=== PATIENT | male | born 1970 | race Two or more races ===

== ENCOUNTER → 2024-03-19 | Outpatient (CLI) | payer MEDICAID, SELFPAY ==
--- NOTE | 2024-03-19 15:20 | XR_ITS ---
Examination: Thoracic spine 3 views Technique one AP lateral coned lateral upper dorsal spine 3 views Exam date and time: March 19, 2024 1538 hours INDICATIONS: Back pain this month FINDINGS: Thoracic levoscoliosis 10 degrees No thoracic fracture Mild thoracic spondylosis Mild diffuse thoracic degenerative disc disease IMPRESSION: Mild diffuse thoracic degenerative disc disease
--- NOTE | 2024-03-19 15:20 | XR_ITS ---
Examination: Lumbar spine, 5 views Technique: Lumbar spine AP, lateral, coned lateral lower lumbar spine, bilateral obliques 5 views Exam date and time: March 19, 2024 1528 hours INDICATIONS: Low back pain months. FINDINGS: Mild osteopenia No lumbar fracture Moderate to advanced degenerative disc disease L4-L5, L5-S1 No spondylolisthesis IMPRESSION: Moderate to advanced lumbar degenerative disc disease L4-L5, L5-S1
== END | disposition home or self-care (01) ==
PROVIDERS: PCP Nurse Practitioner Family; Referring Provider Nurse Practitioner Family; Visit Provider Nurse Practitioner Family
DX: M51.34 Other intervertebral disc degeneration, thoracic region (principal); M51.369 Other intervertebral disc degeneration, lumbar region without mention of lumbar back pain or lower extremity pain; M51.379 Other intervertebral disc degeneration, lumbosacral region without mention of lumbar back pain or lower extremity pain
CPT/HCPCS: 72072; 72110

== ENCOUNTER 2024-06-09 16:13 | Emergency (ER) | payer MEDICAID, SELFPAY ==
[2024-06-09 16:23] VITALS: BP 162/95; PULSE 86; RESP 18; TEMP 37.1; O2SAT 95
--- NOTE | 2024-06-09 16:40 | XR_ITS ---
Examination: CT abdomen with intravenous contrast CT pelvis with intravenous contrast 2-D coronal reconstructions 2-D sagittal reconstructions Date and time of exam:June 09, 2024 2030 hrs. Comparison February 07, 2016 Indications: Lower right-sided flank pain abdominal pain beginning 3 days ago. CTDI: vol (mGy) 6.60 DLP: (mGycm) 392 Technique: Multiple axial sections of the abdomen and pelvis have been obtained. 64 slice high-resolution scanner used. 3 mm axial sections have been obtained, post intravenous injection 60 cc Isovue-370 2-D sagittal, coronal reconstructions obtained. Low dose protocols were performed. One or more of the following dose reduction techniques were used; automated exposure control, adjustment of the mA and/or KV according to patient size, use of iterative reconstruction technique. Findings: Multiple liver lesions, the largest in left lobe 35 mm, the largest in the right lobe 34 mm Absent gallbladder Necrotic mass tail of the pancreas 48 x 49 mm Spleen is not enlarged No adrenal mass Subcentimeter left lateral periaortic lymph nodes No hydronephrosis Normal appendix No bowel obstruction Colonic diverticulosis Urinary bladder intact No prostatomegaly Advanced degenerative disc disease L5-S1 Impression: Necrotic mass tail the pancreas, 48 x 49 mm, pancreatic carcinoma Multiple hepatic metastases
--- NOTE | 2024-06-09 16:41 | EDRME_ITS ---
Rapid Medical Screening Exam [facility] Arrival date/time: 06/09/24 16:13 54-year-old male presents to the emergency department plaint of right epigastric pain x 2 weeks with 15 pound. Chief Complaint: Abdominal Pain Vital signs: Vital Signs Temperature 98.8 F 06/09/24 16:23 Pulse Rate 86 06/09/24 16:23 Respiratory Rate 18 06/09/24 16:23 Blood Pressure 162/95 H 06/09/24 16:23 Pulse Oximetry (%) 95 06/09/24 16:23 Oxygen Delivery Method Room Air 06/09/24 16:23
[2024-06-09 17:32] LABS: Collection Type, Urine Clean Catch; Squamous Epithelial Cell,Urine 0 /hpf (0-5)
[2024-06-09 17:40] LABS: Bilirubin,Urine Negative (Negative); Blood,Urine 1+ (Negative); Clarity,Urine Clear (Clear/Hazy); Color,Urine Yellow (Lt Yel-Yel); Glucose, Urine Negative (Negative); Ketones,Urine Trace (Negative); Leukocyte Esterase,Urine Negative (Negative); Nitrite,Urine Negative (Negative); PH,Urine 6.5 (5.0-7.0); Protein,Urine Trace (Neg - Trace); RBC,Urine 3 /hpf (0-3); Specific Gravity,Urine 1.032 (1.001-1.035); WBC,Urine 1 /hpf (0-5)
[2024-06-09 17:57] LABS: Basophils # (Auto) 0.1 Thou/mm3 (0.0-0.2); Basophils % (Auto) 1 % (0-2.5); Eosinophils # (Auto) 0.1 Thou/mm3 (0.0-0.5); Eosinophils % (Auto) 1 % (0-10); Hematocrit 40.3 % (41.0-53.0); Hemoglobin 13.5 g/dL (13.5-16.0); Immature Granulocytes % (Auto) 1 % (0-0); Immature Granulocytes Auto 0.08 Thou/mm3 (0.00-0.00); Lymphocytes # (Auto) 1.9 Thou/mm3 (1.0-4.8); Lymphocytes % (Auto) 16 % (10-50); Mean Corpuscular HGB Conc 33.5 g/dl (31.0-37.0); Mean Corpuscular Hemoglobin 30.4 pg (25.0-35.0); Mean Corpuscular Volume 91 fL (80-100); Monocytes # (Auto) 1.3 Thou/mm3 (0.0-0.8); Monocytes % (Auto) 11 % (0-12); Neutrophils # (Auto) 8.4 Thou/mm3 (1.8-7.7); Neutrophils % (Auto) 71 % (37-80); Nucleated Red Blood Cell % 0 /100 WBC (0); Platelet Count 276 Thou/mm3 (140-440); RDW Standard Deviation 40.3 fL (35.1-43.9); Red Blood Count 4.44 Miln/mm3 (4.50-5.90); White Blood Count 11.8 Thou/mm3 (3.8-10.6)
[2024-06-09 18:13] LABS: Alanine Aminotransferase 26 U/L (10-49); Albumin, Serum 5.1 gm/dL (3.5-5.0); Albumin/Globulin Ratio 1.6 (1.2-2.2); Alkaline Phosphatase 164 U/L (46-116); Anion Gap 10 (7-16); Aspartate Amino Transferase 19 U/L (0-34); BUN/Creatinine Ratio 16 Ratio (12-20); Bilirubin,Total 0.6 mg/dL (0.3-1.2); Blood Urea Nitrogen 13 mg/dL (9-23); Calcium 10.2 mg/dL (8.3-10.6); Calcium (Corrected) 10.2 mg/dL (8.5-10.1); Carbon Dioxide 27.6 mMol/L (20.0-31.0); Chloride 104 mMol/L (98-107); Creatinine (Component) 0.8 mg/dL (0.6-1.3); Globulin 3.2 gm/dL (2.3-3.5); Glucose 115 mg/dL (74-106); Lipase 35 U/L (12-53); Osmolality,Calculated 284 (275-295); Potassium 3.7 mMol/L (3.4-5.1); Sodium 142 mMol/L (136-145); Total Protein 8.3 gm/dL (5.7-8.2); eGFR > 60 See Note
--- NOTE | 2024-06-09 21:53 | PD.EDABDPN ---
ED Abdominal Pain RME/HPI General Chief Complaint: Abdominal Pain Stated complaint: ABD PAIN X MAR; VOMITNG, DIARRHEA Time seen by provider: 06/09/24 20:58 Arrival date/time: 06/09/24 16:13 RME / HPI RME / HPI narrative: 06/09/24 16:13 54-year-old male presents to the emergency department plaint of right epigastric pain x [address] Bernal?s Main ED Evaluation: 54yo male presents to the ED for a chief complaint of epigastric pain x March. Patient states he started having epigastric pain 2 months ago, reporting it's progressively gotten worse over the last 2 weeks. Patient states he recently started seeing a new PCP, but has only done bloodwork for his symptoms. Patient endorses having a decreased appetite, feeling generally weak, and losing 15 pounds over the last 3 weeks. He endorses taking Tylenol at home without any alleviation of symptoms, so he came in for evaluation. He denies any nausea, vomiting, fever, chills or any other associated symptoms. PSH includes cholecystectomy. Related Data Home Medications ?Medication ?Instructions ?Recorded ?Confirmed ergocalciferol (vitamin D2) 1,250 1 cap PO QWEEK 11/13/21 11/14/21 mcg (50,000 unit) capsule (Vitamin D2) lisinopril 10 mg tablet 1 tab PO DAILY 11/13/21 11/14/21 rimegepant 75 mg disintegrating 1 tab PO DAILY 11/13/21 11/14/21 tablet (Nurtec ODT) sertraline 25 mg tablet 1 tab PO DAILY 11/13/21 11/14/21 Held on 11/14/21. Instructions: Resume on 11/15/21. Previous Rx's ?Medication ?Instructions ?Recorded alprazolam 0.25 mg disintegrating 0.25 mg PO BID PRN anxiety #10 tabs 04/28/18 tablet Held on 11/14/21. Instructions: Resume on 11/15/21. ondansetron 4 mg disintegrating 4 mg PO Q6H PRN nausea and 06/09/24 tablet vomiting #20 tabs oxycodone 5 mg capsule 5 mg PO Q6H PRN pain 5 days #20 06/09/24 caps Allergies Allergy/AdvReac Type Severity Reaction Status Date / Time erythromycin base Allergy Mild Rash Verified 06/09/24 16:15 amoxicillin Allergy Unknown Verified 06/09/24 16:15 PERSIMMON Allergy Mild FLU LIKE Uncoded 06/09/24 16:15 SYMPTOM Review of Systems Review of Systems Systems Reviewed: All systems reviewed, normal except as documented Past Medical History Past Medical History NEUROLOGIC: Positive Neurological Disorders and Migraine; Negative Seizures CARDIAC: Positive Hypercholesterolemia (NO MEDS) and Hypertension; Negative Cardiac Disorders or Congestive Heart Failure RESPIRATORY: Negative Chronic Obstructive Pulmonary Disease (COPD), Asthma or Sleep Apnea GASTROINTESTINAL: Negative Gastrointestinal Disorders GENITOURINARY: Negative Genitourinary Disorders or Renal Disease MUSCULOSKELETAL: Negative Musculoskeletal Disorders ENDOCRINE: Negative Diabetes Mellitus Type 1 or Diabetes Mellitus Type 2 HEMATOLOGIC: Negative Sickle Cell Disease PSYCHO/SOCIAL: Positive Anxiety and Post Traumatic Stress Disorder OTHER HISTORY: Positive Anesthesia Reactions (n/v) and Chicken Pox; Negative Blood Transfusions, Measles, Mumps or Cancer Family History FAMILY HISTORY: Positive Family Cancer (FATHER - COLORECTAL CANCER) Surgical History SURGICAL: Negative Cardiac Surgery, Endocrine Surgery or Ear Surgery Social History SMOKING STATUS: Never smoker ED Exam Narrative Physical exam: GENERAL APPEARANCE: alert and oriented x 4, no acute distress VITALS: All vitals were reviewed and the pulse ox is 95% on room air, which is normal according to my interpretation. HEENT: Normocephalic, atraumatic; pupils equal, round, reactive to light; EOMI; mucous membranes pink, moist; oropharynx clear NECK: Supple LUNGS: CTABL; no wheezes, no rales, no rhonchi HEART: Regular rate, regular rhythm; normal S1, S2; no murmurs ABDOMEN: non distended; normal BS; soft, mild epigastric and RUQ tenderness, no guarding, no rebound; no masses, no organomegaly, no hernia BACK: no CVA tenderness EXTREMITIES: atraumatic; no edema NEUROLOGIC: awake; alert and oriented x4; cranial nerves II-XII grossly intact; no focal sensory or motor deficits PSYCHIATRIC: appropriate mood and affect SKIN: warm, dry, normal color; no rashes Course Quality Measures none Orders Category Date Time Status CT Screening NOW Care 06/09/24 16:40 Completed IV [Insert IV] NOW Care 06/09/24 16:[address] abdomen pelvis w con Stat Exams 06/09/24 16:40 Completed CBC Stat Lab 06/09/24 17:14 Completed Comprehensive Metabolic Panel Stat Lab 06/09/24 17:14 Completed Lipase Stat Lab 06/09/24 17:14 Completed Urinalysis Stat Lab 06/09/24 17:11 Completed Vital Signs Vital signs: Vital Signs Temperature 98.8 F 06/09/24 16:23 Pulse Rate 86 06/09/24 16:23 Respiratory Rate 18 06/09/24 16:23 Blood Pressure 162/95 H 06/09/24 16:23 Pulse Oximetry (%) 95 06/09/24 16:23 Oxygen Delivery Method Room Air 06/09/24 16:23 Abdominal Pain MDM MDM Narrative MDM Narrative:: Scribe Attestation: 06/09/24 - Cindy Avalos am scribing for and in the presence of Dr. Bernal. Patient data External records reviewed:: [facility] previous records (Per chart review, patient has no relevant previous ED visits.) Clinical information provided by:: patient Social determinants that could affect healthcare access:: none Patient has the following chronic illnesses:: HTN How is presenting disease/condition affected by chronic disease/condition?: uneffected by Evaluation data The following diagnostics were reviewed and interpreted by me:: lab results and radiology exam(s) Lab and/or radiology exams considered but not ordered:: none Interpretation Summary: WBC count is 11.8, AST is elevated, UA is unremarkable, according to my interpretation. [facility] Report Signed Patient: ANNIE FAY [facility]. Record#: [id number] Birthdate: 1970 Age/Sex: 54 / M Location: [facility] Attending Dr: Ordering Physician: Luciano Greenwood PA-C Date of Service: 06/09/24 Procedure(s): CT abdomen pelvis w con Accession Number(s): [id number] cc: Benjie Carlin; Evan Jones MD; Luciano Greenwood PA-C~ Examination: CT abdomen with intravenous contrast CT pelvis with intravenous contrast 2-D coronal reconstructions 2-D sagittal reconstructions Date and time of exam:June 09, 2024 2030 hrs. Comparison February 07, 2016 Indications: Lower right-sided flank pain abdominal pain beginning 3 days ago. CTDI: vol (mGy) 6.60 DLP: (mGycm) 392 Technique: Multiple axial sections of the abdomen and pelvis have been obtained. 64 slice high-resolution scanner used. 3 mm axial sections have been obtained, post intravenous injection 60 cc Isovue-370 2-D sagittal, coronal reconstructions obtained. Low dose protocols were performed. One or more of the following dose reduction techniques were used; automated exposure control, adjustment of the mA and/or KV according to patient size, use of iterative reconstruction technique. Findings: Multiple liver lesions, the largest in left lobe 35 mm, the largest in the right lobe 34 mm Absent gallbladder Necrotic mass tail of the pancreas 48 x 49 mm Spleen is not enlarged No adrenal mass Subcentimeter left lateral periaortic lymph nodes No hydronephrosis Normal appendix No bowel obstruction Colonic diverticulosis Urinary bladder intact No prostatomegaly Advanced degenerative disc disease L5-S1 Impression: Necrotic mass tail the pancreas, 48 x 49 mm, pancreatic carcinoma Multiple hepatic metastases Dictated By: Evan Jones MD Signed By: <Electronically signed by Evan Jones MD in OV> 06/09/24 6752 Medications / Prescriptions Medications or Prescriptions considered but not ordered:: none Medication administrations:: see above Consultations Consultation(s) initiated? (list below): No Diagnosis Differential diagnosis abdominal pain: pancreatitis and other (cholecystitis, cholelithiasis, gastritis) Most likely diagnosis given after review of the tests above:: see clinical impression below Admission Indicated Admission indicated?: not indicated Admission Request Was there a request for admission?: No Disposition Plan Disposition Plan: Discharge Discharge Attestation Discharge Attestation: The patient and all family members were given an opportunity to ask questions and understood the discharge instructions. Discharge instructions specifically effects, indications for sooner follow up or return to the emergency department, and the expected course of current diagnosis. Patient condition: Stable Discharge Plan Plan Patient Disposition: HOME (Self Care) Disposition Comment: Stable for discharge home Patient condition on transfer: Stable Prescriptions/Referrals Prescriptions/Med Rec: New oxycodone 5 mg capsule 5 mg PO Q6H MDD 4 caps PRN (Reason: pain) 5 Days Qty: 20 0RF ondansetron 4 mg tablet,disintegrating 4 mg PO Q6H PRN (Reason: nausea and vomiting) Qty: 20 0RF No Action alprazolam 0.25 mg tablet,disintegrating 0.25 mg PO BID PRN (Reason: anxiety) Qty: 10 0RF lisinopril 10 mg tablet 1 tab PO DAILY Patient Comments: take 1 tablet by mouth once daily sertraline 25 mg tablet 1 tab PO DAILY Patient Comments: take 1 tablet by mouth once daily ergocalciferol (vitamin D2) [Vitamin D2] 1,250 mcg (50,000 unit) capsule 1 cap PO QWEEK Patient Comments: take 1 capsule by mouth every week Nurtec ODT 75 mg tablet,disintegrating 1 tab PO DAILY Patient Comments: take 1 tablet by mouth every other day Referrals: Benjie Carlin FNP [Primary Care Provider] - In 1 week Problem List Clinical Impression: Pancreatic mass Patient/Caregiver Discharge Instructions Discharge Activity: activity as tolerated Diet Instructions: No dietary restrictions Additional Instructions: After being discharged from the ER for a pancreatic mass, it's crucial to?follow any specific instructions provided by your doctor or nurse regarding medication, diet, and activity restrictions.?Generally, you'll need to follow up with your doctor, potentially undergo further tests, and be aware of potential symptoms to watch for.? Immediate Home Care: Follow up with your doctor:Schedule a follow-up appointment as directed to discuss the results of imaging studies and potential treatment options, according to a report by the [employer] [place].Medication:Take all prescribed medications as directed by your doctor, including pain relievers, anti-nausea medications, and other treatments for pancreatic cancer.?Diet:Follow any specific dietary instructions provided by your doctor or a registered dietitian.?This may include limiting fat intake, eating smaller, more frequent meals, and avoiding certain foods.?Activity:Follow any activity restrictions provided by your doctor.?You may need to avoid heavy lifting, strenuous exercise, or other activities that could strain your body, according to a study published in the [place] Journal of Surgery.? Print Language: Colombian Stand Alone Forms: Annie Award Info., Patient Portal Info Letter
--- NOTE | 2024-06-10 15:32 | EDNOTE_ITS ---
Emergency Room Addendum Addendum Narrative: I was called by the pharmacy at [facility] for this patient because they did not have the capsules in stock and wanted to substitute tablets. Unfortunate was busy with other patients at the time so later on at 1531 I canceled the other prescription and sent the tablets over this was rejected by the electronic system so I called the pharmacy and the pharmacist tells me that they sent the patient to another sister pharmacy to get the capsules and the prescription was filled as originally written. Note my computer shows we canceled the prescription and obviously that is an error at this point but uncertain how to get this corrected electronically. This is a service documentation for that.
== END 2024-06-09 22:40 | disposition home or self-care (01) ==
PROVIDERS: Physician Assistant; Emergency Provider Emergency Medicine
DX: K86.89 Other specified diseases of pancreas (principal)
CPT/HCPCS: 36415; 74177; 80053; 81001; 83690; 85025; 99285; A4649; Q9967

== ENCOUNTER 2024-06-30 08:49 | Outpatient (RCR) | payer MEDICAID, SELFPAY ==
--- NOTE | 2024-07-08 14:16 | CTCCONSULT_ITS ---
Patient: ANNIE FAY : 1970 MR#: [id number] Page 3 of 4 CONSULTATION NOTE DATE OF CONSULTATION: 06/30/2024 NAME: ANNIE FAY ACCOUNT: [id number] : 1970 AGE: 54 REFERRING PHYSICIAN: Benjie Carlin MD PRIMARY PHYSICIAN: Benjie Carlin MD HISTORY OF PRESENT ILLNESS: Subjective: Chief Complaint Abnormal CT scan findings in pancreas and liver, 20-pound weight loss since February, abdominal pain since February History of Present Illness Sharan Sparks presents with concerns of a possible pancreatic mass discovered on a recent CT scan during a hospital visit. The patient reports significant weight loss of about 20 pounds since February, which is approximately 5 months ago. The patient describes experiencing pain that began in February, for which he was initially prescribed oxycodone in the emergency room. However, the oxycodone was ineffective in managing his pain, and he is currently using morphine for long- term pain relief. The pain is described as severe, which is consistent with pancreatic cancer. The patient's history includes smoking and alcohol use. He began smoking at age 19, initially a pack at a constitution party, then abstained until age 20. During his school years, he smoked approximately one pack every 3-4 weeks. His alcohol consumption was primarily limited to weekends with friends, never drinking alone or as an escape. He reports being unable to consume more than two drinks at a time and at most, drinking two drinks per week sporadically. The patient states he hasn't had alcohol for 3-4 years and smoked his last cigarette 8 months ago. The patient denies any current vomiting or inability to hold down food, which would indicate obstruction. He also denies any significant history of alcohol use that would increase his risk of pancreatic cancer. Medications and Supplements - Morphine - For long-term pain relief - Oxycodone (Oxy) - Prescribed by ER for pain - Didn't work effectively Review of Systems General: Positive for weight loss. Gastrointestinal: Positive for abdominal pain. Objective: Vital Signs - Weight: 20 pounds lost since February Laboratory, Imaging, and Diagnostic Test Results - CT scan: Abnormal findings in pancreas and liver, suggestive of pancreatic cancer with metastasis to liver OTHER MEDICAL HISTORY/CONDITIONS: Mass pancreatice tail with probable liver metastasis - GERD Depression/ Anxiety Cholecystectomy - 2016 Repear of Luz- Wiess tear- 1998 FAMILY HISTORY: Father:?Colon?-?dx?60's Mother:?Basal?cell?skin?-?dx?35 Cancer History:?Mat grandfather- lung - dx 60's SOCIAL HISTORY: Occupational?History:?Unemployed Education?Level:?College Graduate, 2 year degree Marital?Status:? Tobacco?Use:?Denies ETOH?Use:?Denies Drug?Note:?Smoke marijuana daily x 10yrs Social?History?Note:?Lives?alone MEDICATIONS: 1. acetaminophen - 650 mg 1 tab Three times a day 2. cetirizine - 10 mg 1 tab Daily 3. DULoxetine - 40 mg 1 Capsule Daily 4. fluticasone furoate - 27.5 mcg/actuation 1 spray Daily 5. metoclopramide HCl - 10 mg 1 tab Every 8 Hours 6. Morphine Sulfate CR - 15 mg 1 tab Twice a Day 7. Nurtec ODT - 75 mg 1 tab Every other day 8. omeprazole - 20 mg 1 Capsule Daily 9. Vitamin D2 - 1,250 mcg (50,000 unit) 1 Capsule Weekly 10. ZOFRAN ODT - 4 mg 1 tab Every 6 Hours Medications Last Reconciled by Monique Farmer RN on 06/30/2024 ALLERGIES: Penicillins; erythromycin REVIEW OF SYSTEMS: A complete 14-point review of systems was performed and is negative except as noted in interval history. PHYSICAL EXAMINATION: VITAL SIGNS: Temperature?99.9, B/P?131/84, Height?67?inches, Oxygen?Saturation?93% Weight?157?lbs PAIN: 6 - Severe pain ECOG Performance Status: 1 - Symptomatic; ambulatory; restricted in strenuous activity GENERAL APPEARANCE: Appears well, in no apparent distress, appropriately interactive. HEENT: Normocephalic, no temporal wasting, normal conjunctiva, no scleral icterus, normal hearing, lips without lesions, neck normal range of motion. CARDIOVASCULAR: Not assessed. PULMONARY: Normal respiratory effort, no respiratory distress or use of accessory muscles, speaking in full sentences, no tachypnea. EXTREMITIES: No pedal edema or cyanosis. SKIN: Normal skin appearance. NEUROLOGIC: Alert and oriented x4. PSHYCHIATRIC: Appropriate affect, mood normal, behavior normal, intact thought and speech. LABORATORY DATA: I have personally reviewed and interpreted each of the patient?s relevant lab tests, abnormal findings are below: Date ASSESSMENT/PLAN: Assessment and Plan: Sharan Sparks, male patient with suspected pancreatic cancer based on recent CT scan findings, presenting with significant weight loss and pain since February. Suspected Pancreatic Cancer Assessment: Patient presents with suspected pancreatic cancer based on recent CT scan findings showing a mass in the pancreas and liver. Significant weight loss of 20 pounds since February and pain requiring morphine for long-term relief support this suspicion. The patient has a history of intermittent smoking since age 19 (last cigarette 8 months ago) and moderate alcohol consumption in his 40s (abstinent for 3-4 years), which are risk factors for pancreatic cancer. However, the extent of smoking and alcohol use is less than initially thought, potentially reducing the likelihood of pancreatic cancer. Symptoms have been present for approximately 5 months, indicating potential disease progression. Di fferential diagnosis includes other hepatobiliary conditions. Confirmation of diagnosis is pending further testing and specialist evaluation. Plan: - Order CA19-9 blood test today for pancreatic cancer screening - Order alpha-fetoprotein test for liver cancer screening - Refer to hepatobiliary surgeon for diagnostic evaluation (not surgery) - Refer to radiology for biopsy (expected 2-3 weeks for scheduling) - Refer to Dr. Landers for pain management - Order hepatitis screening - Place orders for chemotherapy preparation (pending diagnosis confirmation) - Schedule port placement for potential chemotherapy (pending diagnosis confirmation) - Develop chemotherapy plan (pending diagnosis confirmation) - Follow up in 3 weeks to review test results and specialist evaluations Chronic Pain Assessment: Patient reports chronic pain since February, initially managed with oxycodone in the emergency room, which was ineffective. Currently on morphine for long-term pain relief, which appears to be more effective. Pain is potentially related to the suspected pancreatic mass. Plan: - Refer to Dr. Landers for pain management - Continue current pain management regimen (morphine, dosage not specified) pending pain specialist evaluation ORDERS: Order # Description [id number] MD Follow Up 4 Week [id number] Comprehensive Metabolic Panel - 12 + CBC with Auto Diff [id number] CA 19-9 [id number] CA 15-3 [id number] CA 19-9 + Comprehensive Metabolic Panel - 12 + CBC with Auto Diff + MD Follow Up 2 Months [id number] + Hep A, B and C panel [id number] MD Follow Up 3 Week [id number] [facility] RETURN TO CLINIC: 3 weeks BILLING AND COMPLIANCE: I reviewed external records from providers outside my specialty as summarized above. I spent a total of 50 minutes on this patient?s care on the day of their visit excluding time spent related to any billed procedures. This time includes time spent with the patient as well as time spent documenting in the medical record, reviewing patients records and tests, obtaining history, placing orders, communicating with other healthcare professionals, counseling the patient, family or caregiver, and/or care coordination for the diagnoses above. Electronically Signed by: Rex Pascual MD T: 9:51 PM CC: PCP: Benjie Carlin Referring: Benjie Carlin This document was completed utilizing speech recognition software. Grammatical errors, random word insertions, pronoun errors, and incomplete sentences are an occasional consequence of this system due to software limitations, ambient noise, and hardware issues. Any formal questions or concerns about the content, text or information contained within the body of this dictation should be directly addressed to the provider for clarification.
== END 2024-07-17 23:59 | disposition home or self-care (01) ==
LOC: SCTC 08:49
PROVIDERS: Visit Provider Internal Medicine Hematology & Oncology
DX: K86.89 Other specified diseases of pancreas (principal); K76.89 Other specified diseases of liver; R63.4 Abnormal weight loss; G89.29 Other chronic pain
CPT/HCPCS: 99213; G0463

== ENCOUNTER 2024-07-05 08:41 | Inpatient (IN) | payer MEDICAID, SELFPAY ==
[2024-07-05] VITALS (10 sets, daily range): BP systolic 112–144; BP diastolic 67–79; PULSE 78–125; RESP 16–95; TEMP 36.5–38.9; O2SAT 95–98; BMI 24.2; BMI 24.6
--- NOTE | 2024-07-05 09:02 | PC.NURSE ---
PT BROUGHT IN BY EMS FOR FEVER FOR THE LAST WEEK ON AND OFF. PT STATES THAT HE WAS WITH HIS FATHER THIS MORNING AND WAS NOTED TO BE OFF SO WAS BROUGHT IN FOR EVALUATION. PT STATES THAT HE DOSE HAVE A HX OF A PANCREATIC MASS THAT HE'S WAITING TO GET A BX DONE ON. PT IS A/O X4 AT THIS TIME. PT DOES C/O PAIN TO THE BACK AND ABD. PT RATES PAIN AT 5-[address] MACHADOIQ AT BEDSIDE.
--- NOTE | 2024-07-05 09:45 | EKG_ITS ---
[facility] (Formerly [facility])[3] Test Date: 2024-07-05 Pat Name: ANNIE FAY Department: Room: - Gender: Male Fitness Supervisor: : 1970 Requested By: Samuel Zarate Order Number: [id number] Reading MD: Samuel Zarate Measurements Intervals [place] Rate: 89 P: 49 MS: 160 QRS: 31 QRSD: 106 T: 36 QT: 347 QTc: 424 Interpretive Statements SINUS RHYTHM WITH OCCASIONAL VENTRICULAR PREMATURE COMPLEXES POSSIBLE LEFT ATRIAL ENLARGEMENT [-0.1mV P-WAVE IN V1/V2] Compared to ECG 11/05/2022 00:42:48 Ventricular premature complex(es) now present /store/S0/[id number]/ecg/[id number].pdf
--- NOTE | 2024-07-05 09:45 | XR_ITS ---
Examination: AP chest single view Technique one AP portable upright chest single view Date and time: July 05, 2024 0954 hours Comparison 11/05/2022 INDICATIONS: Coughing today sepsis alert FINDINGS: Subsegmental atelectasis in the left upper lobe No lobar pneumonia Normal heart size IMPRESSION: No lobar pneumonia
--- NOTE | 2024-07-05 09:52 | PD.EDADULT ---
ED General RME/HPI General Chief complaint: Fever Stated complaint: NAUSEA, VOMITING FEVER Time Seen by Provider: 07/05/24 08:50 Arrival date/time: 07/05/24 08:41 RME / HPI RME / HPI narrative: This patient is a 54-year-old male with past medical history of hypertension, history of PTSD and depression, migraines, degenerative disc disease,*?Possible pancreatic mass/ cancer due to CT from May 2024 showing pancreatic mass following oncologist, Dr. Pascual as outpatient presented to the ED with 1 week history of fever spikes spiking up to 104.2-103 F. Patient reported that fever spikes are usually in the morning and relieved temporarily with Tylenol ice water. Fever is associated with chronic abdominal pain which has been getting worse from last 1 week. Pain exacerbates with movement and he cannot lay on his back due to chronic back pain. He usually lays on his side. He rated his pain as 9 on 10 stabbing at some times and usually is dull. Pain is more in the epigastric region radiating to right upper quadrant associated with vomiting every morning since last 1 week. Patient has been constipated from last 3 days and had no bowel movement although he had passage of gas. He does have some frequency due to drinking water. He endorsed appetite loss and weight loss since May. He also reported to feel lightheaded and dizzy. Patient is currently waiting for biopsy appointment for pancreatic mass seen on the CT imaging in May 2024. Denies any recent travel or sick contacts. PMH: As above PSH: Cholecystectomy in 2016 SH: Denies smoking or drinking alcohol. No history of illicit drug use Allergies: Erythromycin and penicillin causes rash Home medications: Morphine extended release patient is elevated on dose, oxycodone 5/325 as needed for breakthrough pain, duloxetine 30 mg once daily, cetirizine Patient was tachycardic and febrile therefore sepsis alert was initiated. Vitals showed blood pressure 130/79, respiratory rate 20 and saturating well on room air. Patient was given diazepam 5 mg IV x 1 and morphine 6 mg IV x 1 in the ED. Blood sugars were 140 mg/dL. Sepsis bundle including CBC, CMP, lactic acid, INR, coagulation panel, chest x-ray, urinalysis, blood cultures and urine cultures were ordered. EKG showed sinus rhythm with occasional PVCs, QTc 394. No acute ST-T changes. Differential diagnoses include fever spikes related to possible malignancy/metastatic pancreatic cancer?, Pneumonia, UTI, advanced metastatic cancer Will follow-up with blood results. 12:25 Labs reviewed leukocytosis white count 32.1, normocytic anemia hemoglobin 10.9, hematocrit 32, platelet count 325. INR 1.2. Chemistry panel showed sodium 130, potassium 3.3, chloride 92, BUN 12, creatinine 0.7. Blood glucose 133. Lactic acid is pending. Corrected calcium 9.4. Magnesium 1.8. Liver enzymes are elevated AST 54, ALT 71, ALP 324. Procalcitonin 2.30. Urinalysis was unremarkable. U tox was not taken. CT abdominal pelvis revealed atelectasis versus pneumonia right base. Marked progression of hepatic metastatic disease compared with June 09, 2024. Enlarging mass 10 mm of the pancreas compared with June 09, 2024. Patient was given 2 L bolus of NS and PO 40 meq KCL and 1 g Mag x1. 12:30: Oncologist, Dr. Pascual was contacted for patient being in the ED. She stated that patient needs sepsis workup as his bilirubin slightly went up from 0.6->1.2 as well as she stated that we should treat the infection and try to investigate the cause. She recommended to give Levaquin 750 mg x 1 as patient is allergic to penicillin and vancomycin was given x 1. She stated that she will be doing chemotherapy as outpatient once we get the biopsy. She to follow-up with culture results before we discharge the patient. Patient was found to have oral thrush and nystatin swish and swallow was given. 12:[address] Ba hospitalist team regarding admission. Discussed patient's ED course, exam findings, labs and radiology results. Hospitalist team agreed to accept the patient for admission. complaint: Fever spikes 103 associated with abdominal pain Onset (ago): week(s) (1) Radiation: abdomen (Epigastric and right upper quadrant) Severity: severe Severity scale (1-10): 9 Quality: stabbing Consistency: intermittent Relieving factors: medication (Morphine and oxycodone) Associated symptoms: fever/chills, nausea/vomiting and other (Constipation) Treatments prior to arrival: none Related Data Home Medications ?Medication ?Instructions ?Recorded ?Confirmed ergocalciferol (vitamin D2) 1,250 1 cap PO QWEEK 11/13/21 11/14/21 mcg (50,000 unit) capsule (Vitamin D2) lisinopril 10 mg tablet 1 tab PO DAILY 11/13/21 11/14/21 rimegepant 75 mg disintegrating 1 tab PO DAILY 11/13/21 11/14/21 tablet (Nurtec ODT) sertraline 25 mg tablet 1 tab PO DAILY 11/13/21 11/14/21 Held on 11/14/21. Instructions: Resume on 11/15/21. Previous Rx's ?Medication ?Instructions ?Recorded alprazolam 0.25 mg disintegrating 0.25 mg PO BID PRN anxiety #10 tabs 04/28/18 tablet Held on 11/14/21. Instructions: Resume on 11/15/21. ondansetron 4 mg disintegrating 4 mg PO Q6H PRN nausea and 06/09/24 tablet vomiting #20 tabs oxycodone 5 mg tablet 5 mg PO Q6H PRN pain #20 tabs 06/10/24 Allergies Allergy/AdvReac Type Severity Reaction Status Date / Time erythromycin base Allergy Mild Rash Verified 07/05/24 08:46 amoxicillin Allergy Unknown Verified 07/05/24 08:46 NSAIDS (Non-Steroidal AdvReac Verified 07/05/24 10:25 Anti-Inflamma PERSIMMON Allergy Mild FLU LIKE Uncoded 07/05/24 08:46 SYMPTOM Review of Systems Review of Systems Systems Reviewed: All systems reviewed, normal except as documented Past Medical History Past Medical History NEUROLOGIC: Positive Neurological Disorders and Migraine; Negative Seizures CARDIAC: Positive Hypercholesterolemia (NO MEDS) and Hypertension; Negative Cardiac Disorders or Congestive Heart Failure RESPIRATORY: Negative Chronic Obstructive Pulmonary Disease (COPD), Asthma or Sleep Apnea GASTROINTESTINAL: Negative Gastrointestinal Disorders GENITOURINARY: Negative Genitourinary Disorders or Renal Disease MUSCULOSKELETAL: Negative Musculoskeletal Disorders ENDOCRINE: Negative Diabetes Mellitus Type 1 or Diabetes Mellitus Type 2 HEMATOLOGIC: Negative Sickle Cell Disease PSYCHO/SOCIAL: Positive Anxiety and Post Traumatic Stress Disorder OTHER HISTORY: Positive Anesthesia Reactions (n/v) and Chicken Pox; Negative Blood Transfusions, Measles, Mumps or Cancer Family History FAMILY HISTORY: Positive Family Cancer (FATHER - COLORECTAL CANCER) Surgical History SURGICAL: Negative Cardiac Surgery, Endocrine Surgery or Ear Surgery Social History SMOKING STATUS: Never smoker ED Exam Narrative Physical exam: GENERAL APPEARANCE: AxOx4, pale and weak appearing male in distress due to abdominal pain. HEENT: NC, AT. Dry mucous membrane with oral thrush. EOMI, clear conjunctiva, oropharynx with white coating. NECK: Supple without lymphadenopathy. No stiffness or restricted ROM. HEART: Sinus tachycardia with regular rhythm, normal S1/S2, no m/r/g LUNGS: CTAB, moving air well. No crackles or wheezes are heard. ABDOMEN: Soft, right upper quadrant and epigastric tenderness, nondistended with good bowel sounds heard. BACK: No CVAT, no obvious deformity. EXTREMITIES: Without cyanosis, clubbing or edema. NEUROLOGICAL: Grossly nonfocal. Alert and oriented, moving all 4 extremities. CN not formally tested but appear grossly intact. Observed to ambulate with normal gait. Skin: Warm and dry without any rash. Psych: Appropriate mood and affect Course Course Course Narrative: This patient is a 54-year-old male with past medical history of hypertension, history of PTSD and depression, migraines, degenerative disc disease,*?Possible pancreatic mass/ cancer due to CT from May 2024 showing pancreatic mass following oncologist, Dr. Pascual as outpatient presented to the ED with 1 week history of fever spikes spiking up to 104.2-103 F. Patient reported that fever spikes are usually in the morning and relieved temporarily with Tylenol ice water. Fever is associated with chronic abdominal pain which has been getting worse from last 1 week. Pain exacerbates with movement and he cannot lay on his back due to chronic back pain. He usually lays on his side. He rated his pain as 9 on 10 stabbing at some times and usually is dull. Pain is more in the epigastric region radiating to right upper quadrant associated with vomiting every morning since last 1 week. Patient has been constipated from last 3 days and had no bowel movement although he had passage of gas. He does have some frequency due to drinking water. He endorsed appetite loss and weight loss since May. He also reported to feel lightheaded and dizzy. Patient is currently waiting for biopsy appointment for pancreatic mass seen on the CT imaging in May 2024. Denies any recent travel or sick contacts. Patient was tachycardic and febrile therefore sepsis alert was initiated. Vitals showed blood pressure 130/79, respiratory rate 20 and saturating well on room air. Patient was given diazepam 5 mg IV x 1 and morphine 6 mg IV x 1 in the ED. Blood sugars were 140 mg/dL. Sepsis bundle including CBC, CMP, lactic acid, INR, coagulation panel, chest x-ray, urinalysis, blood cultures and urine cultures were ordered. EKG showed sinus rhythm with occasional PVCs, QTc 394. No acute ST-T changes. Differential diagnoses include fever spikes related to possible malignancy/metastatic pancreatic cancer?, Pneumonia, UTI Will follow-up with blood results. 12:25 Labs reviewed leukocytosis white count 32.1, normocytic anemia hemoglobin 10.9, hematocrit 32, platelet count 325. INR 1.2. Chemistry panel showed sodium 130, potassium 3.3, chloride 92, BUN 12, creatinine 0.7. Blood glucose 133. Lactic acid is pending. Corrected calcium 9.4. Magnesium 1.8. Liver enzymes are elevated AST 54, ALT 71, ALP 324. Procalcitonin 2.30. Urinalysis was unremarkable. U tox was not taken. CT abdominal pelvis revealed atelectasis versus pneumonia right base. Marked progression of hepatic metastatic disease compared with June 09, 2024. Enlarging mass 10 mm of the pancreas compared with June 09, 2024. 12:30: Oncologist, Dr. Pascual was contacted for patient being in the ED. She stated that patient needs sepsis workup as his bilirubin slightly went up from 0.6->1.2 as well as she stated that we should treat the infection and try to investigate the cause. She recommended to give Levaquin 750 mg x 1 as patient is allergic to penicillin and vancomycin was given x 1. She stated that she will be doing chemotherapy as outpatient once we get the biopsy. She to follow-up with culture results before we discharge the patient. Patient was found to have oral thrush and nystatin swish and swallow was given. 12:[address] Ba hospitalist team regarding admission. Discussed patient's ED course, exam findings, labs and radiology results. Hospitalist team agreed to accept the patient for admission. Quality Measures none Orders Category Date Time Status Admit to Inpatient Status Routine Admission 07/05/24 13:40 Active Patient Condition Routine Admission 07/05/24 13:40 Ordered Bedside Blood Glucose NOW Care 07/05/24 09:45 Active Bedside COVID-19 Antigen Test NOW Care 07/05/24 12:55 Active COVID-19 Screening Questionnaire NOW Care 07/05/24 12:[address] Screening NOW Care 07/05/24 10:34 Active Catalogue Clerk Q4H START 00 Care 07/05/24 09:45 Active Decision to Admit X1 Care 07/05/24 12:37 Completed Flu & Pneumonia Vaccine Screen ONCE Care 07/05/24 13:40 Active Insert IV NOW Care 07/05/24 09:45 Active Notify provider NEEDED Care 07/05/24 13:40 Active Strict Intake and Output Routine Care 07/05/24 09:45 Ordered Vital Signs, Non-Routine Q4H Care 07/05/24 13:45 Ordered Vital Signs, Non-Routine Q4H Care 07/05/24 17:45 Ordered Vital Signs, Non-Routine Q4H Care 07/05/24 21:45 Ordered Consult to Oncology Stat Cons 07/05/24 12:37 Ordered Diet Regular Diet 07/05/[address] abdomen pelvis w con Stat Exams 07/05/24 10:34 Completed XR chest 1V SEPSIS PROTOCOL Stat Exams 07/05/24 09:45 Completed Blood Culture (Lab) Stat Lab 07/05/24 08:07 Received CBC AM DRAW Lab 07/06/24 05:00 Ordered CBC AM DRAW Lab 07/07/24 05:00 Ordered CBC AM DRAW Lab 07/08/24 05:00 Ordered CBC Stat Lab 07/05/24 08:08 Completed CMP [Comprehensive Metabolic Panel] Stat Lab 07/05/24 08:08 Completed Comprehensive Metabolic Panel AM DRAW Lab 07/06/24 05:00 Ordered Comprehensive Metabolic Panel AM DRAW Lab 07/07/24 05:00 Ordered Comprehensive Metabolic Panel AM DRAW Lab 07/08/24 05:00 Ordered Lactate (Lactic Acid) Stat Lab 07/05/24 10:08 Completed Mag [Magnesium] Stat Lab 07/05/24 08:08 Completed Magnesium AM DRAW Lab 07/06/24 05:00 Ordered Magnesium AM DRAW Lab 07/07/24 05:00 Ordered Magnesium AM DRAW Lab 07/08/24 05:00 Ordered Partial Thromboplastin Time Stat Lab 07/05/24 08:08 Completed Procalcitonin Stat Lab 07/05/24 08:08 Completed Prothrombin Time with INR Stat Lab 07/05/24 08:08 Completed Urinalysis Stat Lab 07/05/24 10:56 Completed Urine Culture Stat Lab 07/05/24 10:56 Received Acetaminophen Tab [Tylenol Tab] Med 07/05/24 13:40 Active 650 mg PO Q6H PRN Diazepam Inj [Valium Inj] Med 07/05/24 09:32 Discontinued 5 mg IVP X1 ONE Heparin Inj Med 07/05/24 14:00 Active 5,000 unit SC Q8HR Levofloxacin/D5w 750Mg Ivpb [Levaquin Ivpb] Med 07/06/24 09:00 Active 750 mg in 150 ml IV QDAY Levofloxacin/D5w 750Mg Ivpb [Levaquin Ivpb] Med 07/05/24 12:42 Active 750 mg in 150 ml IV X1 Magnesium Sulfate 2 GM Ivpb [Magnesium Sulfate Ivpb] Med 07/05/24 12:11 Active 2 gm in 50 ml IV X1 Morphine Inj Med 07/05/24 09:32 Discontinued 6 mg IVP X1 ONE Nystatin Susp [Mycostatin Susp] Med 07/05/24 12:50 Discontinued 5 ml PO X1 ONE Ondansetron Inj [Zofran Inj] Med 07/05/24 13:40 Active 4 mg IV Q6H PRN Piper/Tazo 3.375 gm Premix [Zosyn] Med 07/05/24 12:36 Discontinued 3.375 gm in 50 ml IV X1 Potassium Chloride [K-Dur] Med 07/05/24 12:10 Discontinued 40 meq PO X1 ONE Sodium Chloride 0.9% 1000 ml [Ns] 1,000 ml Med 07/05/24 10:34 Discontinued IV 999 mls/hr Sodium Chloride 0.9% 1000 ml [Ns] 1,000 ml Med 07/05/24 10:35 Discontinued IV 999 mls/hr Vancomycin Inj 1,500 mg Med 07/05/24 13:30 Active Sodium Chloride 0.9% 500 ml [Ns] 500 ml IV X1 Vancomycin Pharmacy to Dose Med 07/05/24 12:45 Active 1 each IV QDAY Code Status Routine Oth 07/05/24 13:40 Ordered EKG (RT) Stat RT 07/05/24 09:45 Draft Oxygen Delivery NOW RT 07/05/24 09:45 Active Vital Signs Vital signs: Vital Signs Temperature 102.1 F H 07/05/24 08:45 Pulse Rate 114 H 07/05/24 08:45 Respiratory Rate 20 07/05/24 08:45 Blood Pressure 130/79 07/05/24 08:45 Pulse Oximetry (%) 95 07/05/24 08:45 Oxygen Delivery Method Room Air 07/05/24 08:45 Discharge Plan Plan Patient Disposition: Admit Acute Care w/in Hospital Prescriptions/Referrals Prescriptions/Med Rec: No Action alprazolam 0.25 mg tablet,disintegrating 0.25 mg PO BID PRN (Reason: anxiety) Qty: 10 0RF lisinopril 10 mg tablet 1 tab PO DAILY Patient Comments: take 1 tablet by mouth once daily sertraline 25 mg tablet 1 tab PO DAILY Patient Comments: take 1 tablet by mouth once daily ergocalciferol (vitamin D2) [Vitamin D2] 1,250 mcg (50,000 unit) capsule 1 cap PO QWEEK Patient Comments: take 1 capsule by mouth every week Nurtec ODT 75 mg tablet,disintegrating 1 tab PO DAILY Patient Comments: take 1 tablet by mouth every other day ondansetron 4 mg tablet,disintegrating 4 mg PO Q6H PRN (Reason: nausea and vomiting) Qty: 20 0RF oxycodone 5 mg tablet 5 mg PO Q6H MDD 4 PRN (Reason: pain) Qty: 20 0RF Problem List Clinical Impression: Fever, Abdominal pain, Sepsis Patient/Caregiver Discharge Instructions Print Language: Uzbek Stand Alone Forms: [employer] Award Info., Patient Portal Info Letter MDM Narrative MDM hospital course (for use when minimal MDM required): This patient is a 54-year-old male with past medical history of hypertension, history of PTSD and depression, migraines, degenerative disc disease,*?Possible pancreatic mass/ cancer due to CT from May 2024 showing pancreatic mass following oncologist, Dr. Pascual as outpatient presented to the ED with 1 week history of fever spikes spiking up to 104.2-103 F. Patient reported that fever spikes are usually in the morning and relieved temporarily with Tylenol ice water. Fever is associated with chronic abdominal pain which has been getting worse from last 1 week. Pain exacerbates with movement and he cannot lay on his back due to chronic back pain. He usually lays on his side. He rated his pain as 9 on 10 stabbing at some times and usually is dull. Pain is more in the epigastric region radiating to right upper quadrant associated with vomiting every morning since last 1 week. Patient has been constipated from last 3 days and had no bowel movement although he had passage of gas. He does have some frequency due to drinking water. He endorsed appetite loss and weight loss since May. He also reported to feel lightheaded and dizzy. Patient is currently waiting for biopsy appointment for pancreatic mass seen on the CT imaging in May 2024. Denies any recent travel or sick contacts. Patient was tachycardic and febrile therefore sepsis alert was initiated. Vitals showed blood pressure 130/79, respiratory rate 20 and saturating well on room air. Patient was given diazepam 5 mg IV x 1 and morphine 6 mg IV x 1 in the ED. Blood sugars were 140 mg/dL. Sepsis bundle including CBC, CMP, lactic acid, INR, coagulation panel, chest x-ray, urinalysis, blood cultures and urine cultures were ordered. EKG showed sinus rhythm with occasional PVCs, QTc 394. No acute ST-T changes. Differential diagnoses include fever spikes related to possible malignancy/metastatic pancreatic cancer?, Pneumonia, UTI Will follow-up with blood results. 12:25 Labs reviewed leukocytosis white count 32.1, normocytic anemia hemoglobin 10.9, hematocrit 32, platelet count 325. INR 1.2. Chemistry panel showed sodium 130, potassium 3.3, chloride 92, BUN 12, creatinine 0.7. Blood glucose 133. Lactic acid is pending. Corrected calcium 9.4. Magnesium 1.8. Liver enzymes are elevated AST 54, ALT 71, ALP 324. Procalcitonin 2.30. Urinalysis was unremarkable. U tox was not taken. CT abdominal pelvis revealed atelectasis versus pneumonia right base. Marked progression of hepatic metastatic disease compared with June 09, 2024. Enlarging mass 10 mm of the pancreas compared with June 09, 2024. Patient was given 2 L bolus of NS and PO 40 meq KCL and 1 g Mag x1. 12:30: Oncologist, Dr. Pascual was contacted for patient being in the ED. She stated that patient needs sepsis workup as his bilirubin slightly went up from 0.6->1.2 as well as she stated that we should treat the infection and try to investigate the cause. She recommended to give Levaquin 750 mg x 1 as patient is allergic to penicillin and vancomycin was given x 1. She stated that she will be doing chemotherapy as outpatient once we get the biopsy. She to follow-up with culture results before we discharge the patient. Patient was found to have oral thrush and nystatin swish and swallow was given. 12:[address] Ba hospitalist team regarding admission. Discussed patient's ED course, exam findings, labs and radiology results. Hospitalist team agreed to accept the patient for admission. EKG Interpretation EKG #1: EKG Interpretation: EKG showed sinus rhythm with occasional PVCs, QTc 394. No acute ST-T changes. Medication Administration(s) Medication Administration History Acetaminophen (Acetaminophen 325 Mg Tablet) 650 mg PO Q6H PRN PRN Reason: Fever >100.4 Stop: 08/04/24 13:39 Heparin Sodium (Porcine) (Heparin Sod Inj 5000 Unit/Ml Vial) 5,000 unit SC Q8HR [facility] Stop: 07/19/24 13:59 Magnesium Sulfate (Magnesium Sulfate Ivpb) 2 gm in 50 mls @ 25 mls/hr IV X1 ONE Stop: 07/05/24 14:10 Last Admin: 07/05/24 12:41 Dose: 25 mls/hr Documented By: DEVORA Levofloxacin/Dextrose (Levaquin Ivpb) 750 mg in 150 mls @ 100 mls/hr IV X1 ONE Stop: 07/05/24 14:11 Last Admin: 07/05/24 13:01 Dose: 100 mls/hr Documented By: DEVORA Vancomycin HCl 1,500 mg/ (Sodium Chloride) 500 mls @ 198 mls/hr IV X1 ONE Stop: 07/05/24 16:01 Levofloxacin/Dextrose (Levaquin Ivpb) 750 mg in 150 mls @ 100 mls/hr IV QDAY [facility] Stop: 07/13/24 08:59 Ondansetron HCl (Ondansetron Inj 2 Mg/Ml Inj 2 Ml) 4 mg IV Q6H PRN; Protocol PRN Reason: NAUSEA OR VOMITING Stop: 08/04/24 13:39 Pharmacy Consult (Vancomycin Pharmacy To Dose 1 Each Each) 1 each IV QDAY [facility] Stop: 08/04/24 12:44 Last Admin: 07/05/24 13:05 Dose: 1 each Documented By: DEVORA Discontinued Medications Diazepam (Diazepam Inj 5 Mg/Ml Vial 2 Ml) 5 mg IVP X1 ONE Stop: 07/05/24 09:33 Last Admin: 07/05/24 12:46 Dose: Not Given Documented By: DEVORA Non-Admin Reason: Change of Condition Sodium Chloride (Ns) 1,000 mls @ 999 mls/hr IV .Q1H1M ONE Stop: 07/05/24 11:34 Last Infusion: 07/05/24 13:04 Dose: Infused Documented By: Admin: 07/05/24 10:37 Dose: 999 mls/hr Documented By: DEVORA Sodium Chloride (Ns) 1,000 mls @ 999 mls/hr IV .Q1H1M ONE Stop: 07/05/24 11:35 Last Infusion: 07/05/24 13:04 Dose: Infused Documented By: Admin: 07/05/24 11:43 Dose: 999 mls/hr Documented By: VRS Piperacillin/Tazobactam/Dextrose (Zosyn) 3.375 gm in 50 mls @ 100 mls/hr IV X1 ONE Stop: 07/05/24 13:05 Last Admin: 07/05/24 12:45 Dose: Not Given Documented By: DEVORA Non-Admin Reason: Cancelled by Provider Morphine Sulfate (Morphine Sulf Inj 10 Mg/Ml Vial) 6 mg IVP X1 ONE Stop: 07/05/24 09:33 Last Admin: 07/05/24 10:15 Dose: 6 mg Documented By: DEVORA Nystatin (Nystatin Susp 5 Ml Udc) 5 ml PO X1 ONE Stop: 07/05/24 12:51 Potassium Chloride (Potassium Chloride 20 Meq Tabcr) 40 meq PO X1 ONE Stop: 07/05/24 12:11 Last Admin: 07/05/24 12:41 Dose: 40 meq Documented By: DEVORA Consultations/Discussions re: Management Consult #1: Date/time: 07/05/24 12:49 pm Physician, specialty, service, details: 12:30: Oncologist, Dr. Pascual was contacted for patient being in the ED. She stated that patient needs sepsis workup as his bilirubin slightly went up from 0.6->1.2 as well as she stated that we should treat the infection and try to investigate the cause. She recommended to give Levaquin 750 mg x 1 as patient is allergic to penicillin and vancomycin was given x 1. She stated that she will be doing chemotherapy as outpatient once we get the biopsy. She to follow-up with culture results before we discharge the patient. Patient was found to have oral thrush and nystatin swish and swallow was given. Diagnosis Diagnoses ruled out and/or further discussions: Fever spikes related to possible malignancy/metastatic pancreatic cancer?, Pneumonia, UTI 12:25 Labs reviewed leukocytosis white count 32.1, normocytic anemia hemoglobin 10.9, hematocrit 32, platelet count 325. INR 1.2. Chemistry panel showed sodium 130, potassium 3.3, chloride 92, BUN 12, creatinine 0.7. Blood glucose 133. Lactic acid is pending. Corrected calcium 9.4. Magnesium 1.8. Liver enzymes are elevated AST 54, ALT 71, ALP 324. Procalcitonin 2.30. Urinalysis was unremarkable. U tox was not taken. CT abdominal pelvis revealed atelectasis versus pneumonia right base. Marked progression of hepatic metastatic disease compared with June 09, 2024. Enlarging mass 10 mm of the pancreas compared with June 09, 2024. Patient was given 2 L bolus of NS and PO 40 meq KCL and 1 g Mag x1. 12:30: Oncologist, Dr. Pascual was contacted for patient being in the ED. She stated that patient needs sepsis workup as his bilirubin slightly went up from 0.6->1.2 as well as she stated that we should treat the infection and try to investigate the cause. She recommended to give Levaquin 750 mg x 1 as patient is allergic to penicillin and vancomycin was given x 1. She stated that she will be doing chemotherapy as outpatient once we get the biopsy. She to follow-up with culture results before we discharge the patient. Patient was found to have oral thrush and nystatin swish and swallow was given. 12:[address] Ba hospitalist team regarding admission. Discussed patient's ED course, exam findings, labs and radiology results. Hospitalist team agreed to accept the patient for admission.
[2024-07-05] MEDS: MORPHINE SULF INJ 10 MG/ML VIAL 6 MG IVP (10:15)
[2024-07-05 10:16] LABS: Lactate (Lactic Acid) 1.3 mMol/L (0.4-2.0)
[2024-07-05 10:21] LABS: Basophils # (Auto) 0.1 Thou/mm3 (0.0-0.2); Basophils % (Auto) 0 % (0-2.5); Eosinophils # (Auto) 0.1 Thou/mm3 (0.0-0.5); Eosinophils % (Auto) 0 % (0-10); Hemoglobin 10.9 g/dL (13.5-16.0); Immature Granulocytes % (Auto) 1 % (0-0); Immature Granulocytes Auto 0.37 Thou/mm3 (0.00-0.00); Lymphocytes # (Auto) 0.7 Thou/mm3 (1.0-4.8); Lymphocytes % (Auto) 2 % (10-50); Mean Corpuscular HGB Conc 34.1 g/dl (31.0-37.0); Mean Corpuscular Hemoglobin 29.5 pg (25.0-35.0); Mean Corpuscular Volume 87 fL (80-100); Monocytes # (Auto) 3.4 Thou/mm3 (0.0-0.8); Monocytes % (Auto) 10 % (0-12); Neutrophils # (Auto) 28.5 Thou/mm3 (1.8-7.7); Neutrophils % (Auto) 86 % (37-80); Nucleated Red Blood Cell % 0 /100 WBC (0); Platelet Count 325 Thou/mm3 (140-440); RDW Standard Deviation 41.4 fL (35.1-43.9); White Blood Count 33.1 Thou/mm3 (3.8-10.6)
[2024-07-05 10:33] LABS: INR 1.2 (0.9-1.3); Partial Thromboplastin Time 33.1 Seconds (22.0-36.0); Prothrombin Time 12.9 Seconds (9.0-12.2)
--- NOTE | 2024-07-05 10:34 | XR_ITS ---
Examination: CT abdomen with intravenous contrast CT pelvis with intravenous contrast 2-D coronal reconstructions 2-D sagittal reconstructions Date and time of exam:July 05, 2024 1125 hours Comparison June 09, 2024 INDICATIONS: Generalized abdominal pain fever today, sepsis alert, recent diagnosis pancreatic cancer. CTDI: vol (mGy) 6.65 DLP: (mGycm) 429 Technique: Multiple axial sections of the abdomen and pelvis have been obtained. 64 slice high-resolution scanner used. 3 mm axial sections have been obtained, post intravenous injection 60 cc [id number] 2-D sagittal, coronal reconstructions obtained. Low dose protocols were performed. One or more of the following dose reduction techniques were used; automated exposure control, adjustment of the mA and/or KV according to patient size, use of iterative reconstruction technique. Findings: Atelectasis versus pneumonia right base Marked interval enlargement of hepatic metastases compared to June 09, 2024 Interval wedge-shaped anterior splenic lesion Enlarging mass tail the pancreas, 6 x 6.5 cm No hydronephrosis No bowel obstruction Trace ascites Aorta is not enlarged Normal appendix No diverticulitis No prostatomegaly Contracted urinary bladder Advanced disc during L5-S1 IMPRESSION: Atelectasis versus pneumonia right base Marked progression of hepatic metastatic disease compared with June 09, 2024 Enlarging mass 10 of the pancreas compared with June 09, 2024
[2024-07-05] MEDS: SODIUM CHLORIDE 0.9% 1000 ML 1,000 ML 999 ML IV ×2 (10:37→11:43)
[2024-07-05 11:02] LABS: Collection Type, Urine Clean Catch; Squamous Epithelial Cell,Urine 0 /hpf (0-5)
[2024-07-05 11:05] LABS: Alanine Aminotransferase 71 U/L (10-49); Albumin/Globulin Ratio 1.2 (1.2-2.2); Alkaline Phosphatase 324 U/L (46-116); Anion Gap 11 (7-16); Aspartate Amino Transferase 54 U/L (0-34); BUN/Creatinine Ratio 17 Ratio (12-20); Bilirubin,Total 1.2 mg/dL (0.3-1.2); Blood Urea Nitrogen 12 mg/dL (9-23); Calcium 9.4 mg/dL (8.3-10.6); Calcium (Corrected) 9.4 mg/dL (8.5-10.1); Carbon Dioxide 26.9 mMol/L (20.0-31.0); Chloride 92 mMol/L (98-107); Creatinine (Component) 0.7 mg/dL (0.6-1.3); Estimated Creatinine Clearance 111.4 mL/min (>60); Globulin 3.4 gm/dL (2.3-3.5); Glucose 133 mg/dL (74-106); Magnesium 1.8 mg/dL (1.6-2.6); Osmolality,Calculated 262 (275-295); Potassium 3.3 mMol/L (3.4-5.1); Sodium 130 mMol/L (136-145); Total Protein 7.4 gm/dL (5.7-8.2); eGFR > 60 See Note
[2024-07-05 11:29] LABS: Bacteria,Urine Rare; Bilirubin,Urine Negative (Negative); Blood,Urine Negative (Negative); Clarity,Urine Clear (Clear/Hazy); Color,Urine Yellow (Lt Yel-Yel); Glucose, Urine Negative (Negative); Ketones,Urine Negative (Negative); Leukocyte Esterase,Urine Negative (Negative); Nitrite,Urine Negative (Negative); PH,Urine 6.5 (5.0-7.0); Protein,Urine Negative (Neg - Trace); RBC,Urine < 1 /hpf (0-3); Specific Gravity,Urine 1.009 (1.001-1.035); Transitional Epi Cells,Urine < 1 /hpf (0-5); WBC,Urine 2 /hpf (0-5)
[2024-07-05] MEDS: Magnesium Sulfate 2 GM Ivpb 2 GM/50 ML BAG IV (12:41)
[2024-07-05] MEDS: POTASSIUM CHLORIDE 20 mEq TABCR 40 MEQ PO (12:41)
[2024-07-05] MEDS: LEVOFLOXACIN/D5W 750MG IVPB 750 MG/150 ML BAG 100 MG IV (13:01)
[2024-07-05] MEDS: HEPARIN SOD INJ 5000 UNIT/ML VIAL SC ×2 (14:10→20:57)
[2024-07-05] MEDS: NYSTATIN SUSP 5 ML UDC PO (14:11)
[2024-07-05] MEDS: Vancomycin Inj 1,500 MG in SODIUM CHLORIDE 0.9% 500 ML 500 ML 198 MG IV (14:30)
--- NOTE | 2024-07-05 14:54 | PD.ADDHP ---
Addendum History & Physical Addendum Date of report being addended: 07/05/24 Narrative: I reviewed labs, imaging, EKG, home medications and prior available records. Face to face evaluation was performed by me. I have personally examined the patient and discussed assessment and plan with the IM team. I reviewed the resident note and agree with the plan with exceptions as below. Acute febrile illness Possible sepsis secondary to RLL pneumonia Pancreatic mass Liver mets Epigastric pain Started IV vancomycin/Levaquin Follow up cultures Trend WBC Trend LFTs Consult IR for pancreas biopsy
--- NOTE | 2024-07-05 15:30 | PC.CC ---
REFUGIO Payne completed a face to face initial assessment with the pt at bedside ER #2. Upon entry, assembly instructions writer explained the reason for the initial assessment and pt understood. Pt was viewed to be in a fair mood, was responsive to questions, and engaged with the conversation. Pt stated he is diagnosed with cancer and states that is one of the reasons why he is being admitted to the hospital. Pt reports his PCP is Benjie Carlin from [facility]. Pt reports his specialist is Dr. Pascual for Oncology. Pt reported his Pharmacy of choice is [facility] in [place]. Pt reported that his Next of Kin and Person to Notify is his mother Jocy Griggs [phone] and not his father Panda Tsang. Pt reported that he does not have a Power of Childcare Center Administrator, but has a POLST in place that he stated should be on record at the hospital. Pt reported he is his own Decision Maker, but in the event he is unable to make his own decisions, the designated Decision Maker is his mother Jocy Griggs. Pt reported that there are times he is able to do his own ADLs but stated that it makes him tired and his ADLs are limited. Pt reports he washes his own clothes, does not cook for himself, and his mother clean and will occasionally cook for him. Pt reports most of the time, he orders out food. Pt reports he does not use DME but states he would walk better with a cane or with the use of walker with the seat. Pt reports that if he were to be offered SNF vs Home, he would want to return home. Pt reports he would be interested in Home Health if needed. Pt states he is a Full Code. Pt denies using O2 at home and denies being on Dialysis. Pt reports his mother is his main support and will be his transportation home. Next of Kin: Jocy Griggs [phone] Decision Maker: Jocy Indu Full Code DME: may need cane or rollator
--- NOTE | 2024-07-05 17:18 | PC.NURSE ---
CALLED REPORT TO [facility] ON [facility]. ALL QUESTIONS ANSWERED.
--- NOTE | 2024-07-05 17:23 | PD.RESHP ---
Documentation for date of: 07/05/24 HPI History of Present Illness Chief complaint: r/o sepsis History of present illness: Mr. Tsang is a 54-year-old male with past medical history significant for PTSD, depression, degenerative disc disease, pancreatic mass pending biopsy who presented to the ED with persistent fevers. Patient states that first started noticing fevers a week ago, and will take Tylenol to tabs of 650 mg which would bring fever temp down. However, today fever stayed high despite Tylenol. Associated symptoms include severe right flank pain and epigastric pain that is mostly dull but sometimes radiates towards his back. Night sweats, nausea/vomiting, lack of appetite and weight loss, however the symptoms have been going on since February. Patient's last bowel movement was 3 days ago. Of note, patient first noticed his lower back pain after moving his furniture around in February, and evidently got a x-ray which showed degenerative disc disease. In addition, patient came to the ED towards the end of May for epigastric pain and CT abdomen pelvis revealed a pancreatic mass. Patient followed up with Dr. Cheney, oncology at the cancer center who he saw 5 days ago and was working on setting up outpatient biopsy. ED course: Patient presented with tachycardia and fevers, and as a result sepsis alert was called. Blood and urine cultures were collected prior to starting antibiotics. Labs significant for leukocytosis, low potassium and low sodium, slightly elevated LFTs, elevated Pro-Robert. CT abdomen pelvis showed atelectasis versus pneumonia at right base and marked progression of hepatic metastatic disease, enlarging mass of 10 mm of pancreas compared to June 09 scan. Patient received about 2 L of fluids, IV diazepam 5 mg IV and 6 mg morphine, and electrolytes were repleted. Patient will be admitted to the hospital for further management of possible sepsis in the setting of right lower lobe pneumonia. Review of Systems Review of Systems Systems Reviewed: All systems reviewed, normal except as documented Past Medical History Past Medical History Comments PMH COMMENT: Past medical history: As mentioned above Past surgical history: Cholecystectomy in 2016 Social history: Patient is a distant smoker and alcohol drinker but mostly socially. Patient states that he stopped drinking or smoking for 4 years now. Patient has been using cannabis either by smoking or consuming orally since 2016 status postcholecystectomy for appetite stimulation. Allergies: Patient is allergic to erythromycin, penicillin, per [facility]. Family history: Positive for colon cancer in his father at age 67, grandfather positive for lung cancer Home medications: Morphine extended release patient is elevated on dose, oxycodone 5/325 as needed for breakthrough pain, duloxetine 30 mg once daily, ceritizine Exam Vital Signs Temp Pulse Resp BP Pulse Ox O2 Del Method 97.7 F 85 17 114/71 95 Room Air 07/05/24 16:12 07/05/24 16:12 07/05/24 16:12 07/05/24 16:12 07/05/24 16:12 07/05/24 16:12 Narrative Exam General Appearance: Pt in NAD laying comfortably in bed. HEENT: NC/AT, no scleral icterus, no conjunctival pallor, MMM Lungs: Decreased breath sounds in right side, otherwise no wheezing or crackles noted CVS: RRR, S1/S2 heard, no murmurs or rubs appreciated ABD: Soft, tender to palpation of right flank and epigastric region, non-distended, BS + EXT: no deformity/edema/lesions/cyanosis/clubbing, radial pulses 2+ BL, DP pulses 2 + BL SKIN: Skin exam normal without any rashes except for some pinpoint, nodular rashes in forehead and neck. Neuro: A&O x 3. No gross neurological deficits. Motor and sensory grossly intact in B/L UL and LL. Psych: Appropriate mood and affect Results: Labs 07/06/24 04:50 07/06/24 04:50 Labs: Short CBC 07/05/24 Range/Units 08:08 WBC 33.1 H (3.8-10.6) Thou/mm3 Hgb 10.9 L (13.5-16.0) g/dL Hct 32.0 L (41.0-53.0) % Plt Count 325 D (140-440) Thou/mm3 BMP 07/05/24 08:08 Sodium 130 L Potassium 3.3 L Chloride 92 L Carbon Dioxide 26.9 BUN 12 Creatinine 0.7 Glucose 133 H Calcium 9.4 Liver Function 07/05/24 Range/Units 08:08 Total Bilirubin 1.2 (0.3-1.2) mg/dL AST 54 H (0-34) U/L ALT 71 H (10-49) U/L Alkaline Phosphatase 324 H (46-116) U/L Albumin 4.0 (3.5-5.0) gm/dL Urine 07/05/24 Range/Units 10:56 Urine Color Yellow (Lt Yel-Yel) Urine Clarity Clear (Clear/Hazy) Urine pH 6.5 (5.0-7.0) Ur Specific [place] 1.009 (1.001-1.035) Urine Protein Negative (Neg - Trace) Urine Glucose (UA) Negative (Negative) Quality Measures Quality Measures none Medications Home Medications and Allergies Home Medications ?Medication ?Instructions ?Recorded ?Confirmed ?Type ergocalciferol (vitamin D2) 1,250 1 cap PO QWEEK 11/13/21 07/05/24 History mcg (50,000 unit) capsule (Vitamin D2) rimegepant 75 mg disintegrating 1 tab PO DAILY 11/13/21 07/05/24 History tablet (Nurtec ODT) cetirizine 10 mg tablet 10 mg PO HS 07/05/24 07/05/24 History duloxetine 40 mg capsule,delayed 40 mg PO QDAY 07/05/24 07/05/24 History release morphine 15 mg tablet,extended 15 mg PO Q12H PRN pain 07/06/24 07/06/24 History release naloxone 4 mg/actuation nasal spray 1 spray intranasal Q3M PRN opioid 07/06/24 07/06/24 History overdose omeprazole 20 mg capsule,delayed 20 mg PO HS 07/06/24 07/06/24 History release Allergies Allergy/AdvReac Type Severity Reaction Status Date / Time erythromycin base Allergy Mild Rash Verified 07/06/24 08:32 amoxicillin Allergy Unknown Verified 07/06/24 08:32 NSAIDS (Non-Steroidal AdvReac Verified 07/06/24 08:32 Anti-Inflamma msg Allergy Intermediate Nausea Uncoded 07/06/24 08:32 PERSIMMON Allergy Mild FLU LIKE Uncoded 07/06/24 08:32 SYMPTOM Visit Medications Acetaminophen (Acetaminophen 325 Mg Tablet) 650 mg PO Q6H PRN PRN Reason: Fever >100.4 Stop: 08/04/24 13:39 Heparin Sodium (Porcine) (Heparin Sod Inj 5000 Unit/Ml Vial) 5,000 unit SC Q8HR PONCE Stop: 07/19/24 13:59 Last Admin: 07/05/24 14:10 Dose: 5,000 unit Levofloxacin/Dextrose (Levaquin Ivpb) 750 mg in 150 mls @ 100 mls/hr IV QDAY [facility] Stop: 07/13/24 08:59 Ondansetron HCl (Ondansetron Inj 2 Mg/Ml Inj 2 Ml) 4 mg IV Q6H PRN; Protocol PRN Reason: NAUSEA OR VOMITING Stop: 08/04/24 13:39 Pharmacy Consult (Vancomycin Pharmacy To Dose 1 Each Each) 1 each IV QDAY [facility] Stop: 08/04/24 12:44 Last Admin: 07/05/24 13:05 Dose: 1 each Discontinued Medications Diazepam (Diazepam Inj 5 Mg/Ml Vial 2 Ml) 5 mg IVP X1 ONE Stop: 07/05/24 09:33 Last Admin: 07/05/24 12:46 Dose: Not Given Sodium Chloride (Ns) 1,000 mls @ 999 mls/hr IV .Q1H1M ONE Stop: 07/05/24 11:34 Last Infusion: 07/05/24 13:04 Dose: Infused Sodium Chloride (Ns) 1,000 mls @ 999 mls/hr IV .Q1H1M ONE Stop: 07/05/24 11:35 Last Infusion: 07/05/24 13:04 Dose: Infused Magnesium Sulfate (Magnesium Sulfate Ivpb) 2 gm in 50 mls @ 25 mls/hr IV X1 ONE Stop: 07/05/24 14:10 Last Admin: 07/05/24 12:41 Dose: 25 mls/hr Piperacillin/Tazobactam/Dextrose (Zosyn) 3.375 gm in 50 mls @ 100 mls/hr IV X1 ONE Stop: 07/05/24 13:05 Last Admin: 07/05/24 12:45 Dose: Not Given Levofloxacin/Dextrose (Levaquin Ivpb) 750 mg in 150 mls @ 100 mls/hr IV X1 ONE Stop: 07/05/24 14:11 Last Infusion: 07/05/24 14:35 Dose: Infused Vancomycin HCl 1,500 mg/ (Sodium Chloride) 500 mls @ 198 mls/hr IV X1 ONE Stop: 07/05/24 16:01 Last Admin: 07/05/24 14:30 Dose: 198 mls/hr Morphine Sulfate (Morphine Sulf Inj 10 Mg/Ml Vial) 6 mg IVP X1 ONE Stop: 07/05/24 09:33 Last Admin: 07/05/24 10:15 Dose: 6 mg Nystatin (Nystatin Susp 5 Ml Udc) 5 ml PO X1 ONE Stop: 07/05/24 12:51 Last Admin: 07/05/24 14:11 Dose: 5 ml Potassium Chloride (Potassium Chloride 20 Meq Tabcr) 40 meq PO X1 ONE Stop: 07/05/24 12:11 Last Admin: 07/05/24 12:41 Dose: 40 meq Assessment & Plan Plan Mr. Tsang is a 54-year-old male with past medical history significant for PTSD, depression, degenerative disc disease, pancreatic mass pending biopsy who presented to the ED with persistent fevers admitted to the hospital for further management of possible sepsis in the setting of right lower lobe pneumonia on 07/05/24. #Rule out sepsis #Right lower lobe pneumonia #Leukocytosis Patient presented with persistent fevers for the last week which did not resolve with [id number] Tylenol. Patient presented with leukocytosis along with tachycardia and fevers. Sepsis alert was initiated and received 2 L bolus per sepsis criteria at 30 cc per kg. Lactic acid was negative. Imaging and physical exam suggests right lower lobe pneumonia could be source of infection - Blood culture and urine culture collected, follow-up results - IV vancomycin and levofloxacin were started - Tylenol for fevers greater than 100.4 and pain - F/u with daily CBC/BMP - Ondansetron for nausea - Pain regimen: Mild to Moderate (1-3/10) Acetaminophen 650mg Q6H PO PRN, Mod to Severe (4-6/10) Hydrocodone/APAP Q6H PO PRN , Severe (7-10/10) Dilaudid 1mg Q4H IV PRN #Pancreatic mass with liver metastasis Patient came to the ED on June 09, 2024, and had a CT that showed a necrotic tail pancreatic mass 48 x 49 mm, strongly suggestive of pancreatic carcinoma. Patient followed up with Dr. Mayorga, oncology for further management for biopsy and treatment options CT abdomen pelvis on 07/05/24 showed Morphine extended release an enlarging mass tail of 6 x 6.5 cm and marked progression of hepatic metastatic disease, Advanced disc during L5-S1 -Will plan for CT guided biopsy of pancreas status post afebrile for 24 hours and negative blood cultures for 48 hours prior to discharge -Patient would have to be made NPO after midnight with heparin held the night before procedure #Degenerative disc disease CT abdomen pelvis confirmed patient's initial findings of disc generative disease of L5-S1 Patient does take home extended release morphine and oxycodone as needed for pain - Patient will be on a pain regimen as mentioned above #History of PTSD #History of depression #History of Allergies Patient takes home duloxetine and cetirizine. -Will resume patient's home medications Health Maintenance: DVT prophylaxis: Heparin subcu Diet: Regular Jeffries: No Lines: PIV Supplemental O2: None CODE STATUS: Full code Disposition: Patient be admitted to [facility] for further management of rule out sepsis. Patient's plan and care discussed with my attending, Dr. Mejia Way MD PGY-2 Attending Provider Attestation/Addendum I reviewed labs, imaging, EKG, home medications and prior available records. Face to face evaluation was performed by me. I have personally examined the patient and discussed assessment and plan with the IM team. I reviewed the resident note and agree with the plan with exceptions as below. Acute febrile illness Possible sepsis secondary to RLL pneumonia Pancreatic mass Liver mets Epigastric pain Started IV vancomycin/Levaquin Follow up cultures Trend WBC Trend LFTs Consult IR for pancreas biopsy
[2024-07-05] MEDS: HYDROmorphone INJ 2 MG/ML VIAL 1 MG IVP ×2 (18:43→23:18)
[2024-07-05] MEDS: oxyCODONE/APAP 5/325 TABLET 1 TAB PO (21:13)
[2024-07-06] VITALS: BP 115/71; PULSE 80; RESP 18; TEMP 36.2; O2SAT 92
[2024-07-06] MEDS: oxyCODONE/APAP 5/325 TABLET 1 TAB PO ×3 (03:21→22:37)
[2024-07-06 04:00] VITALS: BP 145/79; PULSE 96; RESP 18; TEMP 36.9; O2SAT 92
[2024-07-06] MEDS: HEPARIN SOD INJ 5000 UNIT/ML VIAL SC ×3 (05:14→21:09)
[2024-07-06] MEDS: HYDROmorphone INJ 2 MG/ML VIAL 1 MG IVP ×2 (05:30→10:07)
[2024-07-06] MEDS: ONDANSETRON INJ 2 MG/ML INJ 2 ML 4 MG IV ×2 (05:35→14:33)
[2024-07-06 05:54] LABS: Basophils # (Auto) 0.1 Thou/mm3 (0.0-0.2); Basophils % (Auto) 0 % (0-2.5); Eosinophils # (Auto) 0.2 Thou/mm3 (0.0-0.5); Eosinophils % (Auto) 1 % (0-10); Hematocrit 30.2 % (41.0-53.0); Hemoglobin 9.6 g/dL (13.5-16.0); Immature Granulocytes % (Auto) 1 % (0-0); Immature Granulocytes Auto 0.15 Thou/mm3 (0.00-0.00); Lymphocytes # (Auto) 1.3 Thou/mm3 (1.0-4.8); Lymphocytes % (Auto) 6 % (10-50); Mean Corpuscular HGB Conc 31.8 g/dl (31.0-37.0); Mean Corpuscular Hemoglobin 29.2 pg (25.0-35.0); Mean Corpuscular Volume 92 fL (80-100); Monocytes # (Auto) 2.2 Thou/mm3 (0.0-0.8); Monocytes % (Auto) 10 % (0-12); Neutrophils # (Auto) 18.1 Thou/mm3 (1.8-7.7); Neutrophils % (Auto) 82 % (37-80); Nucleated Red Blood Cell % 0 /100 WBC (0); Platelet Count 306 Thou/mm3 (140-440); RDW Standard Deviation 45.3 fL (35.1-43.9); Red Blood Count 3.29 Miln/mm3 (4.50-5.90)
[2024-07-06 06:20] LABS: Alanine Aminotransferase 52 U/L (10-49); Albumin, Serum 3.4 gm/dL (3.5-5.0); Albumin/Globulin Ratio 1.1 (1.2-2.2); Alkaline Phosphatase 284 U/L (46-116); Anion Gap 9 (7-16); Aspartate Amino Transferase 37 U/L (0-34); BUN/Creatinine Ratio 15 Ratio (12-20); Blood Urea Nitrogen 9 mg/dL (9-23); Calcium (Corrected) 9.5 mg/dL (8.5-10.1); Carbon Dioxide 28.7 mMol/L (20.0-31.0); Chloride 100 mMol/L (98-107); Creatinine (Component) 0.6 mg/dL (0.6-1.3); Estimated Creatinine Clearance 134.6 mL/min (>60); Glucose 102 mg/dL (74-106); Osmolality,Calculated 274 (275-295); Potassium 5.1 mMol/L (3.4-5.1); Sodium 138 mMol/L (136-145); Total Protein 6.4 gm/dL (5.7-8.2); eGFR > 60 See Note
[2024-07-06 07:57] VITALS: BP 134/76; PULSE 97; RESP 17; TEMP 36.3; O2SAT 95
[2024-07-06] MEDS: LEVOFLOXACIN/D5W 750MG IVPB 750 MG/150 ML BAG 100 MG IV (08:33)
[2024-07-06] MEDS: DULoxetine HCL 30 MG CAPSULE PO (08:33)
--- NOTE | 2024-07-06 09:00 | ESPR_ITS ---
Documentation for date of: 07/06/24 Subjective Subjective Interval history: Overnight, no acute events reported. Patient has been tolerating his pain with IV Dilaudid and oxycodone as needed. Will transition patient from IV Dilaudid to p.o. Dilaudid as patient states that his pain is well-controlled with Dilaudid versus extended release morphine. Patient has not had a fever since yesterday morning. Will increase patient's bowel regimen and continue to follow-up with cultures. Patient will plan to get CT biopsy of his pancreas prior to discharge. Exam Vital Signs Temp Pulse Resp BP Pulse Ox O2 Del Method 97.4 F 97 17 134/76 H 95 Room Air 07/06/24 07:57 07/06/24 07:57 07/06/24 07:57 07/06/24 07:57 07/06/24 07:57 07/06/24 07:57 Narrative Exam General Appearance: Pt in NAD laying comfortably in bed. HEENT: NC/AT, no scleral icterus, no conjunctival pallor, MMM Lungs: Decreased breath sounds in right side, otherwise no wheezing or crackles noted CVS: RRR, S1/S2 heard, no murmurs or rubs appreciated ABD: Soft, tender to palpation of right flank and epigastric region, non- distended, BS + EXT: no deformity/edema/lesions/cyanosis/clubbing, radial pulses 2+ BL, DP pulses 2 + BL SKIN: Skin exam normal without any rashes except for some pinpoint, nodular rashes in forehead and neck. Neuro: A&O x 3. No gross neurological deficits. Motor and sensory grossly intact in B/L UL and LL. Psych: Appropriate mood and affect Objective Labs 07/06/24 04:50 07/06/24 04:50 Labs: Laboratory Results - last 24 hr 07/05/24 07/05/24 07/05/24 08:08 10:08 10:56 WBC 33.1 H RBC 3.70 L Hgb 10.9 L Hct 32.0 L MCV 87 MCH 29.5 MCHC 34.1 RDW Std Deviation 41.4 Plt Count 325 D Neut % (Auto) 86 H Lymph % (Auto) 2 L [place] % (Auto) 10 Eos % (Auto) 0 Baso % (Auto) 0 Neut # (Auto) 28.5 H Lymph # (Auto) 0.7 L [place] # (Auto) 3.4 H Eos # (Auto) 0.1 Baso # (Auto) 0.1 Immature Gran # (Auto) 0.37 H Absolute Nucleated RBC 0.00 Immature Gran % 1 H Nucleated RBC % 0 PT 12.9 H INR 1.2 APTT 33.1 Sodium 130 L Potassium 3.3 L Chloride 92 L Carbon Dioxide 26.9 Anion Gap 11 BUN 12 Creatinine 0.7 Estim Creat Clear Calc 111.4 eGFR > 60 BUN/Creatinine Ratio 17 Glucose 133 H Calculated Osmolality 262 L Lactic Acid 1.3 Calcium 9.4 Corrected Calcium 9.4 Magnesium 1.8 Total Bilirubin 1.2 AST 54 H ALT 71 H Alkaline Phosphatase 324 H Total Protein 7.4 Albumin 4.0 Globulin 3.4 Albumin/Globulin Ratio 1.2 Procalcitonin 2.30 H Ur Collection Type Clean Catch Urine Color Yellow Urine Clarity Clear Urine pH 6.5 Ur Specific [place] 1.009 Urine Protein Negative Urine Glucose (UA) Negative Urine Ketones Negative Urine Blood Negative Urine Nitrite Negative Urine Bilirubin Negative Urine Urobilinogen (Auto) 3.0 Ur Leukocyte Esterase Negative Urine RBC < 1 Urine WBC 2 Ur Squamous Epith Cells 0 Ur Transition Epith Cell < 1 Urine Bacteria Rare 07/06/24 04:50 WBC 22.0 H D RBC 3.29 L Hgb 9.6 L Hct 30.2 L MCV 92 MCH 29.2 MCHC 31.8 RDW Std Deviation 45.3 H Plt Count 306 Neut % (Auto) 82 H Lymph % (Auto) 6 L [place] % (Auto) 10 Eos % (Auto) 1 Baso % (Auto) 0 Neut # (Auto) 18.1 H Lymph # (Auto) 1.3 [place] # (Auto) 2.2 H Eos # (Auto) 0.2 Baso # (Auto) 0.1 Immature Gran # (Auto) 0.15 H Absolute Nucleated RBC 0.00 Immature Gran % 1 H Nucleated RBC % 0 PT INR APTT Sodium 138 Potassium 5.1 D Chloride 100 Carbon Dioxide 28.7 Anion Gap 9 BUN 9 Creatinine 0.6 Estim Creat Clear Calc 134.6 eGFR > 60 BUN/Creatinine Ratio 15 Glucose 102 Calculated Osmolality 274 L Lactic Acid Calcium 9.0 Corrected Calcium 9.5 Magnesium 2.0 Total Bilirubin 1.0 AST 37 H ALT 52 H Alkaline Phosphatase 284 H D Total Protein 6.4 Albumin 3.4 L D Globulin 3.0 Albumin/Globulin Ratio 1.1 L Procalcitonin Ur Collection Type Urine Color Urine Clarity Urine pH Ur Specific [place] Urine Protein Urine Glucose (UA) Urine Ketones Urine Blood Urine Nitrite Urine Bilirubin Urine Urobilinogen (Auto) Ur Leukocyte Esterase Urine RBC Urine WBC Ur Squamous Epith Cells Ur Transition Epith Cell Urine Bacteria Quality Measures Quality Measures none Assessment & Plan Assessment Current Active Medications: Generic Name Dose Route Start Last Admin Trade Name Freq PRN Reason Stop Dose Admin Acetaminophen 650 mg 07/05/24 13:40 Acetaminophen 325 Mg Tablet PO 08/04/24 13:39 Q6H PRN Fever >100.4 Duloxetine HCl 30 mg 07/06/24 09:00 07/06/24 08:33 Duloxetine Hcl 30 Mg Capsule PO 08/05/24 08:59 30 mg QDAY PONCE Administration Heparin Sodium (Porcine) 5,000 unit 07/05/24 14:00 07/06/24 05:14 Heparin Sod Inj 5000 Unit/Ml Vial SC 07/19/24 13:59 5,000 unit Q8HR PONCE Administration Hydromorphone HCl 1 mg 07/05/24 18:01 07/06/24 05:30 Hydromorphone Inj 2 Mg/Ml Vial IVP 07/10/24 18:00 1 mg Q4HR PRN Administration severe pain 7-10 Levofloxacin/Dextrose 750 mg in 150 mls @ 100 mls/hr 07/06/24 09:00 07/06/24 08:33 Levaquin Ivpb IV 07/13/24 08:59 100 mls/hr QDAY PONCE Administration Vancomycin/Sodium Chloride 200 mls @ 120 mls/hr 07/06/24 10:00 Vancomycin/Ns 1 Gm Ivpb IV 07/13/24 09:59 Q12H PONCE Ondansetron HCl 4 mg 07/05/24 13:40 07/06/24 05:35 Ondansetron Inj 2 Mg/Ml Inj 2 Ml IV 08/04/24 13:39 4 mg Q6H PRN Administration NAUSEA OR VOMITING Protocol Oxycodone/Acetaminophen 1 tab 07/05/24 18:01 07/06/24 03:21 Oxycodone/Apap 5/325 Tablet PO 07/10/24 18:00 1 tab Q6HR PRN Administration moderate pain 4-6 Pharmacy Consult 1 each 07/05/24 12:45 07/06/24 08:12 Vancomycin Pharmacy To Dose 1 Each Each IV 08/04/24 12:44 Not Given QDAY PONCE Plan Mr. Tsang is a 54-year-old male with past medical history significant for PTSD, depression, degenerative disc disease, pancreatic mass pending biopsy who presented to the ED with persistent fevers admitted to the hospital for further management of possible sepsis in the setting of right lower lobe pneumonia on 07/05/24. #Rule out sepsis #Right lower lobe pneumonia #Leukocytosis Patient presented with persistent fevers for the last week which did not resolve with [id number] Tylenol. Patient presented with leukocytosis along with tachycardia and fevers. Sepsis alert was initiated and received 2 L bolus per sepsis criteria at 30 cc per kg. Lactic acid was negative. Imaging and physical exam suggests right lower lobe pneumonia could be source of infection - Blood culture and urine culture collected, follow-up results - IV vancomycin and levofloxacin were started - Tylenol for fevers greater than 100.4 and pain - F/u with daily CBC/BMP - Ondansetron for nausea - Pain regimen: Mild to Moderate (1-3/10) Acetaminophen 650mg Q6H PO PRN, Mod to Severe (4-6/10) Oxycodone/APAP Q6H PO PRN , Severe (7-10/10) PO Dilaudid 4mg BID #Pancreatic mass with liver metastasis Patient came to the ED on June 09, 2024, and had a CT that showed a necrotic tail pancreatic mass 48 x 49 mm, strongly suggestive of pancreatic carcinoma. Patient followed up with Dr. Mayorga, oncology for further management for biopsy and treatment options CT abdomen pelvis on 07/05/24 showed Morphine extended release an enlarging mass tail of 6 x 6.5 cm and marked progression of hepatic metastatic disease, Advanced disc during L5-S1 -Will plan for CT guided biopsy of pancreas status post afebrile for 24 hours and negative blood cultures for 48 hours prior to discharge -Patient would have to be made NPO after midnight with heparin held the night before procedure #Degenerative disc disease CT abdomen pelvis confirmed patient's initial findings of disc generative disease of L5-S1 Patient does take home extended release morphine and oxycodone as needed for pain - Patient will be on a pain regimen as mentioned above #History of PTSD #History of depression #History of Allergies Patient takes home duloxetine and cetirizine. -Will resume patient's home medications Health Maintenance: DVT prophylaxis: Heparin subcu Diet: Regular Jeffries: No Lines: PIV Supplemental O2: None CODE STATUS: Full code Disposition: Patient be admitted to [facility] for further management of rule out sepsis. Pending Cx. Patient's plan and care discussed with my attending, Dr. John Way MD PGY-2 Attending Provider Attestation/Addendum I attest that I was physically present for the evaluation, physical examination, lab and imaging review of the patient with the residents. I discussed the case with the residents and agree with the findings and plans of care as documented above. At bedside today, patient appears comfortable and denies any new complaints. His pain has been well-controlled with IV Dilaudid. We will transition him from IV to oral Dilaudid and oxycodone as needed. Has not had fever since yesterday morning. Patient did not have any bowel movements, we will adjust his bowel regimen. Continues to be on IV vancomycin and levofloxacin. Awaiting culture results. We will plan for pancreatic markers biopsy once the cultures are negative for 48 hours. Vital signs have been stable. Lab results show improvement in WBC count from 3333.1 yesterday to 22 today. Chemistry panel is stable with improvement in his liver function. Carter Lopez MD
--- NOTE | 2024-07-06 09:21 | PC.SS ---
SS follow up note; patient is on IV ABX. Cultures pending, possible biopsy on . Patient will discharge back home when medically cleared.
[2024-07-06] MEDS: VANCOMYCIN/NS 1 GM IVPB 200 ML IV ×2 (10:07→21:10)
[2024-07-06 10:14] LABS: INR 1.2 (0.9-1.3); Partial Thromboplastin Time 36.7 Seconds (22.0-36.0)
[2024-07-06 10:59] VITALS: BMI 24.7
[2024-07-06 12:00] VITALS: BP 124/70; PULSE 100; RESP 18; TEMP 36.1; O2SAT 95
[2024-07-06] MEDS: PANTOPRAZOLE 20 MG TABLET PO (13:00)
[2024-07-06 15:58] VITALS: BP 122/80; PULSE 89; RESP 18; TEMP 36.1; O2SAT 95
[2024-07-06 20:00] VITALS: BP 147/88; PULSE 100; RESP 17; TEMP 36.8; O2SAT 97
[2024-07-06] MEDS: HYDROMORPHONE HCL 2 MG TABLET 4 MG PO (21:08)
[2024-07-07] VITALS: BP 115/74; PULSE 90; RESP 16; TEMP 36.1; O2SAT 96
--- NOTE | 2024-07-07 00:08 | PC.NURSE ---
CT biopsy of the pancrease was cancelled, so MARISSA Thomas asked Dr. Crowley if it was okay to switch patients diet from NPO back to regular diet. Dr. Crowley agreed to switch patient back to regular diet.
[2024-07-07 04:00] VITALS: BP 108/69; PULSE 98; RESP 18; TEMP 36.3; O2SAT 92
[2024-07-07] MEDS: HEPARIN SOD INJ 5000 UNIT/ML VIAL SC (05:21)
[2024-07-07] MEDS: oxyCODONE/APAP 5/325 TABLET 1 TAB PO ×2 (05:24→17:10)
[2024-07-07 05:58] LABS: Basophils % (Auto) 0 % (0-2.5); Eosinophils # (Auto) 0.1 Thou/mm3 (0.0-0.5); Eosinophils % (Auto) 0 % (0-10); Hematocrit 29.6 % (41.0-53.0); Hemoglobin 9.5 g/dL (13.5-16.0); Immature Granulocytes % (Auto) 1 % (0-0); Lymphocytes # (Auto) 1.9 Thou/mm3 (1.0-4.8); Lymphocytes % (Auto) 8 % (10-50); Mean Corpuscular HGB Conc 32.1 g/dl (31.0-37.0); Mean Corpuscular Hemoglobin 29.1 pg (25.0-35.0); Mean Corpuscular Volume 91 fL (80-100); Monocytes % (Auto) 8 % (0-12); Neutrophils # (Auto) 21.2 Thou/mm3 (1.8-7.7); Neutrophils % (Auto) 83 % (37-80); Nucleated Red Blood Cell % 0 /100 WBC (0); Platelet Count 301 Thou/mm3 (140-440); RDW Standard Deviation 44.3 fL (35.1-43.9); Red Blood Count 3.27 Miln/mm3 (4.50-5.90); White Blood Count 25.4 Thou/mm3 (3.8-10.6)
[2024-07-07 06:06] LABS: INR 1.2 (0.9-1.3); Partial Thromboplastin Time 37.1 Seconds (22.0-36.0); Prothrombin Time 13.4 Seconds (9.0-12.2)
[2024-07-07 06:23] LABS: Alanine Aminotransferase 48 U/L (10-49); Albumin, Serum 3.4 gm/dL (3.5-5.0); Alkaline Phosphatase 311 U/L (46-116); Anion Gap 11 (7-16); Aspartate Amino Transferase 36 U/L (0-34); BUN/Creatinine Ratio 17 Ratio (12-20); Bilirubin,Total 1.1 mg/dL (0.3-1.2); Blood Urea Nitrogen 10 mg/dL (9-23); Calcium 9.1 mg/dL (8.3-10.6); Calcium (Corrected) 9.6 mg/dL (8.5-10.1); Carbon Dioxide 29.1 mMol/L (20.0-31.0); Chloride 96 mMol/L (98-107); Creatinine (Component) 0.6 mg/dL (0.6-1.3); Globulin 3.3 gm/dL (2.3-3.5); Glucose 94 mg/dL (74-106); Osmolality,Calculated 270 (275-295); Potassium 4.9 mMol/L (3.4-5.1); Sodium 136 mMol/L (136-145); Total Protein 6.7 gm/dL (5.7-8.2); eGFR > 60 See Note
[2024-07-07] MEDS: ONDANSETRON INJ 2 MG/ML INJ 2 ML 4 MG IV ×2 (06:39→23:07)
[2024-07-07 07:58] VITALS: BP 124/75; PULSE 119; RESP 19; TEMP 36.2; O2SAT 94
[2024-07-07] MEDS: DULoxetine HCL 30 MG CAPSULE PO (08:24)
[2024-07-07] MEDS: PANTOPRAZOLE 20 MG TABLET PO (08:24)
[2024-07-07] MEDS: LEVOFLOXACIN/D5W 750MG IVPB 750 MG/150 ML BAG 100 MG IV (08:24)
[2024-07-07] MEDS: HYDROMORPHONE HCL 2 MG TABLET 4 MG PO (08:24)
--- NOTE | 2024-07-07 09:02 | PC.SS ---
SS follow up note; Possible biopsy on . Patient will discharge back home when medically cleared.
[2024-07-07 11:01] LABS: Vancomycin,Trough 7.6 mcg/mL (5.0-10.0)
[2024-07-07] MEDS: VANCOMYCIN/NS 1 GM IVPB 200 ML IV ×2 (11:49→21:10)
[2024-07-07 12:00] VITALS: BP 103/67; PULSE 80; RESP 18; TEMP 36.1; O2SAT 96
--- NOTE | 2024-07-07 13:19 | PD.RESPRO ---
Documentation for date of: 07/07/24 Subjective Subjective Interval history: Overnight, no acute events reported. Patient states that his p.o. hydromorphone is not as adequate as his p.o. morphine with Percocet. Patient states that he would like to return back to his p.o. morphine. Patient is also informed that his blood cultures have been negative in last 48 hours, and will be n.p.o. after midnight for CT percutaneous biopsy of pancreas tomorrow. Anticipate discharge within 24 hours after biopsy. Patient agrees with current plan. All questions asked and answered. Exam Vital Signs Temp Pulse Resp BP Pulse Ox O2 Del Method 97.0 F 80 18 103/67 96 Room Air 07/07/24 12:00 07/07/24 12:00 07/07/24 12:00 07/07/24 12:00 07/07/24 12:00 07/07/24 12:00 Narrative Exam General Appearance: Pt in NAD laying comfortably in bed. HEENT: NC/AT, no scleral icterus, no conjunctival pallor, MMM Lungs: Decreased breath sounds in right side, otherwise no wheezing or crackles noted CVS: RRR, S1/S2 heard, no murmurs or rubs appreciated ABD: Soft, tender to palpation of right flank and epigastric region, non-distended, BS + EXT: no deformity/edema/lesions/cyanosis/clubbing, radial pulses 2+ BL, DP pulses 2 + BL SKIN: Skin exam normal without any rashes except for some pinpoint, nodular rashes in forehead and neck. Neuro: A&O x 3. No gross neurological deficits. Motor and sensory grossly intact in B/L UL and LL. Psych: Appropriate mood and affect Objective Labs 07/07/24 04:20 07/07/24 04:20 Labs: Laboratory Results - last 24 hr 07/07/24 07/07/24 04:20 09:36 WBC 25.4 H RBC 3.27 L Hgb 9.5 L Hct 29.6 L MCV 91 MCH 29.1 MCHC 32.1 RDW Std Deviation 44.3 H Plt Count 301 Neut % (Auto) 83 H Lymph % (Auto) 8 L [place] % (Auto) 8 Eos % (Auto) 0 Baso % (Auto) 0 Neut # (Auto) 21.2 H Lymph # (Auto) 1.9 [place] # (Auto) 2.0 H Eos # (Auto) 0.1 Baso # (Auto) 0.0 Immature Gran # (Auto) 0.20 H Absolute Nucleated RBC 0.00 Immature Gran % 1 H Nucleated RBC % 0 PT 13.4 H INR 1.2 APTT 37.1 H Sodium 136 Potassium 4.9 Chloride 96 L Carbon Dioxide 29.1 Anion Gap 11 BUN 10 Creatinine 0.6 Estim Creat Clear Calc 130.0 eGFR > 60 BUN/Creatinine Ratio 17 Glucose 94 Calculated Osmolality 270 L Calcium 9.1 Corrected Calcium 9.6 Magnesium 2.0 Total Bilirubin 1.1 AST 36 H ALT 48 Alkaline Phosphatase 311 H D Total Protein 6.7 Albumin 3.4 L Globulin 3.3 Albumin/Globulin Ratio 1.0 L Vancomycin Trough 7.6 Quality Measures Quality Measures none Assessment & Plan Assessment Current Active Medications: Generic Name Dose Route Start Last Admin Trade Name Freq PRN Reason Stop Dose Admin Acetaminophen 650 mg 07/05/24 13:40 Acetaminophen 325 Mg Tablet PO 08/04/24 13:39 Q6H PRN Fever >100.4 Duloxetine HCl 30 mg 07/06/24 09:00 07/07/24 08:24 Duloxetine Hcl 30 Mg Capsule PO 08/05/24 08:59 30 mg QDAY PONCE Administration Heparin Sodium (Porcine) 5,000 unit 07/05/24 14:00 07/07/24 13:12 Heparin Sod Inj 5000 Unit/Ml Vial SC 07/19/24 13:59 Not Given Q8HR PONCE Levofloxacin/Dextrose 750 mg in 150 mls @ 100 mls/hr 07/06/24 09:00 07/07/24 08:24 Levaquin Ivpb IV 07/13/24 08:59 100 mls/hr QDAY PONCE Administration Vancomycin/Sodium Chloride 200 mls @ 120 mls/hr 07/07/24 11:15 07/07/24 11:49 Vancomycin/Ns 1 Gm Ivpb IV 07/14/24 11:14 120 mls/hr Q8HR PONCE Administration Morphine Sulfate 15 mg 07/07/24 21:00 Morphine Sulf 15 Mg Tabcr PO 07/12/24 20:59 Q12HR PONCE Protocol Ondansetron HCl 4 mg 07/05/24 13:40 07/07/24 06:39 Ondansetron Inj 2 Mg/Ml Inj 2 Ml IV 08/04/24 13:39 4 mg Q6H PRN Administration NAUSEA OR VOMITING Protocol Oxycodone/Acetaminophen 1 tab 07/05/24 18:01 07/07/24 05:24 Oxycodone/Apap 5/325 Tablet PO 07/10/24 18:00 1 tab Q6HR PRN Administration moderate pain 4-6 Pantoprazole Sodium 20 mg 07/06/24 12:15 07/07/24 08:24 Pantoprazole 20 Mg Tablet PO 08/05/24 12:14 20 mg QDAY PONCE Administration Pharmacy Consult 1 each 07/05/24 12:45 07/06/24 08:12 Vancomycin Pharmacy To Dose 1 Each Each IV 08/04/24 12:44 Not Given QDAY [facility] Plan Mr. Tsang is a 54-year-old male with past medical history significant for PTSD, depression, degenerative disc disease, pancreatic mass pending biopsy who presented to the ED with persistent fevers admitted to the hospital for further management of possible sepsis in the setting of right lower lobe pneumonia on 07/05/24. #Rule out sepsis #Right lower lobe pneumonia #Leukocytosis Patient presented with persistent fevers for the last week which did not resolve with [id number] Tylenol. Patient presented with leukocytosis along with tachycardia and fevers. Sepsis alert was initiated and received 2 L bolus per sepsis criteria at 30 cc per kg. Lactic acid was negative. Imaging and physical exam suggests right lower lobe pneumonia could be source of infection - Blood culture and urine culture collected, follow-up results - IV vancomycin and levofloxacin were started - Tylenol for fevers greater than 100.4 and pain - F/u with daily CBC/BMP - Ondansetron for nausea - Pain regimen: Mild to Moderate (1-3/10) Acetaminophen 650mg Q6H PO PRN, Mod to Severe (4-6/10) Oxycodone/APAP Q6H PO PRN , Severe (7-10/10) PO Morphine 15mg BID #Pancreatic mass with liver metastasis Patient came to the ED on June 09, 2024, and had a CT that showed a necrotic tail pancreatic mass 48 x 49 mm, strongly suggestive of pancreatic carcinoma. Patient followed up with Dr. Mayorga, oncology for further management for biopsy and treatment options CT abdomen pelvis on 07/05/24 showed Morphine extended release an enlarging mass tail of 6 x 6.5 cm and marked progression of hepatic metastatic disease, Advanced disc during L5-S1 -Will plan for CT guided biopsy of pancreas status post afebrile for 24 hours and negative blood cultures for 48 hours prior to discharge tomorrow -Patient will be made NPO after midnight with heparin held the night before procedure #Degenerative disc disease CT abdomen pelvis confirmed patient's initial findings of disc generative disease of L5-S1 Patient does take home extended release morphine and oxycodone as needed for pain - Patient will be on a pain regimen as mentioned above #History of PTSD #History of depression #History of Allergies Patient takes home duloxetine and cetirizine. -Will resume patient's home medications Health Maintenance: DVT prophylaxis: Heparin subcu held for procedure Diet: NPO after midnight for biopsy [place]: No Lines: PIV Supplemental O2: None CODE STATUS: Full code Disposition: Patient be admitted to [facility] for further management of rule out sepsis. Pending Cx. Patient's plan and care discussed with my attending, Dr. John Way MD PGY-2 Attending Provider Attestation/Addendum I attest that I was physically present for the evaluation, physical examination, lab and imaging review of the patient with the residents. I discussed the case with the residents and agree with the findings and plans of care as documented above. Her bedside today, patient states she is feeling well and does not have new complaints. He does not have any new fever episode. WBC count went up to 25.4 from 22 yesterday. Rest of the labs are stable. Blood cultures have been negative for more than 48 hours. We will plan for percutaneous pancreatic biopsy tomorrow with interventional radiology, we will keep patient n.p.o. after midnight. Continues to be on levofloxacin and vancomycin, anticipate discharge tomorrow after the biopsy if patient continues to be stable. Carter Lopez MD
[2024-07-07 16:00] VITALS: BP 118/67; PULSE 81; RESP 18; TEMP 36.3; O2SAT 96
[2024-07-07 20:00] VITALS: BP 132/76; PULSE 98; RESP 17; TEMP 36.7; O2SAT 95
[2024-07-07] MEDS: Morphine Sulf 15 MG TABCR PO (21:09)
[2024-07-08] VITALS (11 sets, daily range): BP systolic 108–141; BP diastolic 63–86; PULSE 82–108; RESP 16–19; TEMP 36.2–37.2; O2SAT 92–98
[2024-07-08] MEDS: VANCOMYCIN/NS 1 GM IVPB 200 ML IV (05:14)
[2024-07-08 05:52] LABS: Basophils % (Auto) 0 % (0-2.5); Eosinophils # (Auto) 0.2 Thou/mm3 (0.0-0.5); Eosinophils % (Auto) 1 % (0-10); Hematocrit 27.8 % (41.0-53.0); Hemoglobin 9.1 g/dL (13.5-16.0); Immature Granulocytes % (Auto) 1 % (0-0); Immature Granulocytes Auto 0.19 Thou/mm3 (0.00-0.00); Lymphocytes # (Auto) 1.5 Thou/mm3 (1.0-4.8); Lymphocytes % (Auto) 7 % (10-50); Mean Corpuscular HGB Conc 32.7 g/dl (31.0-37.0); Mean Corpuscular Hemoglobin 28.9 pg (25.0-35.0); Mean Corpuscular Volume 88 fL (80-100); Monocytes # (Auto) 1.7 Thou/mm3 (0.0-0.8); Monocytes % (Auto) 8 % (0-12); Neutrophils # (Auto) 18.3 Thou/mm3 (1.8-7.7); Neutrophils % (Auto) 83 % (37-80); Nucleated Red Blood Cell % 0 /100 WBC (0); Platelet Count 253 Thou/mm3 (140-440); RDW Standard Deviation 43.2 fL (35.1-43.9); Red Blood Count 3.15 Miln/mm3 (4.50-5.90); White Blood Count 21.9 Thou/mm3 (3.8-10.6)
[2024-07-08 06:18] LABS: Alanine Aminotransferase 40 U/L (10-49); Albumin, Serum 3.2 gm/dL (3.5-5.0); Albumin/Globulin Ratio 1.1 (1.2-2.2); Alkaline Phosphatase 286 U/L (46-116); Anion Gap 12 (7-16); Aspartate Amino Transferase 39 U/L (0-34); BUN/Creatinine Ratio 15 Ratio (12-20); Blood Urea Nitrogen 9 mg/dL (9-23); Calcium 8.8 mg/dL (8.3-10.6); Calcium (Corrected) 9.4 mg/dL (8.5-10.1); Carbon Dioxide 27.4 mMol/L (20.0-31.0); Chloride 91 mMol/L (98-107); Creatinine (Component) 0.6 mg/dL (0.6-1.3); Glucose 107 mg/dL (74-106); Magnesium 1.9 mg/dL (1.6-2.6); Osmolality,Calculated 259 (275-295); Potassium 3.3 mMol/L (3.4-5.1); Sodium 130 mMol/L (136-145); Total Protein 6.2 gm/dL (5.7-8.2); eGFR > 60 See Note
[2024-07-08 07:02] LABS: INR 1.2 (0.9-1.3); Partial Thromboplastin Time 37.9 Seconds (22.0-36.0)
[2024-07-08] MEDS: oxyCODONE/APAP 5/325 TABLET 1 TAB PO (07:21)
--- NOTE | 2024-07-08 08:00 | XR_ITS ---
Examination: CT guided percutaneous biopsy mass pancreatic tail CT abdomen without intravenous contrast Date and time of procedure: July 08, 2024 1304 hours INDICATIONS: CT abdomen July 05, 2024 enlarging mass tail the pancreas Informed consent provided. A timeout was completed verifying correct patient, procedure, site and positioning. Technique: Axial 3 mm sections were obtained for localization of the mass tail the pancreas Appropriate area is marked. The patient's site was prepped and draped in sterile fashion Maximal sterile barrier technique utilized, including hand hygiene Local anesthesia was obtained with 1% lidocaine. Low dose protocols were performed. One or more of the following dose reduction techniques were used; automated exposure control, adjustment of the mA and/or KV according to patient size, use of iterative reconstruction technique. Utilizing CT fluoroscopic guidance 3 core biopsies obtained of the pancreatic mass utilizing an 18-gauge core needle Patient appears in stable condition during this procedure. At completion of the procedure, the patient is in satisfactory condition. Estimated blood loss 0 cc Complete pathology report to follow. Impression: Successful CT-guided percutaneous biopsy pancreatic mass
[2024-07-08] MEDS: PANTOPRAZOLE 20 MG TABLET PO (09:03)
[2024-07-08] MEDS: DULoxetine HCL 30 MG CAPSULE PO (09:04)
[2024-07-08] MEDS: LEVOFLOXACIN/D5W 750MG IVPB 750 MG/150 ML BAG 100 MG IV (09:04)
[2024-07-08] MEDS: Morphine Sulf 15 MG TABCR PO (09:04)
--- NOTE | 2024-07-08 09:35 | PC.SS ---
SS follow up note; Patient is pending Biopsy today, will discharge home when medically cleared.
[2024-07-08] MEDS: POTASSIUM CHL 10 mEq IVPB 10 MEQ/100 ML BAG 100 MEQ IV (11:02)
[2024-07-08] MEDS: fentaNYL CIT INJ 50 mCg/ML AMP 2ML 75 MCG IVP (13:19)
--- NOTE | 2024-07-08 14:24 | PC.NURSE ---
Per DR. Chan, dose of vancomycin not needed. Patient will be discharging home today. Pharmacy aware.
--- NOTE | 2024-07-08 14:26 | ESDS_ITS ---
Planned Discharge Date 07/08/24 DS: Providers Provider Date of admission: 07/05/24 13:40 Primary care physician: Liset Aguilar MD Admitting Provider: Romero Ba MD Attending Provider on Admission: Carter Lopez MD Consults: 07/05/24 12:37 Consult to Oncology Stat Comment: Consulting Provider: Rex Pascual 07/05/24 18:04 [facility] Referral - Nutrition Routine Comment: Positive screening for nutrition needs. 07/05/24 18:05 Referral Registered Dietitian Urgent Comment: Attending Provider on DC: Carter Lopez MD Discharging Provider: Carter Lopez MD DS: Diagnosis Problem List Completed Was Problem List Reviewed/Reconciled?: Yes Hospital Course Hospital Course Hospital course: 54-year-old male with past medical history of PTSD, depression, degenerative disc disease, and pancreatic mass was admitted to the hospital on 07/05/2024 due to right lower lobe pneumonia and concern for sepsis. Initially patient was febrile and tachycardic. Initial labs showed leukocytosis of 33.1, low hemoglobin (10.9), hypokalemia, and elevated procalcitonin 2.3. Initial imaging included chest x-ray which showed no pneumonia, but abdomen/pelvis CT that show atelectasis versus pneumonia of right base. Patient's blood cultures throughout the hospital stay were negative and he remained afebrile. Patient was placed on IV antibiotics and had pain control with IV Dilaudid and oxycodone as needed. Given the patient needed biopsy we needed to wait for patient to be 48 hours afebrile therefore on the day of discharge patient underwent successful CT- guided biopsy with no complications. At this time patient's WBC was downtrending and he remained afebrile therefore he was stable enough to be discharged. At the time of discharge patient was stable enough to be discharged back home. Discharge plan: Please follow-up with primary care physician within 1 week after discharge Please follow-up with oncologist as within 1 to 2 weeks upon discharge to follow-up on the biopsy results. You have been started on Augmentin for 4 more days, please take 1 pill this evening and then twice a day starting tomorrow. Please continue taking all home medications as prescribed Please come back to the ED if you spike any new fevers or have intolerable pain. Problem list: #Right lower lobe pneumonia #Leukocytosis #Pancreatic mass with liver metastasis #Degenerative disc disease #History of PTSD #History of depression #History of Allergies Case disclosed with Attending Dr. John Jimenez PGY1 Status at Discharge Overall status at discharge: patient is progressing back to baseline Time Spent with Patient Time attestation: Total time spent providing and/or coordinating discharge services:30 min Time spent: Less than 30 minutes Exam Vital Signs Temp Pulse Resp BP Pulse Ox O2 Del Method O2 Flow Rate 97.9 F 82 16 120/68 94 L Room Air 2 07/08/24 12:32 07/08/24 13:45 07/08/24 13:45 07/08/24 13:45 07/08/24 13:45 07/08/24 13:45 07/08/24 13:34 Narrative Exam General: A/O x3, no acute distress Eyes: PERRL, EOMI. Anicteric, vision grossly intact. Ears: No ear pain, no ear discharge, Hearing grossly intact. Nose: No nasal discharge. Mouth/Throat: Dry mucous membranes, no redness, no lesions. Neck: Neck supple, non-tender, no cervical lymphadenopathy. Lungs: Clear HAYLEY to auscultation and percussion, No accessory muscle use. Cardio: Normal S1/S2, regular rhythm, no murmurs, no JVD Abdomen: Soft, non-tender, no palpable masses, peristalsis present, no guarding or rebound. Extremities: Symmetrical, no significant deformities, no peripheral edema , non-tender, peripheral pulses presents. Skin: No rashes, no lesions, warm to touch. Neuro: No focal neurological deficits. motor and sensory intact Psych: Cooperative, appropriate mood and effect. Discharge Plan Plan Patient Disposition: HOME (Self Care) Care Plan Goals: Please follow-up with primary care physician within 1 week after discharge Please follow-up with oncologist as within 1 to 2 weeks upon discharge to follow-up on the biopsy results. You have been started on Augmentin for 4 more days, please take 1 pill this evening and then twice a day starting tomorrow. Please continue taking all home medications as prescribed Please come back to the ED if you spike any new fevers or have intolerable pain. Prescriptions/Referrals Prescriptions/Med Rec: New amoxicillin-pot clavulanate 875-125 mg tablet 1 tab PO BID 4 Days Qty: 9 0RF Continued ergocalciferol (vitamin D2) [Vitamin D2] 1,250 mcg (50,000 unit) capsule 1 cap PO QWEEK Patient Comments: take 1 capsule by mouth every week Nurtec ODT 75 mg tablet,disintegrating 1 tab PO DAILY Patient Comments: take 1 tablet by mouth every other day ondansetron 4 mg tablet,disintegrating 4 mg PO Q6H PRN (Reason: nausea and vomiting) Qty: 20 0RF oxycodone 5 mg tablet 5 mg PO Q6H MDD 4 PRN (Reason: pain) Qty: 20 0RF duloxetine 40 mg capsule,delayed release(DR/EC) 40 mg PO QDAY Patient Comments: take 1 capsule by mouth once daily cetirizine 10 mg tablet 10 mg PO HS Patient Comments: take 1 tablet by mouth at bedtime morphine 15 mg tablet extended release 15 mg PO Q12H PRN (Reason: pain) Patient Comments: take 1 tablet by mouth twice a day NEEDED FOR PAIN omeprazole 20 mg capsule,delayed release(DR/EC) 20 mg PO HS Patient Comments: take 1 capsule by mouth at bedtime naloxone 4 mg/actuation spray,non-aerosol 1 spray INTRANASAL Q3M PRN (Reason: opioid overdose) Patient Comments: ADMINISTER 1 SINGLE spray INTO ONE NOSTRIL if needed for OPIOID O... (REFER TO PRESCRIPTION NOTES). Referrals: Liset Aguilar MD [Primary Care Provider] - Patient/Caregiver Discharge Instructions Other Discharge Activity Instructions:: Please follow-up with primary care physician within 1 week after discharge Please follow-up with oncologist as within 1 to 2 weeks upon discharge to follow-up on the biopsy results. You have been started on Augmentin for 4 more days, please take 1 pill this evening and then twice a day starting tomorrow. Please continue taking all home medications as prescribed Please come back to the ED if you spike any new fevers or have intolerable pain. Education Materials: Preventing Pneumonia, Preventing Common Respiratory ..., Taking Opioid Medicines Print Language: Yoruba Stand Alone Forms: Annie Award Info., Patient Portal Info Letter Discharge Order Discharge Orders: Discharge (Routine); Ordered 07/08/24 Ordered By: Corey Jimenez Quality Discharge Quality Measures VTE prophylaxis
== END 2024-07-08 16:10 | disposition home or self-care (01) | DRG 139 ==
LOC: SERX 12:50 → SERHOLD 13:56 → S3NX 17:41
PROVIDERS: Radiology Diagnostic Radiology; Student in an Organized Health Care Education/Training Program; Admitting Provider Student in an Organized Health Care Education/Training Program; Emergency Provider Emergency Medicine; PCP Family Medicine; Visit Provider Student in an Organized Health Care Education/Training Program
DX: J18.9 Pneumonia, unspecified organism (principal); F43.10 Post-traumatic stress disorder, unspecified; F32.A Depression, unspecified; C78.7 Secondary malignant neoplasm of liver and intrahepatic bile duct; B37.0 Candidal stomatitis; F17.200 Nicotine dependence, unspecified, uncomplicated; M51.379 Other intervertebral disc degeneration, lumbosacral region without mention of lumbar back pain or lower extremity pain; G89.29 Other chronic pain; K86.9 Disease of pancreas, unspecified; E87.6 Hypokalemia; D64.9 Anemia, unspecified; K59.00 Constipation, unspecified; I10 Essential (primary) hypertension; I49.3 Ventricular premature depolarization; Z88.0 Allergy status to penicillin; Z88.1 Allergy status to other antibiotic agents; Z90.49 Acquired absence of other specified parts of digestive tract
CPT/HCPCS: 36415; 71045; 74177; 77012; 80053; 80202; 81001; 83605; 83735; 84145; 85025; 85610; 85730; 87040; 87081; 87086; 87811; 93005; 96361; 96365; 96372; 96374; 99285; A4649; J1171; J1644; J1956; J2270; J2405; J3010; J3370; J3475; J3480; J7030; J7040; Q9967; A9270

== ENCOUNTER 2024-07-14 17:44 | Emergency (ER) | payer MEDICAID, SELFPAY ==
[2024-07-14 17:46] VITALS: PULSE 107; RESP 18; O2SAT 97
[2024-07-14 18:12] VITALS: BP 112/74; PULSE 90; RESP 18; TEMP 36.6; O2SAT 95; BMI 23.5
--- NOTE | 2024-07-14 18:49 | XR_ITS ---
Examination: AP chest single view TECHNIQUE: AP portable upright chest single view Date and time: 11/14/2024 1906 hours Comparison July 05, 2024 INDICATIONS: High fever beginning 5 days ago. FINDINGS: Atelectasis and/or pneumonia right base medially Subsegmental atelectasis left lung Elevation right hemidiaphragm No pulmonary edema IMPRESSION: Atelectasis and/or pneumonia right base medially, clinical correlation advised
--- NOTE | 2024-07-14 18:51 | PD.EDABDPN ---
ED Abdominal Pain RME/HPI General Chief Complaint: Fever Stated complaint: FEVER X FRIDAY;HX PNEUMONIA & PACREATIC CANCER Time seen by provider: 07/14/24 18:45 Arrival date/time: 07/14/24 17:44 54M with history of pancreatic cancer, DDD, PTSD, and recent admission for PNA and fevers/chills presents to ED with fevers/chills at home since DC last Friday. Patient finished his ABX w/o improvement. Patient denies URI symptoms. Ab pain is present, but no worse than usual. Patient states his back pain seems worse than usual. Limitations: no limitations Related Data Home Medications ?Medication ?Instructions ?Recorded ?Confirmed ergocalciferol (vitamin D2) 1,250 1 cap PO QWEEK 11/13/21 07/05/24 mcg (50,000 unit) capsule (Vitamin D2) rimegepant 75 mg disintegrating 1 tab PO DAILY 11/13/21 07/05/24 tablet (Nurtec ODT) cetirizine 10 mg tablet 10 mg PO HS 07/05/24 07/05/24 duloxetine 40 mg capsule,delayed 40 mg PO QDAY 07/05/24 07/05/24 release morphine 15 mg tablet,extended 15 mg PO Q12H PRN pain 07/06/24 07/06/24 release naloxone 4 mg/actuation nasal spray 1 spray intranasal Q3M PRN opioid 07/06/24 07/06/24 overdose omeprazole 20 mg capsule,delayed 20 mg PO HS 07/06/24 07/06/24 release Previous Rx's ?Medication ?Instructions ?Recorded ondansetron 4 mg disintegrating 4 mg PO Q6H PRN nausea and 06/09/24 tablet vomiting #20 tabs oxycodone 5 mg tablet 5 mg PO Q6H PRN pain #20 tabs 06/10/24 oseltamivir 75 mg capsule (Tamiflu) 75 mg PO BID 5 days #10 caps 07/14/24 Allergies Allergy/AdvReac Type Severity Reaction Status Date / Time erythromycin base Allergy Mild Rash Verified 07/14/24 17:48 amoxicillin Allergy Unknown Verified 07/14/24 17:48 NSAIDS (Non-Steroidal AdvReac Verified 07/14/24 17:48 Anti-Inflamma msg Allergy Intermediate Nausea Uncoded 07/14/24 17:48 PERSIMMON Allergy Mild FLU LIKE Uncoded 07/14/24 17:48 SYMPTOM Review of Systems Review of Systems Systems Reviewed: All systems reviewed, normal except as documented Constitutional Constitutional: Reports system reviewed and no additional complaints, except as documented, Reports as per HPI, Reports chills, Reports fever(s) and Denies headache(s) ENT Ears, Nose, Mouth, and Throat: Denies disequilibrium and Denies headache(s) Cardiovascular Cardiovascular: Reports system reviewed and no additional complaints, except as documented, Denies chest pain and Denies dyspnea Respiratory Respiratory: Reports system reviewed and no additional complaints, except as documented, Denies cough and Denies dyspnea Gastrointestinal Gastrointestinal: Reports system reviewed and no additional complaints, except as documented, Denies abdominal pain, Denies nausea and Denies vomiting Neurologic Neurologic: Reports system reviewed and no additional complaints, except as documented, Denies confusion, Denies disequilibrium and Denies headache(s) Psychiatric Psychiatric: Denies confusion Past Medical History Past Medical History NEUROLOGIC: Positive Neurological Disorders and Migraine; Negative Seizures CARDIAC: Positive Hypercholesterolemia (NO MEDS) and Hypertension; Negative Cardiac Disorders or Congestive Heart Failure RESPIRATORY: Negative Chronic Obstructive Pulmonary Disease (COPD), Asthma or Sleep Apnea GASTROINTESTINAL: Positive Gastrointestinal Bleed and Ulcer; Negative Gastrointestinal Disorders GENITOURINARY: Negative Genitourinary Disorders or Renal Disease MUSCULOSKELETAL: Positive Degenerative Disk Disease and Scoliosis; Negative Musculoskeletal Disorders ENDOCRINE: Negative Diabetes Mellitus Type 1 or Diabetes Mellitus Type 2 HEMATOLOGIC: Negative Sickle Cell Disease PSYCHO/SOCIAL: Positive Depression, Anxiety and Post Traumatic Stress Disorder OTHER HISTORY: Positive Anesthesia Reactions and Chicken Pox; Negative Blood Transfusions, Measles, Mumps or Cancer Family History FAMILY HISTORY: Positive Family Cancer Surgical History SURGICAL: Negative Cardiac Surgery, Endocrine Surgery or Ear Surgery Social History SMOKING STATUS: Never smoker ED Exam General Limitations: Present no limitations General appearance: Present alert and in no apparent distress Head Head exam: Present atraumatic Eye Eye exam: Present normal appearance, PERRL and EOMI ENT ENT exam: Present normal exam, normal oropharynx and mucous membranes moist Neck Neck exam: Present normal inspection, full ROM and trachea midline Chest Chest inspection: Present normal inspection and symmetric chest wall rise Respiratory Respiratory exam: Present normal lung sounds bilaterally Cardiovascular Cardiovascular exam: Present regular rate, normal rhythm and normal heart sounds Abdominal Exam Abdominal exam: Present soft and normal bowel sounds Extremities Exam Extremities exam: Present normal inspection and full ROM Back Exam Back exam: Present normal inspection and full ROM Neurological Exam Neurological exam: Present alert, oriented X3 and CN II-XII intact Psychiatric Psychiatric exam: Present normal affect and normal mood Skin Skin exam: Present warm, dry, intact and normal color Course Quality Measures none Orders Category Date Time Status Bedside Influenza A&B Antigen Test NOW Care 07/14/24 18:45 Completed Insert IV NOW Care 07/14/24 19:[address] lumbar spine wo con Stat Exams 07/14/24 18:[address] thoracic spine wo con Stat Exams 07/14/24 18:53 Completed US gall bladder Stat Exams 07/14/24 19:59 Completed XR chest 1V portable Stat Exams 07/14/24 18:49 Completed Blood Culture (Lab) Stat Lab 07/14/24 18:54 Received CBC Stat Lab 07/14/24 19:00 Completed CMP [Comprehensive Metabolic Panel] Stat Lab 07/14/24 19:00 Completed COVID-19 Antigen (In-House) Stat Lab 07/14/24 18:54 Completed Cocci Serology IgM with reflex to IgG [Cocci Serology, Lab 07/14/24 19:00 Received Unk History] Stat Lactate (Lactic Acid) Stat Lab 07/14/24 19:00 Completed Lactic Acid, 3 HR Stat Lab 07/14/24 22:41 Completed Lipase Stat Lab 07/14/24 19:00 Completed Path Review Blood Smear Stat Lab 07/14/24 19:00 Completed Procalcitonin Stat Lab 07/14/24 19:00 Completed Urinalysis Stat Lab 07/14/24 19:04 Completed Urine Culture Stat Lab 07/14/24 19:04 Received Levofloxacin/D5w 750Mg Ivpb [Levaquin Ivpb] Med 07/14/24 19:42 Discontinued 750 mg in 150 ml IV X1 Morphine Inj Med 07/14/24 22:48 Discontinued 5 mg IVP X1 ONE Ondansetron Inj [Zofran Inj] Med 07/14/24 22:48 Discontinued 4 mg IV X1 ONE Oseltamivir [Tamiflu] Med 07/14/24 22:38 Discontinued 75 mg PO X1 ONE Piper/Tazo 3.375 gm Premix [Zosyn] Med 07/14/24 19:58 Discontinued 3.375 gm in 50 ml IV X1 Sodium Chloride 0.9% 1000 ml [Ns] 1,983 ml Med 07/14/24 19:43 Discontinued IV 1,983 mls/hr Vancomycin/Ns 1 gm Ivpb 200 ml Med 07/14/24 19:42 Discontinued IV X1 Vital Signs Vital signs: Vital Signs Temperature 97.8 F 07/14/24 18:12 Pulse Rate 90 07/14/24 18:12 Respiratory Rate 18 07/14/24 18:12 Blood Pressure 112/74 07/14/24 18:12 Pulse Oximetry (%) 95 07/14/24 18:12 Oxygen Delivery Method Room Air 07/14/24 18:12 O2 at 95% on RA and WNLs Abdominal Pain MDM MDM Narrative MDM Narrative:: 54M with history of pancreatic cancer, DDD, PTSD, and recent admission for PNA and fevers/chills presents to ED with fevers/chills at home since DC last Friday. Patient finished his ABX w/o improvement. Patient denies URI symptoms. Ab pain is present, but no worse than usual. Patient states his back pain seems worse than usual. Physical exam reveals non-toxic male in no acute distress. Clear lungs. Normal WOB. Neck ROM intact. Speech normal. Patient is afebrile, calm and alert. CT reveals no osteo, but does still have R-sided PNA. Significant leukocytosis and procal elevation. Lactate mildly elevated at 3.3, but decreased to 2.2 after IVF. Mild hyponatremia, but similar to during admission. Bili mildly elevated, but LFTs normal. US gallbladder showed s/p cholecystectomy and normal CBD. Flu A+. Patient remained afebrile during ED visit. Spoke to Dr. Pascual, patient's oncologist, who states Flu A+ can sometime cause leukocytosis and procal elevation. She states patient can be discharged and follow-up with her tomorrow. Despite unknown onset, Dr. Pascual also recommends Alisha-flu. Cocci pending at time of DC because upon chart review, no Cocci test was done during previous admission for PNA. Patient data External records reviewed:: [facility] previous records Clinical information provided by:: patient Social determinants that could affect healthcare access:: mental health Patient has the following chronic illnesses:: pancreatic cancer, DDD, PTSD How is presenting disease/condition affected by chronic disease/condition?: exacerbated by Evaluation data The following diagnostics were reviewed and interpreted by me:: lab results and radiology exam(s) Lab and/or radiology exams considered but not ordered:: ordered Interpretation Summary: above Medications / Prescriptions Medications or Prescriptions considered but not ordered:: ordered Medication administrations:: Medication Administration History Discontinued Medications Vancomycin/Sodium Chloride (Vancomycin/Ns 1 Gm Ivpb) 200 mls @ 120 mls/hr IV X1 ONE Stop: 07/14/24 21:21 Last Infusion: 07/15/24 00:29 Dose: Infused Documented By: Admin: 07/14/24 22:48 Dose: 120 mls/hr Documented By: ANNAMARIA Levofloxacin/Dextrose (Levaquin Ivpb) 750 mg in 150 mls @ 100 mls/hr IV X1 ONE Stop: 07/14/24 21:11 Last Admin: 07/14/24 23:07 Dose: Not Given Documented By: ANNAMARIA Non-Admin Reason: Cancelled by Provider Sodium Chloride (Ns) 1,983 mls @ 1,983 mls/hr 30 ml/kg infuse over 60 min (1983 ml) IV .Q1H ONE Stop: 07/14/24 20:42 Last Infusion: 07/14/24 21:36 Dose: Infused Documented By: Admin: 07/14/24 20:36 Dose: 1,983 mls/hr Documented By: FUNMI Piperacillin/Tazobactam/Dextrose (Zosyn) 3.375 gm in 50 mls @ 100 mls/hr IV X1 ONE Stop: 07/14/24 20:27 Last Infusion: 07/14/24 22:30 Dose: Infused Documented By: Admin: 07/14/24 21:12 Dose: 100 mls/hr Documented By: CHOUDHARY Morphine Sulfate (Morphine Sulf Inj 10 Mg/Ml Vial) 5 mg IVP X1 ONE Stop: 07/14/24 22:49 Last Admin: 07/14/24 23:16 Dose: 5 mg Documented By: ANNAMARIA Ondansetron HCl (Ondansetron Inj 2 Mg/Ml Inj 2 Ml) 4 mg IV X1 ONE; Protocol Stop: 07/14/24 22:49 Last Admin: 07/14/24 23:15 Dose: 4 mg Documented By: ANNAMARIA Oseltamivir Phosphate (Oseltamivir 75 Mg Capsule) 75 mg PO X1 ONE Stop: 07/14/24 22:39 Last Admin: 07/14/24 22:47 Dose: 75 mg Documented By: ANNAMARIA above Consultations Consultation(s) initiated? (list below): Yes Diagnosis Differential diagnosis abdominal pain: abdominal pain, acute appendicitis, calculus of kidney, constipation, diverticulitis, gastroenteritis, pancreatitis, small bowel obstruction and other (pancreatic mass, PNA, fever, flu A) Most likely diagnosis given after review of the tests above:: flu A Admission Indicated Admission indicated?: not indicated Admission Request Was there a request for admission?: No Disposition Plan Disposition Plan: Discharge Discharge Attestation Discharge Attestation: The patient and all family members were given an opportunity to ask questions and understood the discharge instructions. Discharge instructions specifically effects, indications for sooner follow up or return to the emergency department, and the expected course of current diagnosis. Patient condition: Stable Discharge Plan Plan Patient Disposition: HOME (Self Care) Discharge Disposition comment: Stable Prescriptions/Referrals Prescriptions/Med Rec: New oseltamivir [Tamiflu] 75 mg capsule 75 mg PO BID 5 Days Qty: 10 0RF No Action ergocalciferol (vitamin D2) [Vitamin D2] 1,250 mcg (50,000 unit) capsule 1 cap PO QWEEK Patient Comments: take 1 capsule by mouth every week Nurtec ODT 75 mg tablet,disintegrating 1 tab PO DAILY Patient Comments: take 1 tablet by mouth every other day ondansetron 4 mg tablet,disintegrating 4 mg PO Q6H PRN (Reason: nausea and vomiting) Qty: 20 0RF oxycodone 5 mg tablet 5 mg PO Q6H MDD 4 PRN (Reason: pain) Qty: 20 0RF duloxetine 40 mg capsule,delayed release(DR/EC) 40 mg PO QDAY Patient Comments: take 1 capsule by mouth once daily cetirizine 10 mg tablet 10 mg PO HS Patient Comments: take 1 tablet by mouth at bedtime morphine 15 mg tablet extended release 15 mg PO Q12H PRN (Reason: pain) Patient Comments: take 1 tablet by mouth twice a day NEEDED FOR PAIN omeprazole 20 mg capsule,delayed release(DR/EC) 20 mg PO HS Patient Comments: take 1 capsule by mouth at bedtime naloxone 4 mg/actuation spray,non-aerosol 1 spray INTRANASAL Q3M PRN (Reason: opioid overdose) Patient Comments: ADMINISTER 1 SINGLE spray INTO ONE NOSTRIL if needed for OPIOID O... (REFER TO PRESCRIPTION NOTES). Referrals: Benjie Carlin FNP [Primary Care Provider] - In 1 week Problem List Clinical Impression: Influenza A Patient/Caregiver Discharge Instructions Education Materials: ED Influenza (Adult) Additional Instructions: Please follow-up with PCP within 24-48 hours and return immediately if symptoms worsen. Ibuprofen/Tylenol can be used simultaneously for greater fever/pain control. Benadryl is good for cough, congestion, and sleep. Keep hydrated. Advance diet as tolerated. Call Dr. Pascual in the morning. Have her check in Cocci test results. Print Language: Salvadorean Stand Alone Forms: Patient Portal Info Letter PA/FIELD HOCKEY COACH Supervising Physician PA/FIELD HOCKEY COACH Supervising Physician: Dr. Landers
--- NOTE | 2024-07-14 18:53 | XR_ITS ---
Examination: CT lumbar spine, without contrast. 2-D sagittal reconstructions. 2-D coronal reconstructions. 3-D reconstructions. Date and time of exam:July 14, 2024 2128 hours INDICATION: fever back pain today, diagnosis pancreatic carcinoma CTDI: vol (mGy):17.8 DLP: (mGycm):541 Technique: Multiple 1.25 mm axial sections of the lumbar spine without intravenous contrast have been obtained. 2-D sagittal and coronal reconstructions have been obtained. 3-D reconstructions have been obtained. Low dose protocols were performed. One or more of the following dose reduction techniques were used; automated exposure control, adjustment of the mA and/or KV according to patient size, use of iterative reconstruction technique. Findings: Adequate alignment lumbar vertebral bodies No osteolytic or osteoblastic lesions Moderate to advanced degenerative disc disease L4-L5, L5-S1 No findings of osteomyelitis or discitis L5-S1 3 mm central lumbar disc bulge IMPRESSION: Moderate to advanced degenerative disc disease L4-L5, L5-S1 No lumbar fracture Negative for osteomyelitis or discitis
--- NOTE | 2024-07-14 18:53 | XR_ITS ---
Examination: CT thoracic spine, without contrast. 2-D sagittal reconstructions. 2-D coronal reconstructions. 3-D reconstructions. Date and time of exam:June 24, 2024 2128 hours INDICATIONS: Fever back pain today CTDI: vol (mGy):20.5 DLP: (mGycm):745 Technique: Multiple 1.25 mm axial sections of the thoracic spine without intravenous contrast have been obtained. 2-D sagittal and coronal reconstructions have been obtained. 3-D reconstructions have been obtained. Low dose protocols were performed. One or more of the following dose reduction techniques were used; automated exposure control, adjustment of the mA and/or KV according to patient size, use of iterative reconstruction technique. Findings: Moderate osteopenia No osteolytic or osteoblastic lesions No thoracic fracture [id number] diffuse thoracic disc narrowing Negative for osteomyelitis discitis IMPRESSION: [id number] diffuse thoracic degenerative disc disease Negative for osteomyelitis discitis Pneumonia right base
[2024-07-14 19:09] LABS: Collection Type, Urine Clean Catch; RBC,Urine 0 /hpf (0-3); Squamous Epithelial Cell,Urine 0 /hpf (0-5); WBC,Urine 0 /hpf (0-5)
[2024-07-14 19:10] LABS: Lactate (Lactic Acid) 3.3 mMol/L (0.4-2.0)
[2024-07-14 19:16] LABS: Basophils # (Auto) 0.1 Thou/mm3 (0.0-0.2); Basophils % (Auto) 0 % (0-2.5); Eosinophils % (Auto) 0 % (0-10); Hematocrit 30.1 % (41.0-53.0); Hemoglobin 9.8 g/dL (13.5-16.0); Immature Granulocytes % (Auto) 2 % (0-0); Immature Granulocytes Auto 0.82 Thou/mm3 (0.00-0.00); Lymphocytes # (Auto) 1.8 Thou/mm3 (1.0-4.8); Lymphocytes % (Auto) 4 % (10-50); Mean Corpuscular HGB Conc 32.6 g/dl (31.0-37.0); Mean Corpuscular Hemoglobin 28.7 pg (25.0-35.0); Mean Corpuscular Volume 88 fL (80-100); Monocytes # (Auto) 2.1 Thou/mm3 (0.0-0.8); Monocytes % (Auto) 5 % (0-12); Neutrophils # (Auto) 38.6 Thou/mm3 (1.8-7.7); Neutrophils % (Auto) 89 % (37-80); Nucleated Red Blood Cell % 0 /100 WBC (0); Platelet Count 326 Thou/mm3 (140-440); RDW Standard Deviation 46.6 fL (35.1-43.9); Red Blood Count 3.41 Miln/mm3 (4.50-5.90)
[2024-07-14 19:18] LABS: White Blood Count 43.4 Thou/mm3 (3.8-10.6)
[2024-07-14 19:32] LABS: Bilirubin,Urine Negative (Negative); Blood,Urine Negative (Negative); Clarity,Urine Turbid (Clear/Hazy); Color,Urine Yellow (Lt Yel-Yel); Glucose, Urine Negative (Negative); Ketones,Urine Negative (Negative); Leukocyte Esterase,Urine Negative (Negative); Nitrite,Urine Negative (Negative); Protein,Urine 1+ (Neg - Trace); Specific Gravity,Urine 1.024 (1.001-1.035); Urobilinogen,Urine Negative mg/dL (0.0-1.0)
[2024-07-14 19:40] LABS: COVID-19 Antigen (In-House) Negative (Negative)
[2024-07-14 19:40] LABS: Alanine Aminotransferase 47 U/L (10-49); Albumin, Serum 3.6 gm/dL (3.5-5.0); Alkaline Phosphatase 456 U/L (46-116); Anion Gap 11 (7-16); Aspartate Amino Transferase 51 U/L (0-34); BUN/Creatinine Ratio 25 Ratio (12-20); Bilirubin,Total 1.6 mg/dL (0.3-1.2); Blood Urea Nitrogen 15 mg/dL (9-23); Calcium 11.1 mg/dL (8.3-10.6); Calcium (Corrected) 11.4 mg/dL (8.5-10.1); Carbon Dioxide 28.4 mMol/L (20.0-31.0); Chloride 92 mMol/L (98-107); Creatinine (Component) 0.6 mg/dL (0.6-1.3); Estimated Creatinine Clearance 134.6 mL/min (>60); Globulin 3.7 gm/dL (2.3-3.5); Glucose 127 mg/dL (74-106); Lipase 20 U/L (12-53); Osmolality,Calculated 265 (275-295); Potassium 4.8 mMol/L (3.4-5.1); Procalcitonin 28.54 ng/ml (0.0-0.49); Sodium 131 mMol/L (136-145); Total Protein 7.3 gm/dL (5.7-8.2); eGFR > 60 See Note
--- NOTE | 2024-07-14 19:59 | XR_ITS ---
Examination: Abdomen sonogram, Limited Date and time of exam: July 14, 2024, 2041 hours INDICATIONS: Abnormal bilirubin on laboratory examination today, pancreatic carcinoma diagnosis Technique: Real-time rodgers scale transabdominal sonographic images of the upper abdomen obtained. Findings: Absent gallbladder Common bile duct 0.5 cm no stones Pancreatic head 2.1 cm, mass of the tail the pancreas is 6.9 x 5.7 cm Liver 16.9 cm with multiple hepatic metastases, the largest 5.0 cm Normal hepatopedal portal venous Patent IVC IMPRESSION: Absent gallbladder No common bile duct stone Large mass tail of the pancreas Hepatic metastases Consider MRCP follow-up
[2024-07-14 20:07] LABS: Path Review Blood Smear Sent to Pathologist
[2024-07-14] MEDS: SODIUM CHLORIDE 0.9% 1000 ML 1,983 ML 1983 ML IV (20:36)
[2024-07-14] MEDS: PIPER/TAZO 3.375 GM PREMIX 3.375 GM/50 ML BAG IV (21:12)
[2024-07-14 22:06] LABS: Reflex Lactate? Y
[2024-07-14] MEDS: OSELTAMIVIR 75 MG CAPSULE PO (22:47)
[2024-07-14] MEDS: VANCOMYCIN/NS 1 GM IVPB 200 ML IV (22:48)
[2024-07-14 22:54] LABS: Lactic Acid, 3 HR 2.2 mMol/L (0.4-2.0)
[2024-07-14 23:00] VITALS: BP 133/80; PULSE 92; RESP 14; TEMP 36.9; O2SAT 98
[2024-07-14] MEDS: ONDANSETRON INJ 2 MG/ML INJ 2 ML 4 MG IV (23:15)
[2024-07-14] MEDS: MORPHINE SULF INJ 10 MG/ML VIAL 5 MG IVP (23:16)
[2024-07-15 11:57] LABS: Cocci Serology, IgM Negative (Negative)
[2024-07-16 11:34] LABS: Cocci Serology, IgG Negative (Negative)
== END 2024-07-15 02:00 | disposition home or self-care (01) ==
PROVIDERS: Physician Assistant; Emergency Provider Emergency Medicine
DX: J10.1 Influenza due to other identified influenza virus with other respiratory manifestations (principal); M54.9 Dorsalgia, unspecified
CPT/HCPCS: 36415; 71045; 72128; 72131; 76705; 80053; 81001; 83605; 83690; 84145; 85025; 86331; 86635; 87040; 87086; 87400; 87811; 96365; 96366; 96375; 99285; J2270; J2405; J2543; J3370; J7030; A9270

== ENCOUNTER 2024-07-26 09:27 | Outpatient (RCR) | payer MEDICAID, SELFPAY ==
--- NOTE | 2024-08-01 22:21 | CTCFLWUP_ITS ---
Patient: ANNIE FAY : 1970 Page 2 of 6 FOLLOW UP NOTE DATE OF SERVICE: 06/30/2024 NAME: ANNIE FAY ACCOUNT: [id number] : 1970 AGE: 54 INTERVAL HISTORY: ONCOLOGY HISTORY: DIAGNOSIS: ?CloneDiagnosis? 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 The patient reports significant weight loss of about 20 pounds since February, which is approximately 5 months ago. The patient describes experiencing pain that began in February, for which he was initially prescribed oxycodone in the emergency room. However, the oxycodone was ineffective in managing his pain, and he is currently using morphine for long- term pain relief. The pain is described as severe, which is consistent with pancreatic cancer. The patient's history includes smoking and alcohol use. He began smoking at age 19, initially a pack at a green party, then abstained until age 20. During his school years, he smoked approximately one pack every 3-4 weeks. His alcohol consumption was primarily limited to weekends with friends, never drinking alone or as an escape. He reports being unable to consume more than two drinks at a time and at most, drinking two drinks per week sporadically. The patient states he hasn't had alcohol for 3-4 years and smoked his last cigarette 8 months ago. The patient denies any current vomiting or inability to hold down food, which would indicate obstruction. He also denies any significant history of alcohol use that would increase his risk of pancreatic cancer. Medications and Supplements - Morphine - For long-term pain relief - Oxycodone (Oxy) - Prescribed by ER for pain - Didn't work effectively Review of Systems General: Positive for weight loss. Gastrointestinal: Positive for abdominal pain. Objective: Vital Signs - Weight: 20 pounds lost since February Laboratory, Imaging, and Diagnostic Test Results - CT scan: Abnormal findings in pancreas and liver, suggestive of pancreatic cancer with metastasis to liver OTHER MEDICAL HISTORY/CONDITIONS: Mass pancreatice tail with probable liver metastasis - GERD Depression/ Anxiety Cholecystectomy - 2015 Repear of Luz- Wiess tear- 1998 FAMILY HISTORY: Father:?Colon?-?dx?60's Mother:?Basal?cell?skin?-?dx?35 Cancer History:?Mat grandfather- lung - dx 60's SOCIAL HISTORY: Occupational?History:?Unemployed Education?Level:?College Graduate, 2 year degree Marital?Status:? Tobacco?Use:?Denies ETOH?Use:?Denies Drug?Note:?Smoke marijuana daily x 10yrs Social?History?Note:?Lives?alone MEDICATIONS: 1. DULoxetine - 40 mg 1 Capsule Daily 2. fluticasone furoate - 27.5 mcg/actuation 1 spray Daily 3. metoclopramide HCl - 10 mg 1 tab Every 8 Hours 4. morphine - 15 mg 1 tab every 8 hrs as needed for pain 5. Nurtec ODT - 75 mg 1 tab Every other day 6. omeprazole - 20 mg 1 Capsule Daily 7. oxycodone - 5 mg 1 tab As directed 8. Vitamin D2 - 1,250 mcg (50,000 unit) 1 Capsule Weekly 9. ZOFRAN ODT - 4 mg 1 tab Every 6 Hours?[place] Meds? Medications Last Reconciled by Vonnie Santos MA on 07/26/2024 ALLERGIES: Penicillins; erythromycin REVIEW OF SYSTEMS: A complete 14-point review of systems was performed and is negative except as noted in interval history. PHYSICAL EXAMINATION:?CloneBlock PE? VITAL SIGNS: Temperature?99.9, B/P?131/84, Height?67?inches, Oxygen?Saturation?93% Weight?157?lbs PAIN: 8 - Very severe pain ECOG Performance Status: 1 - Symptomatic; ambulatory; restricted in strenuous activity GENERAL APPEARANCE: Appears well, in no apparent distress, appropriately interactive. HEENT: Normocephalic, no temporal wasting, normal conjunctiva, no scleral icterus, normal hearing, lips without lesions, neck normal range of motion. CARDIOVASCULAR: Not assessed. PULMONARY: Normal respiratory effort, no respiratory distress or use of accessory muscles, speaking in full sentences, no tachypnea. EXTREMITIES: No pedal edema or cyanosis. SKIN: Normal skin appearance. NEUROLOGIC: Alert and oriented x4. PSHYCHIATRIC: Appropriate affect, mood normal, behavior normal, intact thought and speech. LABORATORY DATA: I have personally reviewed and interpreted each of the patient?s relevant lab tests, abnormal findings are below: Date 07/31/24 08/01/24 ??WHITE?BLOOD?COUNT?(Thou/mm3) ? 37.4?HH ??RED?BLOOD?COUNT?(Miln/mm3) ? 2.85?L ??HEMOGLOBIN?(gm/dl) ? 8.1?L ??HEMATOCRIT?(%) ? 25.1?L ??PLATELET?COUNT?(Thou/mm3) ? 32?L ??NEUTROPHILS?%,?AUTO?(%) ? 91?H ??LYMPH?%,?AUTO?(%) ? 3?L ??NEUTROPHILS,?AUTO?(Thou/mm3) ? 33.9?H ??GLUCOSE,RANDOM?(mg/dL) 86 77 ??BLOOD?UREA?NITROGEN?(mg/dL) 40?H 40?H ??CREATININE?(mg/dL) 1.00 1.00 ??SODIUM?(mmol/L) 137 141 ??POTASSIUM?(mmol/L) 3.9 4.0 ??CHLORIDE?(mmol/L) 104 108?H ??CrCl?(CandG)?(ml/min) 87.70 87.70 ??AST/SGOT?(Unit/L) 30 32 ??ALT/SGPT?(Unit/L) 12 11 ??ALKALINE?PHOSPHATASE?(Unit/L) 285?H 263?H ??BILIRUBIN,?TOTAL?(mg/dL) 6.5?H 7.0?H ??PROTEIN?TOTAL?(gm/dl) 5.5?L 5.3?L ??ALBUMIN,?SERUM?(gm/dl) 2.6?L 2.4?L ??GLOBULIN?(gm/dl) 2.9 2.9 ??ALBUMIN/GLOBULIN?RATIO 0.9?L 0.8?L ??CALCIUM,?SERUM?(mg/dL) 12.0?H 12.3?H ??CALCIUM?SERUM?(CORRECTED)?(mg/dL) 13.1?HH 13.6?HH ??MAGNESIUM?(mg/dL) ? 2.1 ASSESSMENT/PLAN:?Aiden Pascual Assessment/Plan? Assessment and Plan: Sharan Sparks, male patient with suspected pancreatic cancer based on recent CT scan findings, presenting with significant weight loss and pain since February. Suspected Pancreatic Cancer Assessment: Patient presents with suspected pancreatic cancer based on recent CT scan findings showing a mass in the pancreas and liver. Significant weight loss of 20 pounds since February and pain requiring morphine for long-term relief support this suspicion. The patient has a history of intermittent smoking since age 19 (last cigarette 8 months ago) and moderate alcohol consumption in his 40s (abstinent for 3-4 years), which are risk factors for pancreatic cancer. However, the extent of smoking and alcohol use is less than initially thought, potentially reducing the likelihood of pancreatic cancer. Symptoms have been present for approximately 5 months, indicating potential disease progression. Di fferential diagnosis includes other hepatobiliary conditions. Confirmation of diagnosis is pending further testing and specialist evaluation. Plan: - Order [id number] blood test today for pancreatic cancer screening - Order alpha-fetoprotein test for liver cancer screening - Refer to hepatobiliary surgeon for diagnostic evaluation (not surgery) - Refer to radiology for biopsy (expected 2-3 weeks for scheduling) - Refer to Dr. Landers for pain management - Order hepatitis screening - Place orders for chemotherapy preparation (pending diagnosis confirmation) - Schedule port placement for potential chemotherapy (pending diagnosis confirmation) - Develop chemotherapy plan (pending diagnosis confirmation) - Follow up in 3 weeks to review test results and specialist evaluations Chronic Pain Assessment: Patient reports chronic pain since February, initially managed with oxycodone in the emergency room, which was ineffective. Currently on morphine for long-term pain relief, which appears to be more effective. Pain is potentially related to the suspected pancreatic mass. Plan: - Refer to Dr. Landers for pain management - Continue current pain management regimen (morphine, dosage not specified) pending pain specialist evaluation ORDERS: Order # Description [id number] CBC with Auto Diff + Comprehensive Metabolic Panel + CA 19-9 [id number] CBC with Auto Diff + Comprehensive Metabolic Panel + CA 19-9 [id number] CBC with Auto Diff + Comprehensive Metabolic Panel + CA 19-9 [id number] CBC with Auto Diff + Comprehensive Metabolic Panel + CA 19-9 [id number] CBC with Auto Diff + Comprehensive Metabolic Panel + CA 19-9 [id number] CBC with Auto Diff + Comprehensive Metabolic Panel + CA 19-9 [id number] CBC with Auto Diff + Comprehensive Metabolic Panel + CA 19-9 [id number] CBC with Auto Diff + Comprehensive Metabolic Panel + CA 19-9 [id number] CBC with Auto Diff + Comprehensive Metabolic Panel + CA 19-9 [id number] CBC with Auto Diff + Comprehensive Metabolic Panel + CA 19-9 RETURN TO CLINIC: BILLING AND COMPLIANCE: I reviewed external records from providers outside my specialty as summarized above. I spent a total of 50 minutes on this patient?s care on the day of their visit excluding time spent related to any billed procedures. This time includes time spent with the patient as well as time spent documenting in the medical record, reviewing patients records and tests, obtaining history, placing orders, communicating with other healthcare professionals, counseling the patient, family or caregiver, and/or care coordination for the diagnoses above. Electronically Signed by: {Object.Sanct_ID*PnP.NameFL@M}, {Object.Sanct_ID*PnP.Suffix@U} D: {Object.Sanct_Date} T: {Object.Sanct_Time} CC: PCP: Benjie Carlin Referring: Benjie Carlin This document was completed utilizing speech recognition software. Grammatical errors, random word insertions, pronoun errors, and incomplete sentences are an occasional consequence of this system due to software limitations, ambient noise, and hardware issues. Any formal questions or concerns about the content, text or information contained within the body of this dictation should be directly addressed to the provider for clarification.
--- NOTE | 2024-08-01 22:26 | CTCFLWUP_ITS ---
Patient: ANNIE FAY : 1970 Page 5 of 5 FOLLOW UP NOTE DATE OF SERVICE: 07/26/2024 NAME: ANNIE FAY ACCOUNT: [id number] : 1970 AGE: 54 INTERVAL HISTORY: Subjective: Chief Complaint Right ear pain for 2-3 weeks, high grade fever that comes and goes History of Present Illness Sharan Sparks is a patient with a newly diagnosed history of pancreatic cancer, presenting for his first visit after a hospital consultation. He reports excruciating pain in his right ear, which has been ongoing for 2 to 3 weeks. The patient also complains of high-grade fever that comes and goes. The right ear pain has not been investigated prior to this visit. The patient was unable to complete port catheter placement since his last visit and has not yet been scheduled for chemotherapy. During his recent hospital stay, he was diagnosed with influenza. Today in the clinic, the patient has a fever of 101?F. The patient's pancreatic cancer treatment plan has been delayed due to these acute symptoms. He has not started chemotherapy as initially planned following his diagnosis. Review of Systems General: Positive for high-grade fever. HEENT: Positive for right ear pain, described as excruciating. Objective: Vital Signs - Temperature: 101?F ONCOLOGY HISTORY: DIAGNOSIS: Malignant neoplasm of pancreatic duct [ICD10] C25.3 DATE OF DIAGNOSIS: 07/09/2023 STAGE/TNM: Invasive adenocarcinoma of the pancreas TREATMENT HISTORY: Care?Plan Start?Date Cycle Day Intent modified?FOLFIRINOX?palma?3?pancreas 07/04/2024 1 14 Palliative HISTORY OF PRESENT ILLNESS: History of Present Illness Sharan Sparks presents with concerns of a possible pancreatic mass discovered on a recent CT scan during a hospital visit. The patient reports significant weight loss of about 20 pounds since February, which is approximately 5 months ago. The patient describes experiencing pain that began in February, for which he was initially prescribed oxycodone in the emergency room. However, the oxycodone was ineffective in managing his pain, and he is currently using morphine for long- term pain relief. The pain is described as severe, which is consistent with pancreatic cancer. The patient's history includes smoking and alcohol use. He began smoking at age 19, initially a pack at a constitution party, then abstained until age 20. During his school years, he smoked approximately one pack every 3-4 weeks. His alcohol consumption was primarily limited to weekends with friends, never drinking alone or as an escape. He reports being unable to consume more than two drinks at a time and at most, drinking two drinks per week sporadically. The patient states he hasn't had alcohol for 3-4 years and smoked his last cigarette 8 months ago. The patient denies any current vomiting or inability to hold down food, which would indicate obstruction. He also denies any significant history of alcohol use that would increase his risk of pancreatic cancer. Subsequently patient was referred for biopsy and biopsy completed on 07/08 which confirmed the diagnosis of pancreatic cancer Medications and Supplements - Morphine - For long-term pain relief - Oxycodone (Oxy) - Prescribed by ER for pain - Didn't work effectively Review of Systems General: Positive for weight loss. Gastrointestinal: Positive for abdominal pain. Objective: Vital Signs - Weight: 20 pounds lost since February Laboratory, Imaging, and Diagnostic Test Results - CT scan: Abnormal findings in pancreas and liver, suggestive of pancreatic cancer with metastasis to liver OTHER MEDICAL HISTORY/CONDITIONS: Mass pancreatice tail with probable liver metastasis - GERD Depression/ Anxiety Cholecystectomy - 2015 Repear of Luz- Wiess tear- 1998 FAMILY HISTORY: Father:?Colon?-?dx?60's Mother:?Basal?cell?skin?-?dx?35 Cancer History:?Mat grandfather- lung - dx 60's SOCIAL HISTORY: Occupational?History:?Unemployed Education?Level:?College Graduate, 2 year degree Marital?Status:? Tobacco?Use:?Denies ETOH?Use:?Denies Drug?Note:?Smoke marijuana daily x 10yrs Social?History?Note:?Lives?alone MEDICATIONS: 1. DULoxetine - 40 mg 1 Capsule Daily 2. fluticasone furoate - 27.5 mcg/actuation 1 spray Daily 3. metoclopramide HCl - 10 mg 1 tab Every 8 Hours 4. morphine - 15 mg 1 tab every 8 hrs as needed for pain 5. Nurtec ODT - 75 mg 1 tab Every other day 6. omeprazole - 20 mg 1 Capsule Daily 7. oxycodone - 5 mg 1 tab As directed 8. Vitamin D2 - 1,250 mcg (50,000 unit) 1 Capsule Weekly 9. ZOFRAN ODT - 4 mg 1 tab Every 6 Hours Medications Last Reconciled by Vonnie Santos MA on 07/26/2024 ALLERGIES: Penicillins; erythromycin REVIEW OF SYSTEMS: A complete 14-point review of systems was performed and is negative except as noted in interval history. PHYSICAL EXAMINATION: VITAL SIGNS: Temperature?101.1, B/P?95/62, Oxygen?Saturation?94% PAIN: 8 - Very severe pain ECOG Performance Status: 3 - Symptomatic; limited self-care; spends >50% of time in bed, not bedridden GENERAL APPEARANCE: Appears well, in no apparent distress, appropriately interactive. HEENT: Normocephalic, no temporal wasting, normal conjunctiva, no scleral icterus, normal hearing, lips without lesions, neck normal range of motion. CARDIOVASCULAR: Not assessed. PULMONARY: Normal respiratory effort, no respiratory distress or use of accessory muscles, speaking in full sentences, no tachypnea. EXTREMITIES: No pedal edema or cyanosis. SKIN: Normal skin appearance. NEUROLOGIC: Alert and oriented x4. PSHYCHIATRIC: Appropriate affect, mood normal, behavior normal, intact thought and speech. LABORATORY DATA: I have personally reviewed and interpreted each of the patient?s relevant lab tests, abnormal findings are below: Date 07/31/24 08/01/24 ??WHITE?BLOOD?COUNT?(Thou/mm3) ? 37.4?HH ??RED?BLOOD?COUNT?(Miln/mm3) ? 2.85?L ??HEMOGLOBIN?(gm/dl) ? 8.1?L ??HEMATOCRIT?(%) ? 25.1?L ??PLATELET?COUNT?(Thou/mm3) ? 32?L ??NEUTROPHILS?%,?AUTO?(%) ? 91?H ??LYMPH?%,?AUTO?(%) ? 3?L ??NEUTROPHILS,?AUTO?(Thou/mm3) ? 33.9?H ??GLUCOSE,RANDOM?(mg/dL) 86 77 ??BLOOD?UREA?NITROGEN?(mg/dL) 40?H 40?H ??CREATININE?(mg/dL) 1.00 1.00 ??SODIUM?(mmol/L) 137 141 ??POTASSIUM?(mmol/L) 3.9 4.0 ??CHLORIDE?(mmol/L) 104 108?H ??CrCl?(CandG)?(ml/min) 87.70 87.70 ??AST/SGOT?(Unit/L) 30 32 ??ALT/SGPT?(Unit/L) 12 11 ??ALKALINE?PHOSPHATASE?(Unit/L) 285?H 263?H ??BILIRUBIN,?TOTAL?(mg/dL) 6.5?H 7.0?H ??PROTEIN?TOTAL?(gm/dl) 5.5?L 5.3?L ??ALBUMIN,?SERUM?(gm/dl) 2.6?L 2.4?L ??GLOBULIN?(gm/dl) 2.9 2.9 ??ALBUMIN/GLOBULIN?RATIO 0.9?L 0.8?L ??CALCIUM,?SERUM?(mg/dL) 12.0?H 12.3?H ??CALCIUM?SERUM?(CORRECTED)?(mg/dL) 13.1?HH 13.6?HH ??MAGNESIUM?(mg/dL) ? 2.1 ASSESSMENT/PLAN: Assessment and Plan: Sharan Sparks, male patient with newly diagnosed pancreatic cancer, presenting with right ear pain for 2-3 weeks and intermittent high-grade fever. Right ear pain with fever Assessment: Patient reports right ear pain described as excruciating, ongoing for 2-3 weeks. Associated with intermittent high-grade fever. Patient was recently hospitalized with influenza. Current fever of 101?F in the clinic. Given the duration and severity of symptoms, along with the recent influenza infection, there is concern for a possible middle ear infection or abscess. Plan: - Send patient to the emergency room for CT sinuses to evaluate for abscess or middle ear infection - Further management to be determined based on emergency room evaluation results Pancreatic cancer Assessment: Patient with newly diagnosed pancreatic cancer. Has not yet started chemotherapy. Port catheter placement was not completed since the last visit. Plan: - Defer chemotherapy planning until after evaluation and treatment of current ear pain and fever - Reassess chemotherapy plan once current acute issues are resolved Chronic Pain Assessment: Patient reports chronic pain since February, initially managed with oxycodone in the emergency room, which was ineffective. Currently on morphine for long-term pain relief, which appears to be more effective. Pain is likely from his pancreatic cancer plan: -Renewed morphine- Continue current pain management regimen (morphine, dosage not specified) and follow-up with Dr. Landers ORDERS: Order # Description [id number] Port Placement [id number] CT Scan + With W/O Contrast + Brain + MRI [id number] Brain + MRI + With W/O Contrast RETURN TO CLINIC: BILLING AND COMPLIANCE: I reviewed external records from providers outside my specialty as summarized above. I spent a total of 50 minutes on this patient?s care on the day of their visit excluding time spent related to any billed procedures. This time includes time spent with the patient as well as time spent documenting in the medical record, reviewing patients records and tests, obtaining history, placing orders, communicating with other healthcare professionals, counseling the patient, family or caregiver, and/or care coordination for the diagnoses above. Electronically Signed by: {Object.Sanct_ID*[email or web address]@M}, {Object.Sanct_ID*[email or web address]@U} D: {Object.Sanct_Date} T: {Object.Sanct_Time} CC: PCP: Benjie Carlin Referring: Benjie Carlin This document was completed utilizing speech recognition software. Grammatical errors, random word insertions, pronoun errors, and incomplete sentences are an occasional consequence of this system due to software limitations, ambient noise, and hardware issues. Any formal questions or concerns about the content, text or information contained within the body of this dictation should be directly addressed to the provider for clarification.
== END 2024-08-16 23:59 | disposition home or self-care (01) ==
LOC: SCTC 09:27
PROVIDERS: Visit Provider Internal Medicine Hematology & Oncology
DX: C25.3 Malignant neoplasm of pancreatic duct (principal); H92.01 Otalgia, right ear; R50.9 Fever, unspecified; G89.29 Other chronic pain
CPT/HCPCS: 36415; 99212; A4216; J1642; G0463

== ENCOUNTER 2024-07-26 10:26 | Inpatient (IN) | payer MEDICAID, SELFPAY ==
[2024-07-26] VITALS (7 sets, daily range): BP systolic 94–103; BP diastolic 57–65; PULSE 91–137; RESP 12–20; TEMP 36.2–36.7; O2SAT 94–97; BMI 23.5
--- NOTE | 2024-07-26 10:44 | XR_ITS ---
Examination: PA lateral chest 2 views TECHNIQUE: Upright PA lateral chest 2 views Date and time: July 26, 2024 1107 hours INDICATIONS: Coughing weakness today. FINDINGS: Scarring versus subsegmental atelectasis at the lung bases Normal heart size No pneumonia or pulmonary edema IMPRESSION: No pneumonia or pulmonary edema
--- NOTE | 2024-07-26 10:45 | PD.EDRME ---
Rapid Medical Screening Exam RME Arrival date/time: 07/26/24 10:26 54-year-old male with a history of pancreatic cancer, presents to the emergency room with a chief complaint of pain and tenderness to his right ear, weakness, fevers x 3 days. Patient was sent over by the cancer treatment center for his tachycardia. I have greeted and performed a focused initial assessment of this patient. A comprehensive ED assessment and evaluation of the patient, analysis of all test results, and completion of the medical decision making process will be conducted by additional ED providers. Chief Complaint: Fever Vital signs: Vital Signs Temperature 98.1 F 07/26/24 10:37 Pulse Rate 137 H 07/26/24 10:37 Respiratory Rate 20 07/26/24 10:37 Blood Pressure 96/64 07/26/24 10:37 Pulse Oximetry (%) 95 07/26/24 10:37 Oxygen Delivery Method Room Air 07/26/24 10:37 Vital signs reviewed by provider: Yes
[2024-07-26] MEDS: HYDROcodone/APAP 10/325 TAB PO (11:04)
--- NOTE | 2024-07-26 11:10 | PD.EDFEVER ---
ED Fever RME/HPI General Chief Complaint: Fever Stated Complaint: RT EAR PAIN/ FEVER Time Seen by Provider: 07/26/24 11:05 Arrival date/time: 07/26/24 10:26 Limitations: no limitations RME / HPI RME / HPI Narrative: 07/26/24 10:26 54-year-old male with a history of pancreatic cancer, presents to the emergency room with a chief complaint of pain and tenderness to his right ear, weakness, fevers x 3 days. Patient was sent over by the cancer treatment center for his tachycardia. I have greeted and performed a focused initial assessment of this patient. A comprehensive ED assessment and evaluation of the patient, analysis of all test results, and completion of the medical decision making process will be conducted by additional ED providers. 54-year-old male history of pancreatic cancer with mets to the liver sent over by oncology for further evaluation of right sided jaw and ear pain x 3 weeks. With new fevers for the last 3 days. No cough, no sob. No burning with urination. Of note patient is allergic to amoxicillin. Diagnosed 06/11 with pancreatic cancer with liver mets. Has not started chemo. has ongoing abdominal pain but noted right flank pain and hematuria which is new. On morphine 15mg ERm, and oxycotin 10mg for break through pain. pcp: Dr. Carlin oncologist: Dr. Pascual Related Data Home Medications ?Medication ?Instructions ?Recorded ?Confirmed ergocalciferol (vitamin D2) 1,250 1 cap PO QWEEK 11/13/21 07/05/24 mcg (50,000 unit) capsule (Vitamin D2) rimegepant 75 mg disintegrating 1 tab PO DAILY 11/13/21 07/05/24 tablet (Nurtec ODT) cetirizine 10 mg tablet 10 mg PO HS 07/05/24 07/05/24 duloxetine 40 mg capsule,delayed 40 mg PO QDAY 07/05/24 07/05/24 release morphine 15 mg tablet,extended 15 mg PO Q12H PRN pain 07/06/24 07/06/24 release naloxone 4 mg/actuation nasal spray 1 spray intranasal Q3M PRN opioid 07/06/24 07/06/24 overdose omeprazole 20 mg capsule,delayed 20 mg PO HS 07/06/24 07/06/24 release Previous Rx's ?Medication ?Instructions ?Recorded ondansetron 4 mg disintegrating 4 mg PO Q6H PRN nausea and 06/09/24 tablet vomiting #20 tabs oxycodone 5 mg tablet 5 mg PO Q6H PRN pain #20 tabs 06/10/24 Allergies Allergy/AdvReac Type Severity Reaction Status Date / Time erythromycin base Allergy Mild Rash Verified 07/14/24 17:48 amoxicillin Allergy Unknown Verified 07/14/24 17:48 NSAIDS (Non-Steroidal AdvReac Verified 07/14/24 17:48 Anti-Inflamma msg Allergy Intermediate Nausea Uncoded 07/14/24 17:48 PERSIMMON Allergy Mild FLU LIKE Uncoded 07/14/24 17:48 SYMPTOM Physical Exam General Limitations: no limitations General appearance: alert and in no apparent distress Head Head exam: atraumatic Eye Eye exam: Present PERRL, EOMI and scleral icterus ENT ENT exam: Present normal exam, normal oropharynx, mucous membranes moist and TM's normal bilaterally (ttp right jaw area, no abscess ) Neck Neck exam: Present normal inspection, full ROM and trachea midline Chest Chest inspection: Present normal inspection and symmetric chest wall rise Respiratory Respiratory exam: Present normal lung sounds bilaterally Cardiovascular Cardiovascular exam: Present regular rate, normal rhythm and normal heart sounds Abdominal Exam Abdominal exam: Present soft, tenderness (Diffuse TTP) and normal bowel sounds Extremities Exam Extremities exam: Present normal inspection and full ROM Back Exam Back exam: Present normal inspection and full ROM Psychiatric Psychiatric exam: Present normal affect and normal mood Skin Skin exam: Present warm and other (Jaundice) ED Exam General Limitations: Present no limitations General appearance: Present alert and in no apparent distress Head Head exam: Present atraumatic Eye Eye exam: Present PERRL, EOMI and scleral icterus ENT ENT exam: Present normal exam, normal oropharynx, mucous membranes moist and TM's normal bilaterally (ttp right jaw area, no abscess ) Neck Neck exam: Present normal inspection, full ROM and trachea midline Chest Chest inspection: Present normal inspection and symmetric chest wall rise Respiratory Respiratory exam: Present normal lung sounds bilaterally Cardiovascular Cardiovascular exam: Present regular rate, normal rhythm and normal heart sounds Abdominal Exam Abdominal exam: Present soft, tenderness (Diffuse TTP) and normal bowel sounds Extremities Exam Extremities exam: Present normal inspection and full ROM Back Exam Back exam: Present normal inspection and full ROM Psychiatric Psychiatric exam: Present normal affect and normal mood Skin Skin exam: Present warm and other (Jaundice) Course Quality Measures none Orders Category Date Time Status Bedside COVID-19 Antigen Test NOW Care 07/26/24 10:44 Active Bedside Influenza A&B Antigen Test NOW Care 07/26/24 10:[address] Screening NOW Care 07/26/24 11:24 Active IV [Insert IV] NOW Care 07/26/24 11:22 Active Referral - [employer] Stat Cons 07/26/24 18:[address] abdomen pelvis wo con Stat Exams 07/26/24 13:34 Completed XR chest 2V Stat Exams 07/26/24 10:44 Completed sinus [CT facial bones wo/w con] Stat Exams 07/26/24 11:22 Completed Blood Culture (Lab) Stat Lab 07/26/24 10:56 Received CBC Stat Lab 07/26/24 11:00 Completed CMP [Comprehensive Metabolic Panel] Stat Lab 07/26/24 11:00 Completed Lactate (Lactic Acid) Stat Lab 07/26/24 11:00 Completed Lactic Acid, 3 HR Stat Lab 07/26/24 13:53 Completed Procalcitonin Stat Lab 07/26/24 11:00 Completed UA [Urinalysis] Stat Lab 07/26/24 13:25 Completed Urine Culture Stat Lab 07/26/24 13:25 Received Clindamycin 900Mg Ivpb [Cleocin/D5w Ivpb] 900 mg Med 07/26/24 12:04 Discontinued Pre-Mixed [Pre-mixed Bag] 1 bag IV X1 HYDROcodone/APAP 10/325 [[place] 10/325] Med 07/26/24 10:44 Discontinued 1 tab PO X1 ONE Levofloxacin/D5w 750Mg Ivpb [Levaquin Ivpb] Med 07/26/24 12:04 Discontinued 750 mg in 150 ml IV X1 Ringers Lactated 1000 ml [Lactated Ringers] 1,000 ml Med 07/26/24 11:53 Discontinued IV 999 mls/hr Ringers Lactated 1000 ml [Lactated Ringers] 1,000 ml Med 07/26/24 11:53 Discontinued IV 999 mls/hr oxyCODONE CONTROLLED RELEASE [OxyCONTIN] Med 07/26/24 13:30 Discontinued 10 mg PO X1 ONE oxyCODONE CONTROLLED RELEASE [OxyCONTIN] Med 07/26/24 17:27 Discontinued 10 mg PO X1 ONE Reevaluation(s) Reevaluation #1: 1325 pt having some break through pain, added new dose of pain meds, at bedside urine noted to have gross blood, added CT abd/pelvis non contrast due to already having contrast earlier for ct scan of face Reevaluation #2: 4305 pt requesting a night dose of medication Vital Signs Vital signs: Vital Signs Temperature 98.1 F 07/26/24 10:37 Pulse Rate 137 H 07/26/24 10:37 Respiratory Rate 20 07/26/24 10:37 Blood Pressure 96/64 07/26/24 10:37 Pulse Oximetry (%) 95 07/26/24 10:37 Oxygen Delivery Method Room Air 07/26/24 10:37 Fever MDM Narrative MDM Narrative:: 54-year-old male with newly diagnosed pancreatic cancer with mets to the liver here for further evaluation of right ear/jaw pain. Findings confirm infection to the parotid gland with a white count of 33,000 with shift. And a lactic acid. Due to antibiotic allergy was given clinda and Levaquin during evaluation found to have hematuria CT ordered no acute findings other than chronic fluid around kidneys which patient is aware of and malignant ascites. Oncologist was consulted requesting a port or PICC line prior to discharge after admission. Hospitalist was consulted graciously agreed to admit, however on further review there was change in lesion from 06/11 now requiring tranfer of care to higher acuity facility Patient data External records reviewed:: [facility] previous records Clinical information provided by:: patient Social determinants that could affect healthcare access:: other (specify) (Patient is newly diagnosed cancer patient does not have port or PICC line, limited access to healthcare) Patient has the following chronic illnesses:: Pancreatic cancer with liver mets How is presenting disease/condition affected by chronic disease/condition?: exacerbated by Evaluation data The following diagnostics were reviewed and interpreted by me:: lab results and radiology exam(s) Lab and/or radiology exams considered but not ordered:: CT of chest was considered to rule out further metastasis however unlikely to change the course of plan for treatment today Interpretation Summary: White count of 33,000 with shift lactic acid all consistent with infection, UA suggestive of possible UTI and patient has anemia which is consistent with his cancer, new ct findings of necrotric pancreatic mass not seen in prior image Medications / Prescriptions Medications or Prescriptions considered but not ordered:: All medications considered ordered Medication administrations:: Medication Administration History Acetaminophen (Acetaminophen 325 Mg Tablet) 650 mg PO Q6H PRN PRN Reason: pain and Fever >100.4 Stop: 08/25/24 21:47 Hydrocodone Bitart/Acetaminophen (Hydrocodone/Apap 5/325 Tablet) 1 tab PO Q4HR PRN PRN Reason: PAIN SCALE 4-6 (Moderate Stop: 07/31/24 21:52 Heparin Sodium (Porcine) (Heparin Sod Inj 5000 Unit/Ml Vial) 5,000 unit SC Q8HR [facility] Stop: 08/09/24 21:59 Last Admin: 07/26/24 22:24 Dose: 5,000 unit Documented By: FERMIN Co-signed By: REINALDO Sodium Chloride (Ns) 1,000 mls @ 75 mls/hr IV .[id number] [facility] Stop: 07/27/24 11:19 Last Admin: 07/26/24 22:30 Dose: 75 mls/hr Documented By: FERMIN Cefepime HCl 2 gm/ Sodium (Chloride) 50 mls @ 100 mls/hr IV Q12HR [facility] Stop: 08/02/24 22:00 Last Admin: 07/26/24 22:22 Dose: 100 mls/hr Documented By: FERMIN Vancomycin HCl 2,000 mg/ (Sodium Chloride) 500 mls @ 150 mls/hr IV X1 ONE Stop: 07/27/24 01:49 Metronidazole (Metronidazole 250 Mg Tablet) 500 mg PO Q8H [facility] Stop: 08/02/24 21:59 Last Admin: 07/26/24 22:24 Dose: 500 mg Documented By: FERMIN Midodrine (Midodrine 5 Mg Tablet) 5 mg PO TID PRN PRN Reason: SBP<90 and DBP<50 Stop: 08/25/24 21:59 Morphine Sulfate (Morphine Sulf Inj 10 Mg/Ml Vial) 1 mg IVP Q2H PRN PRN Reason: PAIN SCALE 7-10 (Severe Stop: 07/31/24 21:52 Ondansetron HCl (Ondansetron Inj 2 Mg/Ml Inj 2 Ml) 4 mg IVP Q6H PRN; Protocol PRN Reason: NAUSEA OR VOMITING Stop: 08/25/24 21:47 Last Admin: 07/26/24 22:22 Dose: 4 mg Documented By: FEMRIN Pantoprazole Sodium (Pantoprazole 40 Mg Tablet) 40 mg PO QDAY [facility] Stop: 08/26/24 08:59 Pharmacy Consult (Vancomycin Pharmacy To Dose 1 Each Each) 1 each IV QDAY [facility] Stop: 08/25/24 21:59 Discontinued Medications Hydrocodone Bitart/Acetaminophen (Hydrocodone/Apap 10/325 Tab) 1 tab PO X1 ONE Stop: 07/26/24 10:45 Last Admin: 07/26/24 11:04 Dose: 1 tab Documented By: Amauri Lactated Ringer's (Lactated Ringers) 1,000 mls @ 999 mls/hr IV .Q1H1M ONE Stop: 07/26/24 12:53 Last Infusion: 07/26/24 13:23 Dose: Infused Documented By: MARIA ELENA Admin: 07/26/24 12:19 Dose: 999 mls/hr Documented By: MARIA ELENA Lactated Ringer's (Lactated Ringers) 1,000 mls @ 999 mls/hr IV .Q1H1M ONE Stop: 07/26/24 12:53 Last Infusion: 07/26/24 13:23 Dose: Infused Documented By: MARIA ELENA Admin: 07/26/24 12:21 Dose: 999 mls/hr Documented By: MARIA ELENA Clindamycin Phosphate 900 mg/ (IV Miscellaneous Supplies) 50 mls @ 50 mls/hr IV X1 ONE Stop: 07/26/24 13:03 Last Infusion: 07/26/24 13:20 Dose: Infused Documented By: MARIA ELENA Admin: 07/26/24 12:19 Dose: 50 mls/hr Documented By: MARIA ELENA Levofloxacin/Dextrose (Levaquin Ivpb) 750 mg in 150 mls @ 100 mls/hr IV X1 ONE Stop: 07/26/24 13:33 Last Infusion: 07/26/24 14:57 Dose: Infused Documented By: MARIA ELENA Admin: 07/26/24 13:24 Dose: 100 mls/hr Documented By: MARIA ELENA Morphine Sulfate (Morphine Sulf Inj 10 Mg/Ml Vial) 5 mg IVP X1 ONE Stop: 07/26/24 21:52 Last Admin: 07/26/24 22:21 Dose: 5 mg Documented By: FERMIN Oxycodone HCl (Oxycodone Controlled Release 10 Mg Tabcr) 10 mg PO X1 ONE; Protocol Stop: 07/26/24 13:31 Last Admin: 07/26/24 13:54 Dose: 10 mg Documented By: MARIA ELENA Oxycodone HCl (Oxycodone Controlled Release 10 Mg Tabcr) 10 mg PO X1 ONE; Protocol Stop: 07/26/24 17:28 Last Admin: 07/26/24 18:00 Dose: Not Given Documented By: MARIA ELENA Non-Admin Reason: Cancelled by Provider See above Consultations Consultation(s) initiated? (list below): Yes Consultation #1 (Physician, Specialty, Details): 1315 Discussed case with Supervising Physician Dr. Flores, agrees with plan to request admit and notify oncologist Consultation #2 (Physician, Specialty, Details): 13:[address] Pascual Oncology to notify of ct findings and plan to admit 13:[address] Pascual Oncologist, made aware of findings, agrees with plan to admit, asks for pt to have port placed prior to DC, if port is not possible PICC line for dc requested, will notify hospitalist. Consultation #3 (Physician, Specialty, Details): [address] Haas's service, agrees to consult, will attempt to consult with ENT, discussed oncology recommendation to dc with port vs. picc line to start chemotherapy treatment 181 on further consult appearance of necrotic pancreatic mass is different from scan on 06/11, will now require higher acuity of care, transfer attempt to be started 184 call from Erika at the transfer center stating their surgeon who would likely be of by 1899 and unlikely to accept case at this time 1906 callback from [facility] hepatobiliary surgeon is no longer on-call at this time cannot accept transfer recommends other facility. 1957 callback from reji at transfer center [facility] if they have a spot it will be at their [facility] will present and call back but unlikely to have a bed. 2028 callback from romi at transfer center at [facility], spoke with chief resident doctor with hepato-oncology, will present to attending in however they noted that last ct may have said necrosis as well 2039 callback from [facility] states transfer declined, as this is ongoing lesion, recommend pt be treated for parotid issue and start chemo, no surgical intervention needed at this zander 2043 call back from KEVIN Hale, transfer declined, also agreed with [facility] that given malignant ascites pt needs to have palliative care not surgery, and treat acute issue of parotid gland infection [address] Vu to present, will have resident call back for admission presentation [address] Tsang (resident working with Dr. Vu) will call back after presenting case [address] Vu, discussed prior to initiating transfer Dr. Haas had mentioned if centers refused transfer could be treated for parotid issue, now that three different centers have declined transfer consideration for admission here and place line prior to dc for chemo initiation, Dr. Vu will call back after discussing with Dr. Haas as she is no longer oncall for the night. [address] Tsang working with Dr. Vu, graciously agreed to admit pt here. Diagnosis Fever Differential Diagnosis: cellulitis, fever of unknown origin, community acquired pneumonia, pyelonephritis and other (Mastoiditis, parotiditis) Most likely diagnosis given after review of the tests above:: Hyponatremia Parotiditis Pancreatic cancer with necrotic mass Anemia UTI Admission Indicated Admission indicated?: indicated Admission Request Was there a request for admission?: Yes Admission Attestation Admission request attestation: Discussed case with Dr. VU, we reviewed labs and pertinent findings. Agrees to admit to his service. Disposition Plan Disposition Plan: Admit Discharge Plan Plan Patient Disposition: Admit Acute Care w/in Hospital Discharge Disposition comment: admitted to Dr. Vu Problem List Clinical Impression: Acute hyponatremia, Parotiditis, Pancreatic cancer metastasized to liver, Pancreatic necrosis, Malignant ascites, Acute UTI PA/PHONOGRAPH NEEDLE [employer]IP [employer]ER Supervising Physician PA/PHONOGRAPH NEEDLE [employer] Supervising Physician: Dr. Flores
--- NOTE | 2024-07-26 11:22 | XR_ITS ---
Examination: CT facial bones, with contrast CT facial bones without intravenous contrast 2-D sagittal and coronal reconstructions. 3-D reconstructions Date and time of exam:July 26, 2024 1159 hours INDICATIONS: Fever right ear pain with pressure this week CTDI: vol (mGy):8.5 DLP: (mGycm):566 Technique: Multiple axial images maxillofacial region, 3.0 mm slice thickness, pre-, post intravenous injection 50 cc Isovue-370 cc Isovue 370. 2-D sagittal coronal reconstructions. 3-D reconstructions Low dose protocols were performed. One or more of the following dose reduction techniques were used; automated exposure control, adjustment of the mA and/or KV according to patient size, use of iterative reconstruction technique. Findings: Frontal bone intact Orbital rims intact Symmetrical mastoid aeration Negative for otitis media, otitis externa Negative for acute mastoiditis Symmetrical internal auditory canals The optic globes appear intact No nasopharyngeal or oropharyngeal mass There is mild inflammatory change about the inferior posterior right parotid gland, for instance axial image 49 through 29 No pathologic lymphadenopathy IMPRESSION: Suspicious for right parotiditis, clinical correlation advised
[2024-07-26 11:29] LABS: Lactate (Lactic Acid) 4.5 mMol/L (0.4-2.0)
[2024-07-26 11:32] LABS: Basophils # (Auto) 0.1 Thou/mm3 (0.0-0.2); Basophils % (Auto) 0 % (0-2.5); Eosinophils # (Auto) 0.3 Thou/mm3 (0.0-0.5); Eosinophils % (Auto) 1 % (0-10); Hematocrit 24.5 % (41.0-53.0); Immature Granulocytes % (Auto) 2 % (0-0); Immature Granulocytes Auto 0.54 Thou/mm3 (0.00-0.00); Lymphocytes % (Auto) 3 % (10-50); Mean Corpuscular HGB Conc 34.3 g/dl (31.0-37.0); Mean Corpuscular Hemoglobin 28.5 pg (25.0-35.0); Mean Corpuscular Volume 83 fL (80-100); Monocytes # (Auto) 1.5 Thou/mm3 (0.0-0.8); Monocytes % (Auto) 5 % (0-12); Neutrophils # (Auto) 29.6 Thou/mm3 (1.8-7.7); Neutrophils % (Auto) 90 % (37-80); Nucleated Red Blood Cell # 0.05 Thou/mm3 (0.00-0.00); Nucleated Red Blood Cell % 0 /100 WBC (0); Platelet Count 159 Thou/mm3 (140-440); RDW Standard Deviation 52.8 fL (35.1-43.9); Red Blood Count 2.95 Miln/mm3 (4.50-5.90)
[2024-07-26 11:38] LABS: Hemoglobin 8.4 g/dL (13.5-16.0)
[2024-07-26 11:51] LABS: Alanine Aminotransferase 25 U/L (10-49); Albumin, Serum 2.9 gm/dL (3.5-5.0); Albumin/Globulin Ratio 0.8 (1.2-2.2); Alkaline Phosphatase 426 U/L (46-116); Anion Gap 14 (7-16); BUN/Creatinine Ratio 35 Ratio (12-20); Bilirubin,Total 6.6 mg/dL (0.3-1.2); Blood Urea Nitrogen 28 mg/dL (9-23); Calcium 11.2 mg/dL (8.3-10.6); Calcium (Corrected) 12.1 mg/dL (8.5-10.1); Carbon Dioxide 23.1 mMol/L (20.0-31.0); Chloride 90 mMol/L (98-107); Creatinine (Component) 0.8 mg/dL (0.6-1.3); Globulin 3.7 gm/dL (2.3-3.5); Glucose 82 mg/dL (74-106); Osmolality,Calculated 259 (275-295); Potassium 3.8 mMol/L (3.4-5.1); Sodium 127 mMol/L (136-145); Total Protein 6.6 gm/dL (5.7-8.2); eGFR > 60 See Note
[2024-07-26 12:17] LABS: Procalcitonin 90.03 ng/ml (0.0-0.49)
[2024-07-26] MEDS: RINGERS LACTATED 1000 ML 1,000 ML 999 ML IV ×2 (12:19→12:21)
[2024-07-26] MEDS: CLINDAMYCIN 900MG IVPB 900 MG in PRE-MIXED 1 BAG 50 MG IV (12:19)
[2024-07-26] MEDS: LEVOFLOXACIN/D5W 750MG IVPB 750 MG/150 ML BAG 100 MG IV (13:24)
[2024-07-26 13:29] LABS: Collection Type, Urine Clean Catch
--- NOTE | 2024-07-26 13:34 | XR_ITS ---
Examination: CT abdomen and pelvis without contrast. Coronal 3-D reconstructions. Sagittal 2-D reconstructions. Date and time of exam:July 26, 2024 1545 hours Comparison July 08, 2024 INDICATIONS: Enlarging mass tail the pancreas on CT abdomen and pelvis July 05, 2024, lower abdominal pain and hematuria today CTDI: vol (mGy): 6.83 DLP: (mGycm): 418 Technique: Axial images of the abdomen have been obtained, 3 mm slice thickness Intravenous contrast material has not been administered. Low dose protocols were performed. One or more of the following dose reduction techniques were used; automated exposure control, adjustment of the mA and/or KV according to patient size, use of iterative reconstruction technique. Findings: Pneumonia right base Again noted multiple hepatic metastases less well demonstrated on this noncontrast study Absent gallbladder No extrahepatic biliary tract dilatation Necrotic mass tail the pancreas AP dimension 6.4 cm, mediolateral dimension 8.4 cm Numerous peripancreatic lymph nodes Mild malignant ascites Irregular contrast accumulation in the kidneys with edema, which can be seen with hypertension No bowel obstruction Urinary bladder intact No prostatomegaly Moderate osteopenia IMPRESSION: Again noted multiple hepatic metastases Necrotic mass tail of the pancreas now measures 6.4 x 8.4 cm compared with 6.0 x 6.5 cm on July 05, 2024 Malignant ascites No bowel obstruction Focal areas of edema and irregular contrast accumulation in the kidneys, which can be seen with hypotension or multiple small infarcts, this is a noncontrast study which does not allow assessment for arterial thrombi
[2024-07-26] MEDS: oxyCODONE CONTROLLED RELEASE 10 MG TABCR PO (13:54)
[2024-07-26 14:11] LABS: Reflex Lactate? Y
[2024-07-26 14:14] LABS: Bacteria,Urine 1+; Bilirubin,Urine 2+ (Negative); Blood,Urine Negative (Negative); Clarity,Urine Turbid (Clear/Hazy); Color,Urine Drk-Yellow (Lt Yel-Yel); Glucose, Urine Negative (Negative); Ketones,Urine Negative (Negative); Leukocyte Esterase,Urine Negative (Negative); Nitrite,Urine Negative (Negative); Protein,Urine Trace (Neg - Trace); RBC,Urine 11 /hpf (0-3); Specific Gravity,Urine 1.033 (1.001-1.035); Squamous Epithelial Cell,Urine 1 /hpf (0-5); Transitional Epi Cells,Urine 3 /hpf (0-5); WBC,Urine 1 /hpf (0-5)
[2024-07-26 14:17] LABS: Lactic Acid, 3 HR 3.6 mMol/L (0.4-2.0)
--- NOTE | 2024-07-26 18:52 | PC.CC ---
Addendum entered by Rakan Lerma RN 07/26/24 19:27: 1926: verified with [facility], spoke to Selena receipt of imaging via synapse. Selena confirmed receipt. Addendum entered by Rakan Lerma RN 07/26/24 19:21: handoff given to ED charge nurse WHITNEY, ED to follow Addendum entered by Rakan Lerma RN 07/26/24 19:14: 1913: received call from Denise silva [facility], declined d/t no service available. Addendum entered by Rakan Lerma RN 07/26/24 19:09: 1902: 1 CD created. spoke to Radha silva/ [facility], initiated intake Original Note: 1839: spoke to [facility] - Alivia. intake initiated, will review and call back. 1831: Spoke to [facility], transfer intake inititated, will review and call back 1810:received call from Dr. Haas to transfer patient for OC for hepato/biliary services for newly dx necrotic pancreatic mass. clinicals sent to [facility], [facility], and [facility].
--- NOTE | 2024-07-26 18:59 | ESCONSULT_ITS ---
<Statement entered by Doyle Covington MD - 07/27/24 07:50> I discussed with and supervised the biology intern physician involved in the care of this patient. Patient assessment and plan was discussed with entire medicine team, including my attending. I agree with the assessment and plan as documented by biology intern doctor. Patient care was discussed with my attending physician Dr. Samina Covington, PGY-2 HPI Data of Consult Primary Care Provider: Benjie Carlin, SOFTWARE FIRMWARE ENGINEER Consult Narrative Reason for consult: right ear pain, general weakness History of present illness: The patient is a 54-year-old male with a previous medical history of metastatic pancreatic cancer, depression, anxiety who was brought to the ED on 07/26/2024 after he was referred to the hospital from the cancer center due to complaints of pain and tenderness in his right ear, general weakness, fever, chills. He reports that he was diagnosed with pancreatic cancer in May 2024 and had his visit scheduled regarding the plan of care. He also reports abdominal pain, brain fog. He is on morphine and oxycodone for pain control. Labs were significant for leukocytosis of 33, hemoglobin 8.4, sodium 127, lactic acid 4.5, down trended to 3.6, corrected calcium 12.1, alkaline phosphatase 126, procalcitonin 90.03. Chest x-ray was negative for pneumonia or pulmonary edema. Facial CT showed right parotiditis. Abdominal/pelvis CT showed multiple hepatic metastasis, necrotic mass of the tail of the pancreas which increased compared to CT on July 05, 2024, mild malignant ascites. Dr. Pascual, patient oncologist, was contacted and recommended to try to transfer the patient for higher level of care. Social history: Former smoker, does not drink alcohol, used to smoke marijuana. Allergies: Erythromycin, amoxicillin Surgery: Cholecystectomy Medications: oral morphine, oxycodone, nurtec, duloxetine cc:: cc: Review of Systems Review of Systems Systems Reviewed: All systems reviewed, normal except as documented Past Medical History Past Medical History NEUROLOGIC: Positive Neurological Disorders and Migraine; Negative Seizures CARDIAC: Positive Hypercholesterolemia (NO MEDS) and Hypertension; Negative Cardiac Disorders or Congestive Heart Failure RESPIRATORY: Negative Chronic Obstructive Pulmonary Disease (COPD), Asthma or Sleep Apnea GASTROINTESTINAL: Positive Gastrointestinal Bleed and Ulcer; Negative Gastrointestinal Disorders GENITOURINARY: Negative Genitourinary Disorders or Renal Disease MUSCULOSKELETAL: Positive Degenerative Disk Disease and Scoliosis; Negative Musculoskeletal Disorders ENDOCRINE: Negative Diabetes Mellitus Type 1 or Diabetes Mellitus Type 2 HEMATOLOGIC: Negative Sickle Cell Disease PSYCHO/SOCIAL: Positive Depression, Anxiety and Post Traumatic Stress Disorder OTHER HISTORY: Positive Anesthesia Reactions and Chicken Pox; Negative Blood Transfusions, Measles, Mumps or Cancer Family History FAMILY HISTORY: Positive Family Cancer Surgical History SURGICAL: Negative Cardiac Surgery, Endocrine Surgery or Ear Surgery Social History SMOKING STATUS: Never smoker Exam Vital Signs Temp Pulse Resp BP Pulse Ox O2 Del Method 97.2 F 92 19 103/59 L 95 Room Air 07/26/24 18:14 07/26/24 18:14 07/26/24 18:14 07/26/24 18:14 07/26/24 18:14 07/26/24 18:14 Narrative Exam Gen: Chronically ill-appearing male. HEENT: NCAT, PERRLA, EOMI, MMM, mildly icteric conjunctivae, mildy icteric skin. CVS: normal S1 and S2. RRR. No M/R/G. Resp: CTA B/L. No rhonchi, rales, crackles or wheezing. Abd: soft, epigastric tenderness with mild rebound tenderness, distended. BS+ in all 4 quadrants. MSK: Good ROM in BUE & BLE. No edema or rash. Neuro: CN II-XII grossly intact. Moves all 4 extremities. Alert. Psych: appropriate mood and affect. Results Labs 07/27/24 04:30 07/27/24 03:12 Labs: Short CBC 07/26/24 Range/Units 11:00 WBC 33.0 H (3.8-10.6) Thou/mm3 Hgb 8.4 L (13.5-16.0) g/dL Hct 24.5 L (41.0-53.0) % Plt Count 159 D (140-440) Thou/mm3 BMP 07/26/24 11:00 Sodium 127 L Potassium 3.8 Chloride 90 L Carbon Dioxide 23.1 BUN 28 H Creatinine 0.8 Glucose 82 Calcium 11.2 H Liver Function 07/26/24 Range/Units 11:00 Total Bilirubin 6.6 H (0.3-1.2) mg/dL ALT 25 (10-49) U/L Alkaline Phosphatase 426 H (46-116) U/L Albumin 2.9 L (3.5-5.0) gm/dL Urine 07/26/24 Range/Units 13:25 Urine Color Drk-Yellow A (Lt Yel-Yel) Urine Clarity Turbid A (Clear/Hazy) Urine pH 6.0 (5.0-7.0) Ur Specific [place] 1.033 (1.001-1.035) Urine Protein Trace (Neg - Trace) Urine Glucose (UA) Negative (Negative) Quality Measures Quality Measures none (patient is going to be transferred) Medications Home Medications and Allergies Home Medications ?Medication ?Instructions ?Recorded ?Confirmed ?Type ergocalciferol (vitamin D2) 1,250 1 cap PO QWEEK 11/1307/27/24 History mcg (50,000 unit) capsule (Vitamin D2) rimegepant 75 mg disintegrating 1 tab PO DAILY 2 07/27/24 History tablet (Nurtec ODT) cetirizine 10 mg tablet 10 mg PO HS 07/05/24 5 History duloxetine 40 mg capsule,delayed 40 mg PO QDAY 5 07/27/24 History release morphine 15 mg tablet,extended 15 mg PO Q12H PRN pain 07/06/24 07/27/24 History release naloxone 4 mg/actuation nasal spray 1 spray intranasal Q3M PRN opioid 07/06/24 07/27/24 History overdose omeprazole 20 mg capsule,delayed 20 mg PO HS 07/06/24 07/27/24 History release metoclopramide HCl 10 mg tablet 10 mg PO Q8H PRN nause a and 07/27/24 07/27/24 History vomiting Allergies Allergy/AdvReac Type Severity Reaction Status Date / Time erythromycin base Allergy Mild Rash Verified 07/14/24 17:48 amoxicillin Allergy Unknown Verified 07/14/24 17:48 NSAIDS (Non-Steroidal AdvReac Verified 07/14/24 17:48 Anti-Inflamma msg Allergy Intermediate Nausea Uncoded 07/14/24 17:48 PERSIMMON Allergy Mild FLU LIKE Uncoded 07/14/24 17:48 SYMPTOM Visit Medications Discontinued Medications Hydrocodone Bitart/Acetaminophen (Hydrocodone/Apap 10/325 Tab) 1 tab PO X1 ONE Stop: 07/26/24 10:45 Last Admin: 07/26/24 11:04 Dose: 1 tab Lactated Ringer's (Lactated Ringers) 1,000 mls @ 999 mls/hr IV .Q1H1M ONE Stop: 07/26/24 12:53 Last Infusion: 07/26/24 13:23 Dose: Infused Lactated Ringer's (Lactated Ringers) 1,000 mls @ 999 mls/hr IV .Q1H1M ONE Stop: 07/26/24 12:53 Last Infusion: 07/26/24 13:23 Dose: Infused Clindamycin Phosphate 900 mg/ (IV Miscellaneous Supplies) 50 mls @ 50 mls/hr IV X1 ONE Stop: 07/26/24 13:03 Last Infusion: 07/26/24 13:20 Dose: Infused Levofloxacin/Dextrose (Levaquin Ivpb) 750 mg in 150 mls @ 100 mls/hr IV X1 ONE Stop: 07/26/24 13:33 Last Infusion: 07/26/24 14:57 Dose: Infused Oxycodone HCl (Oxycodone Controlled Release 10 Mg Tabcr) 10 mg PO X1 ONE; Protocol Stop: 07/26/24 13:31 Last Admin: 07/26/24 13:54 Dose: 10 mg Oxycodone HCl (Oxycodone Controlled Release 10 Mg Tabcr) 10 mg PO X1 ONE; Protocol Stop: 07/26/24 17:28 Last Admin: 07/26/24 18:00 Dose: Not Given Assessment & Plan Plan The patient is a 54-year-old male with a previous medical history of metastatic pancreatic cancer, depression, anxiety who was brought to the ED on 07/26/2024 after he was referred to the hospital from the cancer center due to complaints of pain and tenderness in his right ear, general weakness, fever, chills. Dr. Pascual, patient oncologist, was contacted and recommended to try to transfer the patient to [facility] for higher level of care. #Metastatic pancreatic cancer #Necrotic pancreatic mass Patient reports abdominal pain, on examination he has epigastric pain with rebound tenderness. Patient close was recommended to transfer him for higher level of care. Plan: ? Transfer to [facility] for possible specialized surgical intervention ?Pain control as needed - DVT prophylaxis #Right sided parotitis Plan: - levofloxacin 500 qday for 7 days - clindamycin 300 mg q6hr for 7 days Plan of care discussed with attending Dr. Haas, PGY-[address] Covington. Shaunna Santiago MD, PGY 1. Attending Provider Attestation/Addendum I, Lucila Haas DO, attest that I was physically present for the berrios portions of the service and evaluated the patient with the resident and I reviewed and discussed the case with the resident and agree with the resident's findings and plans of care as documented above Patient is a 54-year-old male with past medical history of metastatic pancreatic cancer diagnosed on 06/09/24, depression, anxiety, PTSD, PUD, and degenerative disc disease who presented to the ED with pain in his right ear with difficulty hearing. Patient was sent from [facility] due to tinnitus/ pain and decreased hearing. He reports some pain in his right jaw, but no palpable mass. In the ED, patient found to have WBC of 33, Hgb 8.4, Plt 159 and lactic acid 3.6. Facial CT shows supsicion for right parotiditis. CT abdomen and pelvis shows multiple hepatic mets, necrotic mass tail of pancreas measuraing 6.4x8.4 cm, malignant ascites, focal areas of edema and irregular contrast accumulation in the kidneys. On exam, patient reported some pain on otoscopic exam due to contact from tip. There is a mild bulge noted in the canal, but the canal is patent and tympanic membrane appears intact. No masses or erythema noted in the right oropharynx noted. Patiet has tenderness to palpation of abdomen, limited exam due to pain. No distension noted. Trace b/l LE edema. Patient has not started chemo or radiation due to trouble with referral to place port. Continue with IV abx at this time for parotiditis. However, patient has comorbidities that would benefit from higher level of care. Due to increase in size of mass and necrotic center, recommend for patient to be transferred to facility with surgical oncology/ [facility]B surgery.
--- NOTE | 2024-07-26 20:44 | PC.CC ---
Yonis from [facility] called to decline hepatic surgeon stated the patient is not surgical case pt needs chemo.
--- NOTE | 2024-07-26 22:03 | ESHP_ITS ---
<Statement entered by Dinorah Fairbanks MD - 08/06/24 14:56> I reviewed above note and agree with findings and plans. I have also personally examined the patient with medicine team and went over assessment and plan with medical team including communications intern and resident physician. Documentation for date of: 07/26/24 HPI History of Present Illness History of present illness: 54-year-old male with past medical history of metastatic pancreatic cancer, depression, anxiety, PTSD, PUD, and degenerative disc disease was admitted to the hospital on 07/26/2024 after coming to the ED from his cancer center due to complaints of pain and tenderness in his right ear along with weakness, fevers, and chills. Patient was recently discharged from our hospital on 07/08/2024 after he was found to have metastasis of pancreatic cancer and get a biopsy done. Patient stated he follow-up with oncologist outpatient, but that he has been having issues with starting his chemotherapy as he has been having insurance issues to get approval for the Port-A-Cath. Patient mentioned that he has been having some ear fullness on the right ear along with right ear pain and jaw pain for the last week more or less. He stated that he also has been having some chills and generalized abdominal pain as well. His mother was at bedside stated that patient has also been a little bit more confused with some history, but he was AO x 3 on assessment. Otherwise patient had no new complaints today. ED course: Initially came in normotensive and afebrile. Initial labs were relevant for leukocytosis, low hemoglobin, hyponatremia, lactic acidosis, hyperbilirubinemia, elevated procalcitonin, and UA was positive for bilirubin and bacteria. Initial imaging included chest x-ray which showed no active disease, face CT which showed suspicion for right parotiditis, and abdomen/pelvis CT which showed malignant ascites, and focal area of edema in the kidneys, and again noted the necrotic mass the tail of the pancreas with that increase in size from 6 x 6.5 cm on June to 6.4 x 8.4 cm today. Patient was attempted to be transferred given the necrotic mass in the pancreas for possible surgical intervention, but after attempt was made to transfer multiple facilities stated that patient could be treated with antibiotics in the hospital and did not require any surgical intervention at this time. PMH: As above Social Hx: Denies any smoking, drugs, alcohol Allergies: Erythromycin, amoxicillin, and NSAIDs Surgical Hx: Cholecystectomy. Review of Systems Review of Systems Narrative Review of Systems: Constitutional: Denies sweats, Denies weight loss/gain, Admits fever, Admits chills. HEENT: Admits hearing loss, Admits ear pain, Denies postnasal drip, Denies double vision, Denies blurry vision. Respiratory: Denies shortness of breath, Denies cough, Denies wheezing. Cardiovascular: Denies chest pain, Denies palpitations, Denies sudden loss of consciousness. GI: Denies blood in stool, Denies constipation, Admits abdominal pain, Denies difficulty swallowing, Denies nausea or vomit. : Admits urinary hesitancy, Denies pain while urinating, Denies increased urinary frequency. MSK: Denies joint pain, Denies joint swelling, Denies numbness. Skin: Denies rash, Denies itching, Denies easy bruising. Neuro: Denies headaches, Denies dizziness, Denies seizures. Past Medical History Past Medical History NEUROLOGIC: Positive Neurological Disorders and Migraine; Negative Seizures CARDIAC: Positive Hypercholesterolemia (NO MEDS) and Hypertension; Negative Cardiac Disorders or Congestive Heart Failure RESPIRATORY: Negative Chronic Obstructive Pulmonary Disease (COPD), Asthma or Sleep Apnea GASTROINTESTINAL: Positive Gastrointestinal Bleed and Ulcer; Negative Gastrointestinal Disorders GENITOURINARY: Negative Genitourinary Disorders or Renal Disease MUSCULOSKELETAL: Positive Degenerative Disk Disease and Scoliosis; Negative Musculoskeletal Disorders ENDOCRINE: Negative Diabetes Mellitus Type 1 or Diabetes Mellitus Type 2 HEMATOLOGIC: Negative Sickle Cell Disease PSYCHO/SOCIAL: Positive Depression, Anxiety and Post Traumatic Stress Disorder OTHER HISTORY: Positive Anesthesia Reactions and Chicken Pox; Negative Blood Transfusions, Measles, Mumps or Cancer Family History FAMILY HISTORY: Positive Family Cancer Surgical History SURGICAL: Negative Cardiac Surgery, Endocrine Surgery or Ear Surgery Social History SMOKING STATUS: Never smoker Exam Vital Signs Temp Pulse Resp BP Pulse Ox O2 Del Method 97.9 F 91 12 100/57 L 97 Room Air 07/26/24 19:20 07/26/24 19:20 07/26/24 19:20 07/26/24 19:20 07/26/24 19:20 07/26/24 19:20 Narrative Exam General: A/O x3, no acute distress, well-nourished, well-developed Eyes: PERRL, EOMI. Icteric, vision grossly intact. Ears: mild ear pain, no ear discharge, R TM ruptured, Hearing grossly intact. Nose: No nasal discharge. Mouth/Throat: Moist mucous membranes, no redness, no lesions. Neck: Neck supple, non-tender, no cervical lymphadenopathy. Lungs: Clear [place] to auscultation and percussion, No accessory muscle use. Cardio: Normal S1/S2, regular rhythm, no murmurs, no JVD. Abdomen: Soft, mild discomfort, peristalsis present, no guarding or rebound. Extremities: Symmetrical, no significant deformities, no peripheral edema , non-tender, peripheral pulses presents. Skin: No rashes, no lesions, warm to touch. Neuro: No focal neurological deficits. motor and sensory intact Psych: Slow and low speech Results: Labs 07/26/24 11:00 07/26/24 11:00 Labs: Short CBC 07/26/24 Range/Units 11:00 WBC 33.0 H (3.8-10.6) Thou/mm3 Hgb 8.4 L (13.5-16.0) g/dL Hct 24.5 L (41.0-53.0) % Plt Count 159 D (140-440) Thou/mm3 BMP 07/26/24 11:00 Sodium 127 L Potassium 3.8 Chloride 90 L Carbon Dioxide 23.1 BUN 28 H Creatinine 0.8 Glucose 82 Calcium 11.2 H Liver Function 07/26/24 Range/Units 11:00 Total Bilirubin 6.6 H (0.3-1.2) mg/dL ALT 25 (10-49) U/L Alkaline Phosphatase 426 H (46-116) U/L Albumin 2.9 L (3.5-5.0) gm/dL Urine 07/26/24 Range/Units 13:25 Urine Color Drk-Yellow A (Lt Yel-Yel) Urine Clarity Turbid A (Clear/Hazy) Urine pH 6.0 (5.0-7.0) Ur Specific [place] 1.033 (1.001-1.035) Urine Protein Trace (Neg - Trace) Urine Glucose (UA) Negative (Negative) Quality Measures Quality Measures none (patient is going to be transferred) Medications Home Medications and Allergies Home Medications ?Medication ?Instructions ?Recorded ?Confirmed ?Type ergocalciferol (vitamin D2) 1,250 1 cap PO QWEEK 11/1307/05/24 History mcg (50,000 unit) capsule (Vitamin D2) rimegepant 75 mg disintegrating 1 tab PO DAILY 2 07/05/24 History tablet (Nurtec ODT) cetirizine 10 mg tablet 10 mg PO HS 07/05/24 5 History duloxetine 40 mg capsule,delayed 40 mg PO QDAY 5 07/05/24 History release morphine 15 mg tablet,extended 15 mg PO Q12H PRN pain 07/06/24 07/06/24 History release naloxone 4 mg/actuation nasal spray 1 spray intranasal Q3M PRN opioid 07/06/24 07/06/24 History overdose omeprazole 20 mg capsule,delayed 20 mg PO HS 07/06/24 07/06/24 History release Allergies Allergy/AdvReac Type Severity Reaction Status Date / Time erythromycin base Allergy Mild Rash Verified 07/14/24 17:48 amoxicillin Allergy Unknown Verified 07/14/24 17:48 NSAIDS (Non-Steroidal AdvReac Verified 07/14/24 17:48 Anti-Inflamma msg Allergy Intermediate Nausea Uncoded 07/14/24 17:48 PERSIMMON Allergy Mild FLU LIKE Uncoded 07/14/24 17:48 SYMPTOM Visit Medications Acetaminophen (Acetaminophen 325 Mg Tablet) 650 mg PO Q6H PRN PRN Reason: pain and Fever >100.4 Stop: 08/25/24 21:47 Hydrocodone Bitart/Acetaminophen (Hydrocodone/Apap 5/325 Tablet) 1 tab PO Q4HR PRN PRN Reason: PAIN SCALE 4-6 (Moderate Stop: 07/31/24 21:52 Heparin Sodium (Porcine) (Heparin Sod Inj 5000 Unit/Ml Vial) 5,000 unit SC Q8HR [facility] Stop: 08/09/24 21:59 Sodium Chloride (Ns) 1,000 mls @ 75 mls/hr IV .[id number] [facility] Stop: 07/27/24 11:19 Midodrine (Midodrine 5 Mg Tablet) 5 mg PO TID PRN PRN Reason: SBP<90 and DBP<50 Stop: 08/25/24 21:59 Morphine Sulfate (Morphine Sulf Inj 10 Mg/Ml Vial) 1 mg IVP Q2H PRN PRN Reason: PAIN SCALE 7-10 (Severe Stop: 07/31/24 21:52 Ondansetron HCl (Ondansetron Inj 2 Mg/Ml Inj 2 Ml) 4 mg IVP Q6H PRN; Protocol PRN Reason: NAUSEA OR VOMITING Stop: 08/25/24 21:47 Pantoprazole Sodium (Pantoprazole 40 Mg Tablet) 40 mg PO QDAY [facility] Stop: 08/26/24 08:59 Pharmacy Consult (Vancomycin Pharmacy To Dose 1 Each Each) 1 each IV QDAY PONCE Stop: 08/25/24 21:59 Discontinued Medications Hydrocodone Bitart/Acetaminophen (Hydrocodone/Apap 10/325 Tab) 1 tab PO X1 ONE Stop: 07/26/24 10:45 Last Admin: 07/26/24 11:04 Dose: 1 tab Lactated Ringer's (Lactated Ringers) 1,000 mls @ 999 mls/hr IV .Q1H1M ONE Stop: 07/26/24 12:53 Last Infusion: 07/26/24 13:23 Dose: Infused Lactated Ringer's (Lactated Ringers) 1,000 mls @ 999 mls/hr IV .Q1H1M ONE Stop: 07/26/24 12:53 Last Infusion: 07/26/24 13:23 Dose: Infused Clindamycin Phosphate 900 mg/ (IV Miscellaneous Supplies) 50 mls @ 50 mls/hr IV X1 ONE Stop: 07/26/24 13:03 Last Infusion: 07/26/24 13:20 Dose: Infused Levofloxacin/Dextrose (Levaquin Ivpb) 750 mg in 150 mls @ 100 mls/hr IV X1 ONE Stop: 07/26/24 13:33 Last Infusion: 07/26/24 14:57 Dose: Infused Morphine Sulfate (Morphine Sulf Inj 10 Mg/Ml Vial) 5 mg IVP X1 ONE Stop: 07/26/24 21:52 Oxycodone HCl (Oxycodone Controlled Release 10 Mg Tabcr) 10 mg PO X1 ONE; Protocol Stop: 07/26/24 13:31 Last Admin: 07/26/24 13:54 Dose: 10 mg Oxycodone HCl (Oxycodone Controlled Release 10 Mg Tabcr) 10 mg PO X1 ONE; Protocol Stop: 07/26/24 17:28 Last Admin: 07/26/24 18:00 Dose: Not Given Assessment & Plan Plan 54-year-old male with past medical history of metastatic pancreatic cancer, depression, anxiety, PTSD, PUD, and degenerative disc disease was admitted to the hospital on 07/26/2024 for right parotitis. #Right parotitis #Right ruptured tympanic membrane #Leukocytosis Patient came in with complaints of right jaw pain along with right ear pain and decreased hearing. Physical exam patient was found to have a right tympanic membrane rupture. Patient had a face CT which showed right parotitis. Patient does not have any impaired hearing at this time. WBC 33 Plan: Vancomycin, cefepime, and Flagyl (07/26/2024?) IV fluids Pain management with Tylenol, [place] 5, and morphine 1 mg every 2 hours as needed. Blood cultures ordered Will continue to monitor #Lactic acidosis Patient's lactic acid was 4.5 on admission and down trended to 3.6 Could be in the setting of infection Plan: IV fluids Will trend lactic acid Continue to monitor #Hyperbilirubinemia Patient's hemoglobin is 6.6 today from 1.6 on 07/14/2024 This could be secondary to the patient's liver metastases versus the increased pancreatic mass causing hyperbilirubinemia due to blockage Plan: Consider MRCP to rule out any obstruction of biliary tract GI consulted, pressure recommendations #UTI Patient's UA was positive for bacteria Patient stated that he has been having some increased urgency along with hesitation. Plan: Patient is currently on cefepime, vancomycin, Flagyl Urine culture ordered Continue to monitor Chronic diseases: #Hx of metastatic pancreatic cancer #Hx of depression anxiety #Hx of PUD. Patient was supposed to be seeing his oncologist today, but given symptoms he was asked to come to the ED and was not seen by oncologist. abdomen/pelvis CT which showed malignant ascites, and focal area of edema in the kidneys, and again noted the necrotic mass the tail of the pancreas with that increase in size from 6 x 6.5 cm on June to 6.4 x 8.4 cm today. Consider reaching out to patient's oncologist in the morning. Protonix 40 daily Disposition: Patient admitted for right parotitis. Diet: regular GI prophylaxis: protonix DVT prophylaxis: heparin subcu Code: Full Case disclosed with Attending Dr. Tiki Jimenez PGY1 Disclaimer: Even though this this note was dictated by speech recognition and even though it was carefully revised there may still be minor errors in equity holder due to voice recognition software.
[2024-07-26] MEDS: MORPHINE SULF INJ 10 MG/ML VIAL 5 MG IVP (22:21)
[2024-07-26] MEDS: CEFEPIME INJ 2 GM in SODIUM CHLORIDE 0.9% (Popper) 50 ML IV (22:22)
[2024-07-26] MEDS: ONDANSETRON INJ 2 MG/ML INJ 2 ML 4 MG IVP (22:22)
[2024-07-26] MEDS: metroNIDAZOLE 250 MG TABLET 500 MG PO (22:24)
[2024-07-26] MEDS: HEPARIN SOD INJ 5000 UNIT/ML VIAL SC (22:24)
[2024-07-26] MEDS: SODIUM CHLORIDE 0.9% 1000 ML 1,000 ML 75 ML IV (22:30)
--- NOTE | 2024-07-26 22:53 | PD.IMCONS ---
HPI Data of Consult Requesting Physician: Dinorah Fairbanks MD Primary Care Provider: UZMA Dsouza Consult Narrative Reason for consult: Pancreatic mass ascites leukocytosis History of present illness: 54 years old male admitted to the hospital with the emergency room for abdominal pain leukocytosis hypercalcemia lactic acidosis and high Pro-Robert at 90.03 Patient has been diagnosed in the month of June with a pancreatic cancer was in the process of getting a port which could not be done CRIS CT scan of the abdomen pelvis with contrast showed necrotic mass tail of the pancreas but 6.2 cm in size malignant ascites MRI brain is negative Patient's total bilirubin 6.6 AST 25 and alk phos of 426 Patient also has parotitis and started on broad-spectrum antibiotics I have been consulted cc:: cc: Dinorah Fairbanks MD Review of Systems Review of Systems Systems Reviewed: All systems reviewed, normal except as documented Past Medical History Surgical History OTHER SURGICAL HX: As above in addition anxiety neurosis PTSD Degenerative joint disease Meds Home Medications and Allergies Home Medications ?Medication ?Instructions ?Recorded ?Confirmed ?Type ergocalciferol (vitamin D2) 1,250 1 cap PO QWEEK 11/13/21 07/27/24 History mcg (50,000 unit) capsule (Vitamin D2) rimegepant 75 mg disintegrating 1 tab PO DAILY 11/13/21 07/27/24 History tablet (Nurtec ODT) cetirizine 10 mg tablet 10 mg PO HS 07/05/24 07/27/24 History duloxetine 40 mg capsule,delayed 40 mg PO QDAY 07/05/24 07/27/24 History release morphine 15 mg tablet,extended 15 mg PO Q12H PRN pain 07/06/24 07/27/24 History release naloxone 4 mg/actuation nasal spray 1 spray intranasal Q3M PRN opioid 07/06/24 07/27/24 History overdose omeprazole 20 mg capsule,delayed 20 mg PO HS 07/06/24 07/27/24 History release metoclopramide HCl 10 mg tablet 10 mg PO Q8H PRN nausea and 07/27/24 07/27/24 History vomiting Allergies Allergy/AdvReac Type Severity Reaction Status Date / Time erythromycin base Allergy Mild Rash Verified 07/14/24 17:48 amoxicillin Allergy Unknown Verified 07/14/24 17:48 NSAIDS (Non-Steroidal AdvReac Verified 07/14/24 17:48 Anti-Inflamma msg Allergy Intermediate Nausea Uncoded 07/14/24 17:48 PERSIMMON Allergy Mild FLU LIKE Uncoded 07/14/24 17:48 SYMPTOM Exam Vital Signs Temp Pulse Resp BP Pulse Ox O2 Del Method 97.9 F 91 16 100/57 L 96 Room Air 07/26/24 19:20 07/26/24 22:14 07/26/24 22:14 07/26/24 19:20 07/26/24 22:14 07/26/24 19:20 Constitutional Comments: Chronically ill-appearing Routine Respiratory Exam Comments: Normal to auscultation Routine Abdominal Exam Comments: Positive for ascites Results Labs 07/27/24 15:23 07/27/24 03:12 Labs: Short CBC 07/26/24 Range/Units 11:00 WBC 33.0 H (3.8-10.6) Thou/mm3 Hgb 8.4 L (13.5-16.0) g/dL Hct 24.5 L (41.0-53.0) % Plt Count 159 D (140-440) Thou/mm3 BMP 07/26/24 11:00 Sodium 127 L Potassium 3.8 Chloride 90 L Carbon Dioxide 23.1 BUN 28 H Creatinine 0.8 Glucose 82 Calcium 11.2 H Liver Function 07/26/24 Range/Units 11:00 Total Bilirubin 6.6 H (0.3-1.2) mg/dL ALT 25 (10-49) U/L Alkaline Phosphatase 426 H (46-116) U/L Albumin 2.9 L (3.5-5.0) gm/dL Urine 07/26/24 Range/Units 13:25 Urine Color Drk-Yellow A (Lt Yel-Yel) Urine Clarity Turbid A (Clear/Hazy) Urine pH 6.0 (5.0-7.0) Ur Specific [place] 1.033 (1.001-1.035) Urine Protein Trace (Neg - Trace) Urine Glucose (UA) Negative (Negative) Assessment and Plan Additional Assessment & Plan Additional Plan: Pancreatic carcinoma with leukocytosis and possibly malignant ascites Plan will speak with [facility] and see if they will accept the patient in transfer Patient has advanced malignancy and not a surgical candidate at the moment Continue IV antibiotics Will follow the patient
[2024-07-26] MEDS: Vancomycin Inj 2,000 MG in SODIUM CHLORIDE 0.9% 500 ML 500 ML 150 MG IV (23:38)
[2024-07-26 23:43] LABS: Lactate (Lactic Acid) 2.5 mMol/L (0.4-2.0)
[2024-07-27] VITALS (14 sets, daily range): BP systolic 90–114; BP diastolic 51–74; PULSE 76–114; RESP 12–19; TEMP 36–38.3; O2SAT 91–98; BMI 23.8
--- NOTE | 2024-07-27 01:38 | PC.NURSE ---
Unable to complete medication reconciliation at this time due to patient does not have a med list or did not bring prescription bottles. Will try to call patient's mother/POC in the morning to see if she could provide it.
[2024-07-27 02:41] LABS: Reflex Lactate? Y
[2024-07-27 03:28] LABS: Lactic Acid, 3 HR 2.8 mMol/L (0.4-2.0)
[2024-07-27 03:57] LABS: Basophils # (Auto) 0.1 Thou/mm3 (0.0-0.2); Basophils % (Auto) 0 % (0-2.5); Eosinophils # (Auto) 0.3 Thou/mm3 (0.0-0.5); Eosinophils % (Auto) 1 % (0-10); Immature Granulocytes % (Auto) 1 % (0-0); Immature Granulocytes Auto 0.41 Thou/mm3 (0.00-0.00); Lymphocytes # (Auto) 0.9 Thou/mm3 (1.0-4.8); Lymphocytes % (Auto) 3 % (10-50); Mean Corpuscular HGB Conc 33.3 g/dl (31.0-37.0); Mean Corpuscular Hemoglobin 28.1 pg (25.0-35.0); Mean Corpuscular Volume 84 fL (80-100); Monocytes # (Auto) 1.4 Thou/mm3 (0.0-0.8); Monocytes % (Auto) 5 % (0-12); Neutrophils % (Auto) 90 % (37-80); Nucleated Red Blood Cell # 0.04 Thou/mm3 (0.00-0.00); Nucleated Red Blood Cell % 0 /100 WBC (0); Platelet Count 136 Thou/mm3 (140-440); RDW Standard Deviation 56.1 fL (35.1-43.9); Red Blood Count 2.31 Miln/mm3 (4.50-5.90)
[2024-07-27 04:01] LABS: Hematocrit 19.5 % (41.0-53.0); Hemoglobin 6.5 g/dL (13.5-16.0)
--- NOTE | 2024-07-27 04:05 | PC.NURSE ---
Dr. Tsang made aware of patient's Hgb 6.5 and Hct 19.5; no new orders received at this time.
[2024-07-27 04:23] LABS: Alanine Aminotransferase 19 U/L (10-49); Albumin, Serum 2.3 gm/dL (3.5-5.0); Albumin/Globulin Ratio 0.8 (1.2-2.2); Alkaline Phosphatase 338 U/L (46-116); Anion Gap 13 (7-16); BUN/Creatinine Ratio 37 Ratio (12-20); Bilirubin,Total 5.5 mg/dL (0.3-1.2); Blood Urea Nitrogen 26 mg/dL (9-23); Calcium 10.1 mg/dL (8.3-10.6); Calcium (Corrected) 11.5 mg/dL (8.5-10.1); Carbon Dioxide 25.4 mMol/L (20.0-31.0); Chloride 96 mMol/L (98-107); Creatinine (Component) 0.7 mg/dL (0.6-1.3); Estimated Creatinine Clearance 115.4 mL/min (>60); Glucose 79 mg/dL (74-106); Magnesium 1.7 mg/dL (1.6-2.6); Osmolality,Calculated 271 (275-295); Sodium 134 mMol/L (136-145); Total Protein 5.3 gm/dL (5.7-8.2); eGFR > 60 See Note
[2024-07-27 05:26] LABS: Hematocrit 19.2 % (41.0-53.0); Hemoglobin 6.4 g/dL (13.5-16.0)
[2024-07-27] MEDS: metroNIDAZOLE 250 MG TABLET 500 MG PO ×3 (06:12→21:39)
[2024-07-27] MEDS: HEPARIN SOD INJ 5000 UNIT/ML VIAL SC ×3 (06:14→21:41)
--- NOTE | 2024-07-27 06:40 | PC.NURSE ---
Patient's mother, Jocy, will try to bring list of meds today. Will let AM RN know.
[2024-07-27] MEDS: PANTOPRAZOLE 40 MG TABLET PO (08:19)
[2024-07-27] MEDS: CEFEPIME INJ 2 GM in SODIUM CHLORIDE 0.9% (Popper) 50 ML IV ×2 (08:19→21:00)
--- NOTE | 2024-07-27 08:22 | XR_ITS ---
Examination: Retroperitoneal ultrasound, complete Technique: Multiple high resolution grayscale images of the retroperitoneum obtained, including kidneys and bladder. Exam date and time:July 27, 2024 0931 hours INDICATIONS: Abnormal contrast accumulation edema in the kidneys on CT abdomen study May 26, 2024 Right kidney 11.5 cm cortex 1.7 cm Left kidney 10.5 cm cortex 1.2 cm Mild renal parenchymal scar formation No renal abscesses No bladder mass or bladder calculi Bladder prevoid volume 161 cc Prostate volume 22 cc no prostate nodules IMPRESSION: Mild renal parenchymal scar formation
--- NOTE | 2024-07-27 08:41 | XR_ITS ---
Examination: Renal sonography Renal Doppler sonographic evaluation Date and time: July 27, 2024 0900 hours INDICATIONS: Irregular contrast accumulation in the kidneys, hypotension versus multiple small infarcts on CT examination July 26, 2024 TECHNIQUE AND FINDINGS: Sonographic images kidneys including assessment peak systolic velocities, calculation resistive indices renal artery stenoses Right kidney 10.9 cm left kidney 10.1 cm No elevation of peak systolic velocities right or left kidney No significant elevation of resistive indices bilaterally Normal renal aortic ratios IMPRESSION: No findings diagnostic for renal artery stenosis
--- NOTE | 2024-07-27 09:35 | PC.NURSE ---
Per Dr. Oviedo hold ordered blood transfusion at this time as she wants to order a repeat H&H.
[2024-07-27 09:36] LABS: Lactate (Lactic Acid) 2.7 mMol/L (0.4-2.0)
[2024-07-27] MEDS: ALBUMIN HUMAN 25% IVPB 12.5 GM/50 ML BTL IV (10:27)
[2024-07-27] MEDS: MORPHINE SULF INJ 10 MG/ML VIAL IVP (10:39)
--- NOTE | 2024-07-27 10:48 | PC.CC ---
Addendum entered by Gaby Velasquez RN 07/27/24 18:17: Gave [facility], prelim info, they will review, they are impacted, request we call back tomorrow to follow up. Addendum entered by Gaby Velasquez RN 07/27/24 18:08: Sent packet to [facility], [facility], Addendum entered by Gaby Velasquez RN 07/27/24 18:00: 1420- made aware to re-initiate transfer. [facility] Original Note: Spoke to Dr. Covington, reading his notes and confirmed transfer was cancelled.
--- NOTE | 2024-07-27 10:58 | CHAP ---
Patient was visited by a spiritual care volunteer on 07/27/2024 between 0900 and 0920 and reeived comfort, encouragement and
--- NOTE | 2024-07-27 11:00 | CHAP ---
Patient was visited by a spiritual care volunteer on 07/27/2024 between 0900 and 0920 and received comfort, encouragement and/or prayer.
[2024-07-27] MEDS: VANCOMYCIN/D5W 1,250 MG IVPB 250 ML 120 MG IV ×2 (11:08→21:37)
[2024-07-27 12:31] LABS: Reflex Lactate? Y
--- NOTE | 2024-07-27 12:36 | PD.SURCONS ---
HPI Consult details Consult date: 07/27/24 Reason for consultation narrative: Port-A-Cath placement History of present illness: 54-year-old male with pancreatic cancer metastasized to liver. He has history of significant weight loss and back pain. I was asked to evaluate for placement of Port-A-Cath for administration of systemic chemotherapy. Review of Systems Constitutional Constitutional: Denies chills, Denies fever(s) and Reports weight loss Cardiovascular Cardiovascular: Denies chest pain Respiratory Respiratory: Denies cough Gastrointestinal Gastrointestinal: Reports abdominal pain Musculoskeletal Musculoskeletal: Reports back pain Hematologic/Lymphatic Hematologic/Lymphatic: Denies easy bleeding and Denies easy bruising Past Medical History Surgical History OTHER SURGICAL HX: Laparoscopic cholecystectomy Social History SMOKING STATUS: Former smoker SUBSTANCE USE: does not use ALCOHOL: Former Meds Home Medications and Allergies Home Medications ?Medication ?Instructions ?Recorded ?Confirmed ?Type ergocalciferol (vitamin D2) 1,250 1 cap PO QWEEK 11/13/21 07/27/24 History mcg (50,000 unit) capsule (Vitamin D2) rimegepant 75 mg disintegrating 1 tab PO DAILY 11/13/21 07/27/24 History tablet (Nurtec ODT) cetirizine 10 mg tablet 10 mg PO HS 07/05/24 07/27/24 History duloxetine 40 mg capsule,delayed 40 mg PO QDAY 07/05/24 07/27/24 History release morphine 15 mg tablet,extended 15 mg PO Q12H PRN pain 07/06/24 07/27/24 History release naloxone 4 mg/actuation nasal spray 1 spray intranasal Q3M PRN opioid 07/06/24 07/27/24 History overdose omeprazole 20 mg capsule,delayed 20 mg PO HS 07/06/24 07/27/24 History release metoclopramide HCl 10 mg tablet 10 mg PO Q8H PRN nausea and 07/27/24 07/27/24 History vomiting Allergies Allergy/AdvReac Type Severity Reaction Status Date / Time erythromycin base Allergy Mild Rash Verified 07/14/24 17:48 amoxicillin Allergy Unknown Verified 07/14/24 17:48 NSAIDS (Non-Steroidal AdvReac Verified 07/14/24 17:48 Anti-Inflamma msg Allergy Intermediate Nausea Uncoded 07/14/24 17:48 PERSIMMON Allergy Mild FLU LIKE Uncoded 07/14/24 17:48 SYMPTOM Exam Vital Signs Temp Pulse Resp BP Pulse Ox O2 Del Method 97.9 F 102 H 12 106/51 L 95 Room Air 07/27/24 11:59 07/27/24 11:59 07/27/24 11:59 07/27/24 11:59 07/27/24 11:59 07/27/24 11:59 Constitutional Constitutional: moderate distress Routine HEENT Exam Eye: Present conjunctival icterus Assessment & Plan Problem List (1) Pancreatic cancer metastasized to liver: Status: Acute Additional Assessment Additional comments: Patient has significantly elevated WBC and CT scan yesterday revealed right base pneumonia. Plan Continue IV antibiotic to improve pneumonia. Once pneumonia is improved we will plan for placement of Port-A-Cath possibly on . Risks include but not limited to infection, bleeding, pneumothorax, possible need for chest tube placement, malfunctioning of the catheter discussed with the patient. Benefits and alternatives explained to him, all his questions answered, he agreed and consented to proceed with the procedure.
[2024-07-27 13:04] LABS: Lactic Acid, 3 HR 2.9 mMol/L (0.4-2.0)
--- NOTE | 2024-07-27 13:19 | ESPR_ITS ---
<Statement entered by Doyle Covington MD - 07/28/24 00:30> Patient is a 54-year-old male with significant medical history for metastatic pancreatic cancer, depression, anxiety and degenerative disc disease who was admitted for parotiditis overnight. Overnight hemoglobin down trended to less than 6, PRBC was ordered along with albumin. FOBT was ordered and is pending as patient has not had a bowel movement. Heme-onc Dr. Cheney was consulted who recommended transfer of patient to a higher care tertiary center. I discussed with and supervised the international tax manager physician involved in the care of this patient. Patient assessment and plan was discussed with entire medicine team, including my attending. I agree with the assessment and plan as documented by international tax manager doctor. Patient care was discussed with my attending physician Dr. Samina Covington, PGY-2 Documentation for date of: 07/27/24 Subjective Subjective Interval history: Patient is seen and examined at bedside Patient was admitted overnight in view of necrotic pancreatic mass, suspected right parotiditis Vitals are stable except for mild tachycardia. On physical examination, severe tenderness noted in right upper quadrant, epigastric area, umbilical area, right lumbar area Labs showed WBC 29, hemoglobin 15.4, platelets 136, sodium 134, BUN 26, creatinine 0.7, lactate 2.9, total bilirubin 5.5, albumin 2.3 Renal ultrasound and renal arterial Doppler was done in view of abnormal findings on CT abdomen -did not show any significant abnormality A unit of PRBC is ordered, 1 dose of albumin is given Will repeat posttransfusion H&H Goals of care discussed with patient and mother at the bedside. Trying to transfer out the patient as patient is young and we do not have any inpatient oncologist Exam Vital Signs Temp Pulse Resp BP Pulse Ox O2 Del Method 97.9 F 102 H 12 106/51 L 95 Room Air 07/27/24 11:59 07/27/24 11:59 07/27/24 11:59 07/27/24 11:59 07/27/24 11:59 07/27/24 11:59 Narrative Exam General: Awake. HEENT: Normocephalic, atraumatic, mucous membranes moist. Heart: Regular rate and rhythm, no murmurs. Lungs: Clear to auscultation with no wheezing or crackles. Abdomen: Soft, nondistended, noted tenderness in the epigastric, umbilical and right hypochondriac region, positive bowel sounds. ?No guarding or rebound tenderness. Neurologic: Alert and oriented x3, no gross neurological deficit, and patient able to move all 4 extremities. Extremities: No edema. Skin: No rash or ecchymoses. Objective Labs 07/28/24 04:49 07/28/24 04:49 Labs: Laboratory Results - last 24 hr 07/26/24 07/26/24 07/26/24 13:25 13:53 23:33 WBC RBC Hgb Hct MCV MCH MCHC RDW Std Deviation Plt Count Neut % (Auto) Lymph % (Auto) Dale % (Auto) Eos % (Auto) Baso % (Auto) Neut # (Auto) Lymph # (Auto) Dale # (Auto) Eos # (Auto) Baso # (Auto) Immature Gran # (Auto) Absolute Nucleated RBC Immature Gran % Nucleated RBC % Sodium Potassium Chloride Carbon Dioxide Anion Gap BUN Creatinine Estim Creat Clear Calc eGFR BUN/Creatinine Ratio Glucose Calculated Osmolality Lactic Acid 3.6 H 2.5 H Calcium Corrected Calcium Magnesium Total Bilirubin ALT Alkaline Phosphatase Total Protein Albumin Globulin Albumin/Globulin Ratio Ur Collection Type Clean Catch Urine Color Drk-Yellow A Urine Clarity Turbid A Urine pH 6.0 Ur Specific [place] 1.033 Urine Protein Trace Urine Glucose (UA) Negative Urine Ketones Negative Urine Blood Negative Urine Nitrite Negative Urine Bilirubin 2+ A Urine Urobilinogen (Auto) 6.0 Ur Leukocyte Esterase Negative Urine RBC 11 H Urine WBC 1 Ur Squamous Epith Cells 1 Ur Transition Epith Cell 3 Urine Bacteria 1+ A Blood Type Antibody Screen Crossmatch Blood Bank Wristband ID 07/27/24 07/27/24 07/27/24 03:12 04:30 05:52 WBC 29.0 H RBC 2.31 L Hgb 6.5 L* D 6.4 L* Hct 19.5 L* 19.2 L* MCV 84 MCH 28.1 MCHC 33.3 RDW Std Deviation 56.1 H Plt Count 136 L Neut % (Auto) 90 H Lymph % (Auto) 3 L [place] % (Auto) 5 Eos % (Auto) 1 Baso % (Auto) 0 Neut # (Auto) 26.0 H Lymph # (Auto) 0.9 L [place] # (Auto) 1.4 H Eos # (Auto) 0.3 Baso # (Auto) 0.1 Immature Gran # (Auto) 0.41 H Absolute Nucleated RBC 0.04 H Immature Gran % 1 H Nucleated RBC % 0 Sodium 134 L Potassium 4.0 Chloride 96 L Carbon Dioxide 25.4 Anion Gap 13 BUN 26 H Creatinine 0.7 Estim Creat Clear Calc 115.4 eGFR > 60 BUN/Creatinine Ratio 37 H Glucose 79 Calculated Osmolality 271 L Lactic Acid 2.8 H Calcium 10.1 Corrected Calcium 11.5 H Magnesium 1.7 Total Bilirubin 5.5 H D ALT 19 Alkaline Phosphatase 338 H D Total Protein 5.3 L Albumin 2.3 L D Globulin 3.0 Albumin/Globulin Ratio 0.8 L Ur Collection Type Urine Color Urine Clarity Urine pH Ur Specific [place] Urine Protein Urine Glucose (UA) Urine Ketones Urine Blood Urine Nitrite Urine Bilirubin Urine Urobilinogen (Auto) Ur Leukocyte Esterase Urine RBC Urine WBC Ur Squamous Epith Cells Ur Transition Epith Cell Urine Bacteria Blood Type A Positive Antibody Screen NEGATIVE Crossmatch See Detail Blood Bank Wristband ID Yes 07/27/24 07/27/24 09:19 12:48 WBC RBC Hgb Hct MCV MCH MCHC RDW Std Deviation Plt Count Neut % (Auto) Lymph % (Auto) Dale % (Auto) Eos % (Auto) Baso % (Auto) Neut # (Auto) Lymph # (Auto) Dale # (Auto) Eos # (Auto) Baso # (Auto) Immature Gran # (Auto) Absolute Nucleated RBC Immature Gran % Nucleated RBC % Sodium Potassium Chloride Carbon Dioxide Anion Gap BUN Creatinine Estim Creat Clear Calc eGFR BUN/Creatinine Ratio Glucose Calculated Osmolality Lactic Acid 2.7 H 2.9 H Calcium Corrected Calcium Magnesium Total Bilirubin ALT Alkaline Phosphatase Total Protein Albumin Globulin Albumin/Globulin Ratio Ur Collection Type Urine Color Urine Clarity Urine pH Ur Specific [place] Urine Protein Urine Glucose (UA) Urine Ketones Urine Blood Urine Nitrite Urine Bilirubin Urine Urobilinogen (Auto) Ur Leukocyte Esterase Urine RBC Urine WBC Ur Squamous Epith Cells Ur Transition Epith Cell Urine Bacteria Blood Type Antibody Screen Crossmatch Blood Bank Wristband ID Quality Measures Quality Measures none (patient is going to be transferred) Assessment & Plan Assessment Current Active Medications: Generic Name Dose Route Start Last Admin Trade Name Freq PRN Reason Stop Dose Admin Acetaminophen 650 mg 07/26/24 21:48 Acetaminophen 325 Mg Tablet PO 08/25/24 21:47 Q6H PRN pain and Fever >100.4 Protocol Hydrocodone Bitart/Acetaminophen 1 tab 07/26/24 21:53 Hydrocodone/Apap 5/325 Tablet PO 07/31/24 21:52 Q4HR PRN PAIN SCALE 4-6 (Moderate Heparin Sodium (Porcine) 5,000 unit 07/26/24 22:00 07/27/24 06:14 Heparin Sod Inj 5000 Unit/Ml Vial SC 08/09/24 21:59 5,000 unit Q8HR PONCE Administration Cefepime HCl 2 gm/ Sodium 50 mls @ 100 mls/hr 07/26/24 22:01 07/27/24 08:19 Chloride IV 08/02/24 22:00 100 mls/hr Q12HR PONCE Administration Vancomycin HCl/Dextrose 250 mls @ 120 mls/hr 07/27/24 10:00 07/27/24 11:08 Vancomycin/D5w 1,250 Mg Ivpb IV 08/03/24 09:59 120 mls/hr Q12H PONCE Administration Metoclopramide HCl 10 mg 07/27/24 13:12 Metoclopramide 5 Mg Tablet PO 08/26/24 13:11 Q8H PRN nausea and vomiting Metronidazole 500 mg 07/26/24 22:00 07/27/24 06:12 Metronidazole 250 Mg Tablet PO 08/02/24 21:59 500 mg Q8H PONCE Administration Midodrine 5 mg 07/26/24 21:53 Midodrine 5 Mg Tablet PO 08/25/24 21:59 TID PRN SBP<90 and DBP<50 Morphine Sulfate 15 mg 07/27/24 13:15 Morphine Sulf 15 Mg Tabcr PO 08/01/24 13:11 Q12H PRN PAIN SCALE 7-10 (Severe Protocol Ondansetron HCl 4 mg 07/26/24 21:48 07/26/24 22:22 Ondansetron Inj 2 Mg/Ml Inj 2 Ml IVP 08/25/24 21:47 4 mg Q6H PRN Administration NAUSEA OR VOMITING Protocol Oxycodone HCl 5 mg 07/27/24 13:12 Oxycodone Hcl 5 Mg Ir Tab PO 08/01/24 13:11 Q6H PRN SEVERE BREAKTRU PAIN Pantoprazole Sodium 40 mg 07/27/24 09:00 07/27/24 08:19 Pantoprazole 40 Mg Tablet PO 08/26/24 08:59 40 mg QDAY PONCE Administration Pharmacy Consult 1 each 07/26/24 22:00 Vancomycin Pharmacy To Dose 1 Each Each IV 08/25/24 21:59 QDAY PRN CONSULT Plan 54-year-old male with past medical history of metastatic pancreatic cancer, depression, anxiety, PTSD, PUD, and degenerative disc disease was admitted to the hospital on 07/26/2024 for right parotitis. #Acute anemia, likely blood loss - Hemoglobin this morning is 6.4 - Patient denies any bleeding manifestations - Stool for occult blood is ordered plan - A unit of PRBC is transfused - Posttransfusion H&H is ordered - Will transfuse if hemoglobin is less than 7 #Right parotitis, resolving #Leukocytosis Patient came in with complaints of right jaw pain along with right ear pain and decreased hearing. Patient had a face CT which showed right parotitis. Patient does not have any impaired hearing at this time. WBC 33, Blood cultures negative after 24hrs Plan: Vancomycin, cefepime, and Flagyl (07/26/2024?) IV fluids Pain management with Tylenol, morphine 15mg twice daily as needed for pain and oxycodone 5mg thrice daily as needed for breakthrough pain. Will continue to monitor # Pancreatic malignancy - Patient was diagnosed with pancreatic cancer in 06/2024 - Patient did not have any Chemo-Port yet because of the insurance issues Plan - Pain management with morphine 15 mg twice daily as needed for pain and oxycodone 5 Mg thrice daily as needed for breakthrough pain - Started transfer process as we do not have any inpatient oncology - Discussed about the case with Dr. Pascual - Consulted Dr. García for Chemo-Port placement #Lactic acidosis, resolving Patient's lactic acid was 4.5 on admission and down trended to 2.9 Could be in the setting of infection vs malignancy with metastases Plan: IV fluids Will trend lactic acid Continue to monitor #Hyperbilirubinemia Patient's hemoglobin is 5.5 today from 1.6 on 07/14/2024 This could be secondary to the patient's liver metastases versus the increased pancreatic mass causing hyperbilirubinemia due to blockage Plan: GI consulted, will appreciate recommendations #UTI Patient's UA was positive for bacteria Patient stated that he has been having some increased urgency along with hesitation. Plan: Patient is currently on cefepime, vancomycin, Flagyl Urine culture ordered Continue to monitor Chronic diseases: #Hx of metastatic pancreatic cancer #Hx of depression anxiety #Hx of PUD. Patient was supposed to be seeing his oncologist today, but given symptoms he was asked to come to the ED and was not seen by oncologist. abdomen/pelvis CT which showed malignant ascites, and focal area of edema in the kidneys, and again noted the necrotic mass the tail of the pancreas with that increase in size from 6 x 6.5 cm on June to 6.4 x 8.4 cm today. Protonix 40 daily Disposition: Patient admitted for right parotitis. Diet: regular GI prophylaxis: protonix DVT prophylaxis: heparin subcu Code: Full Patient plan of care was discussed with the attending physician, Dr. Haas and senior resident Dr. Nadya Oviedo, PGY1 Attending Provider Attestation/Addendum I, Lucila Haas, , attest that I was physically present for the berrios portions of the service and evaluated the patient with the resident and I reviewed and discussed the case with the resident and agree with the resident's findings and plans of care as documented above Patient seen and eval this a.m. Patient appears to be quite lethargic this morning. He will answer to questions with repeated prompting. This is likely secondary to pain medication use. Patient reports some improvement of his right ear pain. Will continue with antibiotics at this time. Will follow-up with cultures. Surgery consulted to place Port-A-Cath. Case was discussed with oncology over the phone regarding elevated bilirubin. Had suggested possible placement of extrahepatic biliary catheter. However, upon discussion with radiology, there is no dilatation of biliary tract that would require extrahepatic biliary drainage. Elevated bilirubin is likely secondary to the liver mets present. Mass on tail of pancreas would not cause this obstruction otherwise.
--- NOTE | 2024-07-27 14:17 | XR_ITS ---
Examination: MRI brain with intravenous contrast TECHNIQUE: MRI axial sagittal coronal brain MRI images post intravenous administration 13 cc gadolinium INDICATIONS: Diagnosis metastatic pancreatic carcinoma, tenderness in the right ear generalized weakness fever chills beginning July 26, 2024 FINDINGS: Ventricles are not enlarged No mass effect upon the ventricular system No enhancing cerebellar or cerebral lesions No pituitary macroadenoma Normal 7th and 8th nerve complexes Chronic ethmoid and maxillary antral sinusitis IMPRESSION: No abnormal enhancing cerebellar or cerebral lesions
--- NOTE | 2024-07-27 14:47 | PC.SS ---
Rounding: Pending HLOC [place]
[2024-07-27] MEDS: ACETAMINOPHEN 325 MG TABLET 650 MG PO (15:27)
--- NOTE | 2024-07-27 15:41 | ESDS_ITS ---
<Statement entered by Lucila Haas DO - 07/28/24 07:29> I, Lucila Haas DO, attest that I was physically present for the berrios portions of the service and evaluated the patient with the resident and I reviewed and discussed the case with the resident and agree with the resident's findings and plans of care as documented above <Statement entered by Doyle Covington MD - 07/27/24 23:53> I discussed with and supervised the international trade specialist physician involved in the care of this patient. Patient assessment and plan was discussed with entire medicine team, including my attending. I agree with the assessment and plan as documented by international trade specialist doctor. Patient care was discussed with my attending physician Dr. Samina Covington, PGY-2 Planned Discharge Date 07/27/24 DS: Providers Provider Date of admission: 07/26/24 21:48 Primary care physician: UZMA Dsouza Admitting Provider: Dinorah Fairbanks MD Attending Provider on Admission: Dinorah Fairbanks MD Consults: 07/26/24 21:54 Consult to Gastroenterology Routine Comment: Consulting Provider: Troy Nina 07/27/24 08:02 Consult to General Surgery Stat Comment: For placement of chemo port Consulting Provider: Angelica García Attending Provider on DC: Chau Oviedo MD Discharging Provider: Chau Oviedo MD DS: Diagnosis Problem List Completed Was Problem List Reviewed/Reconciled?: Yes Hospital Course Hospital Course Hospital course: A 54-year-old male with past medical history of metastatic pancreatic cancer, depression, anxiety, PTSD, PUD, and degenerative disc disease was admitted to the hospital on 07/26/2024 after coming to the ED from his cancer center due to complaints of pain and tenderness in his right ear along with weakness, fevers, and chills. Patient was recently discharged from our hospital on 07/08/2024 after he was found to have metastasis of pancreatic cancer and get a biopsy done. Patient stated he follow-up with oncologist outpatient, but that he has been having issues with starting his chemotherapy as he has been having insurance issues to get approval for the Port-A-Cath. Patient mentioned that he has been having some ear fullness on the right ear along with right ear pain and jaw pain for the last week more or less. Hospital course: Initially came in normotensive and afebrile. Initial labs were relevant for WBC 33, Hb 8.4, platelets 159, sodium 127, chloride 90, lactate 4.5, procalcitonin 90.3, albumin 2.9 and UA was positive for bilirubin and bacteria. Patient also found to have elevated bilirubin, 6.6 likely due to metastasis from pancreatic cancer. Initial imaging included chest x-ray which showed no active disease, face CT which showed suspicion for right parotiditis, and abdomen/pelvis CT which showed malignant ascites, and focal area of edema in the kidneys, and again noted the necrotic mass the tail of the pancreas with that increase in size from 6 x 6.5 cm on June to 6.4 x 8.4 cm today. Renal ultrasound showed mild renal parenchymal scar formation. Renal artery Doppler did not show any evidence of renal artery stenosis. On 07/27/2024, hemoglobin is 6.4 for which patient received a unit of PRBC transfusion. Patient was started on cefepime, metronidazole and vancomycin for the treatment of suspected parotiditis. Patient is receiving morphine and oxycodone as needed for pain. MRI head with contrast is ordered to look for brain metastasis as patient was noted to have slowing of his mental status per his mother. Patient was scheduled to get Chemo- Port catheter for which general surgeon is consulted and he recommended to hold the procedure for now in view of suspected parotiditis and active infection. As our medical center does not have any inpatient oncologist, patient needs transfer to tertiary care center for further management. #Acute anemia, likely blood loss #Right parotitis, resolving #Leukocytosis #Invasive adenocarcinoma of pancreas with mets to liver #Lactic acidosis, resolving #Hyperbilirubinemia #UTI #Hx of depression anxiety #Hx of PUD. Patient plan of care was discussed with the attending physician, Dr. Haas and senior resident Dr. Nadya Oviedo, PGY1 Time Spent with Patient Time attestation: Total time spent providing and/or coordinating discharge services: Time spent: Greater than 30 minutes Exam Vital Signs Temp Pulse Resp BP Pulse Ox O2 Del Method 100.9 F H 105 H 17 114/69 95 Room Air 07/27/24 15:27 07/27/24 13:30 07/27/24 13:30 07/27/24 13:30 07/27/24 13:30 07/27/24 11:59 Narrative Exam General: Awake. HEENT: Normocephalic, atraumatic, mucous membranes moist. Heart: Regular rate and rhythm, no murmurs. Lungs: Clear to auscultation with no wheezing or crackles. Abdomen: Soft, nondistended, noted tenderness in the epigastric, umbilical and right hypochondriac region, positive bowel sounds. ?No guarding or rebound tenderness. Neurologic: Alert and oriented x3, no gross neurological deficit, and patient able to move all 4 extremities. Extremities: No edema. Skin: No rash or ecchymoses. Discharge Plan Plan Service Needed for Transfer: Gastroenterology Prescriptions/Referrals Prescriptions/Med Rec: No Action ergocalciferol (vitamin D2) [Vitamin D2] 1,250 mcg (50,000 unit) capsule 1 cap PO QWEEK Patient Comments: take 1 capsule by mouth every week Nurtec ODT 75 mg tablet,disintegrating 1 tab PO DAILY Patient Comments: take 1 tablet by mouth every other day ondansetron 4 mg tablet,disintegrating 4 mg PO Q6H PRN (Reason: nausea and vomiting) Qty: 20 0RF oxycodone 5 mg tablet 5 mg PO Q6H MDD 4 PRN (Reason: pain) Qty: 20 0RF duloxetine 40 mg capsule,delayed release(DR/EC) 40 mg PO QDAY Patient Comments: take 1 capsule by mouth once daily cetirizine 10 mg tablet 10 mg PO HS Patient Comments: take 1 tablet by mouth at bedtime morphine 15 mg tablet extended release 15 mg PO Q12H PRN (Reason: pain) Patient Comments: take 1 tablet by mouth twice a day NEEDED FOR PAIN omeprazole 20 mg capsule,delayed release(DR/EC) 20 mg PO HS Patient Comments: take 1 capsule by mouth at bedtime naloxone 4 mg/actuation spray,non-aerosol 1 spray INTRANASAL Q3M PRN (Reason: opioid overdose) Patient Comments: ADMINISTER 1 SINGLE spray INTO ONE NOSTRIL if needed for OPIOID O... (REFER TO PRESCRIPTION NOTES). metoclopramide HCl 10 mg tablet 10 mg PO Q8H PRN (Reason: nausea and vomiting) Patient Comments: TAKE 1 TABLET BY MOUTH EVERY 8 HOURS NEEDED FOR NAUSEA AND VOMITING Referrals: Benjie Carlin FNP [Primary Care Provider] - Patient/Caregiver Discharge Instructions Print Language: Mohawk Quality Discharge Quality Measures VTE prophylaxis
[2024-07-27] MEDS: METOCLOPRAMIDE 5 MG TABLET 10 MG PO (16:04)
[2024-07-27] MEDS: Morphine Sulf 15 MG TABCR PO (16:04)
[2024-07-27 16:11] LABS: Hemoglobin 8.7 g/dL (13.5-16.0)
[2024-07-27] MEDS: oxyCODONE HCL 5 MG IR TAB PO (18:27)
[2024-07-27] MEDS: ONDANSETRON INJ 2 MG/ML INJ 2 ML 4 MG IVP (19:12)
--- NOTE | 2024-07-27 20:35 | ESPR_ITS ---
Documentation for date of: 07/27/24 Subjective Subjective Interval history: Patient has a lot of PTSD issues white count is coming down [facility] is not a provider for his insurance Will speak with transfer center tomorrow Exam Vital Signs Temp Pulse Resp BP Pulse Ox O2 Del Method 97.5 F 95 17 96/61 95 Room Air 07/27/24 20:00 07/27/24 20:00 07/27/24 20:00 07/27/24 20:00 07/27/24 20:00 07/27/24 20:00 Objective Labs 07/27/24 15:23 07/27/24 03:12 Labs: Laboratory Results - last 24 hr 07/26/24 07/27/24 07/27/24 23:33 03:12 04:30 WBC 29.0 H RBC 2.31 L Hgb 6.5 L* D 6.4 L* Hct 19.5 L* 19.2 L* MCV 84 MCH 28.1 MCHC 33.3 RDW Std Deviation 56.1 H Plt Count 136 L Neut % (Auto) 90 H Lymph % (Auto) [address] [place] % (Auto) 5 Eos % (Auto) 1 Baso % (Auto) 0 Neut # (Auto) 26.0 H Lymph # (Auto) 0.[address] [place] # (Auto) 1.4 H Eos # (Auto) 0.3 Baso # (Auto) 0.1 Immature Gran # (Auto) 0.41 H Absolute Nucleated RBC 0.04 H Immature Gran % 1 H Nucleated RBC % 0 Sodium 134 L Potassium 4.0 Chloride 96 L Carbon Dioxide 25.4 Anion Gap 13 BUN 26 H Creatinine 0.7 Estim Creat Clear Calc 115.4 eGFR > 60 BUN/Creatinine Ratio 37 H Glucose 79 Calculated Osmolality 271 L Lactic Acid 2.5 H 2.8 H Calcium 10.1 Corrected Calcium 11.5 H Magnesium 1.7 Total Bilirubin 5.5 H D ALT 19 Alkaline Phosphatase 338 H D Total Protein 5.3 L Albumin 2.3 L D Globulin 3.0 Albumin/Globulin Ratio 0.8 L Blood Type Antibody Screen Crossmatch Blood Bank Wristband ID 07/27/24 07/27/24 07/27/24 05:52 09:19 12:48 WBC RBC Hgb Hct MCV MCH MCHC RDW Std Deviation Plt Count Neut % (Auto) Lymph % (Auto) [place] % (Auto) Eos % (Auto) Baso % (Auto) Neut # (Auto) Lymph # (Auto) [place] # (Auto) Eos # (Auto) Baso # (Auto) Immature Gran # (Auto) Absolute Nucleated RBC Immature Gran % Nucleated RBC % Sodium Potassium Chloride Carbon Dioxide Anion Gap BUN Creatinine Estim Creat Clear Calc eGFR BUN/Creatinine Ratio Glucose Calculated Osmolality Lactic Acid 2.7 H 2.9 H Calcium Corrected Calcium Magnesium Total Bilirubin ALT Alkaline Phosphatase Total Protein Albumin Globulin Albumin/Globulin Ratio Blood Type A Positive Antibody Screen NEGATIVE Crossmatch See Detail Blood Bank Wristband ID Yes 07/27/24 15:23 WBC RBC Hgb 8.7 L D Hct 25.0 L MCV MCH MCHC RDW Std Deviation Plt Count Neut % (Auto) Lymph % (Auto) [place] % (Auto) Eos % (Auto) Baso % (Auto) Neut # (Auto) Lymph # (Auto) [place] # (Auto) Eos # (Auto) Baso # (Auto) Immature Gran # (Auto) Absolute Nucleated RBC Immature Gran % Nucleated RBC % Sodium Potassium Chloride Carbon Dioxide Anion Gap BUN Creatinine Estim Creat Clear Calc eGFR BUN/Creatinine Ratio Glucose Calculated Osmolality Lactic Acid Calcium Corrected Calcium Magnesium Total Bilirubin ALT Alkaline Phosphatase Total Protein Albumin Globulin Albumin/Globulin Ratio Blood Type Antibody Screen Crossmatch Blood Bank Wristband ID Impressions Impression: Advanced pancreatic malignancy Continue supportive care Assessment & Plan A&P Narrative Pancreatic carcinoma with leukocytosis and possibly malignant ascites Plan will speak with [facility] and see if they will accept the patient in transfer Patient has advanced malignancy and not a surgical candidate at the moment Continue IV antibiotics Will follow the patient Time Spent With Patient Time: Total time spent is greater than 50% in coordination of care (as documented) at patient's floor/unit and/or counseling patient:
[2024-07-28] VITALS (21 sets, daily range): BP systolic 93–132; BP diastolic 53–95; PULSE 70–180; RESP 17–29; TEMP 36.1–39.2; O2SAT 91–99
[2024-07-28] MEDS: Morphine Sulf 15 MG TABCR PO (03:47)
[2024-07-28] MEDS: METOCLOPRAMIDE 5 MG TABLET 10 MG PO (03:51)
[2024-07-28] MEDS: oxyCODONE HCL 5 MG IR TAB PO (05:08)
[2024-07-28] MEDS: metroNIDAZOLE 250 MG TABLET 500 MG PO ×3 (05:09→21:26)
[2024-07-28] MEDS: HEPARIN SOD INJ 5000 UNIT/ML VIAL SC (05:11)
[2024-07-28 06:21] LABS: Basophils # (Auto) 0.1 Thou/mm3 (0.0-0.2); Basophils % (Auto) 0 % (0-2.5); Eosinophils # (Auto) 0.2 Thou/mm3 (0.0-0.5); Eosinophils % (Auto) 1 % (0-10); Immature Granulocytes % (Auto) 1 % (0-0); Lymphocytes # (Auto) 1.2 Thou/mm3 (1.0-4.8); Lymphocytes % (Auto) 5 % (10-50); Mean Corpuscular HGB Conc 34.4 g/dl (31.0-37.0); Mean Corpuscular Hemoglobin 28.7 pg (25.0-35.0); Mean Corpuscular Volume 83 fL (80-100); Monocytes # (Auto) 1.4 Thou/mm3 (0.0-0.8); Monocytes % (Auto) 5 % (0-12); Neutrophils # (Auto) 23.2 Thou/mm3 (1.8-7.7); Neutrophils % (Auto) 88 % (37-80); Nucleated Red Blood Cell # 0.03 Thou/mm3 (0.00-0.00); Nucleated Red Blood Cell % 0 /100 WBC (0); Platelet Count 92 Thou/mm3 (140-440); RDW Standard Deviation 54.1 fL (35.1-43.9); White Blood Count 26.3 Thou/mm3 (3.8-10.6)
[2024-07-28 06:25] LABS: Hemoglobin 8.6 g/dL (13.5-16.0)
[2024-07-28 06:49] LABS: Alanine Aminotransferase 17 U/L (10-49); Albumin, Serum 2.5 gm/dL (3.5-5.0); Albumin/Globulin Ratio 0.8 (1.2-2.2); Alkaline Phosphatase 339 U/L (46-116); Anion Gap 11 (7-16); BUN/Creatinine Ratio 35 Ratio (12-20); Bilirubin,Total 6.4 mg/dL (0.3-1.2); Blood Urea Nitrogen 21 mg/dL (9-23); Calcium 10.6 mg/dL (8.3-10.6); Calcium (Corrected) 11.8 mg/dL (8.5-10.1); Carbon Dioxide 23.7 mMol/L (20.0-31.0); Chloride 97 mMol/L (98-107); Creatinine (Component) 0.6 mg/dL (0.6-1.3); Estimated Creatinine Clearance 134.6 mL/min (>60); Globulin 3.2 gm/dL (2.3-3.5); Glucose 81 mg/dL (74-106); Magnesium 1.7 mg/dL (1.6-2.6); Osmolality,Calculated 266 (275-295); Potassium 3.8 mMol/L (3.4-5.1); Sodium 132 mMol/L (136-145); Total Protein 5.7 gm/dL (5.7-8.2); eGFR > 60 See Note
[2024-07-28] MEDS: PANTOPRAZOLE 40 MG TABLET PO (08:36)
[2024-07-28] MEDS: CEFEPIME INJ 2 GM in SODIUM CHLORIDE 0.9% (Popper) 50 ML IV ×2 (08:36→20:08)
--- NOTE | 2024-07-28 09:33 | PC.CC ---
Addendum entered by Rakan Lerma RN 07/28/24 17:02: 1653: called [facility] again to verify receipt of images, per Jewel no images have been received. 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 1618: images uploaded through [employer] again. 1431: Called [employer] [facility], spoke to Oneal and made him aware of our internet service status. 1430: informed [facility] internet service is currently out of service 1354: received a call from Jewel and she stated images still have not been received. I will upload again Addendum entered by Rakan Lerma RN 07/28/24 11:34: 1119: Jewel called back requesting images. I informed her I uploaded images through the link. She stated she will look out for it. 1100: uploaded images via link provided. 1039: called Jewel back to request link as they do not have Synapse or [employer] Player. Waiting for link 1010: received message from Jewel silva/ [facility] requesting images. CD created Addendum entered by Rakan Lerma RN 07/28/24 09:49: 0948: called Jennifer vail, left message on voicemail to return my call. Original Note: 924: called [facility] for prior auth, spoke to Jewel. She stated they can not create auth without an accepting MD. I informed her that [facility] is requesting the prior auth to review the patient. Jewel stated again that auth can not be created without an accepting physician. I will call call Jennifer back to inform her. 0825: received voicemail from Jennifer silva/ [facility] finance dept stated a prior ins auth is required.
[2024-07-28] MEDS: HYDROcodone/APAP 5/325 TABLET 1 TAB PO (10:01)
[2024-07-28] MEDS: Milk Of Magnesia Susp 30 ML UDC PO (10:05)
[2024-07-28 10:27] LABS: Vancomycin,Trough 19.6 mcg/mL (5.0-10.0)
--- NOTE | 2024-07-28 10:32 | PD.IMPROG ---
Documentation for date of: 07/28/24 Subjective Subjective Interval history: Patient evaluated not much history can be obtained from him With the current insurance I believe [facility] is not a participating hospital Exam Vital Signs Temp Pulse Resp BP Pulse Ox O2 Del Method 98.1 F 103 H 17 113/69 96 Room Air 07/28/24 08:00 07/28/24 08:00 07/28/24 08:00 07/28/24 08:00 07/28/24 08:00 07/28/24 08:00 Objective Labs 07/29/24 04:35 07/29/24 04:35 Labs: Laboratory Results - last 24 hr 07/27/24 07/27/24 07/27/24 05:52 12:48 15:23 WBC RBC Hgb 8.7 L D Hct 25.0 L MCV MCH MCHC RDW Std Deviation Plt Count Neut % (Auto) Lymph % (Auto) [place] % (Auto) Eos % (Auto) Baso % (Auto) Neut # (Auto) Lymph # (Auto) [place] # (Auto) Eos # (Auto) Baso # (Auto) Immature Gran # (Auto) Absolute Nucleated RBC Immature Gran % Nucleated RBC % Sodium Potassium Chloride Carbon Dioxide Anion Gap BUN Creatinine Estim Creat Clear Calc eGFR BUN/Creatinine Ratio Glucose Calculated Osmolality Lactic Acid 2.9 H Calcium Corrected Calcium Magnesium Total Bilirubin ALT Alkaline Phosphatase Total Protein Albumin Globulin Albumin/Globulin Ratio Vancomycin Trough Blood Type A Positive Antibody Screen NEGATIVE Crossmatch See Detail Blood Bank Wristband ID Yes 07/28/24 07/28/24 04:49 09:24 WBC 26.3 H RBC 3.00 L Hgb 8.6 L Hct 25.0 L MCV 83 MCH 28.7 MCHC 34.4 RDW Std Deviation 54.1 H Plt Count 92 L D Neut % (Auto) 88 H Lymph % (Auto) 5 L [place] % (Auto) 5 Eos % (Auto) 1 Baso % (Auto) 0 Neut # (Auto) 23.2 H Lymph # (Auto) 1.2 [place] # (Auto) 1.4 H Eos # (Auto) 0.2 Baso # (Auto) 0.1 Immature Gran # (Auto) 0.30 H Absolute Nucleated RBC 0.03 H Immature Gran % 1 H Nucleated RBC % 0 Sodium 132 L Potassium 3.8 Chloride 97 L Carbon Dioxide 23.7 Anion Gap 11 BUN 21 Creatinine 0.6 Estim Creat Clear Calc 134.6 eGFR > 60 BUN/Creatinine Ratio 35 H Glucose 81 Calculated Osmolality 266 L Lactic Acid Calcium 10.6 Corrected Calcium 11.8 H Magnesium 1.7 Total Bilirubin 6.4 H D ALT 17 Alkaline Phosphatase 339 H Total Protein 5.7 Albumin 2.5 L Globulin 3.2 Albumin/Globulin Ratio 0.8 L Vancomycin Trough 19.6 H Blood Type Antibody Screen Crossmatch Blood Bank Wristband ID Impressions Impression: Pancreatic mass/pancreatic carcinoma Will speak with the case management for options Assessment & Plan A&P Narrative Pancreatic carcinoma with leukocytosis and possibly malignant ascites Plan will speak with [facility] and see if they will accept the patient in transfer Patient has advanced malignancy and not a surgical candidate at the moment Continue IV antibiotics Will follow the patient Time Spent With Patient Time: Total time spent is greater than 50% in coordination of care (as documented) at patient's floor/unit and/or counseling patient:
[2024-07-28] MEDS: VANCOMYCIN/NS 1 GM IVPB 200 ML IV ×2 (11:09→23:14)
--- NOTE | 2024-07-28 12:02 | PD.ONCPALCON ---
HPI Data of Consult Consult date: 07/28/24 Requesting Physician: Lucila Haas DO Primary Care Provider: UZMA Dsouza Consult Narrative Reason for consult: Patient with extensive pancreatic cancer referred for pain management History of present illness: Patient is an unfortunate former parthenon[facility] with pancreatic mass recently biopsied revealing invasive adenocarcinoma. Abdominal pelvis CT 07/26/2024 revealed multiple hepatic mets with necrotic mass till the pancreas 6.4 x 8.4 cm which has increased in size since July 05. Also has malignant appearing liver mets and ascites. Thoracolumbar CT done 06/24/2024 showed degenerative changes. Had CT of the face for fever right ear pain and right parotitis suspected. Now admitted receiving IV antibiotics. Brain MRI negative. A.m. CBC 26.3 WBC 8.6 hemoglobin platelets 92,000. WBC was 43.4 on 07/14/2024. [facility]. Lactic acid has dropped from 3.6-2.9 yesterday. Liver function tests elevated bilirubin 6.4 alk phos 339. Patient awaiting port placement for chemo. Currently on MS ER 50 mg twice daily with oxycodone and [place] for breakthrough. Patient referred for pain management. cc:: cc: Lucila Haas DO Past Medical History Social History SOCIAL: no children former [facility] Past Medical History Comments PMH COMMENT: Neurological disorders and migraine depression stress disorder Meds Home Medications and Allergies Home Medications ?Medication ?Instructions ?Recorded ?Confirmed ?Type ergocalciferol (vitamin D2) 1,250 1 cap PO QWEEK 11/13/21 07/27/24 History mcg (50,000 unit) capsule (Vitamin D2) rimegepant 75 mg disintegrating 1 tab PO DAILY 11/13/21 07/27/24 History tablet (Nurtec ODT) cetirizine 10 mg tablet 10 mg PO HS 07/05/24 07/27/24 History duloxetine 40 mg capsule,delayed 40 mg PO QDAY 07/05/24 07/27/24 History release morphine 15 mg tablet,extended 15 mg PO Q12H PRN pain 07/06/24 07/27/24 History release naloxone 4 mg/actuation nasal spray 1 spray intranasal Q3M PRN opioid 07/06/24 07/27/24 History overdose omeprazole 20 mg capsule,delayed 20 mg PO HS 07/06/24 07/27/24 History release metoclopramide HCl 10 mg tablet 10 mg PO Q8H PRN nausea and 07/27/24 07/27/24 History vomiting Allergies Allergy/AdvReac Type Severity Reaction Status Date / Time erythromycin base Allergy Mild Rash Verified 07/14/24 17:48 amoxicillin Allergy Unknown Verified 07/14/24 17:48 NSAIDS (Non-Steroidal AdvReac Verified 07/14/24 17:48 Anti-Inflamma msg Allergy Intermediate Nausea Uncoded 07/14/24 17:48 PERSIMMON Allergy Mild FLU LIKE Uncoded 07/14/24 17:48 SYMPTOM Exam Vital Signs Temp Pulse Resp BP Pulse Ox O2 Del Method 98.1 F 103 H 17 113/69 96 Room Air 07/28/24 08:00 07/28/24 08:00 07/28/24 08:00 07/28/24 08:00 07/28/24 08:00 07/28/24 08:00 Narrative Exam Lying appearing depressed mild abdominal pain symptoms Results Labs 07/28/24 04:49 07/28/24 04:49 Labs: Short CBC 07/27/24 07/28/24 Range/Units 15:23 04:49 WBC 26.3 H (3.8-10.6) Thou/mm3 Hgb 8.7 L D 8.6 L (13.5-16.0) g/dL Hct 25.0 L 25.0 L (41.0-53.0) % Plt Count 92 L D (140-440) Thou/mm3 [facility] 07/28/24 04:49 Sodium 132 L Potassium 3.8 Chloride 97 L Carbon Dioxide 23.7 BUN 21 Creatinine 0.6 Glucose 81 Calcium 10.6 Liver Function 07/28/24 Range/Units 04:49 Total Bilirubin 6.4 H D (0.3-1.2) mg/dL ALT 17 (10-49) U/L Alkaline Phosphatase 339 H (46-116) U/L Albumin 2.5 L (3.5-5.0) gm/dL Assessment and Plan Additional Assessment & Plan Additional Plan: 1. Stage IV pancreatic CA with liver mets. Admitted with abdominal pain right parotitis leukocytosis. 2. Awaiting port placement and chemo scheduled at the cancer treatment center. 3. Moderate pain in the right face and abdominal region. Recommend MS ER 30 mg twice daily routinely but may be held for sedation. Oxycodone 5 every 6 as needed. [place] containing acetaminophen will be DC'd as patient has elevated liver functions already. Will follow. Thank you for allowing me to evaluate this patient
[2024-07-28] MEDS: MORPHINE SULF 30 MG TABCR PO (14:05)
--- NOTE | 2024-07-28 16:02 | ESPR_ITS ---
<Statement entered by Doyle Covington MD - 07/28/24 22:21> Patient to undergo Port-A-Cath placement by Dr. García tomorrow. Radiation oncologist Dr. Landers consulted, patient pending transfer to tertiary care center. We will continue with IV antibiotics cefepime and metronidazole. I discussed with and supervised the rn internship physician involved in the care of this patient. Patient assessment and plan was discussed with entire medicine team, including my attending. I agree with the assessment and plan as documented by rn internship doctor. Patient care was discussed with my attending physician Dr. Samina Covington, PGY-2 Documentation for date of: 07/28/24 Subjective Subjective Interval history: Patient is seen and examined at bedside No acute overnight events. Still complaining of abdominal pain diffusely Vitals are stable. On physical examination, noted severe tenderness almost throughout the abdomen, predominantly on right side Patient appears severely depressed and is emotional at the time of examination Labs showed downtrending WBC, hemoglobin 8.6, platelets 92, sodium 132, total bilirubin 6.4, ALT 339 Dr. Landers was consulted and will appreciate his recommendation Will continue cefepime and metronidazole Heparin is discontinued in view of thrombocytopenia. Pending port A catheter placement tomorrow by Dr. García Exam Vital Signs Temp Pulse Resp BP Pulse Ox O2 Del Method 98.1 F 92 17 106/53 L 96 Room Air 07/28/24 15:58 07/28/24 15:58 07/28/24 15:58 07/28/24 15:58 07/28/24 15:58 07/28/24 15:58 Narrative Exam General: Awake. Icteric HEENT: Normocephalic, atraumatic, mucous membranes moist. Heart: Regular rate and rhythm, no murmurs. Lungs: Clear to auscultation with no wheezing or crackles. Abdomen: Soft, nondistended, noted tenderness in the epigastric, umbilical and right hypochondriac region, positive bowel sounds. ?No guarding or rebound tenderness. Neurologic: Alert and oriented x3, no gross neurological deficit, and patient able to move all 4 extremities. Extremities: No edema. Skin: No rash or ecchymoses. Objective Labs 07/29/24 04:35 07/29/24 04:35 Labs: Laboratory Results - last 24 hr 07/27/24 07/28/2407/28/25 15:23 04:49 09:24 WBC 26.3 H RBC 3.00 L Hgb 8.7 L D 8.6 L Hct 25.0 L 25.0 L MCV 83 MCH 28.7 MCHC 34.4 RDW Std Deviation 54.1 H Plt Count 92 L D Neut % (Auto) 88 H Lymph % (Auto) 5 L Davis % (Auto) 5 Eos % (Auto) 1 Baso % (Auto) 0 Neut # (Auto) 23.2 H Lymph # (Auto) 1.2 Davis # (Auto) 1.4 H Eos # (Auto) 0.2 Baso # (Auto) 0.1 Immature Gran # (Auto) 0.30 H Absolute Nucleated RBC 0.03 H Immature Gran % 1 H Nucleated RBC % 0 Sodium 132 L Potassium 3.8 Chloride 97 L Carbon Dioxide 23.7 Anion Gap 11 BUN 21 Creatinine 0.6 Estim Creat Clear Calc 134.6 eGFR > 60 BUN/Creatinine Ratio 35 H Glucose 81 Calculated Osmolality 266 L Calcium 10.6 Corrected Calcium 11.8 H Magnesium 1.7 Total Bilirubin 6.4 H D ALT 17 Alkaline Phosphatase 339 H Total Protein 5.7 Albumin 2.5 L Globulin 3.2 Albumin/Globulin Ratio 0.8 L Vancomycin Trough 19.6 H Quality Measures Quality Measures VTE prophylaxis Assessment & Plan Assessment Current Active Medications: Generic Name Dose Route Start Last Admin Trade Name Freq PRN Reason Stop Dose Admin Acetaminophen 650 mg 07/26/24 21:48 07/27/24 15:27 Acetaminophen 325 Mg Tablet PO 08/25/24 21:47 650 mg Q6H PRN Administration pain and Fever >100.4 Protocol Cefepime HCl 2 gm/ Sodium 50 mls @ 100 mls/hr 07/26/24 22:01 07/28/24 08:36 Chloride IV 08/02/24 22:00 100 mls/hr Q12HR PONCE Administration Metoclopramide HCl 10 mg 07/27/24 13:12 07/28/24 03:51 Metoclopramide 5 Mg Tablet PO 08/26/24 13:11 10 mg Q8H PRN Administration nausea and vomiting Metronidazole 500 mg 07/26/24 22:00 07/28/24 14:05 Metronidazole 250 Mg Tablet PO 08/02/24 21:59 500 mg Q8H PONCE Administration Midodrine 5 mg 07/26/24 21:53 Midodrine 5 Mg Tablet PO 08/25/24 21:59 TID PRN SBP<90 and DBP<50 Morphine Sulfate 30 mg 07/28/24 14:00 07/28/24 14:05 Morphine Sulf 30 Mg Tabcr PO 08/02/24 13:59 30 mg Q12H PONCE Administration Protocol Ondansetron HCl 4 mg 07/26/24 21:48 07/27/24 19:12 Ondansetron Inj 2 Mg/Ml Inj 2 Ml IVP 08/25/24 21:47 4 mg Q6H PRN Administration NAUSEA OR VOMITING Protocol Oxycodone HCl 5 mg 07/27/24 13:12 07/28/24 05:08 Oxycodone Hcl 5 Mg Ir Tab PO 08/01/24 13:11 5 mg Q6H PRN Administration SEVERE BREAKTRU PAIN Pantoprazole Sodium 40 mg 07/27/24 09:00 07/28/24 08:36 Pantoprazole 40 Mg Tablet PO 08/26/24 08:59 40 mg QDAY PONCE Administration Plan 54-year-old male with past medical history of metastatic pancreatic cancer, depression, anxiety, PTSD, PUD, and degenerative disc disease was admitted to the hospital on 07/26/2024 for right parotitis. #Acute anemia, likely blood loss - Hemoglobin this morning is 6.4 - Patient denies any bleeding manifestations - Stool for occult blood is ordered - A unit of PRBC is transfused plan - will monitor CBC - Will transfuse if hemoglobin is less than 7 #Right parotitis, resolving #Leukocytosis, likely reactive in the setting of malignancy Patient came in with complaints of right jaw pain along with right ear pain and decreased hearing. Patient had a face CT which showed right parotitis. Patient does not have any impaired hearing at this time. WBC 33, Blood cultures negative after 48hrs Plan: Cefepime, and Flagyl (07/26/2024?) Discontinued vancomycin Pain management with Tylenol, morphine 15mg twice daily as needed for pain and oxycodone 5mg thrice daily as needed for breakthrough pain. Will continue to monitor #Pancreatic malignancy - Patient was diagnosed with pancreatic cancer in 06/2024 - Patient did not have any Chemo-Port yet because of the insurance issues Plan - Pain management with morphine 15 mg twice daily as needed for pain and oxycodone 5 Mg thrice daily as needed for breakthrough pain - Started transfer process as we do not have any inpatient oncology - Discussed about the case with Dr. Pascual and Dr. Landers - Consulted Dr. García for Chemo-Port placement, pending procedure on #Lactic acidosis, resolving Patient's lactic acid was 4.5 on admission and down trended to 2.9 Could be in the setting of infection vs malignancy with metastases Plan: IV fluids Will trend lactic acid Continue to monitor #Hyperbilirubinemia Patient's hemoglobin is 6.4 today from 1.6 on 07/14/2024 This could be secondary to the patient's liver metastases versus the increased pancreatic mass causing hyperbilirubinemia due to blockage Plan: GI consulted, will appreciate recommendations #UTI Patient's UA was positive for bacteria Patient stated that he has been having some increased urgency along with hesitation. Urine culture ordered showed no growth Plan: Patient is currently on cefepime, Flagyl Continue to monitor Chronic diseases: #Hx of metastatic pancreatic cancer #Hx of depression anxiety #Hx of PUD. Patient was supposed to be seeing his oncologist today, but given symptoms he was asked to come to the ED and was not seen by oncologist. abdomen/pelvis CT which showed malignant ascites, and focal area of edema in the kidneys, and again noted the necrotic mass the tail of the pancreas with that increase in size from 6 x 6.5 cm on June to 6.4 x 8.4 cm today. Protonix 40 daily Disposition: Patient admitted for right parotitis. Diet: regular GI prophylaxis: protonix DVT prophylaxis: heparin subcu Code: Full Patient plan of care was discussed with the attending physician, Dr. Haas and senior resident Dr. Nadya Oviedo, PGY1 Attending Provider Attestation/Addendum I, Lucila Haas, DO, attest that I was physically present for the berrios portions of the service and evaluated the patient with the resident and I reviewed and discussed the case with the resident and agree with the resident's findings and plans of care as documented above admits to improvement of his hearing and pain in his right jaw. Patient seen and eval this a.m. Patient is much more alert this morning. He continues to have pain, but gets very drowsy with pain medications. Patient admits to improvement of his hearing and jaw discomfort. Will continue to attempt transfer to higher level of care as outpatient oncologist recommends higher level of care for inpatient oncology as patient is very young. Will also consult radiation oncologist who is scheduled to follow-up with patient tomorrow. Plan for Port-A-Cath placement tomorrow as leukocytosis has improved and blood cultures have been negative x 24 hours.
--- NOTE | 2024-07-28 16:25 | PC.SS ---
Patient is alert/oriented. He was able to verify demographics. Patient was admitted for parotiditis. Patient's father at bedside. Patient is pending a higher level of care transfer for pancreatic cancer. Patient was living at home alone. Independent with ADL's. Patient does not use any DME. PCP: [facility]. Pharmacy: [facility]. Patient was following at [facility] but was not receiving any treatment yet. Alt medical decision maker is his motherJocy. Discharge plan is to return home. Alt medical decision maker: Jocy you,
[2024-07-28] MEDS: POLYETHYLENE GLYCOL 17 GM PACKET PO (18:28)
[2024-07-28] MEDS: ACETAMINOPHEN 325 MG TABLET 650 MG PO (21:26)
--- NOTE | 2024-07-28 21:35 | PC.NURSE ---
pt's HR elevated in the 140's initially when informed by tele rn; pt noted to be febrile c temp of 102.6; by this time HR had risen up to 180's. ICU charge nurse jese at bedside to evaluate pt and initiated sepsis alert/rapid response; pt medicated previously c tylenol 650mg, blankets removed, and ice packs applied.
--- NOTE | 2024-07-28 21:41 | EKG_ITS ---
[facility] Test Date: 2024-07-28 Pat Name: ANNIE FAY Department: Room: S369A Gender: Male Leader Assembler: PURA : 1970 Requested By: Corey Jimenez Order Number: [id number] Reading MD: Corey Jimenez Measurements Intervals [place] Rate: 182 P: MO: QRS: 29 QRSD: 110 T: 40 QT: 263 QTc: 458 Interpretive Statements SUPRAVENTRICULAR TACHYCARDIA POSSIBLE INFERIOR MYOCARDIAL INFARCTION , PROBABLY OLD ABNORMAL RHYTHM ECG Compared to ECG 07/05/2024 09:52:20 Myocardial infarct finding now present Sinus rhythm no longer present Ventricular premature complex(es) no longer present /store/S0/[id number]/ecg/[id number].pdf
[2024-07-28] MEDS: ADENOSINE INJ 3 MG/ML VIAL 6 MG IVP ×2 (21:54→21:56)
[2024-07-28] MEDS: SODIUM CHLORIDE 0.9% 500 ML 500 ML 999 ML IV ×2 (21:55→23:43)
[2024-07-28] MEDS: Magnesium Sulfate 2 GM Ivpb 2 GM/50 ML BAG IV (22:00)
[2024-07-28] MEDS: ADENOSINE INJ 3 MG/ML VIAL 12 MG IVP (22:00)
[2024-07-28 22:02] LABS: Lactate (Lactic Acid) 6.4 mMol/L (0.4-2.0)
[2024-07-28 22:03] LABS: Basophils # (Auto) 0.1 Thou/mm3 (0.0-0.2); Basophils % (Auto) 0 % (0-2.5); Eosinophils % (Auto) 0 % (0-10); Hematocrit 33.3 % (41.0-53.0); Hemoglobin 11.2 g/dL (13.5-16.0); Immature Granulocytes % (Auto) 1 % (0-0); Immature Granulocytes Auto 0.32 Thou/mm3 (0.00-0.00); Lymphocytes % (Auto) 3 % (10-50); Mean Corpuscular HGB Conc 33.6 g/dl (31.0-37.0); Mean Corpuscular Hemoglobin 28.1 pg (25.0-35.0); Mean Corpuscular Volume 84 fL (80-100); Monocytes # (Auto) 1.1 Thou/mm3 (0.0-0.8); Monocytes % (Auto) 4 % (0-12); Neutrophils # (Auto) 26.3 Thou/mm3 (1.8-7.7); Neutrophils % (Auto) 92 % (37-80); Nucleated Red Blood Cell # 0.14 Thou/mm3 (0.00-0.00); Nucleated Red Blood Cell % 1 /100 WBC (0); Platelet Count 111 Thou/mm3 (140-440); RDW Standard Deviation 56.7 fL (35.1-43.9); Red Blood Count 3.98 Miln/mm3 (4.50-5.90); White Blood Count 28.8 Thou/mm3 (3.8-10.6)
[2024-07-28 22:22] LABS: Alanine Aminotransferase 18 U/L (10-49); Albumin, Serum 2.9 gm/dL (3.5-5.0); Albumin/Globulin Ratio 0.8 (1.2-2.2); Alkaline Phosphatase 405 U/L (46-116); Anion Gap 14 (7-16); BUN/Creatinine Ratio 24 Ratio (12-20); Bilirubin,Total 7.4 mg/dL (0.3-1.2); Blood Urea Nitrogen 19 mg/dL (9-23); Calcium 12.1 mg/dL (8.3-10.6); Carbon Dioxide 20.8 mMol/L (20.0-31.0); Chloride 95 mMol/L (98-107); Creatinine (Component) 0.8 mg/dL (0.6-1.3); Globulin 3.7 gm/dL (2.3-3.5); Glucose 79 mg/dL (74-106); Magnesium 1.7 mg/dL (1.6-2.6); Osmolality,Calculated 262 (275-295); Potassium 4.4 mMol/L (3.4-5.1); Sodium 130 mMol/L (136-145); Total Protein 6.6 gm/dL (5.7-8.2); eGFR > 60 See Note
--- NOTE | 2024-07-28 22:24 | PD.RESEVENT ---
Documentation for date of: 07/28/24 Event Note Event Note: Rapid response and sepsis alert called at 2229 due to tachycardia with rate in the 180s and fever 103 Evaluated the patient found to be shivering and diaphoretic. Denied shortness of breath at present moment in time. Cooling measures ordered and tylenol was given. Antibiotic coverage added Vancomycin in addition to Cefepime and flagyl. CBC, CMP, lactic acid, magnesium, blood cultures were ordered, lactic acid came as 6.4 ordered 500 mL bolus of IV fluids. Magnesium replacement ordered. EKG was ordered showed SVT with a rate in the 180s gave adenosine 6 mg IV x 2 heart rate and it remained in the 180s 190s gave adenosine 12 mg x 1 with heart rate improving to 150s?160s, ordered an additional liter of fluids. Case discussed with my attending Dr. Mejia Vigil MD PGY-1
[2024-07-28] MEDS: SODIUM CHLORIDE 0.9% 1000 ML 1,000 ML 999 ML IV (22:31)
[2024-07-29] VITALS (18 sets, daily range): BP systolic 90–112; BP diastolic 56–64; PULSE 89–125; RESP 15–29; TEMP 36.2–37.6; O2SAT 95–98; BMI 23.9
[2024-07-29 00:58] LABS: Reflex Lactate? Y
[2024-07-29] MEDS: MORPHINE SULF 30 MG TABCR PO ×2 (01:54→13:47)
[2024-07-29 05:17] LABS: Basophils # (Auto) 0.1 Thou/mm3 (0.0-0.2); Basophils % (Auto) 0 % (0-2.5); Eosinophils % (Auto) 0 % (0-10); Immature Granulocytes % (Auto) 4 % (0-0); Immature Granulocytes Auto 1.61 Thou/mm3 (0.00-0.00); Lymphocytes # (Auto) 1.2 Thou/mm3 (1.0-4.8); Lymphocytes % (Auto) 3 % (10-50); Mean Corpuscular HGB Conc 32.7 g/dl (31.0-37.0); Mean Corpuscular Hemoglobin 28.4 pg (25.0-35.0); Mean Corpuscular Volume 87 fL (80-100); Monocytes # (Auto) 1.8 Thou/mm3 (0.0-0.8); Monocytes % (Auto) 5 % (0-12); Neutrophils # (Auto) 34.4 Thou/mm3 (1.8-7.7); Neutrophils % (Auto) 88 % (37-80); Nucleated Red Blood Cell # 0.05 Thou/mm3 (0.00-0.00); Nucleated Red Blood Cell % 0 /100 WBC (0); Platelet Count 87 Thou/mm3 (140-440); RDW Standard Deviation 58.4 fL (35.1-43.9); Red Blood Count 2.99 Miln/mm3 (4.50-5.90)
[2024-07-29 05:18] LABS: Lactate (Lactic Acid) 5.4 mMol/L (0.4-2.0)
[2024-07-29 05:20] LABS: Hemoglobin 8.5 g/dL (13.5-16.0)
[2024-07-29 05:22] LABS: White Blood Count 39.1 Thou/mm3 (3.8-10.6)
[2024-07-29 05:39] LABS: Alanine Aminotransferase 15 U/L (10-49); Albumin, Serum 2.2 gm/dL (3.5-5.0); Albumin/Globulin Ratio 0.7 (1.2-2.2); Alkaline Phosphatase 308 U/L (46-116); Anion Gap 14 (7-16); BUN/Creatinine Ratio 29 Ratio (12-20); Bilirubin,Total 5.7 mg/dL (0.3-1.2); Blood Urea Nitrogen 20 mg/dL (9-23); Calcium 10.4 mg/dL (8.3-10.6); Calcium (Corrected) 11.8 mg/dL (8.5-10.1); Carbon Dioxide 21.1 mMol/L (20.0-31.0); Chloride 102 mMol/L (98-107); Creatinine (Component) 0.7 mg/dL (0.6-1.3); Estimated Creatinine Clearance 115.4 mL/min (>60); Globulin 3.1 gm/dL (2.3-3.5); Glucose 70 mg/dL (74-106); Magnesium 1.9 mg/dL (1.6-2.6); Osmolality,Calculated 274 (275-295); Potassium 4.1 mMol/L (3.4-5.1); Sodium 137 mMol/L (136-145); Total Protein 5.3 gm/dL (5.7-8.2); eGFR > 60 See Note
[2024-07-29] MEDS: metroNIDAZOLE 250 MG TABLET 500 MG PO ×3 (06:14→21:17)
[2024-07-29 08:07] LABS: Reflex Lactate? Y
[2024-07-29] MEDS: DOCUSATE SOD 100 MG CAPSULE PO (08:43)
[2024-07-29] MEDS: CEFEPIME INJ 2 GM in SODIUM CHLORIDE 0.9% (Popper) 50 ML IV ×2 (08:43→20:12)
[2024-07-29] MEDS: PANTOPRAZOLE 40 MG TABLET PO (08:43)
[2024-07-29 09:00] LABS: Lactic Acid, 3 HR 3.9 mMol/L (0.4-2.0)
--- NOTE | 2024-07-29 09:41 | XR_ITS ---
Examination: AP chest single view Technique one AP pole upright chest single view Date and time: July 29, 2024 0949 hours INDICATIONS: Coughing fever today. FINDINGS: Early bibasilar pneumonia Normal heart size Mild elevation right hemidiaphragm Mild osteopenia IMPRESSION: Early bibasilar pneumonia
--- NOTE | 2024-07-29 09:42 | XR_ITS ---
Examination: CT abdomen and pelvis without contrast. Coronal 3-D reconstructions. Sagittal 2-D reconstructions. Date and time of exam:July 29, 2024 1001 hours Comparison July 26, 2024 INDICATIONS: Diagnosis pancreatic carcinoma, multiple hepatic metastases, malignant ascites CTDI: vol (mGy): 8.04 DLP: (mGycm): 519 Technique: Axial images of the abdomen have been obtained, 3 mm slice thickness Intravenous contrast material has not been administered. Low dose protocols were performed. One or more of the following dose reduction techniques were used; automated exposure control, adjustment of the mA and/or KV according to patient size, use of iterative reconstruction technique. Findings: Significant bibasilar pneumonia Multiple hepatic metastases on this noncontrast study Hepatomegaly 23 cm No splenic lesions Necrotic mass tail the pancreas 8.4 cm unchanged since the examination 3 days ago Absent gallbladder There is no intra or extrahepatic biliary tract dilatation Mild ascites No bowel obstruction Normal appendix Aorta normal size Intact urinary bladder No prostatomegaly Advanced disc narrowing L5-S1 IMPRESSION: Significant bibasilar pneumonia Hepatomegaly with multiple hepatic metastases Necrotic mass tail the pancreas 8.4 cm unchanged since examination 3 days ago There is no intra or extra hepatic biliary tract dilatation Mild ascites
[2024-07-29] MEDS: oxyCODONE HCL 5 MG IR TAB PO (09:50)
--- NOTE | 2024-07-29 10:09 | PC.CM ---
Addendum entered by Nancy Gasca RN 07/29/24 19:12: 1909 Sariah with [facility] patient was already reviewed on the and he was declined stating he is not a candidate for surgical management. They recommended at that time to continue with palliative treatment. Patient declined. Addendum entered by Nancy Gasca RN 07/29/24 19:05: 1845 I called and initiated transfer with [facility]. [facility] [place]. 1730 I spoke to [facility] finance department and I let them know that patient's insurance would not be able to give auth without an accepting MD. [facility] transfer was cancelled due to they would not be getting auth from insurance. Addendum entered by Nancy Gasca RN 07/29/24 15:32: 1515 I [facility] [place]. I let her know that [facility] is willing to review patient but they will not move forward until they get authorization. Arely stated they will not give authorization until they have an accepting doctor. She asked that I reach out to [facility] and [facility]. I let her know [facility] has already declined patient stating he does not need surgery and he could be treated with chemo. I let her know I will reach out to [facility]. 1400 Doctors updated on patient's transfer progress. Addendum entered by Nancy Gasca RN 07/29/24 11:44: 1045 I called and [facility] a [facility] [phone]. I let her know that patient had been declined by [facility] and by [facility]. I let her know that [facility] is interested in reviewing patient but they will not proceed without us getting authorization from insurance. Addendum entered by Nancy Gasca RN 07/29/24 11:05: 1030 I spoke to Minerva at [facility] and she states they would need authorization from patient's insurance before they would proceed with reviewing patient. I will reach out to patient's insurance. Original Note: 09 Patient needs transfer for necrotic pancreatic mass. I followed up with [facility] and they stated patient does not need surgical intervention and they recommended chemotherapy.
[2024-07-29] MEDS: VANCOMYCIN/NS 1 GM IVPB 200 ML IV (11:02)
[2024-07-29] MEDS: SODIUM CHLORIDE 0.9% 1000 ML 1,000 ML 80 ML IV (13:48)
--- NOTE | 2024-07-29 14:49 | PC.SS ---
Update: Patient receiving antibiotics. Rapid response initiated due to tachycardia. Dr. García consulting. Plan is for patient to obtain port A cath placement. Transfer is pending.
--- NOTE | 2024-07-29 17:23 | ESPR_ITS ---
<Statement entered by Doyle Covington MD - 07/30/24 16:22> Patient had abdomen/pelvis CT to rule out internal bleeding as patient was tachy and tachypneic with results being negative. Maintenance IVF was started along with albumin administration. Port-a-cath was not inserted as patient had episodes of fever overnight at which time Vancomycin was added. Transfer to tertiary center is still pending. I discussed with and supervised the product management intern physician involved in the care of this patient. Patient assessment and plan was discussed with entire medicine team, including my attending. I agree with the assessment and plan as documented by product management intern doctor. Patient care was discussed with my attending physician Dr. Samina Covington, PGY-2 Documentation for date of: 07/29/24 Subjective Subjective Interval history: Patient is seen and examined at bedside Overnight, patient developed febrile episode with temperature of 102.6 ?F and SVT. Patient received adenosine 6 Mg, 6 Mg, 12 Mg and 1.5 L of fluid This morning, patient reported that he is feeling well Patient was found to have mild hypotension and tachycardia. Hypotension could be due to opioid usage Labs showed elevated WBC, total bilirubin 5.7 Repeat chest x-ray and CT abdomen were ordered, which did not show any significant pathology Patient was started on IV fluids, NS at 80 mL/h and a dose of albumin is given Dr García held the port A catheter placement for today as patient developed febrile episode overnight Vancomycin was added last night in view of new onset febrile episodes. Exam Vital Signs Temp Pulse Resp BP Pulse Ox O2 Del Method 99.3 F 123 H 29 H 97/59 L 95 Room Air 07/29/24 12:00 07/29/24 12:00 07/29/24 12:00 07/29/24 12:00 07/29/24 12:07/29/24 12:00 Narrative Exam General: Awake. Icteric HEENT: Normocephalic, atraumatic, mucous membranes moist. Heart: Regular rhythm, Tachycardic, no murmurs. Lungs: Clear to auscultation with no wheezing or crackles. Abdomen: Soft, nondistended, noted tenderness in the epigastric, umbilical and right hypochondriac region, positive bowel sounds. ?No guarding or rebound tenderness. Neurologic: Alert and oriented x3, no gross neurological deficit, and patient able to move all 4 extremities. Extremities: No edema. Skin: No rash or ecchymoses. Objective Labs 07/30/24 04:54 07/30/24 04:54 Labs: Laboratory Results - last 24 hr 07/28/24 07/29/24 07/29/24 21:53 00:47 04:35 WBC 28.8 H 39.1 H* D RBC 3.98 L 2.99 L Hgb 11.2 L D 8.5 L D Hct 33.3 L 26.0 L MCV 84 87 MCH 28.1 28.4 MCHC 33.6 32.7 RDW Std Deviation 56.7 H 58.4 H Plt Count 111 L D 87 L D Neut % (Auto) 92 H 88 H Lymph % (Auto) 3 L 3 L [place] % (Auto) 4 5 Eos % (Auto) 0 0 Baso % (Auto) 0 0 Neut # (Auto) 26.3 H 34.4 H Lymph # (Auto) 1.0 1.2 [place] # (Auto) 1.1 H 1.8 H Eos # (Auto) 0.0 0.0 Baso # (Auto) 0.1 0.1 Immature Gran # (Auto) 0.32 H 1.61 H Absolute Nucleated RBC 0.14 H 0.05 H Immature Gran % 1 H 4 H Nucleated RBC % 1 H 0 Smear Path Review Cancelled Sodium 130 L 137 Potassium 4.4 D 4.1 Chloride 95 L 102 Carbon Dioxide 20.8 21.1 Anion Gap 14 14 BUN 19 20 Creatinine 0.8 0.7 Estim Creat Clear Calc 101.0 115.4 eGFR > 60 > 60 BUN/Creatinine Ratio 24 H 29 H Glucose 79 70 L Calculated Osmolality 262 L 274 L Lactic Acid 6.4 H* 6.0 H* 5.4 H* Calcium 12.1 H D 10.4 D Corrected Calcium 13.0 H 11.8 H Magnesium 1.7 1.9 Total Bilirubin 7.4 H D 5.7 H D ALT 18 15 Alkaline Phosphatase 405 H D 308 H D Total Protein 6.6 5.3 L Albumin 2.9 L 2.2 L D Globulin 3.7 H 3.1 Albumin/Globulin Ratio 0.8 L 0.7 L 07/29/24 08:35 WBC RBC Hgb Hct MCV MCH MCHC RDW Std Deviation Plt Count Neut % (Auto) Lymph % (Auto) [place] % (Auto) Eos % (Auto) Baso % (Auto) Neut # (Auto) Lymph # (Auto) [place] # (Auto) Eos # (Auto) Baso # (Auto) Immature Gran # (Auto) Absolute Nucleated RBC Immature Gran % Nucleated RBC % Smear Path Review Sodium Potassium Chloride Carbon Dioxide Anion Gap BUN Creatinine Estim Creat Clear Calc eGFR BUN/Creatinine Ratio Glucose Calculated Osmolality Lactic Acid 3.9 H Calcium Corrected Calcium Magnesium Total Bilirubin ALT Alkaline Phosphatase Total Protein Albumin Globulin Albumin/Globulin Ratio Quality Measures Quality Measures VTE prophylaxis Assessment & Plan Assessment Current Active Medications: Generic Name Dose Route Start Last Admin Trade Name Freq PRN Reason Stop Dose Admin Acetaminophen 1,000 mg 07/28/24 22:27 Acetaminophen 325 Mg Tablet PO 08/25/24 21:47 Q6H PRN pain and Fever >100.4 Protocol Docusate Sodium 100 mg 07/29/24 09:00 07/29/24 08:43 Docusate Sod 100 Mg Capsule PO 08/28/24 08:59 100 mg QDAY PONCE Administration Protocol Cefepime HCl 2 gm/ Sodium 50 mls @ 100 mls/hr 07/26/24 22:01 07/29/24 08:43 Chloride IV 08/02/24 22:00 100 mls/hr Q12HR PONCE Administration Vancomycin/Sodium Chloride 200 mls @ 120 mls/hr 07/29/24 10:00 07/29/24 11:02 Vancomycin/Ns 1 Gm Ivpb IV 08/05/24 09:59 120 mls/hr Q12HR@1000,2200 PONCE Administration Protocol Sodium Chloride 1,000 mls @ 80 mls/hr 07/29/24 13:14 07/29/24 13:48 Ns IV 07/30/24 01:43 80 mls/hr .[id number] ONE Administration Metoclopramide HCl 10 mg 07/27/24 13:12 07/28/24 03:51 Metoclopramide 5 Mg Tablet PO 08/26/24 13:11 10 mg Q8H PRN Administration nausea and vomiting Metronidazole 500 mg 07/26/24 22:00 07/29/24 13:48 Metronidazole 250 Mg Tablet PO 08/02/24 21:59 500 mg Q8H PONCE Administration Midodrine 5 mg 07/26/24 21:53 Midodrine 5 Mg Tablet PO 08/25/24 21:59 TID PRN SBP<90 and DBP<50 Morphine Sulfate 30 mg 07/28/24 14:00 07/29/24 13:47 Morphine Sulf 30 Mg Tabcr PO 08/02/24 13:59 30 mg Q12H PONCE Administration Protocol Ondansetron HCl 4 mg 07/26/24 21:48 07/27/24 19:12 Ondansetron Inj 2 Mg/Ml Inj 2 Ml IVP 08/25/24 21:47 4 mg Q6H PRN Administration NAUSEA OR VOMITING Protocol Oxycodone HCl 5 mg 07/27/24 13:12 07/29/24 09:50 Oxycodone Hcl 5 Mg Ir Tab PO 08/01/24 13:11 5 mg Q6H PRN Administration SEVERE BREAKTRU PAIN Pantoprazole Sodium 40 mg 07/27/24 09:00 07/29/24 08:43 Pantoprazole 40 Mg Tablet PO 08/26/24 08:59 40 mg QDAY PONCE Administration Pharmacy Consult 1 each 07/29/24 09:00 Vancomycin Pharmacy To Dose 1 Each Each IV 08/28/24 08:59 QDAY PRN CONSULT Sennosides 1 tab 07/28/24 22:23 Senna Tablet PO 08/27/24 22:22 QDAY PRN CONSTIPATION Protocol Plan 54-year-old male with past medical history of metastatic pancreatic cancer, depression, anxiety, PTSD, PUD, and degenerative disc disease was admitted to the hospital on 07/26/2024 for right parotitis. #Acute anemia, likely blood loss - Hemoglobin this morning is 8.5 - Patient denies any bleeding manifestations - Stool for occult blood is ordered - A unit of PRBC is transfused on 07/27 plan - will monitor CBC - Will transfuse if hemoglobin is less than 7 #Right parotitis, resolved #Leukocytosis, likely reactive in the setting of malignancy Patient came in with complaints of right jaw pain along with right ear pain and decreased hearing. Patient had a face CT which showed right parotitis. Patient does not have any impaired hearing at this time. WBC 33, Blood cultures negative after 48hrs Plan: Cefepime, and Flagyl (07/26/2024?) Restarted vancomycin on 07/28 as patient developed febrile episodes Pain management with Tylenol, morphine 15mg twice daily as needed for pain and oxycodone 5mg thrice daily as needed for breakthrough pain. Will continue to monitor #Pancreatic malignancy - Patient was diagnosed with pancreatic cancer in 06/2024 - Patient did not have any Chemo-Port yet because of the insurance issues Plan - Pain management with morphine 15 mg twice daily as needed for pain and oxycodone 5 Mg thrice daily as needed for breakthrough pain - Started transfer process as we do not have any inpatient oncology - Discussed about the case with Dr. Pascual and Dr. Landers - Consulted Dr. García for Chemo-Port placement, pending procedure #Lactic acidosis, resolving Patient's lactic acid was 4.5 on admission and down trended to 2.9 Could be in the setting of infection vs malignancy with metastases Plan: IV fluids Will trend lactic acid Continue to monitor #Hyperbilirubinemia Patient's hemoglobin is 5.7 today from 1.6 on 07/14/2024 This could be secondary to the patient's liver metastases versus the increased pancreatic mass causing hyperbilirubinemia due to blockage Plan: GI consulted, will appreciate recommendations #UTI Patient's UA was positive for bacteria Patient stated that he has been having some increased urgency along with hesitation. Urine culture ordered showed no growth Plan: Patient is currently on cefepime, Flagyl Continue to monitor Chronic diseases: #Hx of metastatic pancreatic cancer #Hx of depression anxiety #Hx of PUD. Patient was supposed to be seeing his oncologist today, but given symptoms he was asked to come to the ED and was not seen by oncologist. abdomen/pelvis CT which showed malignant ascites, and focal area of edema in the kidneys, and again noted the necrotic mass the tail of the pancreas with that increase in size from 6 x 6.5 cm on June to 6.4 x 8.4 cm today. Protonix 40 daily Disposition: Patient admitted for right parotitis. Diet: regular GI prophylaxis: protonix DVT prophylaxis: heparin subcu Code: Full Patient plan of care was discussed with the attending physician, Dr. Haas and senior resident Dr. Nadya Oviedo, PGY1 Attending Provider Attestation/Addendum Robbie, Lucila Haas DO, attest that I was physically present for the berrios portions of the service and evaluated the patient with the resident and I reviewed and discussed the case with the resident and agree with the resident's findings and plans of care as documented above Patient seen and evaluated this AM. Patient had a rapid response overnight with SVT and fever. Tmax of 102.6. Antibiotics were broadened to vancomycin, cefepime and flagyl. Cultures repeated. Patient has no active complaints besides abdominal pain. Mother at bedside states patient has no motivation to eat or drink. Will give IV fluids. Will obtain CT abd/ pelvis and cxr to look for any new focus of infection. Patient does not complain of any jaw pain or discomfort, nor does he complain of hearing loss. No tenderness to palpation of right mandble or submandibular glands. No LAD. Patient does have tenderness to palpation of abdomen. Mother states that patient often has fevers at night. Sachi cath placement postponed due to fevers. Will wiat to r/o infection before proceeding with catheter placement.
[2024-07-29] MEDS: ALBUMIN HUMAN 25% IVPB 25 GM/100 ML BTL IV (20:00)
[2024-07-29 21:53] LABS: Vancomycin,Trough 24.7 mcg/mL (5.0-10.0)
--- NOTE | 2024-07-29 22:11 | PD.IMPROG ---
Documentation for date of: 07/29/24 Subjective Subjective Interval history: Patient evaluated he was moved to ICU because of tachycardia fever and possible sepsis Exam Vital Signs Temp Pulse Resp BP Pulse Ox O2 Del Method 99.3 F 93 20 92/62 95 Room Air 07/29/24 12:00 07/29/24 20:00 07/29/24 19:10 07/29/24 16:00 07/29/24 19:10 07/29/24 12:00 Objective Labs 07/29/24 04:35 07/29/24 04:35 Labs: Laboratory Results - last 24 hr 07/28/24 07/29/24 07/29/24 21:53 00:47 04:35 WBC 28.8 H 39.1 H* D RBC 3.98 L 2.99 L Hgb 11.2 L D 8.5 L D Hct 33.3 L 26.0 L MCV 84 87 MCH 28.1 28.4 MCHC 33.6 32.7 RDW Std Deviation 56.7 H 58.4 H Plt Count 111 L D 87 L D Neut % (Auto) 92 H 88 H Lymph % (Auto) 3 L 3 L [place] % (Auto) 4 5 Eos % (Auto) 0 0 Baso % (Auto) 0 0 Neut # (Auto) 26.3 H 34.4 H Lymph # (Auto) 1.0 1.2 [place] # (Auto) 1.1 H 1.8 H Eos # (Auto) 0.0 0.0 Baso # (Auto) 0.1 0.1 Immature Gran # (Auto) 0.32 H 1.61 H Absolute Nucleated RBC 0.14 H 0.05 H Immature Gran % 1 H 4 H Nucleated RBC % 1 H 0 Smear Path Review Cancelled Sodium 130 L 137 Potassium 4.4 D 4.1 Chloride 95 L 102 Carbon Dioxide 20.8 21.1 Anion Gap 14 14 BUN 19 20 Creatinine 0.8 0.7 Estim Creat Clear Calc 101.0 115.4 eGFR > 60 > 60 BUN/Creatinine Ratio 24 H 29 H Glucose 79 70 L Calculated Osmolality 262 L 274 L Lactic Acid 6.0 H* 5.4 H* Calcium 12.1 H D 10.4 D Corrected Calcium 13.0 H 11.8 H Magnesium 1.7 1.9 Total Bilirubin 7.4 H D 5.7 H D ALT 18 15 Alkaline Phosphatase 405 H D 308 H D Total Protein 6.6 5.3 L Albumin 2.9 L 2.2 L D Globulin 3.7 H 3.1 Albumin/Globulin Ratio 0.8 L 0.7 L Vancomycin Trough 07/29/24 07/29/24 08:35 21:12 WBC RBC Hgb Hct MCV MCH MCHC RDW Std Deviation Plt Count Neut % (Auto) Lymph % (Auto) [place] % (Auto) Eos % (Auto) Baso % (Auto) Neut # (Auto) Lymph # (Auto) [place] # (Auto) Eos # (Auto) Baso # (Auto) Immature Gran # (Auto) Absolute Nucleated RBC Immature Gran % Nucleated RBC % Smear Path Review Sodium Potassium Chloride Carbon Dioxide Anion Gap BUN Creatinine Estim Creat Clear Calc eGFR BUN/Creatinine Ratio Glucose Calculated Osmolality Lactic Acid 3.9 H Calcium Corrected Calcium Magnesium Total Bilirubin ALT Alkaline Phosphatase Total Protein Albumin Globulin Albumin/Globulin Ratio Vancomycin Trough 24.7 H* Impressions Impression: Fever pancreatic mass Continue present antibiotics including addition of vancomycin We will speak with Dr. Landers oncology Assessment & Plan A&P Narrative 1. Stage IV pancreatic CA with liver mets. Admitted with abdominal pain right parotitis leukocytosis. 2. Awaiting port placement and chemo scheduled at the cancer treatment center. 3. Moderate pain in the right face and abdominal region. Recommend MS ER 30 mg twice daily routinely but may be held for sedation. Oxycodone 5 every 6 as needed. [place] containing acetaminophen will be DC'd as patient has elevated liver functions already. Will follow. Thank you for allowing me to evaluate this patient Time Spent With Patient Time: Total time spent is greater than 50% in coordination of care (as documented) at patient's floor/unit and/or counseling patient:
[2024-07-30] VITALS (7 sets, daily range): BP systolic 94–117; BP diastolic 55–68; PULSE 74–101; RESP 14–18; TEMP 36.1–36.4; O2SAT 91–98; BMI 11.0
[2024-07-30] MEDS: metroNIDAZOLE 250 MG TABLET 500 MG PO ×3 (05:24→21:27)
[2024-07-30 06:01] LABS: Basophils # (Auto) 0.1 Thou/mm3 (0.0-0.2); Basophils % (Auto) 0 % (0-2.5); Eosinophils # (Auto) 0.3 Thou/mm3 (0.0-0.5); Eosinophils % (Auto) 1 % (0-10); Hematocrit 23.5 % (41.0-53.0); Immature Granulocytes % (Auto) 3 % (0-0); Immature Granulocytes Auto 0.87 Thou/mm3 (0.00-0.00); Lymphocytes # (Auto) 1.3 Thou/mm3 (1.0-4.8); Lymphocytes % (Auto) 4 % (10-50); Mean Corpuscular HGB Conc 33.6 g/dl (31.0-37.0); Mean Corpuscular Hemoglobin 28.7 pg (25.0-35.0); Mean Corpuscular Volume 86 fL (80-100); Monocytes # (Auto) 1.8 Thou/mm3 (0.0-0.8); Monocytes % (Auto) 6 % (0-12); Neutrophils # (Auto) 27.5 Thou/mm3 (1.8-7.7); Neutrophils % (Auto) 87 % (37-80); Nucleated Red Blood Cell # 0.05 Thou/mm3 (0.00-0.00); Nucleated Red Blood Cell % 0 /100 WBC (0); Red Blood Count 2.75 Miln/mm3 (4.50-5.90); White Blood Count 31.8 Thou/mm3 (3.8-10.6)
[2024-07-30 06:02] LABS: Hemoglobin 7.9 g/dL (13.5-16.0); Platelet Count 68 Thou/mm3 (140-440)
[2024-07-30 06:21] LABS: Alanine Aminotransferase 13 U/L (10-49); Albumin, Serum 2.4 gm/dL (3.5-5.0); Albumin/Globulin Ratio 0.8 (1.2-2.2); Alkaline Phosphatase 276 U/L (46-116); Anion Gap 14 (7-16); Aspartate Amino Transferase 36 U/L (0-34); BUN/Creatinine Ratio 41 Ratio (12-20); Bilirubin,Total 5.8 mg/dL (0.3-1.2); Blood Urea Nitrogen 33 mg/dL (9-23); Calcium (Corrected) 12.3 mg/dL (8.5-10.1); Carbon Dioxide 20.7 mMol/L (20.0-31.0); Chloride 103 mMol/L (98-107); Creatinine (Component) 0.8 mg/dL (0.6-1.3); Estimated Creatinine Clearance 97.5 mL/min (>60); Globulin 2.9 gm/dL (2.3-3.5); Glucose 76 mg/dL (74-106); Osmolality,Calculated 281 (275-295); Sodium 138 mMol/L (136-145); Total Protein 5.3 gm/dL (5.7-8.2); eGFR > 60 See Note
[2024-07-30 06:55] LABS: Slide Review Platelets confirmed
--- NOTE | 2024-07-30 08:18 | PD.SURPROG ---
Documentation for date of: 07/30/24 Subjective Subjective Narrative: Patient was scheduled for Port-A-Cath placement yesterday, surgery was canceled as patient had fever spike of 102.6 with SVT Exam Vital Signs Temp Pulse Resp BP Pulse Ox O2 Del Method 97.0 F 101 H 18 117/68 96 Room Air 07/30/24 04:00 07/30/24 04:00 07/30/24 04:00 07/30/24 04:00 07/30/24 04:00 07/30/24 04:00 Assessment & Plan Diagnosis (1) Pancreatic cancer metastasized to liver: Status: Acute Plan Port-A-Cath placement was canceled yesterday due to fever spike. Continue antibiotic. If patient remains in the hospital we will plan for placement of Port-A-Cath on Friday
[2024-07-30] MEDS: DOCUSATE SOD 100 MG CAPSULE PO (08:22)
[2024-07-30] MEDS: CEFEPIME INJ 2 GM in SODIUM CHLORIDE 0.9% (Popper) 50 ML IV ×2 (08:22→20:06)
[2024-07-30] MEDS: PANTOPRAZOLE 40 MG TABLET PO (08:23)
[2024-07-30] MEDS: ALBUMIN HUMAN 25% IVPB 25 GM/100 ML BTL IV (08:23)
--- NOTE | 2024-07-30 08:29 | PC.CC ---
Addendum entered by Pao Phipps RN 07/30/24 17:26: Spoke to Dr. Lopez who states [facility] [place] will not accept patient untill infection improves. Per Dr. Lopez they will reevaluate on Friday to see if patient still needs transfer and we will contact [facility] again at that time. Transfer is on hold at this time. Addendum entered by Pao Phipps RN 07/30/24 17:08: Sheela from [facility] [place] [facility] called wanting more clarification for reason to transfer, She states they will talk to the doctor Addendum entered by Pao Phipps RN 07/30/24 14:46: Spoke to Sheela at [facility] who states the surg onc stated thi spatient is not a surgical canidate and the patient is being referred to Med Onc or hepato/bill. Will call back with answer Addendum entered by Pao Phipps RN 07/30/24 11:48: Sheela from [facility] [place] called at this time to ask questions, she states she will present it to her surgery onc configuration management consultant Addendum entered by Pao Phipps RN 07/30/24 10:30: TBA and intake form filled out and faxed to [facility] [facility] Addendum entered by Poa Phipps RN 07/30/24 09:42: Spoke to Jordyn at [facility] [place], chat faxed, will wait for call back Addendum entered by Pao Phipps RN 07/30/24 09:42: Arely called back and stated to try hospitals in the [place] area, she suggested [facility] [place], [place], and [facility]. Original Note: Called and left voicemail for Arely at the [facility] to see where they would like patient to get transferred, will wait for call back.
[2024-07-30] MEDS: VANCOMYCIN/NS 750 MG IVPB 750 MG/150 ML BAG 120 MG IV ×2 (09:52→21:24)
--- NOTE | 2024-07-30 11:05 | CHAP ---
Patient was visited by the Spiritual Care Volunteer who prayed for them. (Volunteer was in the hospital from 09:30-11:05)
[2024-07-30] MEDS: MORPHINE SULF 30 MG TABCR PO (13:19)
--- NOTE | 2024-07-30 15:59 | PC.SS ---
Addendum entered by Martha Murcia 07/30/24 16:12: SS spoke to patient's father re: alternate options of SNF vs HH if the transfer does not go through. Father was upset with PT rec's. Does not want anything sent out yet. Father wants to speak with PT. Updated PT of father's discussion with me. Original Note: Follow up note: Patient still pending higher level of care. If they cannot transfer then patient will d/c home with father. He will follow up with appointments as o/p. PT worked with patient today and recommended SNF. Pending PT notes. SS will discuss with patient and father. If they decline SNF. Patient will benefit from HH services. PCP: [facility] with Dr. Carlin.
--- NOTE | 2024-07-30 16:31 | ESPR_ITS ---
<Statement entered by Doyle Covington MD - 07/31/24 13:48> I discussed with and supervised the college intern physician involved in the care of this patient. Patient assessment and plan was discussed with entire medicine team, including my attending. I agree with the assessment and plan as documented by college intern doctor. Patient care was discussed with my attending physician Dr. John Covington, PGY-2 Documentation for date of: 07/30/24 Subjective Subjective Interval history: Patient is seen and examined at bedside No acute overnight events. Patient reported that he is feeling overall well and his abdominal pain is in control with medications Vitals are stable and his tachycardia resolved today. Labs showed downtrending WBC, 31.8, Hb 7.9, corrected calcium 12.3, total bilirubin 5.[address] García, patient could not get port a catheter till Friday Exam Vital Signs Temp Pulse Resp BP Pulse Ox O2 Del Method 97.1 F 76 16 94/62 91 L Room Air 07/30/24 12:07/30/24 12:07/30/24 12:07/30/24 12:07/30/24 12:07/30/24 12:00 Narrative Exam General: Awake. Icteric HEENT: Normocephalic, atraumatic, mucous membranes moist. Heart: Regular rhythm and rate, no murmurs. Lungs: Clear to auscultation with no wheezing or crackles. Abdomen: Soft, nondistended, noted tenderness in the epigastric, umbilical and right hypochondriac region, positive bowel sounds. ?No guarding or rebound tenderness. Neurologic: Alert and oriented x3, no gross neurological deficit, and patient able to move all 4 extremities. Extremities: No edema. Skin: No rash or ecchymoses. Objective Labs 07/31/24 06:44 07/31/24 06:44 Labs: Laboratory Results - last 24 hr 07/27/24 07/29/24 07/30/24 05:52 21:12 04:54 WBC 31.8 H D RBC 2.75 L Hgb 7.9 L Hct 23.5 L MCV 86 MCH 28.7 MCHC 33.6 RDW Std Deviation 59.0 H Plt Count 68 L D Neut % (Auto) 87 H Lymph % (Auto) 4 L [place] % (Auto) 6 Eos % (Auto) 1 Baso % (Auto) 0 Neut # (Auto) 27.5 H Lymph # (Auto) 1.3 [place] # (Auto) 1.8 H Eos # (Auto) 0.3 Baso # (Auto) 0.1 Immature Gran # (Auto) 0.87 H Absolute Nucleated RBC 0.05 H Immature Gran % 3 H Nucleated RBC % 0 Sodium 138 Potassium 4.0 Chloride 103 Carbon Dioxide 20.7 Anion Gap 14 BUN 33 H Creatinine 0.8 Estim Creat Clear Calc 97.5 eGFR > 60 BUN/Creatinine Ratio 41 H Glucose 76 Calculated Osmolality 281 Calcium 11.0 H Corrected Calcium 12.3 H Total Bilirubin 5.8 H AST 36 H ALT 13 Alkaline Phosphatase 276 H D Total Protein 5.3 L Albumin 2.4 L Globulin 2.9 Albumin/Globulin Ratio 0.8 L Vancomycin Trough 24.7 H* Misc Test Result Platelets confirmed Crossmatch See Detail Quality Measures Quality Measures VTE prophylaxis Assessment & Plan Assessment Current Active Medications: Generic Name Dose Route Start Last Admin Trade Name Freq PRN Reason Stop Dose Admin Acetaminophen 1,000 mg 07/30/24 11:53 Acetaminophen 500 Mg Tablet PO 08/25/24 21:47 Q6H PRN pain and Fever >100.4 Protocol Docusate Sodium 100 mg 07/29/24 09:00 07/30/24 08:22 Docusate Sod 100 Mg Capsule PO 08/28/24 08:59 100 mg QDAY PONCE Administration Protocol Cefepime HCl 2 gm/ Sodium 50 mls @ 100 mls/hr 07/26/24 22:01 07/30/24 08:22 Chloride IV 08/02/24 22:00 100 mls/hr Q12HR PONCE Administration Albumin Human 25 gm in 100 mls @ 100 mls/hr 07/29/24 17:53 07/30/24 08:23 Albuminar-25 Ivpb IV 08/01/24 17:52 100 mls/hr QDAY PONCE Administration Vancomycin/Sodium Chloride 750 mg in 150 mls @ 120 mls/hr 07/30/24 10:00 07/30/24 09:52 Vancomycin/Ns 750 Mg Ivpb IV 08/06/24 09:59 120 mls/hr BID@1000,2200 PONCE Administration Protocol Metoclopramide HCl 10 mg 07/27/24 13:12 07/28/24 03:51 Metoclopramide 5 Mg Tablet PO 08/26/24 13:11 10 mg Q8H PRN Administration nausea and vomiting Metronidazole 500 mg 07/26/24 22:00 07/30/24 13:18 Metronidazole 250 Mg Tablet PO 08/02/24 21:59 500 mg Q8H PONCE Administration Midodrine 5 mg 07/26/24 21:53 Midodrine 5 Mg Tablet PO 08/25/24 21:59 TID PRN SBP<90 and DBP<50 Morphine Sulfate 30 mg 07/28/24 14:00 07/30/24 13:19 Morphine Sulf 30 Mg Tabcr PO 08/02/24 13:59 30 mg Q12H PONCE Administration Protocol Oxycodone HCl 5 mg 07/27/24 13:12 07/29/24 09:50 Oxycodone Hcl 5 Mg Ir Tab PO 08/01/24 13:11 5 mg Q6H PRN Administration SEVERE BREAKTRU PAIN Pantoprazole Sodium 40 mg 07/27/24 09:00 07/30/24 08:23 Pantoprazole 40 Mg Tablet PO 08/26/24 08:59 40 mg QDAY PONCE Administration Pharmacy Consult 1 each 07/29/24 09:00 Vancomycin Pharmacy To Dose 1 Each Each IV 08/28/24 08:59 QDAY PRN CONSULT Sennosides 1 tab 07/28/24 22:23 Senna Tablet PO 08/27/24 22:22 QDAY PRN CONSTIPATION Protocol Plan 54-year-old male with past medical history of metastatic pancreatic cancer, depression, anxiety, PTSD, PUD, and degenerative disc disease was admitted to the hospital on 07/26/2024 for right parotitis. #Acute anemia, likely blood loss - stable - Hemoglobin this morning is 8.5 - Patient denies any bleeding manifestations - Stool for occult blood is ordered - A unit of PRBC is transfused on 07/27 plan - will monitor CBC - Will transfuse if hemoglobin is less than 7 #Right parotitis, resolved #Leukocytosis, likely reactive in the setting of malignancy Patient came in with complaints of right jaw pain along with right ear pain and decreased hearing. Patient had a face CT which showed right parotitis. Patient does not have any impaired hearing at this time. WBC 33, Blood cultures negative after 48hrs Plan: Cefepime, and Flagyl (07/26/2024?) Restarted vancomycin on 07/28 as patient developed febrile episodes Pain management with Tylenol, morphine 15mg twice daily as needed for pain and oxycodone 5mg thrice daily as needed for breakthrough pain. Will continue to monitor #Pancreatic malignancy - Patient was diagnosed with pancreatic cancer in 06/2024 - Patient did not have any Chemo-Port yet because of the insurance issues Plan - Pain management with morphine 15 mg twice daily as needed for pain and oxycodone 5 Mg thrice daily as needed for breakthrough pain - Started transfer process as we do not have any inpatient oncology - Discussed about the case with Dr. Pascual and Dr. Landers - Consulted Dr. García for Chemo-Port placement, pending procedure #Lactic acidosis, resolving Patient's lactic acid was 4.5 on admission and down trended to 2.9 Could be in the setting of infection vs malignancy with metastases Plan: IV fluids Will trend lactic acid Continue to monitor #Hyperbilirubinemia Patient's hemoglobin is 5.7 today from 1.6 on 07/14/2024 This could be secondary to the patient's liver metastases versus the increased pancreatic mass causing hyperbilirubinemia due to blockage Plan: GI consulted, will appreciate recommendations #UTI Patient's UA was positive for bacteria Patient stated that he has been having some increased urgency along with hesitation. Urine culture ordered showed no growth Plan: Patient is currently on cefepime, Flagyl Continue to monitor Chronic diseases: #Hx of metastatic pancreatic cancer #Hx of depression anxiety #Hx of PUD. Patient was supposed to be seeing his oncologist today, but given symptoms he was asked to come to the ED and was not seen by oncologist. abdomen/pelvis CT which showed malignant ascites, and focal area of edema in the kidneys, and again noted the necrotic mass the tail of the pancreas with that increase in size from 6 x 6.5 cm on June to 6.4 x 8.4 cm today. Protonix 40 daily Disposition: Patient admitted for right parotitis. Diet: regular GI prophylaxis: protonix DVT prophylaxis: heparin subcu Code: Full Patient plan of care was discussed with the attending physician, Dr. Lopez and senior resident Dr. Nadya Oviedo, PGY1 Attending Provider Attestation/Addendum I attest that I was physically present for the evaluation, physical examination, lab and imaging review of the patient with the residents. I discussed the case with the residents and agree with the findings and plans of care as documented above. At bedside today, patient appears sleepy, uninterested in conversation. Patient has been awaiting transfer to [facility] for inpatient chemotherapy for stage IV pancreatic cancer. [place] [facility] [place] high WBC and febrile episode, concern for infection remains and patient would be able to receive chemotherapy if there is suspicion for infection. Recommended to continue antibiotics over the weekend and reevaluate, will consider transfer on Friday if insurance authorization is successful. We will continue with IV antibiotics, monitor patient closely and reattempt transfer on Friday. Also discussed with Dr. Pascual, if transfer process takes long time and patient is medically stable, we may consider discharging the patient in having follow outpatient oncology. Carter Lopez MD
[2024-07-30 19:47] LABS: Lactate (Lactic Acid) 3.7 mMol/L (0.4-2.0)
[2024-07-30] MEDS: SODIUM CHLORIDE 0.9% 1000 ML 1,000 ML 80 ML IV (20:05)
--- NOTE | 2024-07-30 20:18 | PD.IMPROG ---
Documentation for date of: 07/30/24 Subjective Subjective Interval history: Clinically improving Leukocytosis improving Fever resolving Port-A-Cath placement postponed till next Friday I agree with the discharge planning Exam Vital Signs Temp Pulse Resp BP Pulse Ox O2 Del Method 97.6 F 99 14 111/65 93 L Room Air 07/30/24 20:00 07/30/24 20:00 07/30/24 20:00 07/30/24 20:00 07/30/24 20:00 07/30/24 20:00 Objective Labs 07/30/24 04:54 07/30/24 04:54 Labs: Laboratory Results - last 24 hr 07/27/24 07/29/24 07/30/24 05:52 21:12 04:54 WBC 31.8 H D RBC 2.75 L Hgb 7.9 L Hct 23.5 L MCV 86 MCH 28.7 MCHC 33.6 RDW Std Deviation 59.0 H Plt Count 68 L D Neut % (Auto) 87 H Lymph % (Auto) 4 L [place] % (Auto) 6 Eos % (Auto) 1 Baso % (Auto) 0 Neut # (Auto) 27.5 H Lymph # (Auto) 1.3 [place] # (Auto) 1.8 H Eos # (Auto) 0.3 Baso # (Auto) 0.1 Immature Gran # (Auto) 0.87 H Absolute Nucleated RBC 0.05 H Immature Gran % 3 H Nucleated RBC % 0 Sodium 138 Potassium 4.0 Chloride 103 Carbon Dioxide 20.7 Anion Gap 14 BUN 33 H Creatinine 0.8 Estim Creat Clear Calc 97.5 eGFR > 60 BUN/Creatinine Ratio 41 H Glucose 76 Calculated Osmolality 281 Lactic Acid Calcium 11.0 H Corrected Calcium 12.3 H Total Bilirubin 5.8 H AST 36 H ALT 13 Alkaline Phosphatase 276 H D Total Protein 5.3 L Albumin 2.4 L Globulin 2.9 Albumin/Globulin Ratio 0.8 L Vancomycin Trough 24.7 H* Misc Test Result Platelets confirmed Crossmatch See Detail 07/30/24 19:30 WBC RBC Hgb Hct MCV MCH MCHC RDW Std Deviation Plt Count Neut % (Auto) Lymph % (Auto) [place] % (Auto) Eos % (Auto) Baso % (Auto) Neut # (Auto) Lymph # (Auto) [place] # (Auto) Eos # (Auto) Baso # (Auto) Immature Gran # (Auto) Absolute Nucleated RBC Immature Gran % Nucleated RBC % Sodium Potassium Chloride Carbon Dioxide Anion Gap BUN Creatinine Estim Creat Clear Calc eGFR BUN/Creatinine Ratio Glucose Calculated Osmolality Lactic Acid 3.7 H Calcium Corrected Calcium Total Bilirubin AST ALT Alkaline Phosphatase Total Protein Albumin Globulin Albumin/Globulin Ratio Vancomycin Trough Misc Test Result Crossmatch Impressions Impression: Pancreatic carcinoma Leukocytosis Fever Continue supportive care Assessment & Plan A&P Narrative 1. Stage IV pancreatic CA with liver mets. Admitted with abdominal pain right parotitis leukocytosis. 2. Awaiting port placement and chemo scheduled at the cancer treatment center. 3. Moderate pain in the right face and abdominal region. Recommend MS ER 30 mg twice daily routinely but may be held for sedation. Oxycodone 5 every 6 as needed. [place] containing acetaminophen will be DC'd as patient has elevated liver functions already. Will follow. Thank you for allowing me to evaluate this patient Time Spent With Patient Time: Total time spent is greater than 50% in coordination of care (as documented) at patient's floor/unit and/or counseling patient:
[2024-07-30 22:45] LABS: Reflex Lactate? Y
[2024-07-30 23:14] LABS: Lactate (Lactic Acid) 3.6 mMol/L (0.4-2.0)
[2024-07-31] VITALS (7 sets, daily range): BP systolic 103–137; BP diastolic 61–83; PULSE 87–104; RESP 12–17; TEMP 36.2–36.5; O2SAT 94–96
[2024-07-31 02:12] LABS: Reflex Lactate? Y
[2024-07-31 03:08] LABS: Lactic Acid, 3 HR 3.6 mMol/L (0.4-2.0)
[2024-07-31] MEDS: metroNIDAZOLE 250 MG TABLET 500 MG PO (05:32)
[2024-07-31 07:18] LABS: Lactate (Lactic Acid) 4.2 mMol/L (0.4-2.0)
[2024-07-31 07:24] LABS: Basophils # (Auto) 0.1 Thou/mm3 (0.0-0.2); Basophils % (Auto) 0 % (0-2.5); Eosinophils % (Auto) 0 % (0-10); Hematocrit 26.4 % (41.0-53.0); Immature Granulocytes % (Auto) 2 % (0-0); Immature Granulocytes Auto 0.64 Thou/mm3 (0.00-0.00); Lymphocytes # (Auto) 1.3 Thou/mm3 (1.0-4.8); Lymphocytes % (Auto) 4 % (10-50); Mean Corpuscular HGB Conc 31.8 g/dl (31.0-37.0); Mean Corpuscular Hemoglobin 28.5 pg (25.0-35.0); Mean Corpuscular Volume 90 fL (80-100); Monocytes # (Auto) 1.2 Thou/mm3 (0.0-0.8); Monocytes % (Auto) 4 % (0-12); Neutrophils # (Auto) 27.5 Thou/mm3 (1.8-7.7); Neutrophils % (Auto) 90 % (37-80); Nucleated Red Blood Cell # 0.09 Thou/mm3 (0.00-0.00); Nucleated Red Blood Cell % 0 /100 WBC (0); RDW Standard Deviation 65.1 fL (35.1-43.9); Red Blood Count 2.95 Miln/mm3 (4.50-5.90); White Blood Count 30.7 Thou/mm3 (3.8-10.6)
[2024-07-31 07:32] LABS: Hemoglobin 8.4 g/dL (13.5-16.0); Platelet Count 56 Thou/mm3 (140-440)
[2024-07-31 07:44] LABS: Alanine Aminotransferase 12 U/L (10-49); Albumin, Serum 2.6 gm/dL (3.5-5.0); Albumin/Globulin Ratio 0.9 (1.2-2.2); Alkaline Phosphatase 285 U/L (46-116); Anion Gap 12 (7-16); Aspartate Amino Transferase 30 U/L (0-34); BUN/Creatinine Ratio 40 Ratio (12-20); Bilirubin,Total 6.5 mg/dL (0.3-1.2); Blood Urea Nitrogen 40 mg/dL (9-23); Carbon Dioxide 20.9 mMol/L (20.0-31.0); Chloride 104 mMol/L (98-107); Globulin 2.9 gm/dL (2.3-3.5); Glucose 86 mg/dL (74-106); Osmolality,Calculated 282 (275-295); Potassium 3.9 mMol/L (3.4-5.1); Sodium 137 mMol/L (136-145); Total Protein 5.5 gm/dL (5.7-8.2); eGFR > 60 See Note
[2024-07-31 07:48] LABS: Calcium (Corrected) 13.1 mg/dL (8.5-10.1)
[2024-07-31] MEDS: CEFEPIME INJ 2 GM in SODIUM CHLORIDE 0.9% (Popper) 50 ML IV ×2 (09:22→20:22)
[2024-07-31] MEDS: DOCUSATE SOD 100 MG CAPSULE PO (09:22)
[2024-07-31] MEDS: PANTOPRAZOLE 40 MG TABLET PO (09:22)
[2024-07-31 09:23] LABS: Slide Review Platelets confirmed
[2024-07-31] MEDS: ALBUMIN HUMAN 25% IVPB 25 GM/100 ML BTL IV (09:23)
[2024-07-31 09:30] LABS: Misc Send Out* See Sep Rpt
[2024-07-31 09:53] LABS: Bilirubin,Direct 4.7 mg/dL (0.0-0.3); Vancomycin,Trough 22.6 mcg/mL (5.0-10.0)
[2024-07-31 10:13] LABS: Reflex Lactate? Y
[2024-07-31] MEDS: MORPHINE SULF INJ 10 MG/ML VIAL 4 MG IVP (10:28)
[2024-07-31] MEDS: PAMIDRONATE IV (10:31)
[2024-07-31] MEDS: SODIUM CHLORIDE 0.9% IV (10:31)
--- NOTE | 2024-07-31 11:46 | PD.RESCONSUL ---
HPI Data of Consult Consult date: 07/31/24 Requesting Physician: Lucila Haas DO Admitting Provider: Dinorah Fairbanks MD Attending Provider: Lucila Haas DO Primary Care Provider: UZMA Dsouza Consult Narrative Reason for consult: Hypercalcemia History of present illness: HPI is limited at this time as pt is poor historian and is lethargic at this time--dad is the informant. Chart review done Bridger is a 54-year-old male with past medical history of metastatic pancreatic cancer, depression, anxiety, PTSD, PUD, and degenerative disc disease who is currently admitted for acute parotitis on patient was recently discharged from the hospital on 07/08/2024 after he was found to have metastasis of pancreatic cancer. He sees Dr. Pascual outpatient. Denies family history of pancreatic cancer, however his father had colorectal cancer. He has not been eating much, has been losing weight, and still has not gotten chemotherapy done. He is supposed to get his Chemo-Port done Friday. Patient was to get transferred for evaluation of necrotic mass in pancreas, however patient was rejected from numerous facilities. Family currently at bedside who also states that patient has been losing weight, and has had poor appetite as well. ED course: Initially came in normotensive and afebrile. Initial labs were relevant for leukocytosis, low hemoglobin, hyponatremia, lactic acidosis, hyperbilirubinemia, elevated procalcitonin, and UA was positive for bilirubin and bacteria. Initial imaging included chest x-ray which showed no active disease, face CT which showed suspicion for right parotiditis, and abdomen/pelvis CT which showed malignant ascites, and focal area of edema in the kidneys, and again noted the necrotic mass the tail of the pancreas with that increase in size from 6 x 6.5 cm on June to 6.4 x 8.4 cm today. Patient was attempted to be transferred given the necrotic mass in the pancreas for possible surgical intervention, but after attempt was made to transfer multiple facilities stated that patient could be treated with antibiotics in the hospital and did not require any surgical intervention at this time. PMHx: As above Surgeries: Cholecystectomy Meds: Pending med rec Allergies:Erythromycin, amoxicillin, and NSAIDs Family Hx: Father had colorectal cancer, his mother's father had lung cancer (however he was a smoker) Social Hx: Denies any smoking, drugs, alcohol cc:: cc: Lucila Haas DO Review of Systems Review of Systems Narrative Review of Systems: 12 point system ROS reviewed and otherwise negative unless stated directly in HPI. Past Medical History Past Medical History NEUROLOGIC: Positive Neurological Disorders and Migraine; Negative Seizures CARDIAC: Positive Cardiac Disorders, Hypercholesterolemia and Hypertension; Negative Myocardial Infarction, Cardiac Arrhythmia, Atrial Fibrillation, Angina, Heart Murmur, Coronary Artery Disease, Atherosclerotic Heart Disease, Peripheral Vascular Disease, Aneurysm, Congestive Heart Failure, Congenital Heart Disease, Rheumatic Fever, Cardiomyopathy, Pericarditis, Deep Vein Thrombosis, Hypotension or Varicose Veins RESPIRATORY: Negative Respiratory Disorders, Chronic Obstructive Pulmonary Disease (COPD), Asthma or Sleep Apnea GASTROINTESTINAL: Positive Gastrointestinal Bleed and Ulcer; Negative Gastrointestinal Disorders GENITOURINARY: Negative Genitourinary Disorders or Renal Disease MUSCULOSKELETAL: Positive Degenerative Disk Disease and Scoliosis; Negative Musculoskeletal Disorders ENDOCRINE: Negative Diabetes Mellitus Type 1 or Diabetes Mellitus Type 2 HEMATOLOGIC: Negative Sickle Cell Disease PSYCHO/SOCIAL: Positive Depression, Anxiety and Post Traumatic Stress Disorder OTHER HISTORY: Positive Autoimmune Disease, Anesthesia Reactions and Chicken Pox; Negative Blood Transfusions, Measles, Mumps or Cancer Family History FAMILY HISTORY: Positive Family Psychiatric Problems, Family Gastrointestinal Problems, Family Cancer and Family Surgery; Negative Family Anesthesia Reaction Surgical History SURGICAL: Negative Cardiac Surgery, Endocrine Surgery or Ear Surgery OTHER SURGICAL HX: As above in addition anxiety neurosis PTSD Degenerative joint disease Social History SOCIAL: no children former [facility] SMOKING STATUS: Former smoker SUBSTANCE USE: does not use Past Medical History Comments PMH COMMENT: Neurological disorders and migraine depression stress disorder Exam Vital Signs Temp Pulse Resp BP Pulse Ox O2 Del Method 97.5 F 94 17 116/70 96 Room Air 07/31/24 08:00 07/31/24 08:00 07/31/24 08:00 07/31/24 08:00 07/31/24 08:00 07/31/24 08:00 Narrative Exam General: AAOx3, a bit lethargic, weak, looks older than he is. HEENT: Moist mucous membranes, conjunctiva clear, EOMI, PERRLA, Cardiovascular: S1, S2, radial pulses +2 bilat, RRR Pulmonary: CTAB bilat no cough, no wheezing GI: Distended, + bowel sounds, no guarding Extremities: + edema in lower extremities bilaterally, dorsalis pedis pulses +2 bilaterally Neuro: AAOx3, limited neurologic exam Skin: Has diffuse jaundice Psych: Limited cooperation Results Labs 08/01/24 05:22 08/01/24 05:22 Labs: Short CBC 07/31/24 Range/Units 06:44 WBC 30.7 H (3.8-10.6) Thou/mm3 Hgb 8.4 L (13.5-16.0) g/dL Hct 26.4 L (41.0-53.0) % Plt Count 56 L (140-440) Thou/mm3 BMP 07/31/24 06:44 Sodium 137 Potassium 3.9 Chloride 104 Carbon Dioxide 20.9 BUN 40 H Creatinine 1.0 Glucose 86 Calcium 12.0 H Liver Function 07/31/24 07/31/24 Range/Units 06:44 09:08 Total Bilirubin 6.5 H D (0.3-1.2) mg/dL Direct Bilirubin 4.7 H (0.0-0.3) mg/dL AST 30 (0-34) U/L ALT 12 (10-49) U/L Alkaline Phosphatase 285 H (46-116) U/L Albumin 2.6 L (3.5-5.0) gm/dL Quality Measures Quality Measures VTE prophylaxis Medications Home Medications and Allergies Home Medications ?Medication ?Instructions ?Recorded ?Confirmed ?Type ergocalciferol (vitamin D2) 1,250 1 cap PO QWEEK 11/13/21 07/27/24 History mcg (50,000 unit) capsule (Vitamin D2) rimegepant 75 mg disintegrating 1 tab PO DAILY 11/13/21 07/27/24 History tablet (Nurtec ODT) cetirizine 10 mg tablet 10 mg PO HS 07/05/24 07/27/24 History duloxetine 40 mg capsule,delayed 40 mg PO QDAY 07/05/24 07/27/24 History release morphine 15 mg tablet,extended 15 mg PO Q12H PRN pain 07/06/24 07/27/24 History release naloxone 4 mg/actuation nasal spray 1 spray intranasal Q3M PRN opioid 07/06/24 07/27/24 History overdose omeprazole 20 mg capsule,delayed 20 mg PO HS 07/06/24 07/27/24 History release metoclopramide HCl 10 mg tablet 10 mg PO Q8H PRN nausea and 07/27/24 07/27/24 History vomiting Allergies Allergy/AdvReac Type Severity Reaction Status Date / Time monosodium glutamate Allergy Intermediate Nausea Verified 07/31/24 19:47 erythromycin base Allergy Mild Rash Verified 07/31/24 19:47 amoxicillin Allergy Unknown Verified 07/31/24 19:47 NSAIDS (Non-Steroidal AdvReac Verified 07/31/24 19:47 Anti-Inflamma PERSIMMON Allergy Mild FLU LIKE Uncoded 07/31/24 19:47 SYMPTOM Visit Medications Acetaminophen (Acetaminophen 500 Mg Tablet) 1,000 mg PO Q6H PRN; Protocol PRN Reason: pain and Fever >100.4 Stop: 08/25/24 21:47 Docusate Sodium (Docusate Sod 100 Mg Capsule) 100 mg PO QDAY PONCE; Protocol Stop: 08/28/24 08:59 Last Admin: 07/31/24 09:22 Dose: 100 mg Doxycycline Hyclate (Doxycycline 100 Mg Tablet) 100 mg PO BID PONCE Stop: 08/07/24 20:59 Cefepime HCl 2 gm/ Sodium (Chloride) 50 mls @ 100 mls/hr IV Q12HR PONCE Stop: 08/02/24 22:00 Last Admin: 07/31/24 09:22 Dose: 100 mls/hr Albumin Human (Albuminar-25 Ivpb) 25 gm in 100 mls @ 100 mls/hr IV QDAY PONCE Stop: 08/01/24 17:52 Last Admin: 07/31/24 09:23 Dose: 100 mls/hr Pamidronate Disodium 60 mg/ (Sodium Chloride) 1,006.6667 mls @ 167.778 mls/hr IV X1 ONE Stop: 07/31/24 16:14 Last Admin: 07/31/24 10:31 Dose: 167.778 mls/hr Sodium Chloride (Ns) 1,000 mls @ 80 mls/hr IV .[id number] ONE Stop: 07/31/24 23:00 Metoclopramide HCl (Metoclopramide 5 Mg Tablet) 10 mg PO Q8H PRN PRN Reason: nausea and vomiting Stop: 08/26/24 13:11 Last Admin: 07/28/24 03:51 Dose: 10 mg Midodrine (Midodrine 5 Mg Tablet) 5 mg PO TID PRN PRN Reason: SBP<90 and DBP<50 Stop: 08/25/24 21:59 Morphine Sulfate (Morphine Sulf 30 Mg Tabcr) 30 mg PO Q12H PONCE; Protocol Stop: 08/02/24 13:59 Last Admin: 07/31/24 01:56 Dose: Not Given Oxycodone HCl (Oxycodone Hcl 5 Mg Ir Tab) 5 mg PO Q6H PRN PRN Reason: SEVERE BREAKTRU PAIN Stop: 08/01/24 13:11 Last Admin: 07/29/24 09:50 Dose: 5 mg Pantoprazole Sodium (Pantoprazole 40 Mg Tablet) 40 mg PO QDAY PONCE Stop: 08/26/24 08:59 Last Admin: 07/31/24 09:22 Dose: 40 mg Sennosides (Senna Tablet) 1 tab PO QDAY PRN; Protocol PRN Reason: CONSTIPATION Stop: 08/27/24 22:22 Discontinued Medications Acetaminophen (Acetaminophen 325 Mg Tablet) 650 mg PO Q6H PRN; Protocol PRN Reason: pain and Fever >100.4 Stop: 08/25/24 21:47 Last Admin: 07/28/24 21:26 Dose: 650 mg Acetaminophen (Acetaminophen 325 Mg Tablet) 1,000 mg PO Q6H PRN; Protocol PRN Reason: pain and Fever >100.4 Stop: 08/25/24 21:47 Hydrocodone Bitart/Acetaminophen (Hydrocodone/Apap 10/325 Tab) 1 tab PO X1 ONE Stop: 07/26/24 10:45 Last Admin: 07/26/24 11:04 Dose: 1 tab Hydrocodone Bitart/Acetaminophen (Hydrocodone/Apap 5/325 Tablet) 1 tab PO Q4HR PRN PRN Reason: PAIN SCALE 4-6 (Moderate Stop: 07/31/24 21:52 Last Admin: 07/28/24 10:01 Dose: 1 tab Adenosine (Adenosine Inj 3 Mg/Ml Vial) 6 mg IVP X1 ONE Stop: 07/28/24 21:49 Last Admin: 07/28/24 21:54 Dose: 6 mg Adenosine (Adenosine Inj 3 Mg/Ml Vial) 6 mg IVP X1 ONE Stop: 07/28/24 21:56 Last Admin: 07/28/24 21:56 Dose: 6 mg Adenosine (Adenosine Inj 3 Mg/Ml Vial) 12 mg IVP X1 ONE Stop: 07/28/24 21:57 Last Admin: 07/28/24 22:00 Dose: 12 mg Diltiazem HCl (Diltiazem Inj 5 Mg/Ml Vial 5 Ml) 15 mg IV X1 ONE Stop: 07/28/24 22:02 Last Admin: 07/29/24 07:14 Dose: Not Given Heparin Sodium (Porcine) (Heparin Sod Inj 5000 Unit/Ml Vial) 5,000 unit SC Q8HR PONCE Stop: 08/09/24 21:59 Last Admin: 07/28/24 05:11 Dose: 5,000 unit Lactated Ringer's (Lactated Ringers) 1,000 mls @ 999 mls/hr IV .Q1H1M ONE Stop: 07/26/24 12:53 Last Infusion: 07/26/24 13:23 Dose: Infused Lactated Ringer's (Lactated Ringers) 1,000 mls @ 999 mls/hr IV .Q1H1M ONE Stop: 07/26/24 12:53 Last Infusion: 07/26/24 13:23 Dose: Infused Clindamycin Phosphate 900 mg/ (IV Miscellaneous Supplies) 50 mls @ 50 mls/hr IV X1 ONE Stop: 07/26/24 13:03 Last Infusion: 07/26/24 13:20 Dose: Infused Levofloxacin/Dextrose (Levaquin Ivpb) 750 mg in 150 mls @ 100 mls/hr IV X1 ONE Stop: 07/26/24 13:33 Last Infusion: 07/26/24 14:57 Dose: Infused Sodium Chloride (Ns) 1,000 mls @ 75 mls/hr IV .[id number] PONCE Stop: 07/27/24 11:19 Last Admin: 07/26/24 22:30 Dose: 75 mls/hr Vancomycin HCl 2,000 mg/ (Sodium Chloride) 500 mls @ 150 mls/hr IV X1 ONE Stop: 07/27/24 01:49 Last Admin: 07/26/24 23:38 Dose: 150 mls/hr Vancomycin HCl/Dextrose (Vancomycin/D5w 1,250 Mg Ivpb) 250 mls @ 120 mls/hr IV Q12H [facility] Stop: 08/03/24 09:59 Last Admin: 07/29/24 07:14 Dose: Not Given Albumin Human (Albuminar-25 Ivpb) 12.5 gm in 50 mls @ 50 mls/hr IV X1 ONE Stop: 07/27/24 10:45 Last Admin: 07/27/24 10:27 Dose: 50 mls/hr Vancomycin/Sodium Chloride (Vancomycin/Ns 1 Gm Ivpb) 200 mls @ 120 mls/hr IV Q12H PONCE; Protocol Stop: 08/04/24 09:59 Last Admin: 07/28/24 11:09 Dose: 120 mls/hr Magnesium Sulfate (Magnesium Sulfate Ivpb) 2 gm in 50 mls @ 25 mls/hr IV X1 ONE Stop: 07/28/24 23:49 Last Admin: 07/28/24 22:00 Dose: 25 mls/hr Sodium Chloride (Ns) 500 mls @ 999 mls/hr IV .Q31M ONE Stop: 07/28/24 22:22 Last Infusion: 07/28/24 22:31 Dose: Infused Sodium Chloride (Ns) 1,000 mls @ 999 mls/hr IV .Q1H1M ONE Stop: 07/28/24 23:05 Last Infusion: 07/29/24 07:14 Dose: Infused Vancomycin/Sodium Chloride (Vancomycin/Ns 1 Gm Ivpb) 200 mls @ 120 mls/hr IV X1 ONE Stop: 07/29/24 00:09 Last Admin: 07/28/24 23:14 Dose: 120 mls/hr Sodium Chloride (Ns) 500 mls @ 999 mls/hr IV .Q31M ONE Stop: 07/29/24 00:07 Last Infusion: 07/29/24 07:14 Dose: Infused Vancomycin/Sodium Chloride (Vancomycin/Ns 1 Gm Ivpb) 200 mls @ 120 mls/hr IV Q12HR@1000,2200 PONCE; Protocol Stop: 08/05/24 09:59 Last Admin: 07/29/24 21:59 Dose: Not Given Sodium Chloride (Ns) 1,000 mls @ 80 mls/hr IV .[id number] ONE Stop: 07/30/24 01:43 Last Admin: 07/29/24 13:48 Dose: 80 mls/hr Vancomycin/Sodium Chloride (Vancomycin/Ns 750 Mg Ivpb) 750 mg in 150 mls @ 120 mls/hr IV BID@1000,2200 PONCE; Protocol Stop: 08/06/24 09:59 Last Admin: 07/30/24 21:24 Dose: 120 mls/hr Sodium Chloride (Ns) 1,000 mls @ 80 mls/hr IV .[id number] ONE Stop: 07/31/24 08:20 Last Admin: 07/30/24 20:05 Dose: 80 mls/hr Sodium Chloride (Ns) 1,000 mls @ 200 mls/hr IV .Q5H ONE Stop: 07/31/24 00:50 Vancomycin/Sodium Chloride (Vancomycin/Ns 500 Mg Ivpb) 100 mls @ 120 mls/hr IV BID@1000,2200 PONCE; Protocol Stop: 08/07/24 21:59 Lactulose (Lactulose Syrup 20 Gm/30 Ml Udc) 60 gm PO X1 ONE; Protocol Stop: 07/28/24 22:24 Last Admin: 07/29/24 01:12 Dose: Not Given Magnesium Hydroxide (Milk Of Magnesia Susp 30 Ml Udc) 30 ml PO X1 ONE; Protocol Stop: 07/28/24 10:00 Last Admin: 07/28/24 10:05 Dose: 30 ml Metronidazole (Metronidazole 250 Mg Tablet) 500 mg PO Q8H PONCE Stop: 08/02/24 21:59 Last Admin: 07/31/24 05:32 Dose: 500 mg Morphine Sulfate (Morphine Sulf Inj 10 Mg/Ml Vial) 5 mg IVP X1 ONE Stop: 07/26/24 21:52 Last Admin: 07/26/24 22:21 Dose: 5 mg Morphine Sulfate (Morphine Sulf Inj 10 Mg/Ml Vial) 1 mg IVP Q2H PRN PRN Reason: PAIN SCALE 7-10 (Severe Stop: 07/31/24 21:52 Last Admin: 07/27/24 10:39 Dose: 1 mg Morphine Sulfate (Morphine Sulf 15 Mg Tabcr) 15 mg PO Q12H PRN; Protocol PRN Reason: pain 6-10 Stop: 08/01/24 13:11 Morphine Sulfate (Morphine Sulf 15 Mg Tabcr) 15 mg PO Q12H PRN; Protocol PRN Reason: PAIN SCALE 7-10 (Severe Stop: 08/01/24 13:11 Last Admin: 07/28/24 03:47 Dose: 15 mg Morphine Sulfate (Morphine Sulf Inj 10 Mg/Ml Vial) 4 mg IVP X1 ONE Stop: 07/31/24 10:17 Last Admin: 07/31/24 10:28 Dose: 4 mg Ondansetron HCl (Ondansetron Inj 2 Mg/Ml Inj 2 Ml) 4 mg IVP Q6H PRN; Protocol PRN Reason: NAUSEA OR VOMITING Stop: 08/25/24 21:47 Last Admin: 07/27/24 19:12 Dose: 4 mg Oxycodone HCl (Oxycodone Controlled Release 10 Mg Tabcr) 10 mg PO X1 ONE; Protocol Stop: 07/26/24 13:31 Last Admin: 07/26/24 13:54 Dose: 10 mg Oxycodone HCl (Oxycodone Controlled Release 10 Mg Tabcr) 10 mg PO X1 ONE; Protocol Stop: 07/26/24 17:28 Last Admin: 07/26/24 18:00 Dose: Not Given Pamidronate Disodium (Pamidronate Inj 30 Mg/10 Ml Vial) 60 mg IV X1 ONE Stop: 07/31/24 09:57 Pharmacy Consult (Vancomycin Pharmacy To Dose 1 Each Each) 1 each IV QDAY PRN PRN Reason: CONSULT Stop: 08/25/24 21:59 Pharmacy Consult (Vancomycin Pharmacy To Dose 1 Each Each) 1 each IV QDAY PRN PRN Reason: CONSULT Stop: 08/28/24 08:59 Polyethylene Glycol (Polyethylene Glycol 17 Gm Packet) 17 gm PO X1 ONE Stop: 07/28/24 16:08 Last Admin: 07/28/24 18:28 Dose: 17 gm Assessment & Plan Plan Assessment 54-year-old male with past medical history of metastatic pancreatic cancer, depression, anxiety, PTSD, PUD, and degenerative disc disease was admitted to the hospital on 07/26/2024 for right parotitis. #Hypercalcemia, worsening #Elevated alkaline phosphatase Corrected calcium 13.1 today, has been 11 and 12 in the past ALP 285 This hypercalcemia is likely multifactorial likely related to immobilization and humoral hypercalcemia of malignancy Ideally would like to see if this is a PTH dependent or independent process, however it is likely independent Patient was taking 50,000 units of vitamin D outpatient, could be toxicity as a component Patient will continue to have worsening hypercalcemia if there is continued immobilization with patient Patient is at high risk for constipation, worsening abdominal pain, seizures and confusion, and kidney stones in addition to shortened QT which can lead to Bradycardia Pt will need to have tx of pancreatic cancer for eventual resolution of hypercalcemia Plan: ? Recommend to check activated vitamin D and in addition to 25 vitamin D, parathyroid related peptide and PTH ? Continue with fluids ? Aredia Inj 60 mg x1 ? Encourage mobilization with PT ? Trend with CMP ? EKG to evaluate QT ? Recommend laxatives for worsening constipation #Lactic acidosis, improving Currently 4.0 Could be in the setting of infection vs malignancy with metastases Plan: ? IV fluids ? Recommend to trend lactic acid q6h #Acute anemia, likely blood loss - stable #Right parotitis, resolved #Leukocytosis, likely reactive in the setting of malignancy #Pancreatic malignancy #Hyperbilirubinemia #UTI #Hx of metastatic pancreatic cancer #Hx of depression anxiety #Hx of PUD. Above handled by primary hospitalist team Patient seen and care discussed with my attending physician, Dr. Jade Vegas, PGY-1 Attending Provider Attestation/Addendum Patient seen and examined with resident physician Dr. Doss. Note reviewed, agree with findings and recommendations. Patient currently seen in medical floor. Family at bedside. Unfortunate patient of metastatic pancreatic cancer. Differential diagnoses include immobilization/humoral hypercalcemia of malignancy. Patient presenting with h hypercalcemia and significant weakness. Has been immobilized for the last couple of months. 1 dose of pamidronate will be given. Patient did receive calcitonin yesterday. Vitamin D, PTH levels are pending. Continue with gentle IV fluids. Patient noted to have significant edema-most likely related to hypoalbuminemia/third spacing. Dad had several questions which were answered to his satisfaction. Thank you Carter for allowing me to participate in the care of Mr. Tsang.
[2024-07-31] MEDS: SODIUM CHLORIDE 0.9% 1000 ML 1,000 ML 80 ML IV (12:30)
--- NOTE | 2024-07-31 13:30 | PC.NURSE ---
received patient from med surge via bed to room 264, patient is lethargic but arousable, kept comfortable in bed call light w/in reach
--- NOTE | 2024-07-31 13:54 | EKG_ITS ---
[facility] Test Date: 2024-07-31 Pat Name: ANNIE FAY Department: Room: S264A Gender: Male Match Marker: RT STUDENT : 1970 Requested By: Selam Vegas Order Number: [id number] Reading MD: Selam Vegas Measurements Intervals [place] Rate: 92 P: 36 KS: 181 QRS: 2 QRSD: 117 T: 27 QT: 353 QTc: 438 Interpretive Statements SINUS RHYTHM MODERATE INTRAVENTRICULAR CONDUCTION DELAY NONSPECIFIC T-WAVE ABNORMALITY Compared to ECG 07/28/2024 21:46:54 Intraventricular conduction delay now present T-wave abnormality now present Supraventricular tachycardia no longer present Myocardial infarct finding no longer present /store/S0/[id number]
--- NOTE | 2024-07-31 15:36 | ESPR_ITS ---
Documentation for date of: 07/31/24 Subjective Subjective Interval history: Downward trending WBC count Abdominal pain controlled with pain medication Agree with discharge planning to be followed by his oncologist Exam Vital Signs Temp Pulse Resp BP Pulse Ox O2 Del Method 97.7 F 98 13 118/61 94 L Room Air 07/31/24 12:00 07/31/24 12:00 07/31/24 12:00 07/31/24 12:00 07/31/24 12:00 07/31/24 12:00 Objective Labs 07/31/24 06:44 07/31/24 06:44 Labs: Laboratory Results - last 24 hr 07/30/24 07/30/24 07/31/24 19:30 23:05 02:48 WBC RBC Hgb Hct MCV MCH MCHC RDW Std Deviation Plt Count Neut % (Auto) Lymph % (Auto) [place] % (Auto) Eos % (Auto) Baso % (Auto) Neut # (Auto) Lymph # (Auto) [place] # (Auto) Eos # (Auto) Baso # (Auto) Immature Gran # (Auto) Absolute Nucleated RBC Immature Gran % Nucleated RBC % Sodium Potassium Chloride Carbon Dioxide Anion Gap BUN Creatinine Estim Creat Clear Calc eGFR BUN/Creatinine Ratio Glucose Calculated Osmolality Lactic Acid 3.7 H 3.6 H 3.6 H Calcium Corrected Calcium Total Bilirubin Direct Bilirubin AST ALT Alkaline Phosphatase Total Protein Albumin Globulin Albumin/Globulin Ratio Vancomycin Trough Misc Test Result 07/31/24 07/31/24 07/31/24 06:44 09:08 11:00 WBC 30.7 H RBC 2.95 L Hgb 8.4 L Hct 26.4 L MCV 90 MCH 28.5 MCHC 31.8 RDW Std Deviation 65.1 H Plt Count 56 L Neut % (Auto) 90 H Lymph % (Auto) 4 L [place] % (Auto) 4 Eos % (Auto) 0 Baso % (Auto) 0 Neut # (Auto) 27.5 H Lymph # (Auto) 1.3 [place] # (Auto) 1.2 H Eos # (Auto) 0.0 Baso # (Auto) 0.1 Immature Gran # (Auto) 0.64 H Absolute Nucleated RBC 0.09 H Immature Gran % 2 H Nucleated RBC % 0 Sodium 137 Potassium 3.9 Chloride 104 Carbon Dioxide 20.9 Anion Gap 12 BUN 40 H Creatinine 1.0 Estim Creat Clear Calc 78.0 eGFR > 60 BUN/Creatinine Ratio 40 H Glucose 86 Calculated Osmolality 282 Lactic Acid 4.2 H* 4.0 H Calcium 12.0 H Corrected Calcium 13.1 H* Total Bilirubin 6.5 H D Direct Bilirubin 4.7 H AST 30 ALT 12 Alkaline Phosphatase 285 H Total Protein 5.5 L Albumin 2.6 L Globulin 2.9 Albumin/Globulin Ratio 0.9 L Vancomycin Trough 22.6 H* Misc Test Result Platelets confirmed Impressions Impression: Pancreatic carcinoma Fever resolved Leukocytosis trending downward Continue current management Assessment & Plan A&P Narrative 1. Stage IV pancreatic CA with liver mets. Admitted with abdominal pain right parotitis leukocytosis. 2. Awaiting port placement and chemo scheduled at the cancer treatment center. 3. Moderate pain in the right face and abdominal region. Recommend MS ER 30 mg twice daily routinely but may be held for sedation. Oxycodone 5 every 6 as needed. [place] containing acetaminophen will be DC'd as patient has elevated liver functions already. Will follow. Thank you for allowing me to evaluate this patient Time Spent With Patient Time: Total time spent is greater than 50% in coordination of care (as documented) at patient's floor/unit and/or counseling patient:
[2024-07-31 16:05] LABS: Base Excess, Venous -3 (-3-3); O2 Saturation, Venous 100 % (96-97); PCO2, Venous 28 mmHg (36-56); PO2, Venous 119 mmHg (15-58); pH, Venous 7.46 (7.33-7.66)
--- NOTE | 2024-07-31 16:10 | ESPR_ITS ---
<Statement entered by Doyle Covington MD - 08/02/24 02:15> I discussed with and supervised the biology internship physician involved in the care of this patient. Patient assessment and plan was discussed with entire medicine team, including my attending. I agree with the assessment and plan as documented by biology internship doctor. Patient care was discussed with my attending physician Dr.Bishwakarma Doyle Covington, PGY-2 Documentation for date of: 07/31/24 Subjective Subjective Interval history: Patient is seen and examined at bedside No acute overnight events. Still complaining of abdominal pain Vitals are stable. Patient appears more depressed and has sick looking Labs showed downtrending WBC 30.7, Hb 8.4, platelets 56. Corrected calcium is 13.1 Goals of care discussed with mother and father. Consulted subsystems engineer, Dr. Hansen in view of hypercalcemia, will appreciate her recommendations Will try to transfer outpatient on Friday, if unsuccessful will try to get port a catheter and discharge patient to follow-up with Dr. Mayorga for further chemotherapy Currently, vancomycin is held and patient is started on doxycycline. Will continue maintenance fluids NS at 80 mL/h Exam Vital Signs Temp Pulse Resp BP Pulse Ox O2 Del Method 97.7 F 89 14 125/83 95 Room Air 07/31/24 16:00 07/31/24 16:00 07/31/24 16:00 07/31/24 16:00 07/31/24 16:07/31/24 16:00 Narrative Exam General: Awake. Icteric. Sick looking HEENT: Normocephalic, atraumatic, mucous membranes moist. Heart: Regular rhythm and rate, no murmurs. Lungs: Clear to auscultation with no wheezing or crackles. Abdomen: Soft, nondistended, noted tenderness in the epigastric, umbilical and right hypochondriac region, positive bowel sounds. ?No guarding or rebound tenderness. Neurologic: Alert and oriented x3, no gross neurological deficit, and patient able to move all 4 extremities. Extremities: Bilateral 1+ pitting pedal edema noted, till above the ankles Skin: No rash or ecchymoses. Objective Labs 08/03/24 05:00 08/03/24 05:00 Labs: Laboratory Results - last 24 hr 07/30/24 07/30/24 07/31/24 19:30 23:05 02:48 WBC RBC Hgb Hct MCV MCH MCHC RDW Std Deviation Plt Count Neut % (Auto) Lymph % (Auto) [place] % (Auto) Eos % (Auto) Baso % (Auto) Neut # (Auto) Lymph # (Auto) [place] # (Auto) Eos # (Auto) Baso # (Auto) Immature Gran # (Auto) Absolute Nucleated RBC Immature Gran % Nucleated RBC % VBG pH VBG pCO2 VBG pO2 VBG O2 Sat (Rayo) VBG Base Excess Sodium Potassium Chloride Carbon Dioxide Anion Gap BUN Creatinine Estim Creat Clear Calc eGFR BUN/Creatinine Ratio Glucose Calculated Osmolality Lactic Acid 3.7 H 3.6 H 3.6 H Calcium Corrected Calcium Total Bilirubin Direct Bilirubin AST ALT Alkaline Phosphatase Total Protein Albumin Globulin Albumin/Globulin Ratio Vancomycin Trough Misc Test Result 07/31/24 07/31/24 07/31/24 06:44 09:08 11:00 WBC 30.7 H RBC 2.95 L Hgb 8.4 L Hct 26.4 L MCV 90 MCH 28.5 MCHC 31.8 RDW Std Deviation 65.1 H Plt Count 56 L Neut % (Auto) 90 H Lymph % (Auto) 4 L [place] % (Auto) 4 Eos % (Auto) 0 Baso % (Auto) 0 Neut # (Auto) 27.5 H Lymph # (Auto) 1.3 [place] # (Auto) 1.2 H Eos # (Auto) 0.0 Baso # (Auto) 0.1 Immature Gran # (Auto) 0.64 H Absolute Nucleated RBC 0.09 H Immature Gran % 2 H Nucleated RBC % 0 VBG pH VBG pCO2 VBG pO2 VBG O2 Sat (Rayo) VBG Base Excess Sodium 137 Potassium 3.9 Chloride 104 Carbon Dioxide 20.9 Anion Gap 12 BUN 40 H Creatinine 1.0 Estim Creat Clear Calc 78.0 eGFR > 60 BUN/Creatinine Ratio 40 H Glucose 86 Calculated Osmolality 282 Lactic Acid 4.2 H* 4.0 H Calcium 12.0 H Corrected Calcium 13.1 H* Total Bilirubin 6.5 H D Direct Bilirubin 4.7 H AST 30 ALT 12 Alkaline Phosphatase 285 H Total Protein 5.5 L Albumin 2.6 L Globulin 2.9 Albumin/Globulin Ratio 0.9 L Vancomycin Trough 22.6 H* Misc Test Result Platelets confirmed 07/31/24 15:34 WBC RBC Hgb Hct MCV MCH MCHC RDW Std Deviation Plt Count Neut % (Auto) Lymph % (Auto) [place] % (Auto) Eos % (Auto) Baso % (Auto) Neut # (Auto) Lymph # (Auto) [place] # (Auto) Eos # (Auto) Baso # (Auto) Immature Gran # (Auto) Absolute Nucleated RBC Immature Gran % Nucleated RBC % VBG pH 7.46 VBG pCO2 28 L VBG pO2 119 H VBG O2 Sat (Rayo) 100 H VBG Base Excess -3 Sodium Potassium Chloride Carbon Dioxide Anion Gap BUN Creatinine Estim Creat Clear Calc eGFR BUN/Creatinine Ratio Glucose Calculated Osmolality Lactic Acid Calcium Corrected Calcium Total Bilirubin Direct Bilirubin AST ALT Alkaline Phosphatase Total Protein Albumin Globulin Albumin/Globulin Ratio Vancomycin Trough Misc Test Result ABG Interpretation ABG results: 07/31/24 15:34 VBG pH 7.46 VBG pCO2 28 L VBG pO2 119 H VBG Base Excess -3 Quality Measures Quality Measures VTE prophylaxis Assessment & Plan Assessment Current Active Medications: Generic Name Dose Route Start Last Admin Trade Name Freq PRN Reason Stop Dose Admin Acetaminophen 1,000 mg 07/30/24 11:53 Acetaminophen 500 Mg Tablet PO 08/25/24 21:47 Q6H PRN pain and Fever >100.4 Protocol Docusate Sodium 100 mg 07/29/24 09:00 07/31/24 09:22 Docusate Sod 100 Mg Capsule PO 08/28/24 08:59 100 mg QDAY PONCE Administration Protocol Doxycycline Hyclate 100 mg 07/31/24 21:00 Doxycycline 100 Mg Tablet PO 08/07/24 20:59 BID PONCE Cefepime HCl 2 gm/ Sodium 50 mls @ 100 mls/hr 07/26/24 22:01 07/31/24 09:22 Chloride IV 08/02/24 22:00 100 mls/hr Q12HR PONCE Administration Albumin Human 25 gm in 100 mls @ 100 mls/hr 07/29/24 17:53 07/31/24 09:23 Albuminar-25 Ivpb IV 08/01/24 17:52 100 mls/hr QDAY PONCE Administration Pamidronate Disodium 60 mg/ 1,006.6667 mls @ 167.778 mls/hr 07/31/24 10:15 07/31/24 10:31 Sodium Chloride IV 07/31/24 16:14 167.778 mls/hr X1 ONE Administration Sodium Chloride 1,000 mls @ 80 mls/hr 07/31/24 10:31 07/31/24 12:30 Ns IV 07/31/24 23:00 80 mls/hr .[id number] ONE Administration Metoclopramide HCl 10 mg 07/27/24 13:12 07/28/24 03:51 Metoclopramide 5 Mg Tablet PO 08/26/24 13:11 10 mg Q8H PRN Administration nausea and vomiting Midodrine 5 mg 07/26/24 21:53 Midodrine 5 Mg Tablet PO 08/25/24 21:59 TID PRN SBP<90 and DBP<50 Morphine Sulfate 30 mg 07/28/24 14:00 07/31/24 14:09 Morphine Sulf 30 Mg Tabcr PO 08/02/24 13:59 Not Given Q12H PONCE Protocol Oxycodone HCl 5 mg 07/27/24 13:12 07/29/24 09:50 Oxycodone Hcl 5 Mg Ir Tab PO 08/01/24 13:11 5 mg Q6H PRN Administration SEVERE BREAKTRU PAIN Pantoprazole Sodium 40 mg 07/27/24 09:00 07/31/24 09:22 Pantoprazole 40 Mg Tablet PO 08/26/24 08:59 40 mg QDAY PONCE Administration Sennosides 1 tab 07/28/24 22:23 Senna Tablet PO 08/27/24 22:22 QDAY PRN CONSTIPATION Protocol Plan 54-year-old male with past medical history of metastatic pancreatic cancer, depression, anxiety, PTSD, PUD, and degenerative disc disease was admitted to the hospital on 07/26/2024 for right parotitis. 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 Hansen is consulted - Patient was started on bisphosphonates - Will continue to monitor calcium #Right parotitis, resolved #Leukocytosis, likely reactive in the setting of malignancy Patient came in with complaints of right jaw pain along with right ear pain and decreased hearing. Patient had a face CT which showed right parotitis. Patient does not have any impaired hearing at this time. WBC 33, Blood cultures negative after 48hrs Plan: Cefepime, and Flagyl (07/26/2024?) Restarted vancomycin on 07/28 as patient developed febrile episodes, stopped as of 07/31 and started on DOxycycline 100mg orally twice daily Pain management with Tylenol, morphine 15mg twice daily as needed for pain and oxycodone 5mg thrice daily as needed for breakthrough pain. Will continue to monitor #Pancreatic malignancy - Patient was diagnosed with pancreatic cancer in 06/2024 - Patient did not have any Chemo-Port yet because of the insurance issues Plan - Pain management with morphine 15 mg twice daily as needed for pain and oxycodone 5 Mg thrice daily as needed for breakthrough pain - Started transfer process as we do not have any inpatient oncology - Discussed about the case with Dr. Pascual and Dr. Landers - Consulted Dr. 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 metastasis - Peripheral smear did not show any evidence of leukemia - Held all anticoagulation for now - Will monitor for bleeding manifestations and will transfuse platelets if needed #Lactic acidosis, resolving Patient's lactic acid was 4.5 on admission and down trended to 2.9, again uptrended to 4 Could be in the setting of infection vs malignancy with metastases Plan: IV fluids Will trend lactic acid Continue to monitor #Hyperbilirubinemia Patient's hemoglobin is 6.5 today from 1.6 on 07/14/2024 This could be secondary to the patient's liver metastases versus the increased pancreatic mass causing hyperbilirubinemia due to blockage Plan: GI consulted, will appreciate recommendations #Acute anemia, likely blood loss - stable - Hemoglobin this morning is 8.5 - Patient denies any bleeding manifestations - Stool for occult blood is ordered - A unit of PRBC is transfused on 07/27 plan - will monitor CBC - Will transfuse if hemoglobin is less than 7 #UTI Patient's UA was positive for bacteria Patient stated that he has been having some increased urgency along with hesitation. Urine culture ordered showed no growth Plan: Patient is currently on cefepime, doxycycline Continue to monitor Chronic diseases: #Hx of metastatic pancreatic cancer #Hx of depression anxiety #Hx of PUD. Patient was supposed to be seeing his oncologist today, but given symptoms he was asked to come to the ED and was not seen by oncologist. Abdomen/pelvis CT which showed malignant ascites, and focal area of edema in the kidneys, and again noted the necrotic mass the tail of the pancreas with that increase in size from 6 x 6.5 cm on June to 6.4 x 8.4 cm today. Protonix 40 daily Disposition: Patient admitted for right parotitis. Diet: regular GI prophylaxis: protonix DVT prophylaxis: heparin subcu Code: Full Patient plan of care was discussed with the attending physician, Dr. Lopez and senior resident Dr. Nadya Oviedo, PGY1 Attending Provider Attestation/Addendum I attest that I was physically present for the evaluation, physical examination, lab and imaging review of the patient with the residents. I discussed the case with the residents and agree with the findings and plans of care as documented above. Carter Lopez MD
[2024-07-31] MEDS: oxyCODONE HCL 5 MG IR TAB PO (17:00)
[2024-08-01] VITALS: BP 136/89; PULSE 102; PULSE 99; RESP 18; TEMP 36.3; O2SAT 99
[2024-08-01] MEDS: MORPHINE SULF 30 MG TABCR PO (02:19)
[2024-08-01 04:00] VITALS: BP 130/69; PULSE 86; PULSE 99; RESP 25; TEMP 36.6; O2SAT 99
[2024-08-01 06:10] LABS: Basophils # (Auto) 0.1 Thou/mm3 (0.0-0.2); Basophils % (Auto) 0 % (0-2.5); Eosinophils % (Auto) 0 % (0-10); Hematocrit 25.1 % (41.0-53.0); Immature Granulocytes % (Auto) 2 % (0-0); Immature Granulocytes Auto 0.71 Thou/mm3 (0.00-0.00); Lymphocytes # (Auto) 1.3 Thou/mm3 (1.0-4.8); Lymphocytes % (Auto) 3 % (10-50); Mean Corpuscular HGB Conc 32.3 g/dl (31.0-37.0); Mean Corpuscular Hemoglobin 28.4 pg (25.0-35.0); Mean Corpuscular Volume 88 fL (80-100); Monocytes # (Auto) 1.5 Thou/mm3 (0.0-0.8); Monocytes % (Auto) 4 % (0-12); Neutrophils # (Auto) 33.9 Thou/mm3 (1.8-7.7); Neutrophils % (Auto) 91 % (37-80); Nucleated Red Blood Cell # 0.09 Thou/mm3 (0.00-0.00); Nucleated Red Blood Cell % 0 /100 WBC (0); RDW Standard Deviation 65.7 fL (35.1-43.9); Red Blood Count 2.85 Miln/mm3 (4.50-5.90)
[2024-08-01 06:13] LABS: INR 1.8 (0.9-1.3); Prothrombin Time 19.3 Seconds (9.0-12.2)
[2024-08-01 06:15] LABS: White Blood Count 37.4 Thou/mm3 (3.8-10.6)
[2024-08-01 06:16] LABS: Hemoglobin 8.1 g/dL (13.5-16.0); Platelet Count 32 Thou/mm3 (140-440)
[2024-08-01 06:23] LABS: Alanine Aminotransferase 11 U/L (10-49); Albumin, Serum 2.4 gm/dL (3.5-5.0); Albumin/Globulin Ratio 0.8 (1.2-2.2); Alkaline Phosphatase 263 U/L (46-116); Anion Gap 13 (7-16); Aspartate Amino Transferase 32 U/L (0-34); BUN/Creatinine Ratio 40 Ratio (12-20); Blood Urea Nitrogen 40 mg/dL (9-23); Calcium 12.3 mg/dL (8.3-10.6); Carbon Dioxide 20.1 mMol/L (20.0-31.0); Chloride 108 mMol/L (98-107); Globulin 2.9 gm/dL (2.3-3.5); Glucose 77 mg/dL (74-106); Magnesium 2.1 mg/dL (1.6-2.6); Osmolality,Calculated 289 (275-295); Phosphorous 2.2 mg/dL (2.4-5.1); Sodium 141 mMol/L (136-145); Total Protein 5.3 gm/dL (5.7-8.2); eGFR > 60 See Note
[2024-08-01 06:27] LABS: Calcium (Corrected) 13.6 mg/dL (8.5-10.1)
[2024-08-01 06:52] LABS: Slide Review Platelets confirmed
[2024-08-01 07:05] LABS: Path Review Blood Smear Sent to Pathologist
[2024-08-01 08:00] VITALS: BP 124/73; PULSE 102; PULSE 98; RESP 19; TEMP 36.4; O2SAT 99
[2024-08-01] MEDS: DOXYCYCLINE 100 MG TABLET PO (09:17)
[2024-08-01] MEDS: PANTOPRAZOLE 40 MG TABLET PO (09:17)
[2024-08-01] MEDS: ALBUMIN HUMAN 25% IVPB 25 GM/100 ML BTL IV ×2 (09:28→20:45)
[2024-08-01] MEDS: CEFEPIME INJ 2 GM in SODIUM CHLORIDE 0.9% (Popper) 50 ML IV ×2 (10:03→20:45)
--- NOTE | 2024-08-01 11:39 | ESPR_ITS ---
Documentation for date of: 08/01/24 Subjective Subjective Interval history: Bridger is a 54-year-old male with past medical history of metastatic pancreatic cancer, depression, anxiety, PTSD, PUD, and degenerative disc disease who is currently admitted for acute parotitis on patient was recently discharged from the hospital on 07/08/2024 after he was found to have metastasis of pancreatic cancer. He sees Dr. Pascual outpatient. Denies family history of pancreatic cancer, however his father had colorectal cancer. He has not been eating much, has been losing weight, and still has not gotten chemotherapy done. He is supposed to get his Chemo-Port done Friday. Patient was to get transferred for evaluation of necrotic mass in pancreas, however patient was rejected from numerous facilities. Family currently at bedside who also states that patient has been losing weight, and has had poor appetite as well. ED course: Initially came in normotensive and afebrile. Initial labs were relevant for leukocytosis, low hemoglobin, hyponatremia, lactic acidosis, hyperbilirubinemia, elevated procalcitonin, and UA was positive for bilirubin and bacteria. Initial imaging included chest x-ray which showed no active disease, face CT which showed suspicion for right parotiditis, and abdomen/pelvis CT which showed malignant ascites, and focal area of edema in the kidneys, and again noted the necrotic mass the tail of the pancreas with that increase in size from 6 x 6.5 cm on June to 6.4 x 8.4 cm today. Patient was attempted to be transferred given the necrotic mass in the pancreas for possible surgical intervention, but after attempt was made to transfer multiple facilities stated that patient could be treated with antibiotics in the hospital and did not require any surgical intervention at this time. 08/01/2024 patient currently seen in telemetry. Mom at bedside. Blood pressure 124/73, heart rate 98. WBC 37.4, hemoglobin 8.1, platelets 32,000. INR 1.8. Sodium 141, potassium 4, BUN 40, creatinine 1.0, glucose 77, calcium 13.6, phosphorus 2.2, magnesium 2.1, total bilirubin 7, alk phos 263, albumin 2.4. Review of Systems Review of Systems Narrative Review of Systems: Patient with significant weakness. Denies any chest pain, shortness of breath. Appetite extremely poor. Complaining of generalized pain all over-on oxycodone and morphine Exam Vital Signs Temp Pulse Resp BP Pulse Ox O2 Del Method 36.4 C 98 19 124/73 99 Room Air 08/01/24 08:00 08/01/24 08:00 08/01/24 08:00 08/01/24 08:00 08/01/24 08:00 08/01/24 08:00 Narrative Exam GENERAL APPEARANCE: Sick looking gentleman currently seen in telemetry. Jaundiced Notedlost weight HEENT: EOMI, PERRLA NECK: Neck supple, no JVD or bruit CARDIOVASCULAR: Heart regular, no murmurs LUNGS/CHEST: Chest clear to auscultation. No rales, rhonchi, wheezing ABDOMEN: Soft, nontender, nondistended. No masses. Normal bowel sounds. EXTREMITIES: 2+ edema noted in the lower extremities SKIN: Skin exam normal without any rashes MUSCULOSKELETAL: In bed NEUROLOGICAL : No neurological deficits. Alert and awake Objective Labs 08/01/24 05:22 08/01/24 05:22 Labs: Laboratory Results - last 24 hr 07/31/24 08/01/24 15:34 05:22 WBC 37.4 H* D RBC 2.85 L Hgb 8.1 L Hct 25.1 L MCV 88 MCH 28.4 MCHC 32.3 RDW Std Deviation 65.7 H Plt Count 32 L D Neut % (Auto) 91 H Lymph % (Auto) 3 L [place] % (Auto) 4 Eos % (Auto) 0 Baso % (Auto) 0 Neut # (Auto) 33.9 H Lymph # (Auto) 1.3 [place] # (Auto) 1.5 H Eos # (Auto) 0.0 Baso # (Auto) 0.1 Immature Gran # (Auto) 0.71 H Absolute Nucleated RBC 0.09 H Immature Gran % 2 H Nucleated RBC % 0 Smear Path Review Sent to Pathologist PT 19.3 H D INR 1.8 H APTT 37.0 H VBG pH 7.46 VBG pCO2 28 L VBG pO2 119 H VBG O2 Sat (Rayo) 100 H VBG Base Excess -3 Sodium 141 Potassium 4.0 Chloride 108 H Carbon Dioxide 20.1 Anion Gap 13 BUN 40 H Creatinine 1.0 Estim Creat Clear Calc 78.0 eGFR > 60 BUN/Creatinine Ratio 40 H Glucose 77 Calculated Osmolality 289 Calcium 12.3 H Corrected Calcium 13.6 H* Phosphorus 2.2 L Magnesium 2.1 Total Bilirubin 7.0 H D AST 32 ALT 11 Alkaline Phosphatase 263 H D Total Protein 5.3 L Albumin 2.4 L Globulin 2.9 Albumin/Globulin Ratio 0.8 L Misc Test Result Platelets confirmed ABG Interpretation ABG results: 07/31/24 15:34 VBG pH 7.46 VBG pCO2 28 L VBG pO2 119 H VBG Base Excess -3 Assessment & Plan Assessment and plan (1) Pancreatic cancer metastasized to liver: Status: Acute Additional Assessment & Plan Additional Plan: 54-year-old male with past medical history of metastatic pancreatic cancer, depression, anxiety, PTSD, PUD, and degenerative disc disease was admitted to the hospital on 07/26/2024 for right parotitis. #Hypercalcemia, worsening #Elevated alkaline phosphatase Calcium 13.8 This hypercalcemia is likely multifactorial likely related to immobilization and humoral hypercalcemia of malignancy Plan: ? Recommend to check activated vitamin D and in addition to 25 vitamin D, parathyroid related peptide and PTH ? Continue with fluids ?Patient did receive pamidronate 1 dose. Will add calcitonin. ? Encourage mobilization with PT ? Trend with CMP ? Recommend laxatives for worsening constipation #Lactic acidosis, improving Currently 4.0 Could be in the setting of infection vs malignancy with metastases Plan: ? IV fluids ?Fluid bolus was given #Acute anemia, likely blood loss - stable #Right parotitis, resolved #Leukocytosis, likely reactive in the setting of malignancy #Pancreatic malignancy #Hyperbilirubinemia #UTI #Hx of metastatic pancreatic cancer #Hx of depression anxiety #Hx of PUD. Above handled by primary hospitalist team
[2024-08-01] MEDS: SODIUM CHLORIDE 0.9% 1000 ML 1,000 ML 150 ML IV ×2 (11:43→17:40)
[2024-08-01 12:00] VITALS: BP 130/72; PULSE 100; PULSE 80; RESP 20; TEMP 36.4; O2SAT 99
[2024-08-01] MEDS: CALCITONIN, SALMON SYNTH INJ 1 UNIT/0.005 ML VIAL 200 UNIT SC (12:09)
--- NOTE | 2024-08-01 12:26 | PD.RESPRO ---
Documentation for date of: 08/01/24 Subjective Subjective Interval history: No overnight events. Labs significant for uptrending of WBC 30.7-37. Total billirubin uptrended to 7, direct T. linus 4.7, calcium increased to 13.6. Nephrology started patient on calcitonin and we will continue IVF. Mother and father updated at bedside, GOC held with mother yesterday, as of now patient full code per his initial wish. Patient started on rifaxamin and lactulose for bowl movements and encephalopathy. Exam Vital Signs Temp Pulse Resp BP Pulse Ox O2 Del Method 97.6 F 98 19 124/73 99 Room Air 08/01/24 08:00 08/01/24 08:00 08/01/24 08:00 08/01/24 08:00 08/01/24 08:00 08/01/24 08:00 Narrative Exam GENERAL APPEARANCE: Sick looking gentleman currently seen in telemetry. HEENT: EOMI, PERRLA NECK: Neck supple, no JVD or bruit CARDIOVASCULAR: Heart regular, no murmurs LUNGS/CHEST: Chest clear to auscultation. No rales, rhonchi, wheezing ABDOMEN: Soft, nontender, nondistended. No masses. Normal bowel sounds. EXTREMITIES: Edema noted in the lower extremities SKIN: Jaundice noted of upper extremities MUSCULOSKELETAL: In bed NEUROLOGICAL : No neurological deficits. Less alert and awake compared to yesterday Objective Labs 08/01/24 05:22 08/01/24 05:22 Labs: Laboratory Results - last 24 hr 07/31/24 08/01/24 15:34 05:22 WBC 37.4 H* D RBC 2.85 L Hgb 8.1 L Hct 25.1 L MCV 88 MCH 28.4 MCHC 32.3 RDW Std Deviation 65.7 H Plt Count 32 L D Neut % (Auto) 91 H Lymph % (Auto) 3 L [place] % (Auto) 4 Eos % (Auto) 0 Baso % (Auto) 0 Neut # (Auto) 33.9 H Lymph # (Auto) 1.3 [place] # (Auto) 1.5 H Eos # (Auto) 0.0 Baso # (Auto) 0.1 Immature Gran # (Auto) 0.71 H Absolute Nucleated RBC 0.09 H Immature Gran % 2 H Nucleated RBC % 0 Smear Path Review Sent to Pathologist PT 19.3 H D INR 1.8 H APTT 37.0 H VBG pH 7.46 VBG pCO2 28 L VBG pO2 119 H VBG O2 Sat (Rayo) 100 H VBG Base Excess -3 Sodium 141 Potassium 4.0 Chloride 108 H Carbon Dioxide 20.1 Anion Gap 13 BUN 40 H Creatinine 1.0 Estim Creat Clear Calc 78.0 eGFR > 60 BUN/Creatinine Ratio 40 H Glucose 77 Calculated Osmolality 289 Calcium 12.3 H Corrected Calcium 13.6 H* Phosphorus 2.2 L Magnesium 2.1 Total Bilirubin 7.0 H D AST 32 ALT 11 Alkaline Phosphatase 263 H D Total Protein 5.3 L Albumin 2.4 L Globulin 2.9 Albumin/Globulin Ratio 0.8 L Misc Test Result Platelets confirmed ABG Interpretation ABG results: 07/31/24 15:34 VBG pH 7.46 VBG pCO2 28 L VBG pO2 119 H VBG Base Excess -3 Quality Measures Quality Measures VTE prophylaxis Assessment & Plan Assessment Current Active Medications: Generic Name Dose Route Start Last Admin Trade Name Freq PRN Reason Stop Dose Admin Acetaminophen 1,000 mg 07/30/24 11:53 Acetaminophen 500 Mg Tablet PO 08/25/24 21:47 Q6H PRN pain and Fever >100.4 Protocol Calcitonin [place] 200 unit 08/01/24 11:45 08/01/24 12:09 Calcitonin, [place] Synth Inj 1 Unit/0.005 Ml Vial SC 08/04/24 11:44 200 unit QDAY PONCE Administration Docusate Sodium 100 mg 07/29/24 09:00 08/01/24 09:32 Docusate Sod 100 Mg Capsule PO 08/28/24 08:59 Not Given QDAY [facility] Protocol Doxycycline Hyclate 100 mg 07/31/24 21:00 08/01/24 09:17 Doxycycline 100 Mg Tablet PO 08/07/24 20:59 100 mg BID PONCE Administration Cefepime HCl 2 gm/ Sodium 50 mls @ 100 mls/hr 07/26/24 22:01 08/01/24 10:03 Chloride IV 08/02/24 22:00 100 mls/hr Q12HR PONCE Administration Sodium Chloride 1,000 mls @ 150 mls/hr 08/01/24 11:15 08/01/24 11:43 Ns IV 08/31/24 11:14 150 mls/hr .Q6H40M PONCE Administration Albumin Human 25 gm in 100 mls @ 100 mls/hr 08/01/24 21:00 Albuminar-25 Ivpb IV 08/04/24 20:59 BID PONCE Lactulose 10 gm 08/01/24 14:00 Lactulose Syrup 20 Gm/30 Ml Udc PO 08/31/24 13:59 TID PONCE Protocol Metoclopramide HCl 10 mg 07/27/24 13:12 07/28/24 03:51 Metoclopramide 5 Mg Tablet PO 08/26/24 13:11 10 mg Q8H PRN Administration nausea and vomiting Midodrine 5 mg 07/26/24 21:53 Midodrine 5 Mg Tablet PO 08/25/24 21:59 TID PRN SBP<90 and DBP<50 Morphine Sulfate 30 mg 07/28/24 14:00 08/01/24 02:19 Morphine Sulf 30 Mg Tabcr PO 08/02/24 13:59 30 mg Q12H PONCE Administration Protocol Oxycodone HCl 5 mg 07/27/24 13:12 07/31/24 17:00 Oxycodone Hcl 5 Mg Ir Tab PO 08/01/24 13:11 5 mg Q6H PRN Administration SEVERE BREAKTRU PAIN Pantoprazole Sodium 40 mg 07/27/24 09:00 08/01/24 09:17 Pantoprazole 40 Mg Tablet PO 08/26/24 08:59 40 mg QDAY PONCE Administration Rifaximin 550 mg 08/01/24 21:00 Rifaximin 550 Mg Tablet PO 08/08/24 20:59 BID PONCE Sennosides 1 tab 07/28/24 22:23 Senna Tablet PO 08/27/24 22:22 QDAY PRN CONSTIPATION Protocol Plan 54-year-old male with past medical history of metastatic pancreatic cancer, depression, anxiety, PTSD, PUD, and degenerative disc disease was admitted to the hospital on 07/26/2024 for right parotitis. 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 Hansen onboard, reccs are greatly appreciated - Calcitonin started - Will continue IVF #Right parotitis, resolved #Leukocytosis, likely reactive in the setting of malignancy Patient came in with complaints of right jaw pain along with right ear pain and decreased hearing. Patient had a face CT which showed right parotitis. Patient does not have any impaired hearing at this time. WBC 33, Blood cultures negative after 48hrs Plan: Cefepime, and Flagyl (07/26/2024?) Restarted vancomycin on 07/28 as patient developed febrile episodes, stopped as of 07/31 and started on DOxycycline 100mg orally twice daily Pain management with Tylenol, morphine 15mg twice daily as needed for pain and oxycodone 5mg thrice daily as needed for breakthrough pain. Will continue to monitor #Pancreatic malignancy with metastasis - Patient was diagnosed with pancreatic cancer in 06/2024 - Patient did not have any Chemo-Port yet because of the insurance issues Plan - Pain management with morphine 15 mg twice daily as needed for pain and oxycodone 5 Mg thrice daily as needed for breakthrough pain - Started transfer process as we do not have any inpatient oncology - Discussed about the case with Dr. Pascual and Dr. Landers - Consulted Dr. 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 metastasis - Peripheral smear did not show any evidence of leukemia - Held all anticoagulation for now - Will monitor for bleeding manifestations and will transfuse platelets if needed #Lactic acidosis, resolving Patient's lactic acid was 4.5 on admission and down trended to 2.9, again uptrended to 4 Could be in the setting of infection vs malignancy with metastases Plan: IV fluids Will trend lactic acid Continue to monitor #Hyperbilirubinemia Patient's hemoglobin is 6.5 today from 1.6 on 07/14/2024 This could be secondary to the patient's liver metastases versus the increased pancreatic mass causing hyperbilirubinemia due to blockage Plan: GI consulted, will appreciate recommendations #Acute anemia, likely blood loss - stable - Hemoglobin this morning is 8.5 - Patient denies any bleeding manifestations - Stool for occult blood is ordered - A unit of PRBC is transfused on 07/27 plan - will monitor CBC - Will transfuse if hemoglobin is less than 7 #UTI Patient's UA was positive for bacteria Patient stated that he has been having some increased urgency along with hesitation. Urine culture ordered showed no growth Plan: Patient is currently on cefepime, doxycycline Continue to monitor Chronic diseases: #Hx of metastatic pancreatic cancer #Hx of depression anxiety #Hx of PUD. Patient was supposed to be seeing his oncologist today, but given symptoms he was asked to come to the ED and was not seen by oncologist. Abdomen/pelvis CT which showed malignant ascites, and focal area of edema in the kidneys, and again noted the necrotic mass the tail of the pancreas with that increase in size from 6 x 6.5 cm on June to 6.4 x 8.4 cm today. Protonix 40 daily Disposition: Patient pending transfer to tertiary facility for inpatient chemotherapy Diet: regular GI prophylaxis: protonix DVT prophylaxis: heparin subcu Code: Full Patient plan of care was discussed with my attending Dr. River Covington, PGY2 Attending Provider Attestation/Addendum I have discussed and was present for the essential components of the history, physical examination, diagnosis, and treatment plan with the resident. I agree with the patient's care as documented by the resident and amended herein by me. Luke Holman DO. Although this document has been carefully reviewed, there may still be some phonetic and other typographical errors. These errors are purely grammatical due to imperfections in the software program and should not be construed in any way to compromise the substance of the patient's medical care during this visit.
[2024-08-01] MEDS: MORPHINE SULF INJ 10 MG/ML VIAL 2 MG IVP (13:25)
[2024-08-01 16:00] VITALS: BP 123/70; PULSE 105; PULSE 106; RESP 20; TEMP 36.3; O2SAT 96
--- NOTE | 2024-08-01 16:09 | PC.CC ---
[id number] Holman and discussed about the transfer request which is on hold for now. I informed him that per handoff insurance [facility] the [facility] TC stated patient infection needs to be resolved and reach them again on Friday if transfer is still needed. Dr. Holman stated pt will be reevaluated tomorrow and if there is still need for transfer he/his team will contact transfer center tomorrow. ?
--- NOTE | 2024-08-01 17:15 | PD.IMPROG ---
Documentation for date of: 08/01/24 Subjective Subjective Interval history: Patient with necrotic mass tail of the pancreas as well as impending metastasis from the underlying pancreatic malignancy hypercalcemia 13.1 And abnormal liver function hepatic metastasis overall prognosis remains dismal and poor Exam Vital Signs Temp Pulse Resp BP Pulse Ox O2 Del Method 97.5 F 106 H 20 130/72 99 Room Air 08/01/24 12:00 08/01/24 16:00 08/01/24 12:00 08/01/24 12:00 08/01/24 12:00 08/01/24 12:00 Objective Labs 08/01/24 05:22 08/01/24 05:22 Labs: Laboratory Results - last 24 hr 08/01/24 05:22 WBC 37.4 H* D RBC 2.85 L Hgb 8.1 L Hct 25.1 L MCV 88 MCH 28.4 MCHC 32.3 RDW Std Deviation 65.7 H Plt Count 32 L D Neut % (Auto) 91 H Lymph % (Auto) 3 L [place] % (Auto) 4 Eos % (Auto) 0 Baso % (Auto) 0 Neut # (Auto) 33.9 H Lymph # (Auto) 1.3 [place] # (Auto) 1.5 H Eos # (Auto) 0.0 Baso # (Auto) 0.1 Immature Gran # (Auto) 0.71 H Absolute Nucleated RBC 0.09 H Immature Gran % 2 H Nucleated RBC % 0 Smear Path Review Sent to Pathologist PT 19.3 H D INR 1.8 H APTT 37.0 H Sodium 141 Potassium 4.0 Chloride 108 H Carbon Dioxide 20.1 Anion Gap 13 BUN 40 H Creatinine 1.0 Estim Creat Clear Calc 78.0 eGFR > 60 BUN/Creatinine Ratio 40 H Glucose 77 Calculated Osmolality 289 Calcium 12.3 H Corrected Calcium 13.6 H* Phosphorus 2.2 L Magnesium 2.1 Total Bilirubin 7.0 H D AST 32 ALT 11 Alkaline Phosphatase 263 H D Total Protein 5.3 L Albumin 2.4 L Globulin 2.9 Albumin/Globulin Ratio 0.8 L Misc Test Result Platelets confirmed Impressions Impression: Abnormal LFTs secondary to hepatic metastasis Mass tail of the pancreas, pancreatic cancer with metastasis Hypercalcemia thrombocytopenia Continue supportive care ABG Interpretation ABG results: 07/31/24 15:34 VBG pH 7.46 VBG pCO2 28 L VBG pO2 119 H VBG Base Excess -3 Assessment & Plan A&P Narrative 1. Stage IV pancreatic CA with liver mets. Admitted with abdominal pain right parotitis leukocytosis. 2. Awaiting port placement and chemo scheduled at the cancer treatment center. 3. Moderate pain in the right face and abdominal region. Recommend MS ER 30 mg twice daily routinely but may be held for sedation. Oxycodone 5 every 6 as needed. [place] containing acetaminophen will be DC'd as patient has elevated liver functions already. Will follow. Thank you for allowing me to evaluate this patient Time Spent With Patient Time: Total time spent is greater than 50% in coordination of care (as documented) at patient's floor/unit and/or counseling patient:
[2024-08-01] MEDS: metroNIDAZOLE/NS 500 MG IVPB 500 MG/100 ML BAG 200 MG IV ×2 (18:10→21:05)
[2024-08-01 19:59] LABS: Vitamin D 25 Hydroxy Total 42.3 ng/mL (7.3-40.2)
[2024-08-01 20:00] VITALS: BP 126/78; PULSE 100; PULSE 103; RESP 21; TEMP 37.1; O2SAT 95
[2024-08-01 20:03] LABS: Parathyroid Hormone Intact 4.6 pg/ml (18.5-88.0)
[2024-08-01] MEDS: rifaximin 550 MG TABLET PO (20:46)
[2024-08-02] VITALS: BP 136/82; PULSE 96; PULSE 99; RESP 19; TEMP 36.4; O2SAT 95
[2024-08-02] MEDS: SODIUM CHLORIDE 0.9% 1000 ML 1,000 ML 150 ML IV ×2 (00:36→07:40)
[2024-08-02] MEDS: MORPHINE SULF 30 MG TABCR PO (02:18)
[2024-08-02 04:00] VITALS: BP 128/75; PULSE 95; PULSE 96; RESP 19; TEMP 36.7; O2SAT 97
[2024-08-02] MEDS: metroNIDAZOLE/NS 500 MG IVPB 500 MG/100 ML BAG 200 MG IV (05:41)
[2024-08-02 05:58] LABS: Basophils # (Auto) 0.1 Thou/mm3 (0.0-0.2); Basophils % (Auto) 0 % (0-2.5); Eosinophils % (Auto) 0 % (0-10); Hematocrit 23.2 % (41.0-53.0); Immature Granulocytes % (Auto) 2 % (0-0); Immature Granulocytes Auto 0.66 Thou/mm3 (0.00-0.00); Lymphocytes # (Auto) 1.1 Thou/mm3 (1.0-4.8); Lymphocytes % (Auto) 3 % (10-50); Mean Corpuscular HGB Conc 31.9 g/dl (31.0-37.0); Mean Corpuscular Hemoglobin 28.5 pg (25.0-35.0); Mean Corpuscular Volume 89 fL (80-100); Monocytes # (Auto) 1.8 Thou/mm3 (0.0-0.8); Monocytes % (Auto) 4 % (0-12); Neutrophils # (Auto) 36.9 Thou/mm3 (1.8-7.7); Neutrophils % (Auto) 91 % (37-80); Nucleated Red Blood Cell # 0.14 Thou/mm3 (0.00-0.00); Nucleated Red Blood Cell % 0 /100 WBC (0); RDW Standard Deviation 67.2 fL (35.1-43.9)
[2024-08-02 06:13] LABS: Hemoglobin 7.4 g/dL (13.5-16.0); Platelet Count 36 Thou/mm3 (140-440)
[2024-08-02 06:14] LABS: White Blood Count 40.5 Thou/mm3 (3.8-10.6)
[2024-08-02 06:24] LABS: Alanine Aminotransferase 11 U/L (10-49); Albumin, Serum 2.4 gm/dL (3.5-5.0); Albumin/Globulin Ratio 0.9 (1.2-2.2); Alkaline Phosphatase 244 U/L (46-116); Anion Gap 15 (7-16); Aspartate Amino Transferase 34 U/L (0-34); BUN/Creatinine Ratio 43 Ratio (12-20); Bilirubin,Total 7.9 mg/dL (0.3-1.2); Blood Urea Nitrogen 43 mg/dL (9-23); Calcium 11.1 mg/dL (8.3-10.6); Calcium (Corrected) 12.4 mg/dL (8.5-10.1); Carbon Dioxide 18.3 mMol/L (20.0-31.0); Chloride 112 mMol/L (98-107); Globulin 2.8 gm/dL (2.3-3.5); Glucose 102 mg/dL (74-106); Osmolality,Calculated 299 (275-295); Potassium 3.9 mMol/L (3.4-5.1); Sodium 145 mMol/L (136-145); Total Protein 5.2 gm/dL (5.7-8.2); eGFR > 60 See Note
[2024-08-02 07:08] LABS: Slide Review Platelets confirmed
[2024-08-02 07:09] LABS: Path Review Blood Smear Sent to Pathologist
--- NOTE | 2024-08-02 07:38 | XR_ITS ---
Examination: Abdomen sonogram, Limited Date and time of exam: August 02, 2024 0819 hours INDICATIONS: Onset severe abdominal pain today, CT abdomen pelvis July 29, 2024 multiple hepatic metastases Technique: Real-time rodgers scale transabdominal sonographic images of the upper abdomen obtained. Findings: Absent gallbladder Normal common bile duct 0.3 cm Pancreatic head appears prominent 4.1 cm Mass in the tail the pancreas 5.9 cm x 7.5 cm Liver 20.3 cm multiple hepatic metastases, the largest in the right lobe of the liver 5.4 x 7 x 5.0 cm Normal hepatopedal portal venous flow Patent IVC IMPRESSION: Normal common bile duct Large mass pancreatic tail Multiple hepatic metastases
[2024-08-02 08:00] VITALS: BP 121/77; PULSE 96; PULSE 97; RESP 17; TEMP 36.2; O2SAT 96
[2024-08-02] MEDS: ALBUMIN HUMAN 25% IVPB 25 GM/100 ML BTL IV ×2 (09:02→21:12)
[2024-08-02] MEDS: CEFEPIME INJ 2 GM in SODIUM CHLORIDE 0.9% (Popper) 50 ML IV (09:03)
[2024-08-02] MEDS: CALCITONIN, SALMON SYNTH INJ 1 UNIT/0.005 ML VIAL 200 UNIT SC (09:06)
--- NOTE | 2024-08-02 09:31 | PD.RESPRO ---
Documentation for date of: 08/02/24 Subjective Subjective Interval history: 08/02/2024: Patient examined at bedside today. No acute overnight events. Patient appears to be weak and not eating currently. Patient's sodium today 145, potassium 2.9, T. bili 8, BUN/creatinine 93 and 1.0, glucose 102, white count 40, hemoglobin 7.4, platelets 36, AST 34, ALT 11, ALP 244, Albumin 2.4, urine output 200 mL. Vitals are stable at this point. No other complaints at this time. Exam Vital Signs Temp Pulse Resp BP Pulse Ox O2 Del Method 97.2 F 96 17 121/77 96 Room Air 08/02/24 08:00 08/02/24 08:00 08/02/24 08:00 08/02/24 08:00 08/02/24 08:00 08/02/24 08:00 Narrative Exam General: AAOx3, a bit lethargic, weak, looks older than he is. HEENT: Moist mucous membranes, conjunctiva clear, EOMI, PERRLA, Cardiovascular: S1, S2, radial pulses +2 bilat, RRR Pulmonary: CTAB bilat no cough, no wheezing GI: Distended, + bowel sounds, no guarding Extremities: + edema in lower extremities bilaterally, dorsalis pedis pulses +2 bilaterally Neuro: AAOx3, limited neurologic exam Skin: Has diffuse jaundice Psych: Limited cooperation Objective Labs 08/03/24 08:27 08/03/24 05:00 Labs: Laboratory Results - last 24 hr 07/31/24 08/02/24 09:08 05:15 WBC 40.5 H* RBC 2.60 L Hgb 7.4 L Hct 23.2 L MCV 89 MCH 28.5 MCHC 31.9 RDW Std Deviation 67.2 H Plt Count 36 L Neut % (Auto) 91 H Lymph % (Auto) 3 L Piatt % (Auto) 4 Eos % (Auto) 0 Baso % (Auto) 0 Neut # (Auto) 36.9 H Lymph # (Auto) 1.1 Piatt # (Auto) 1.8 H Eos # (Auto) 0.0 Baso # (Auto) 0.1 Immature Gran # (Auto) 0.66 H Absolute Nucleated RBC 0.14 H Immature Gran % 2 H Nucleated RBC % 0 Smear Path Review Sent to Pathologist Sodium 145 Potassium 3.9 Chloride 112 H Carbon Dioxide 18.3 L Anion Gap 15 BUN 43 H Creatinine 1.0 Estim Creat Clear Calc 78.0 eGFR > 60 BUN/Creatinine Ratio 43 H Glucose 102 Calculated Osmolality 299 H Calcium 11.1 H Corrected Calcium 12.4 H Total Bilirubin 7.9 H D AST 34 ALT 11 Alkaline Phosphatase 244 H Total Protein 5.2 L Albumin 2.4 L Globulin 2.8 Albumin/Globulin Ratio 0.9 L 25-OH Vitamin D Total 42.3 H PTH Intact 4.6 L Misc Test Result Platelets confirmed ABG Interpretation ABG results: 07/31/24 15:34 VBG pH 7.46 VBG pCO2 28 L VBG pO2 119 H VBG Base Excess -3 Quality Measures Quality Measures VTE prophylaxis Assessment & Plan Assessment Current Active Medications: Generic Name Dose Route Start Last Admin Trade Name Freq PRN Reason Stop Dose Admin Acetaminophen 1,000 mg 07/30/24 11:53 Acetaminophen 500 Mg Tablet PO 08/25/24 21:47 Q6H PRN pain and Fever >100.4 Protocol Calcitonin [place] 200 unit 08/01/24 11:45 08/02/24 09:06 Calcitonin, [place] Synth Inj 1 Unit/0.005 Ml Vial SC 08/04/24 11:44 200 unit QDAY PONCE Administration Docusate Sodium 100 mg 07/29/24 09:00 08/02/24 09:02 Docusate Sod 100 Mg Capsule PO 08/28/24 08:59 Not Given QDAY PONCE Protocol Sodium Chloride 1,000 mls @ 150 mls/hr 08/01/24 11:15 08/02/24 07:40 Ns IV 08/31/24 11:14 150 mls/hr .Q6H40M PONCE Administration Albumin Human 25 gm in 100 mls @ 100 mls/hr 08/01/24 21:00 08/02/24 09:02 Albuminar-25 Ivpb IV 08/04/24 20:59 100 mls/hr BID PONCE Administration Metronidazole 500 mg in 100 mls @ 200 mls/hr 08/01/24 16:42 08/02/24 05:41 Flagyl 500 Mg Iv IV 08/08/24 16:41 200 mls/hr Q8HR PONCE Administration Cefepime HCl 2 gm/ Sodium 50 mls @ 100 mls/hr 08/02/24 08:02 08/02/24 09:03 Chloride IV 08/09/24 08:01 100 mls/hr Q8HR PONCE Administration Lactulose 10 gm 08/01/24 14:00 08/02/24 05:41 Lactulose Syrup 20 Gm/30 Ml Udc PO 08/31/24 13:59 Not Given TID PONCE Protocol Metoclopramide HCl 10 mg 07/27/24 13:12 07/28/24 03:51 Metoclopramide 5 Mg Tablet PO 08/26/24 13:11 10 mg Q8H PRN Administration nausea and vomiting Midodrine 5 mg 07/26/24 21:53 Midodrine 5 Mg Tablet PO 08/25/24 21:59 TID PRN SBP<90 and DBP<50 Morphine Sulfate 30 mg 07/28/24 14:00 08/02/24 02:18 Morphine Sulf 30 Mg Tabcr PO 08/02/24 13:59 30 mg Q12H PONCE Administration Protocol Pantoprazole Sodium 40 mg 07/27/24 09:00 08/02/24 09:01 Pantoprazole 40 Mg Tablet PO 08/26/24 08:59 Not Given QDAY PONCE Rifaximin 550 mg 08/01/24 21:00 08/02/24 09:03 Rifaximin 550 Mg Tablet PO 08/08/24 20:59 Not Given BID PONCE Sennosides 1 tab 07/28/24 22:23 Senna Tablet PO 08/27/24 22:22 QDAY PRN CONSTIPATION Protocol Plan Assessment 54-year-old male with past medical history of metastatic pancreatic cancer, depression, anxiety, PTSD, PUD, and degenerative disc disease was admitted to the hospital on 07/26/2024 for right parotitis. #PTH independent hypercalcemia, improving #Elevated alkaline phosphatase #Hypoalbuminemia Calcium 12.4; PTH low (Appropriate response) 25 Hydroxyvitamin D 45.3 (Slightly elevated) QTc 438 This hypercalcemia is likely multifactorial likely related to immobilization and humoral hypercalcemia of malignancy (pancreatic cancer) Plan: ? F/u activated vitamin D, parathyroid related peptide ? Calcitonin 200 units subq qday ? Encourage mobilization with PT ? Trend with CMP ? Recommend laxatives for worsening constipation ? Albumin 25 gm IV BID #NAGMA #Starvation Ketosis #Lactic acidosis NAGMA related to starvation ketosis, no significant respiratory compensation at this time Plan: ? Trend with CMP ? Consider ordering ketone labs ? RD on consult, appreciate recs #Acute anemia, likely blood loss - stable #Right parotitis, resolved #Leukocytosis, likely reactive in the setting of malignancy #Pancreatic malignancy #Hyperbilirubinemia #UTI #Hx of metastatic pancreatic cancer #Hx of depression anxiety #Hx of PUD. Above handled by primary hospitalist team Patient seen and care discussed with my attending physician, Dr. Jade Vegas, PGY-1 Attending Provider Attestation/Addendum Patient seen and examined with resident physician Dr. Doss.Note reviewed, agree with findings and recommendations. My understanding-patient will be discharged on hospice.
--- NOTE | 2024-08-02 09:46 | PC.CC ---
Addendum entered by Pao Phipps RN 08/02/24 13:05: Dr. Holman called back and states [facility] did accept but after speaking to family they chose to do hospice and patient no longer needs transfer, [facility] aware by Dr. Holman Addendum entered by Pao Phipps RN 08/02/24 11:54: TBA refaxed to [facility] Addendum entered by Pao Phipps RN 08/02/24 11:54: Dr. Holman called back at this time and states that he spoke to Sheela at [facility] for transfer, Sheela called back and requested new notes and labs be sent, all clinical information requested faxed Addendum entered by Pao Phipps RN 08/02/24 09:56: Dr. Holman made aware and states he is going to round on patient now and will call back with update. Original Note: Sheela from [facility] called to get update on patient, she states her doctor said they can not start chemo if patient has active infection or IV antibiotics. Made Belkis aware that Dr. holman and team will be reevaluating patient this morning and will call with update. Sheela phone number is [phone]
[2024-08-02 10:17] LABS: Ammonia < 10 uMol/L (11-32)
--- NOTE | 2024-08-02 10:30 | PC.SS ---
Follow up note: Patient is still pending transfer higher level of care. If cannot be tranferred then possibly hospice. Physician team already spoke to patient's mother.
--- NOTE | 2024-08-02 10:48 | ECHO_ITS ---
Transthoracic Echo Report Ht (in): 66 Wt (lb): 152 Exam Location: Echo Lab Status: Inpatient Make Up Editor: Indications: Procedure Performed: BP: 121 / 77 HR: 96 Technical Quality: Technically Difficult Due to Altered Mental Status MEASUREMENTS (Male / Female) Normal Values 2D ECHO LV Diastolic Diameter PLAX 4.3 cm 4.2 - 5.9 / 3.9 - 5.3 cm LV Systolic Diameter PLAX 2.0 cm IVS Diastolic Thickness 0.8 cm 0.6 - 1.0 / 0.6 - 0.9 cm LVPW Diastolic Thickness 1.1 cm 0.6 - 1.0 / 0.6 - 0.9 cm LV Relative Wall Thickness 0.4 LVOT Diameter 2.0 cm LA Volume Index 25.7 cm?/m? 16 - 28 cm?/m? Ascending Aorta Diameter 3.1 cm DOPPLER AV Peak Velocity 138.0 cm/s AV Peak Gradient 7.6 mmHg LVOT Peak Velocity 147.0 cm/s LVOT Peak Gradient 8.6 mmHg AV Area Cont Eq pk 3.3 cm? PV Peak Velocity 122.0 cm/s PV Peak Gradient 6.0 mmHg FINDINGS Left Ventricle Normal left ventricular size, wall thickness, systolic function with no obvious regional wall motion abnormalities. Normal left ventricular diastolic filling pattern for age. The ejection fraction is visually estimated at 65%. Right Ventricle The right ventricle is dilated. The estimated right ventricular systolic pressure can not be determined due to inadequate Doppler signal. Left Atrium The left atrium is normal by two-dimensional, color flow and Doppler imaging with no structural abnormalities, no thrombus formation present. Right Atrium The right atrium is normal by two-dimensional imaging, color flow and Doppler imaging with no structural abnormalities, no thrombus formation present. Atrial Septum The interatrial septum appears normal with no evidence of a shunt. Aorta The aorta is normal by two-dimensional, color flow and Doppler interrogation. Mitral Valve The mitral valve is normal by two-dimensional, color flow and Doppler interrogation. There is no significant mitral valve regurgitation, stenosis or prolapse. Aortic Valve The aortic valve is trileaflet and normal by two-dimensional, color flow and Doppler interrogation. There is no significant aortic valve regurgitation. Tricuspid Valve The tricuspid valve is normal by two-dimensional, color flow and Doppler interrogation. There is trace tricuspid regurgitation. Pulmonic Valve The pulmonic valve is not well visualized. There is no significant pulmonic valve regurgitation. Vessels The pulmonary artery appears normal. The inferior vena cava pulmonary and hepatic veins appear normal. Pericardium Pleural effusion noted. Trivial pericardial effusion noted. CONCLUSIONS Indications: Elevated JVP The transthoracic study is normal by two-dimensional, color flow imaging and Doppler interrogation. Normal left ventricular size and function. Approximate ejection fraction is 65%. Trace mitral and trace tricuspid regurgitation No wall motion abnormalities Michaela Santamaria (Electronically Signed) Final Date: 03 August 2024 09:07
[2024-08-02] MEDS: MORPHINE SULF INJ 10 MG/ML VIAL 2 MG IVP (10:56)
--- NOTE | 2024-08-02 11:04 | ESPR_ITS ---
Documentation for date of: 08/02/24 Subjective Subjective Interval history: Patient is seen and examined at bedside No acute overnight events. Patient appears drowsy and is responding to questions with yes or no Vitals are stable. Patient is saturating well on room air On physical examination, noted increase in pedal edema and JVD Labs showed uptrending WBC 40.5, likely reactive in the setting of ongoing pancreatic cancer rather than infective etiology as patient does not have any febrile episodes Corrected calcium is 12.4 and total bilirubin is 7.9 Ultrasound of liver is ordered to look for any intrahepatic or extrahepatic biliary dilation, to rule out CBD obstruction from pancreatic cancer - no evidence of biliary dilatation [facility] accepted patient for further management, but after discussing goals of care with the family they opted for hospice Ordered echocardiogram, will follow up Exam Vital Signs Temp Pulse Resp BP Pulse Ox O2 Del Method 97.2 F 96 17 121/77 96 Room Air 08/02/24 08:00 08/02/24 08:00 08/02/24 08:00 08/02/24 08:00 08/02/24 08:00 08/02/24 08:00 Narrative Exam General: Awake. Icteric. Sick looking HEENT: Normocephalic, atraumatic, mucous membranes moist. Heart: Regular rhythm and rate, no murmurs. Lungs: Clear to auscultation with no wheezing or crackles. Abdomen: Soft, nondistended, noted severe tenderness throughout the abdomen, positive bowel sounds. ?No guarding or rebound tenderness. Neurologic: Alert and oriented x3, no gross neurological deficit, and patient able to move all 4 extremities. Extremities: Bilateral 2+ pitting pedal edema noted, till above the ankles, increasing Skin: No rash or ecchymoses. Objective Labs 08/02/24 05:15 08/02/24 05:15 Labs: Laboratory Results - last 24 hr 07/31/24 08/02/24 08/02/24 09:08 05:15 09:48 WBC 40.5 H* RBC 2.60 L Hgb 7.4 L Hct 23.2 L MCV 89 MCH 28.5 MCHC 31.9 RDW Std Deviation 67.2 H Plt Count 36 L Neut % (Auto) 91 H Lymph % (Auto) 3 L [place] % (Auto) 4 Eos % (Auto) 0 Baso % (Auto) 0 Neut # (Auto) 36.9 H Lymph # (Auto) 1.1 [place] # (Auto) 1.8 H Eos # (Auto) 0.0 Baso # (Auto) 0.1 Immature Gran # (Auto) 0.66 H Absolute Nucleated RBC 0.14 H Immature Gran % 2 H Nucleated RBC % 0 Smear Path Review Sent to Pathologist Sodium 145 Potassium 3.9 Chloride 112 H Carbon Dioxide 18.3 L Anion Gap 15 BUN 43 H Creatinine 1.0 Estim Creat Clear Calc 78.0 eGFR > 60 BUN/Creatinine Ratio 43 H Glucose 102 Calculated Osmolality 299 H Calcium 11.1 H Corrected Calcium 12.4 H Total Bilirubin 7.9 H D AST 34 ALT 11 Alkaline Phosphatase 244 H Ammonia < 10 L Total Protein 5.2 L Albumin 2.4 L Globulin 2.8 Albumin/Globulin Ratio 0.9 L 25-OH Vitamin D Total 42.3 H PTH Intact 4.6 L Misc Test Result Platelets confirmed ABG Interpretation ABG results: 07/31/24 15:34 VBG pH 7.46 VBG pCO2 28 L VBG pO2 119 H VBG Base Excess -3 Quality Measures Quality Measures VTE prophylaxis Assessment & Plan Assessment Current Active Medications: Generic Name Dose Route Start Last Admin Trade Name Freq PRN Reason Stop Dose Admin Acetaminophen 1,000 mg 07/30/24 11:53 Acetaminophen 500 Mg Tablet PO 08/25/24 21:47 Q6H PRN pain and Fever >100.4 Protocol Calcitonin [place] 200 unit 08/01/24 11:45 08/02/24 09:06 Calcitonin, [place] Synth Inj 1 Unit/0.005 Ml Vial SC 08/04/24 11:44 200 unit QDAY PONCE Administration Docusate Sodium 100 mg 07/29/24 09:00 08/02/24 09:02 Docusate Sod 100 Mg Capsule PO 08/28/24 08:59 Not Given QDAY PONCE Protocol Sodium Chloride 1,000 mls @ 150 mls/hr 08/01/24 11:15 08/02/24 07:40 Ns IV 08/31/24 11:14 150 mls/hr .[id number] PONCE Administration Albumin Human 25 gm in 100 mls @ 100 mls/hr 08/01/24 21:00 08/02/24 09:02 Albuminar-25 Ivpb IV 08/04/24 20:59 100 mls/hr BID PONCE Administration Metronidazole 500 mg in 100 mls @ 200 mls/hr 08/01/24 16:42 08/02/24 05:41 Flagyl 500 Mg Iv IV 08/08/24 16:41 200 mls/hr Q8HR PONCE Administration Cefepime HCl 2 gm/ Sodium 50 mls @ 100 mls/hr 08/02/24 08:02 08/02/24 09:03 Chloride IV 08/09/24 08:01 100 mls/hr Q8HR PONCE Administration Lactulose 10 gm 08/01/24 14:00 08/02/24 05:41 Lactulose Syrup 20 Gm/30 Ml Udc PO 08/31/24 13:59 Not Given TID PONCE Protocol Metoclopramide HCl 10 mg 07/27/24 13:12 07/28/24 03:51 Metoclopramide 5 Mg Tablet PO 08/26/24 13:11 10 mg Q8H PRN Administration nausea and vomiting Midodrine 5 mg 07/26/24 21:53 Midodrine 5 Mg Tablet PO 08/25/24 21:59 TID PRN SBP<90 and DBP<50 Morphine Sulfate 30 mg 07/28/24 14:00 08/02/24 02:18 Morphine Sulf 30 Mg Tabcr PO 08/02/24 13:59 30 mg Q12H PONCE Administration Protocol Morphine Sulfate 2 mg 08/02/24 10:48 08/02/24 10:56 Morphine Sulf Inj 10 Mg/Ml Vial IVP 08/07/24 10:47 2 mg Q4HR PRN Administration Pain 7-10 Pantoprazole Sodium 40 mg 07/27/24 09:00 08/02/24 09:01 Pantoprazole 40 Mg Tablet PO 08/26/24 08:59 Not Given QDAY PONCE Rifaximin 550 mg 08/01/24 21:00 08/02/24 09:03 Rifaximin 550 Mg Tablet PO 08/08/24 20:59 Not Given BID PONCE Sennosides 1 tab 07/28/24 22:23 Senna Tablet PO 08/27/24 22:22 QDAY PRN CONSTIPATION Protocol Plan 54-year-old male with past medical history of metastatic pancreatic cancer, depression, anxiety, PTSD, PUD, and degenerative disc disease was admitted to the hospital on 07/26/2024 for right parotitis and pancreatic cancer. 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 Hansen onboard, recs are greatly appreciated - Calcitonin started #Right parotitis, resolved #Leukocytosis, likely reactive in the setting of malignancy Patient came in with complaints of right jaw pain along with right ear pain and decreased hearing. Patient had a face CT which showed right parotitis. Patient does not have any impaired hearing at this time. WBC 33, Blood cultures negative after 48hrs Plan: Discontinued all the antibiotics Will continue to monitor #Pancreatic malignancy with metastasis - Patient was diagnosed with pancreatic cancer in 06/2024 - Patient did not have any Chemo-Port yet because of the insurance issues Plan - Pain management with morphine 30 mg twice daily as needed for pain and oxycodone 5 Mg thrice daily as needed for breakthrough pain - Morphine 1mg IVP every 4th hrly as needed for pain - Started transfer process as we do not have any inpatient oncology but patient and his family wants to do hospice, so stopped transfer process - Discussed about the case with Dr. Pascual and Dr. Landers - Consulted Dr. 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 - Peripheral smear did not show any evidence of leukemia - Held all anticoagulation for now - Will monitor for bleeding manifestations and will transfuse platelets if needed #Lactic acidosis, resolving Patient's lactic acid was 4.5 on admission and down trended to 2.9, again uptrended to 4 Could be in the setting of infection vs malignancy with metastases #Hyperbilirubinemia Patient's bilirubin is 7.9 today from 1.6 on 07/14/2024 This could be secondary to the patient's liver metastases versus the increased pancreatic mass causing hyperbilirubinemia due to blockage will monitor for now #Acute anemia, likely blood loss - stable - Hemoglobin this morning is 8.5 - Patient denies any bleeding manifestations - Stool for occult blood is ordered - A unit of PRBC is transfused on 07/27 plan - will monitor CBC - Will transfuse if hemoglobin is less than 7 Chronic diseases: #Hx of metastatic pancreatic cancer #Hx of depression anxiety #Hx of PUD. Patient was supposed to be seeing his oncologist today, but given symptoms he was asked to come to the ED and was not seen by oncologist. Abdomen/pelvis CT which showed malignant ascites, and focal area of edema in the kidneys, and again noted the necrotic mass the tail of the pancreas with that increase in size from 6 x 6.5 cm on June to 6.4 x 8.4 cm today. Protonix 40 daily Disposition: Tele, planning for Hospice Diet: regular GI prophylaxis: protonix DVT prophylaxis: SCD Code: Full Patient plan of care was discussed with my attending Dr. River Oviedo, PGY1 Attending Provider Attestation/Addendum I have discussed and was present for the essential components of the history, physical examination, diagnosis, and treatment plan with the resident. I agree with the patient's care as documented by the resident and amended herein by me. Luke Holman, DO. Patient seen and evaluated this AM. No acute events overnight, patient very somnolent in the AM. Vital signs stable, patient afebrile overnight, WBC slightly increased to 40, hemoglobin 7.9, platelet count low but stable at 36. T. bili 7.9. [place] was [place] [facility] [place] after multiple calls with the transfer center however, after explaining this to the family, they decided that [facility] [place] and considering very poor prognosis, they did not want the patient to endure any more suffering or pain hence decided on hospice care. A hospice referral order was placed. While the patient is here, we will focus on comfort, I did discontinue antibiotics today, the patient has been afebrile since the , the patient was demonstrating a pneumonia at that time and does have the necrotic neoplastic mass in the tail of his pancreas which may be another source however blood cultures were negative, urine cultures were negative and the patient has been on antibiotics since admission. Patient was also fluid overloaded today, hence we will discontinue fluids at this time. Patient was demonstrating extensive DVT hence we ordered an echo however will cancel considering hospice at this point. I had multiple conversations with the patient's mother and father today, they are aware of the plan going forward. Although this document has been carefully reviewed, there may still be some phonetic and other typographical errors. These errors are purely grammatical due to imperfections in the software program and should not be construed in any way to compromise the substance of the patient's medical care during this visit.
[2024-08-02 12:00] VITALS: BP 122/72; PULSE 86; PULSE 96; RESP 19; TEMP 36.1; O2SAT 97
[2024-08-02] MEDS: LACTULOSE SYRUP 20 GM/30 ML UDC 10 GM PR ×2 (13:39→21:12)
--- NOTE | 2024-08-02 14:55 | PC.SS ---
Follow up note: SS spoke to physician team who states that patient was accepted for transfer for higher level of care but family cancelled plans and now prefer hospice services. SS spoke to patient's mother, Jocy, who confirmed they prefer hospice at SNF. They cannot provide 24 hour care at home. No preference on facility. SS sent out on [facility]. Patient's mother states she will need to speak to her ex as well for his input. SS will follow up with mother this afternoon on options.
[2024-08-02] MEDS: MORPHINE SULF INJ 10 MG/ML VIAL IVP (15:48)
[2024-08-02 16:00] VITALS: BP 132/77; PULSE 94; PULSE 98; RESP 18; TEMP 36.1; O2SAT 95
--- NOTE | 2024-08-02 16:15 | ESPR_ITS ---
Subjective Subjective Interval history: hx noted. asked to see regarding the very high wbc. likely from her CA as fever appears to have passed and cx are neg Exam Vital Signs Temp Pulse Resp BP Pulse Ox O2 Del Method 97.0 F 86 19 122/72 97 Room Air 08/02/24 12:00 08/02/24 12:00 08/02/24 12:00 08/02/24 12:00 08/02/24 12:00 08/02/24 12:00 Narrative Exam not seen. will see wed pm Objective - Internal Medicine Labs 08/02/24 05:15 08/02/24 05:15 Labs: Laboratory Results - last 24 hr 07/31/24 08/02/24 08/02/24 09:08 05:15 09:48 WBC 40.5 H* RBC 2.60 L Hgb 7.4 L Hct 23.2 L MCV 89 MCH 28.5 MCHC 31.9 RDW Std Deviation 67.2 H Plt Count 36 L Neut % (Auto) 91 H Lymph % (Auto) 3 L [place] % (Auto) 4 Eos % (Auto) 0 Baso % (Auto) 0 Neut # (Auto) 36.9 H Lymph # (Auto) 1.1 [place] # (Auto) 1.8 H Eos # (Auto) 0.0 Baso # (Auto) 0.1 Immature Gran # (Auto) 0.66 H Absolute Nucleated RBC 0.14 H Immature Gran % 2 H Nucleated RBC % 0 Smear Path Review Sent to Pathologist Sodium 145 Potassium 3.9 Chloride 112 H Carbon Dioxide 18.3 L Anion Gap 15 BUN 43 H Creatinine 1.0 Estim Creat Clear Calc 78.0 eGFR > 60 BUN/Creatinine Ratio 43 H Glucose 102 Calculated Osmolality 299 H Calcium 11.1 H Corrected Calcium 12.4 H Total Bilirubin 7.9 H D AST 34 ALT 11 Alkaline Phosphatase 244 H Ammonia < 10 L Total Protein 5.2 L Albumin 2.4 L Globulin 2.8 Albumin/Globulin Ratio 0.9 L 25-OH Vitamin D Total 42.3 H PTH Intact 4.6 L Misc Test Result Platelets confirmed ABG Interpretation ABG results: 07/31/24 15:34 VBG pH 7.46 VBG pCO2 28 L VBG pO2 119 H VBG Base Excess -3 Assessment & Plan A&P Narrative Leucocytosis pancreatic CA neg cx and no fever off abx fever seems likely to be due to her CA. steroids can also do this so if there is recent steroid administration that can be associated with leucocytosis earliest I can see is wed. pm Time Spent With Patient Time: Total time spent is greater than 50% in coordination of care (as documented) at patient's floor/unit and/or counseling patient:
--- NOTE | 2024-08-02 19:20 | PD.IMPROG ---
Documentation for date of: 08/02/24 Subjective Subjective Interval history: Uptrending WBC count most likely due to underlying malignancy Patient most likely going to hospice care No fever at the moment ID on board Exam Vital Signs Temp Pulse Resp BP Pulse Ox O2 Del Method 97.0 F 94 18 132/77 H 95 Room Air 08/02/24 16:00 08/02/24 16:00 08/02/24 16:00 08/02/24 16:00 08/02/24 16:00 08/02/24 16:00 Objective Labs 08/02/24 05:15 08/02/24 05:15 Labs: Laboratory Results - last 24 hr 07/31/24 08/02/24 08/02/24 09:08 05:15 09:48 WBC 40.5 H* RBC 2.60 L Hgb 7.4 L Hct 23.2 L MCV 89 MCH 28.5 MCHC 31.9 RDW Std Deviation 67.2 H Plt Count 36 L Neut % (Auto) 91 H Lymph % (Auto) 3 L [place] % (Auto) 4 Eos % (Auto) 0 Baso % (Auto) 0 Neut # (Auto) 36.9 H Lymph # (Auto) 1.1 [place] # (Auto) 1.8 H Eos # (Auto) 0.0 Baso # (Auto) 0.1 Immature Gran # (Auto) 0.66 H Absolute Nucleated RBC 0.14 H Immature Gran % 2 H Nucleated RBC % 0 Smear Path Review Sent to Pathologist Sodium 145 Potassium 3.9 Chloride 112 H Carbon Dioxide 18.3 L Anion Gap 15 BUN 43 H Creatinine 1.0 Estim Creat Clear Calc 78.0 eGFR > 60 BUN/Creatinine Ratio 43 H Glucose 102 Calculated Osmolality 299 H Calcium 11.1 H Corrected Calcium 12.4 H Total Bilirubin 7.9 H D AST 34 ALT 11 Alkaline Phosphatase 244 H Ammonia < 10 L Total Protein 5.2 L Albumin 2.4 L Globulin 2.8 Albumin/Globulin Ratio 0.9 L 25-OH Vitamin D Total 42.3 H PTH Intact 4.6 L Misc Test Result Platelets confirmed Impressions Impression: Metastatic pancreatic carcinoma Uptrending leukocytosis Continue supportive care ABG Interpretation ABG results: 07/31/24 15:34 VBG pH 7.46 VBG pCO2 28 L VBG pO2 119 H VBG Base Excess -3 Assessment & Plan A&P Narrative Leucocytosis pancreatic CA neg cx and no fever off abx fever seems likely to be due to her CA. steroids can also do this so if there is recent steroid administration that can be associated with leucocytosis earliest I can see is wed. pm Time Spent With Patient Time: Total time spent is greater than 50% in coordination of care (as documented) at patient's floor/unit and/or counseling patient:
[2024-08-02 20:00] VITALS: BP 125/67; PULSE 100; PULSE 103; RESP 19; TEMP 36.9; O2SAT 96
[2024-08-02] MEDS: CHLORpromAZINE INJ 25 MG/ML AMPULE 2ML IM (22:42)
--- NOTE | 2024-08-02 22:56 | PC.NURSE ---
spoke to [facility] about Thorazine IV PRN med since med when pulled from [facility] stated for deep IM use only and wanted clarification if we could give this med through IV. [facility] stated we can not give this med through IV and order needs to be changed to IM route. spoke to dr gutierrez and order was changed.
[2024-08-03] VITALS: BP 113/65; PULSE 104; PULSE 105; RESP 16; TEMP 36.8; O2SAT 99
[2024-08-03] MEDS: MORPHINE SULF INJ 10 MG/ML VIAL IVP ×3 (03:42→09:26)
[2024-08-03 04:00] VITALS: BP 121/64; PULSE 112; PULSE 115; RESP 18; TEMP 36.9; O2SAT 96
[2024-08-03] MEDS: LACTULOSE SYRUP 20 GM/30 ML UDC 10 GM PR (05:11)
[2024-08-03 05:27] LABS: Basophils # (Auto) 0.1 Thou/mm3 (0.0-0.2); Basophils % (Auto) 0 % (0-2.5); Eosinophils % (Auto) 0 % (0-10); Hematocrit 21.4 % (41.0-53.0); Immature Granulocytes % (Auto) 2 % (0-0); Immature Granulocytes Auto 0.69 Thou/mm3 (0.00-0.00); Lymphocytes # (Auto) 1.3 Thou/mm3 (1.0-4.8); Lymphocytes % (Auto) 4 % (10-50); Mean Corpuscular HGB Conc 31.8 g/dl (31.0-37.0); Mean Corpuscular Hemoglobin 28.1 pg (25.0-35.0); Mean Corpuscular Volume 88 fL (80-100); Monocytes # (Auto) 1.6 Thou/mm3 (0.0-0.8); Monocytes % (Auto) 5 % (0-12); Neutrophils # (Auto) 30.3 Thou/mm3 (1.8-7.7); Neutrophils % (Auto) 89 % (37-80); Nucleated Red Blood Cell # 0.19 Thou/mm3 (0.00-0.00); Nucleated Red Blood Cell % 1 /100 WBC (0); RDW Standard Deviation 68.5 fL (35.1-43.9); Red Blood Count 2.42 Miln/mm3 (4.50-5.90); White Blood Count 33.9 Thou/mm3 (3.8-10.6)
[2024-08-03 05:48] LABS: Hemoglobin 6.8 g/dL (13.5-16.0); Platelet Count 35 Thou/mm3 (140-440)
[2024-08-03 06:13] LABS: Alanine Aminotransferase 12 U/L (10-49); Albumin, Serum 2.7 gm/dL (3.5-5.0); Alkaline Phosphatase 244 U/L (46-116); Anion Gap 16 (7-16); Aspartate Amino Transferase 29 U/L (0-34); BUN/Creatinine Ratio 49 Ratio (12-20); Bilirubin,Total 8.8 mg/dL (0.3-1.2); Blood Urea Nitrogen 54 mg/dL (9-23); Carbon Dioxide 16.8 mMol/L (20.0-31.0); Chloride 115 mMol/L (98-107); Creatinine (Component) 1.1 mg/dL (0.6-1.3); Estimated Creatinine Clearance 70.9 mL/min (>60); Globulin 2.8 gm/dL (2.3-3.5); Glucose 108 mg/dL (74-106); Osmolality,Calculated 309 (275-295); Potassium 3.8 mMol/L (3.4-5.1); Sodium 148 mMol/L (136-145); Total Protein 5.5 gm/dL (5.7-8.2); eGFR > 60 See Note
[2024-08-03 06:21] LABS: Lactate (Lactic Acid) 4.8 mMol/L (0.4-2.0)
[2024-08-03 07:56] LABS: Slide Review Platelets confirmed
[2024-08-03 08:00] VITALS: BP 117/86; PULSE 116; RESP 18; TEMP 36.9; O2SAT 95
[2024-08-03] MEDS: SODIUM CHLORIDE 0.9% 1000 ML 500 ML 250 ML IV (08:08)
[2024-08-03 08:20] LABS: Reflex Lactate? Y
[2024-08-03 08:22] VITALS: PULSE 117
[2024-08-03 08:56] LABS: Hematocrit 22.9 % (41.0-53.0)
[2024-08-03 09:01] LABS: Hemoglobin 7.2 g/dL (13.5-16.0)
[2024-08-03 09:09] LABS: Beta Hydroxybutyrate 1.4 mmol/L (<0.6)
[2024-08-03 09:13] LABS: Lactate (Lactic Acid) 5.5 mMol/L (0.4-2.0)
--- NOTE | 2024-08-03 09:33 | PD.RESPRO ---
Documentation for date of: 08/03/24 Subjective Subjective Interval history: 08/02/2024: Patient examined at bedside today. No acute overnight events. Patient appears to be weak and not eating currently. Patient's sodium today 145, potassium 2.9, T. bili 8, BUN/creatinine 93 and 1.0, glucose 102, white count 40, hemoglobin 7.4, platelets 36, AST 34, ALT 11, ALP 244, Albumin 2.4, urine output 200 mL. Vitals are stable at this point. No other complaints at this time. 08/03/2024: Patient examined at bedside today. No acute overnight events. Patient still appears to be weak and not eating. Patient's sodium today is 148, potassium 3.8, chloride 115, bicarb 17, BUN/creatinine 54 and 1.1 respectively, glucose 108, lactate 4.8, WBC 34, hemoglobin 6.8, platelets 35, anion gap 16, T. bili 9, calcium 12. Urine output 0. Pt pursuing hospice care. Exam Vital Signs Temp Pulse Resp BP Pulse Ox O2 Del Method 98.5 F 117 H 18 117/86 H 95 Room Air 08/03/24 08:00 08/03/24 08:22 08/03/24 08:00 08/03/24 08:00 08/03/24 08:00 08/03/24 08:00 Narrative Exam General: AAOx3, lethargic, weak, looks older than he is. HEENT: Dry mucous membranes, conjunctiva clear, EOMI, PERRLA, Cardiovascular: S1, S2, radial pulses +2 bilat, RRR Pulmonary: CTAB bilat no cough, no wheezing GI: Distended, + bowel sounds, no guarding Extremities: + edema in lower extremities bilaterally, dorsalis pedis pulses +2 bilaterally Neuro: AAOx3, limited neurologic exam Skin: Has diffuse jaundice Psych: Limited cooperation Objective Labs 08/03/24 08:27 08/03/24 05:00 Labs: Laboratory Results - last 24 hr 08/02/24 08/03/24 08/03/24 09:48 05:00 06:19 WBC 33.9 H D RBC 2.42 L Hgb 6.8 L* Hct 21.4 L* MCV 88 MCH 28.1 MCHC 31.8 RDW Std Deviation 68.5 H Plt Count 35 L Neut % (Auto) 89 H Lymph % (Auto) 4 L [place] % (Auto) 5 Eos % (Auto) 0 Baso % (Auto) 0 Neut # (Auto) 30.3 H Lymph # (Auto) 1.3 [place] # (Auto) 1.6 H Eos # (Auto) 0.0 Baso # (Auto) 0.1 Immature Gran # (Auto) 0.69 H Absolute Nucleated RBC 0.19 H Immature Gran % 2 H Nucleated RBC % 1 H Sodium 148 H Potassium 3.8 Chloride 115 H Carbon Dioxide 16.8 L Anion Gap 16 BUN 54 H Creatinine 1.1 Estim Creat Clear Calc 70.9 eGFR > 60 BUN/Creatinine Ratio 49 H Glucose 108 H Calculated Osmolality 309 H Lactic Acid 4.8 H* Calcium 11.0 H Corrected Calcium 12.0 H Total Bilirubin 8.8 H D AST 29 ALT 12 Alkaline Phosphatase 244 H Ammonia < 10 L Total Protein 5.5 L Albumin 2.7 L Globulin 2.8 Albumin/Globulin Ratio 1.0 L Beta-Hydroxybutyrate/Acetoacetate Misc Test Result Platelets confirmed Blood Type A Positive Antibody Screen NEGATIVE Crossmatch See Detail Blood Bank Wristband ID Yes 08/03/24 08:27 WBC RBC Hgb 7.2 L Hct 22.9 L MCV MCH MCHC RDW Std Deviation Plt Count Neut % (Auto) Lymph % (Auto) [place] % (Auto) Eos % (Auto) Baso % (Auto) Neut # (Auto) Lymph # (Auto) [place] # (Auto) Eos # (Auto) Baso # (Auto) Immature Gran # (Auto) Absolute Nucleated RBC Immature Gran % Nucleated RBC % Sodium Potassium Chloride Carbon Dioxide Anion Gap BUN Creatinine Estim Creat Clear Calc eGFR BUN/Creatinine Ratio Glucose Calculated Osmolality Lactic Acid 5.5 H* Calcium Corrected Calcium Total Bilirubin AST ALT Alkaline Phosphatase Ammonia Total Protein Albumin Globulin Albumin/Globulin Ratio Beta-Hydroxybutyrate/Acetoacetate 1.4 H Misc Test Result Blood Type Antibody Screen Crossmatch Blood Bank Wristband ID ABG Interpretation ABG results: 07/31/24 15:34 VBG pH 7.46 VBG pCO2 28 L VBG pO2 119 H VBG Base Excess -3 Quality Measures Quality Measures VTE prophylaxis Assessment & Plan Assessment Current Active Medications: Generic Name Dose Route Start Last Admin Trade Name Freq PRN Reason Stop Dose Admin Acetaminophen 1,000 mg 07/30/24 11:53 Acetaminophen 500 Mg Tablet PO 08/25/24 21:47 Q6H PRN pain and Fever >100.4 Protocol Calcitonin [place] 200 unit 08/01/24 11:45 08/02/24 09:06 Calcitonin, [place] Synth Inj 1 Unit/0.005 Ml Vial SC 08/04/24 11:44 200 unit QDAY PONCE Administration Chlorpromazine HCl 25 mg 08/02/24 22:40 08/02/24 22:42 Chlorpromazine Inj 25 Mg/Ml Ampule 2ml IM 09/01/24 12:24 25 mg BID PRN Administration HICCUPS Docusate Sodium 100 mg 07/29/24 09:00 08/03/24 09:05 Docusate Sod 100 Mg Capsule PO 08/28/24 08:59 Not Given QDAY [facility] Protocol Albumin Human 25 gm in 100 mls @ 100 mls/hr 08/01/24 21:00 08/02/24 21:12 Albuminar-25 Ivpb IV 08/04/24 20:59 100 mls/hr BID PONCE Administration Sodium Chloride 500 mls @ 250 mls/hr 08/03/24 07:47 08/03/24 08:08 Ns IV 08/03/24 09:46 250 mls/hr .Q2H ONE Administration Lactulose 10 gm 08/02/24 14:00 08/03/24 05:11 Lactulose Syrup 20 Gm/30 Ml Udc IN 09/01/24 13:59 10 gm TID PONCE Administration Protocol Metoclopramide HCl 10 mg 07/27/24 13:12 07/28/24 03:51 Metoclopramide 5 Mg Tablet PO 08/26/24 13:11 10 mg Q8H PRN Administration nausea and vomiting Midodrine 5 mg 07/26/24 21:53 Midodrine 5 Mg Tablet PO 08/25/24 21:59 TID PRN SBP<90 and DBP<50 Morphine Sulfate 2 mg 08/03/24 09:12 Morphine Sulf Inj 10 Mg/Ml Vial IVP 08/07/24 10:47 Q4HR PRN Pain 7-10 Pantoprazole Sodium 40 mg 07/27/24 09:00 08/03/24 09:05 Pantoprazole 40 Mg Tablet PO 08/26/24 08:59 Not Given QDAY [facility] Rifaximin 550 mg 08/01/24 21:00 08/03/24 09:05 Rifaximin 550 Mg Tablet PO 08/08/24 20:59 Not Given BID PONCE Sennosides 1 tab 07/28/24 22:23 Senna Tablet PO 08/27/24 22:22 QDAY PRN CONSTIPATION Protocol Plan Assessment 54-year-old male with past medical history of metastatic pancreatic cancer, depression, anxiety, PTSD, PUD, and degenerative disc disease was admitted to the hospital on 07/26/2024 for right parotitis. Patient is currently pursuing hospice care. #PTH independent hypercalcemia, improving #Elevated alkaline phosphatase #Hypoalbuminemia Calcium 12.0; PTH low (Appropriate response) 25 Hydroxyvitamin D 45.3 (Slightly elevated) QTc 438 This hypercalcemia is likely multifactorial likely related to immobilization and humoral hypercalcemia of malignancy (pancreatic cancer) Patient will be pursuing hospice at this point, patient does have poor prognosis Plan: ? F/u activated vitamin D, parathyroid related peptide ? Calcitonin 200 units subq qday ? Encourage mobilization with PT ? Trend with CMP ? Recommend laxatives for worsening constipation ? Albumin 25 gm IV BID #Hypovolemic Hypernatremia #Failure to thrive #NAGMA #Starvation Ketosis #Lactic acidosis, worsening NAGMA related to starvation ketosis, no significant respiratory compensation at this time Hypernatremia could be hypovolemic as patient appears clinically dry and is not eating Free water deficit of 1.1 L Patient may have to pursue PEG tube for water flushes and feeding Beta-hydroxybutyrate 1.4 (elevated) Lactate 4.8 Plan: ? Trend with CMP ? Half NS 100 cc/hour ? RD on consult, appreciate recs #Acute anemia, likely blood loss - stable #Right parotitis, resolved #Leukocytosis, likely reactive in the setting of malignancy #Pancreatic malignancy #Hyperbilirubinemia #UTI #Hx of metastatic pancreatic cancer #Hx of depression anxiety #Hx of PUD #Iron deficiency anemia Above handled by primary hospitalist team Patient seen and care discussed with my attending physician, Dr. Jade Vegas, PGY-1 Attending Provider Attestation/Addendum Patient seen and examined with resident physician Dr. Doss. Note reviewed, agree with findings and recommendations. Patient going with hospice.
[2024-08-03] MEDS: ALBUMIN HUMAN 25% IVPB 25 GM/100 ML BTL IV (09:44)
[2024-08-03] MEDS: SODIUM CHLORIDE 0.9% 1000 ML 1,000 ML 100 ML IV (10:09)
[2024-08-03] MEDS: CALCITONIN, SALMON SYNTH INJ 1 UNIT/0.005 ML VIAL 200 UNIT SC (10:40)
--- NOTE | 2024-08-03 10:40 | CHAP ---
[facility] and received comfort, encouragement and/or prayer.
--- NOTE | 2024-08-03 11:35 | ESDS_ITS ---
<Statement entered by Doyle Covington MD - 08/03/24 23:50> I discussed with and supervised the internal sales physician involved in the care of this patient. Patient assessment and plan was discussed with entire medicine team, including my attending. I agree with the assessment and plan as documented by internal sales doctor. Patient care was discussed with my attending physician Dr. River Covington, PGY-2 Planned Discharge Date 08/03/24 DS: Providers Provider Date of admission: 07/26/24 21:48 Primary care physician: UZMA Dsouza Admitting Provider: Dinorah Fairbanks MD Attending Provider on Admission: Gee Holman DO Consults: 07/26/24 21:54 Consult to Gastroenterology Routine Comment: Consulting Provider: Troy Nina 07/27/24 08:02 Consult to General Surgery Stat Comment: For placement of chemo port Consulting Provider: Angelica García 07/28/24 11:15 Consult to Oncology Routine Comment: Consulting Provider: Ross Landers 07/30/24 08:00 Referral Physical Therapy Routine Comment: Physician Instructions: Referral Registered Dietitian Routine Comment: 07/31/24 09:31 Consult to Nephrology Routine Comment: Hypercalcemia Consulting Provider: Yimi Hansen 07/31/24 14:00 Referral Physical Therapy Routine Comment: Physician Instructions: 08/02/24 09:42 Consult to Infectious Diseases Stat Comment: elevated wbc Consulting Provider: Claude Jaramillo 08/02/24 12:56 Referral Hospice Stat Comment: Attending Provider on DC: Chau Oviedo MD Discharging Provider: Chau Oviedo MD DS: Diagnosis Problem List Completed Was Problem List Reviewed/Reconciled?: Yes Hospital Course Hospital Course Hospital course: A 54-year-old male with past medical history of metastatic pancreatic cancer, depression, anxiety, PTSD, PUD, and degenerative disc disease was admitted to the hospital on 07/26/2024 after coming to the ED from his cancer center due to complaints of pain and tenderness in his right ear along with weakness, fevers, and chills. Patient was recently discharged from our hospital on 07/08/2024 after he was found to have metastasis of pancreatic cancer and get a biopsy do ne. Patient stated he follow-up with oncologist outpatient, but that he has been having issues with starting his chemotherapy as he has been having insurance issues to get approval for the Port-A-Cath. Patient mentioned that he has been having some ear fullness on the right ear along with right ear pain and jaw pain for the last week more or less. Hospital course: Initially came in normotensive and afebrile. Initial labs were relevant for WBC 33, Hb 8.4, platelets 159, sodium 127, chloride 90, lactate 4.5, procalcitonin 90.3, albumin 2.9 and UA was positive for bilirubin and bacteria. Patient also found to have elevated bilirubin, 6.6 likely due to metastasis from pancreatic cancer. Initial imaging included chest x-ray which showed no active disease, face CT which showed suspicion for right parotiditis, and abdomen/pelvis CT which showed malignant ascites, and focal area of edema in the kidneys, and again noted the necrotic mass the tail of the pancreas with that increase in siz e from 6 x 6.5 cm on June to 6.4 x 8.4 cm today. Renal ultrasound showed mild renal parenchymal scar formation. Renal artery Doppler did not show any evidence of renal artery stenosis. On 07/27/2024, hemoglobin is 6.4 for which patient received a unit of PRBC transfusion. Patient was started on cefepime, metronidazole and vancomycin for the treatment of suspected parotiditis. Patient is receiving morphine and oxycodone as needed for pain. MRI head with contrast is ordered to look for brain metastasis as patient was noted to have slowing of his mental status per his mother. Patient was scheduled to get Chemo- Port catheter for which general surgeon is consulted and he recommended to hold the procedure for now in view of suspected parotiditis and active infection. Coding Quality Coordinator, Dr. Hansen is consulted in view of hypercalcemia and patient was treated with bisphosphonates, calcitonin. As our medical center does not have any inpatient oncologist, initially tried to transfer patient to [facility] but in view of poor prognosis of the patient's medical condition, family denied further transfer. Patient is treated with IV antibiotics, fluids and opioids during the hospital stay. After having goals of care discussion with the family, they opted for hospice care Patient plan of care was discussed with the attending physician, Dr. Holman and senior resident Dr. Nadya Oviedo, PGY1 Time Spent with Patient Time attestation: Total time spent providing and/or coordinating discharge services: Time spent: Greater than 30 minutes Quality: Stroke Pt Provided Written Stroke Discharge Instructions: No (STROKE S/S) Exam Vital Signs Temp Pulse Resp BP Pulse Ox O2 Del Method 98.5 F 117 H 18 117/86 H 95 Room Air 08/03/24 08:00 08/03/24 08:22 08/03/24 08:00 08/03/24 08:00 08/03/24 08:00 08/03/24 08:00 Narrative Exam General: Awake. Icteric. Sick looking HEENT: Normocephalic, atraumatic, mucous membranes moist. Heart: Regular rhythm and rate, no murmurs. Lungs: Clear to auscultation with no wheezing or crackles. Abdomen: Soft, moderately distended, noted severe tenderness throughout the abdomen, positive bowel sounds. ?No guarding or rebound tenderness. Neurologic: Alert and oriented x3, no gross neurological deficit, and patient able to move all 4 extremities. Extremities: Bilateral 2+ pitting pedal edema noted, till above the ankles, increasing Skin: No rash or ecchymoses. Discharge Plan Plan Patient Disposition: Xfer Skilled Nsg Fac ([facility]) Patient condition on transfer: Stable Care Plan Goals: Patient is being discharged to SNF with hospice, mainly focusing on comfort measures Prescriptions/Referrals Prescriptions/Med Rec: Held ergocalciferol (vitamin D2) [Vitamin D2] 1,250 mcg (50,000 unit) capsule 1 cap PO QWEEK Hold Instructions: Resume on 08/03/24. Patient Comments: take 1 capsule by mouth every week ondansetron 4 mg tablet,disintegrating 4 mg PO Q6H PRN (Reason: nausea and vomiting) Qty: 20 0RF Hold Instructions: Resume on 08/03/24. oxycodone 5 mg tablet 5 mg PO Q6H MDD 4 PRN (Reason: pain) Qty: 20 0RF Hold Instructions: Resume on 08/03/24. duloxetine 40 mg capsule,delayed release(DR/EC) 40 mg PO QDAY Hold Instructions: Resume on 08/03/24. Patient Comments: take 1 capsule by mouth once daily cetirizine 10 mg tablet 10 mg PO HS Hold Instructions: Resume on 08/03/24. Patient Comments: take 1 tablet by mouth at bedtime morphine 15 mg tablet extended release 15 mg PO Q12H PRN (Reason: pain) Hold Instructions: Resume on 08/03/24. Patient Comments: take 1 tablet by mouth twice a day NEEDED FOR PAIN metoclopramide HCl 10 mg tablet 10 mg PO Q8H PRN (Reason: nausea and vomiting) Hold Instructions: Resume on 08/03/24. Patient Comments: TAKE 1 TABLET BY MOUTH EVERY 8 HOURS NEEDED FOR NAUSEA AND VOMITING Discontinued Nurtec ODT 75 mg tablet,disintegrating 1 tab PO DAILY Patient Comments: take 1 tablet by mouth every other day omeprazole 20 mg capsule,delayed release(DR/EC) 20 mg PO HS Patient Comments: take 1 capsule by mouth at bedtime naloxone 4 mg/actuation spray,non-aerosol 1 spray INTRANASAL Q3M PRN (Reason: opioid overdose) Patient Comments: ADMINISTER 1 SINGLE spray INTO ONE NOSTRIL if needed for OPIOID O... (REFER TO PRESCRIPTION NOTES). Referrals: Benjie Carlin, COMMUNICATIONS AGENT [Primary Care Provider] - Patient/Caregiver Discharge Instructions Meds to Beds: No Discharge Activity: other Education Materials: Nausea Vomit Control-Cancer Care, Measuring Your Pain, Medicine for Pain, Pancreatic Cancer Tx Dc Print Language: Czech Stand Alone Forms: Annie Award Info., Patient Portal Info Letter Discharge Order Discharge Orders: Discharge (Routine); Ordered 08/03/24 Ordered By: Chau Oviedo Quality Discharge Quality Measures VTE prophylaxis Attestestation MD Attestation I have discussed and was present for the essential components of the discharge history, physical examination, diagnosis, and discharge treatment plan with the resident. I agree with the patient's discharge care as documented by the resident and amended herein by me. Luke Holman DO. The patient was discharged to SNF with hospice care, mother and father at bedside, all questions were answered. Unfortunately very poor prognosis in setting of metastatic pancreatic cancer. Although this document has been carefully reviewed, there may still be some phonetic and other typographical errors. These errors are purely grammatical due to imperfections in the software program and should not be construed in any way to compromise the substance of the patient's medical care during this visit.
[2024-08-03 11:51] LABS: Reflex Lactate? Y
[2024-08-03 12:00] VITALS: BP 118/68; PULSE 114; RESP 16; TEMP 37.2; O2SAT 95
--- NOTE | 2024-08-03 12:34 | PC.SS ---
Follow up note: SS met with both mother and father to discuss hospice services. Mother prefers [facility] hospice at [facility]. SS spoke to Hallie @ [facility] and they agree to accept. Patient's mother is decision maker and will sign new admit paperwork. D/c for today. SS set up transport through [employer] for erarney apple picker at 2:30pm request for [place]. SS will continue to follow up with transportation arrangements. Parents are aware. Nursing aware. Packet complete.
[2024-08-03] MEDS: MORPHINE SULF INJ 10 MG/ML VIAL 2 MG IVP ×2 (12:40→16:42)
--- NOTE | 2024-08-03 13:20 | PC.NURSE ---
Report called to [facility] and given to Karin regarding eta of 1430 to facility.
[2024-08-03 16:00] VITALS: PULSE 110
--- NOTE | 2024-08-03 16:49 | PC.SS ---
HOSPITALITY AIDE notified patient's family and [facility] hospice that ambulance transport has been moved back to 06:00 pm this evening. [facility] staff, Betsy; informed HOSPITALITY AIDE that staff will be available to meet patient upon arrival to SNF this evening. If transport time delayed staff can contact [facility] at [phone] for on-call staff.
--- NOTE | 2024-08-03 19:40 | ESPR_ITS ---
Documentation for date of: 08/03/24 Subjective Subjective Interval history: Late entry for the note family decided for hospice care Exam Vital Signs Temp Pulse Resp BP Pulse Ox O2 Del Method 98.9 F 110 H 16 118/68 95 Room Air 08/03/24 12:00 08/03/24 16:00 08/03/24 12:00 08/03/24 12:00 08/03/24 12:00 08/03/24 12:00 Objective Labs 08/03/24 08:27 08/03/24 05:00 Labs: Laboratory Results - last 24 hr 08/03/24 08/03/24 08/03/24 05:00 06:19 08:27 WBC 33.9 H D RBC 2.42 L Hgb 6.8 L* 7.2 L Hct 21.4 L* 22.9 L MCV 88 MCH 28.1 MCHC 31.8 RDW Std Deviation 68.5 H Plt Count 35 L Neut % (Auto) 89 H Lymph % (Auto) 4 L [place] % (Auto) 5 Eos % (Auto) 0 Baso % (Auto) 0 Neut # (Auto) 30.3 H Lymph # (Auto) 1.3 [place] # (Auto) 1.6 H Eos # (Auto) 0.0 Baso # (Auto) 0.1 Immature Gran # (Auto) 0.69 H Absolute Nucleated RBC 0.19 H Immature Gran % 2 H Nucleated RBC % 1 H Sodium 148 H Potassium 3.8 Chloride 115 H Carbon Dioxide 16.8 L Anion Gap 16 BUN 54 H Creatinine 1.1 Estim Creat Clear Calc 70.9 eGFR > 60 BUN/Creatinine Ratio 49 H Glucose 108 H Calculated Osmolality 309 H Lactic Acid 4.8 H* 5.5 H* Calcium 11.0 H Corrected Calcium 12.0 H Total Bilirubin 8.8 H D AST 29 ALT 12 Alkaline Phosphatase 244 H Total Protein 5.5 L Albumin 2.7 L Globulin 2.8 Albumin/Globulin Ratio 1.0 L Beta-Hydroxybutyrate/Acetoacetate 1.4 H Misc Test Result Platelets confirmed Blood Type A Positive Antibody Screen NEGATIVE Crossmatch See Detail Blood Bank Wristband ID Yes Impressions Impression: Metastatic prostate carcinoma Family has decided to be on hospice care and patient is being discharged on hospice care ABG Interpretation ABG results: 07/31/24 15:34 VBG pH 7.46 VBG pCO2 28 L VBG pO2 119 H VBG Base Excess -3 Assessment & Plan A&P Narrative Leucocytosis pancreatic CA neg cx and no fever off abx fever seems likely to be due to her CA. steroids can also do this so if there is recent steroid administration that can be associated with leucocytosis earliest I can see is wed. pm Time Spent With Patient Time: Total time spent is greater than 50% in coordination of care (as documented) at patient's floor/unit and/or counseling patient:
[2024-08-09 06:56] LABS: Vitamin D,1,25 (OH)2,Total 9 pg/mL (18-72); Vitamin D3, 1,25 (OH)2 <8 pg/mL
[2024-08-09 06:57] LABS: Vitamin D2, 1,25 (OH)2 9 pg/mL
== END 2024-08-03 17:50 | disposition skilled nursing facility (03) | DRG 115 ==
LOC: SERX 21:51 → SERHOLD 23:13 → S3NX 07-27 06:32 → S3SX 07-28 18:41 → S2SX 07-28 22:14 → S3SX 07-29 18:57 → S2NX 07-31 13:03
PROVIDERS: Nurse Practitioner Family; Student in an Organized Health Care Education/Training Program; Admitting Provider Internal Medicine; Emergency Provider Family Medicine; Visit Provider Student in an Organized Health Care Education/Training Program
DX: K11.21 Acute sialoadenitis (principal); F41.9 Anxiety disorder, unspecified; F32.A Depression, unspecified; F43.10 Post-traumatic stress disorder, unspecified; E87.1 Hypo-osmolality and hyponatremia; Z87.11 Personal history of peptic ulcer disease; C25.9 Malignant neoplasm of pancreas, unspecified; C78.7 Secondary malignant neoplasm of liver and intrahepatic bile duct; Z87.891 Personal history of nicotine dependence; Z90.49 Acquired absence of other specified parts of digestive tract; H72.91 Unspecified perforation of tympanic membrane, right ear; E87.20 Acidosis, unspecified; N39.0 Urinary tract infection, site not specified; R18.0 Malignant ascites; D50.9 Iron deficiency anemia, unspecified; D62 Acute posthemorrhagic anemia; D69.6 Thrombocytopenia, unspecified; E83.52 Hypercalcemia; E86.1 Hypovolemia; C79.82 Secondary malignant neoplasm of genital organs; E87.0 Hyperosmolality and hypernatremia; E88.09 Other disorders of plasma-protein metabolism, not elsewhere classified; G93.40 Encephalopathy, unspecified; H93.19 Tinnitus, unspecified ear; E87.70 Fluid overload, unspecified; I47.10 Supraventricular tachycardia, unspecified; R62.7 Adult failure to thrive; Z51.5 Encounter for palliative care; Z88.0 Allergy status to penicillin; F43.9 Reaction to severe stress, unspecified
CPT/HCPCS: 36415; 70488; 70552; 71045; 71046; 74176; 76705; 76770; 80053; 80202; 81001; 82010; 82140; 82248; 82306; 82652; 82803; 83605; 83735; 83970; 84100; 84145; 85014; 85018; 85025; 85610; 85730; 86850; 86900; 86901; 86923; 87040; 87081; 87086; 87400; 87811; 93005; 93225; 93306; 93975; 96365; 96367; 96372; 96374; 96375; 97162; 99285; A4649; G0378; J0153; J0630; J0692; J1644; J1956; J2270; J2405; J2430; J3230; J3370; J3475; J3490; J7030; J7050; J7120; J7999; P9016; P9047; Q9967; S0077; A9270; J0736; J1836